=== PATIENT | male | born 1930 | race Caucasian/White ===

== ENCOUNTER 2017-11-05 07:55 | Day surgery (SDC) | payer MEDICARE, BC ==
--- OUTSIDE RECORDS SUMMARY | 2017-11-05 07:57 | XMS REPORT ---
:1930 Author Organization [facility] Address [address] [place] [address] [address] [address] Care Team Providers Name Role Phone SONYA MENCHACA Primary Care Provider Unavailable Problems This patient has no known problems. Allergies, Adverse Reactions, Alerts This patient has no known allergies or adverse reactions. Medications This patient has no known medications. Encounters Start End Encounter Admission Attending Care Care Encounter Date/Time Date/Time Type Type Clinicians Facility Department ID 2017-01-11 2017-01-11 Outpatient C [facility] [id number] 09:23:00 09:23:00
[2017-11-05 08:23] LABS: Protime INR 1.16
[2017-11-05] MEDS ORDERED: NA CHLORIDE 0.9% 500 ML ONE (09:33)
[2017-11-05] MEDS: PHENYLEPHRINE 10% OPTH 5ML ONE ×3 (10:05→10:15)
[2017-11-05] MEDS: CYCLOPENTOLATE 1% OPTH 2 ML ONE ×3 (10:05→10:15)
[2017-11-05] MEDS ORDERED: NS 0.9% VIAL 10 ML ONE (10:06)
[2017-11-05] MEDS ORDERED: MOXIFLOXACIN HCL 10 DROPS/ML **OR USE OPTH ONE (10:06)
[2017-11-05] MEDS ORDERED: BALANCED SALT IRRIG PLAIN 500 ML BTL IRR ONE (10:06)
[2017-11-05] MEDS ORDERED: DUOVISC 1 KIT OPTH ONE (10:06)
[2017-11-05] MEDS ORDERED: EPINEPHRINE/PF 1 MG/ML AMP ONE ×2 (10:06→11:22)
[2017-11-05] MEDS ORDERED: PROPOFOL 200 MG/20 ML VIAL IV ONE (10:27)
[2017-11-05] MEDS ORDERED: LIDOCAINE 2% MPF 5 ML VIAL ONE (10:28)
[2017-11-05] MEDS: LIDOCAINE 2% MPF 5 ML VIAL ONE ×2 (10:33→10:46)
[2017-11-05] MEDS: TETRACAINE HCL 0.5% 2ML OPTH ONE ×2 (10:33→10:45)
[2017-11-05] MEDS: BUPIVACAINE 0.25% PF 10 ML VIAL ONE ×2 (10:34→10:46)
[2017-11-05] MEDS ORDERED: BSS PLUS 500 ML BOTTLE IRR ONE (10:52)
--- NOTE | 2017-11-05 11:57 | P.BOP ---
Preoperative diagnosis: Nuclear sclerotic cataract and miosis OS Postoperative diagnosis: Same Primary procedure: Phacoemulsification with IOL, complex with the use of iris retractors Estimated blood loss: None Anesthesia: Local (Subtenon's infusion with anesthesia for cataract surgery) Complications: None Implants: ZCB00 +24.0 Transferred to: Other (Day surgery) Condition: Good
[2017-11-05 12:57] VITALS: BP 146/75; TEMP 97.4; O2SAT 100
--- NOTE | 2017-11-05 23:08 | OP ---
Date of Procedure: 11/05/2017 Surgeon: Joseline Luque MD Anesthesiologist: 1. Neal Henry CRNA. 2. Jesus Mccullough M.D. 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 Operation Performed: Phacoemulsification with intraocular lens implant left eye complex with the use of iris retractors. Anesthesia: Per cataract surgery. Complications: None. Description Of The Procedure: In day surgery, the patient was prepped with Betadine and draped. A lid speculum was placed in the left eye. A conjunctival incision was made in the inferior nasal quadrant with Nicolle scissors. A 1:1 mixture of 2% Xylocaine and 0.25% bupivacaine was placed around the globe. Approximately 5 mL were used. A Honan balloon was placed on the eye for approximately 5 minutes. The patient was brought into the operative room. The patient was prepped and draped in the usual sterile fashion for ophthalmic surgery. A lid speculum was placed in the eye. Paracentesis were made superiorly and inferiorly in the limbal cornea. Viscoat was placed in the anterior chamber. A crescent blade was used to create a tunnel incision in the temporal cornea and a keratome was used to enter the anterior chamber. Five additional paracentesis sites were created with one at the wound, one 180 degrees from the wound, and three in the superior and inferior quadrants; through these, 5 iris retractors were placed. Provisc was placed in the eye and 360 degree capsulotomy was performed. The lens was hydrodissected with balanced salt solution and moved freely. The lens was removed in a stop and chop fashion. 18.49 phaco CDE was required. Irrigation and aspiration was used to remove residual cortex. Provisc was placed in the eye. A ZCB00 +24.0 diopter lens was placed in the capsular bag without complications. The iris retractors were removed. Irrigation and aspiration was used to remove residual viscoelastic. The paracentesis sites were hydrated with balanced salt solution and the wound and paracentesis sites were inspected and found to be watertight. Intracameral Vigamox 0.07 cc was injected at the end of the procedure. The eye was irrigated with balanced salt solution. The eye was patched with a soft cotton patch and Epstein metal shield. The patient was returned to day surgery in good condition. Comments: A conjunctival incision was created temporally and the incision was initiated in the sclera. 1:5000 epinephrine was placed in the anterior chamber prior to Viscoat. The pupil did not dilate adequately and iris retractors were used. Bipolar cautery was used at the end of the procedure to reapproximate the conjunctiva. Discharge Instructions: Mr. Gutierres is discharged to home in good condition and is to follow up with Dr. Luque in the morning. KENYA/KHUSHBU Voice ID: [id number] Report ID: [id number] MTDD
== END 2017-11-05 12:30 | disposition home or self-care (01) ==
LOC: OR 07:55
PROVIDERS: ATTEND Ophthalmology Retina Specialist
PROC: 08RK3JZ Replacement of Left Lens with Synthetic Substitute, Percutaneous Approach (ICD-10-PCS; principal; 2017-11-05 10:30)
DX: H25.12 Age-related nuclear cataract, left eye (principal); H25.032 Anterior subcapsular polar age-related cataract, left eye; H57.03 Miosis; H43.813 Vitreous degeneration, bilateral; H35.3130 Nonexudative age-related macular degeneration, bilateral, stage unspecified; H18.51 Endothelial corneal dystrophy; I10 Essential (primary) hypertension; E78.00 Pure hypercholesterolemia, unspecified; M19.90 Unspecified osteoarthritis, unspecified site; K21.9 Gastro-esophageal reflux disease without esophagitis; Z85.528 Personal history of other malignant neoplasm of kidney; Z79.01 Long term (current) use of anticoagulants; Z79.82 Long term (current) use of aspirin
CPT/HCPCS: 36415; 66982; 85610; J0171 ×2

== ENCOUNTER 2018-02-11 10:45 | Day surgery (SDC) | payer MEDICARE, BC ==
--- OUTSIDE RECORDS SUMMARY | 2018-02-11 11:59 | XMS REPORT | Continuity of Care Document ---
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, OPID [place] Back pain Resolved Problem 12/02/2017 [facility], [facility] [place] Fatigue Active Problem 12/02/2017 [facility], OP[facility] [place] GERD - Resolved Problem 12/02/2017 [facility] Gastroesophageal Medical reflux disease [place], OPID [place] HLD - Resolved Problem 12/02/2017 [facility], OPID [place] TELIDA (<span Resolved Problem 12/02/2017 [facility] ID="[id number]"> Medical Confirmed</span>) Center, OPID [place] HTN - Hypertension Resolved Problem 12/02/2017 [facility], OP[facility] [place] Renal cancer Resolved Problem 12/02/2017 [facility], OP[facility] [place] Renal mass Resolved Problem 12/02/2017 [facility], [facility] [place] Arthritis of knee Resolved Problem 02/26/2017 [facility], OPID [place] Back pain Resolved Problem 02/26/2017 [facility], OPID [place] Fatigue Active Problem 02/26/2017 [facility], OPID [place] GERD - Resolved Problem 02/26/2017 [facility] Gastroesophageal Medical reflux disease [place], OPID [place] HLD - Resolved Problem 02/26/2017 [facility], OPID [place] TELIDA (<span Resolved Problem 02/26/2017 [facility] ID="[id number]"> Medical Confirmed</span>) Center, OPID [place] HTN - Hypertension Resolved Problem 02/26/2017 [facility], OPID [place] Renal cancer Resolved Problem 02/26/2017 [facility], OPID [place] Renal mass Resolved Problem 02/26/2017 [facility], OPID [place] Arthritis of knee Resolved Problem 12/13/2017 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, Medical Group GERD - Resolved Problem 12/13/2017 [facility] Gastro-esophageal Medical reflux disease Center, Medical Group HLD - Resolved Problem 12/13/2017 [facility], Medical Group TELIDA (<span Resolved Problem 12/13/2017 [facility] ID="[id number]"> Medical Confirmed</span>) Center, Medical Group HTN - Hypertension Resolved Problem 12/13/2017 [facility], Medical Group Frequency of Active Problem 12/13/2017 [facility] micturition [place], OPID [facility], Medical Group Malignant neoplasm Active Problem 12/13/2017 [facility] of left kidney, [place], except renal OPID pelvis [facility], Medical Group Neoplasm of Active Problem 12/13/2017 OPID uncertain behavior [place], of left kidney OPID [facility], Medical Group Nocturia Active Problem 12/13/2017 OPID [place], OPID [facility], Medical Group Renal cancer Resolved Problem 12/13/2017 [facility], Medical Group Renal mass Resolved Problem 12/13/2017 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 [place] Benign prostatic 11/08/2017 OPID hyperplasia with [place] lower urinary tract symptoms Aortic ectasia, 11/08/2017 OPID unspecified site [place] Diverticulosis of 11/08/2017 OPID large intestine [place] without perforation or abscess without bleeding Encounter for 11/08/2017 OPID screening for [place] malignant neoplasm of prostate Other fatigue Active Problem 11/20/2016 OPID [place], OPID [facility] ISCHEMIC Active [facility] GANGRENE, NOT Active ELSEWHERE [place] CLASSIFIED NEOPLASM OF Active [facility] UNCERTAIN BEHAVIOR Medical OF [facility] ENCNTR FOR GENERAL Active [facility] ADULT MEDICAL EXAM Medical W/ Center Medications Medication Details Route Status Patient Ordering Order Source Instructions Provider Date atorvastatin 20 mg 20 mg=1 tab, PO, Active oral tablet Bedtime, # 30 2018 Medical tab, 0 Refill(s) Group PreserVision AREDS 1 cap, PO, Active 2 oral capsule Daily, 0 2017 Medical Refill(s) Group Sodium Chloride 0 Refill(s) Active 0.854 MEQ/ML 2017 Medical Ophthalmic Group Solution [Jossie 128] warfarin 7.5 mg 7.5 mg=1 tab, Active oral tablet PO, Daily, 0 2017 Medical Refill(s) Group PreserVision AREDS 1 cap, PO, Active 2 Daily, 0 2017 Medical Refill(s) Group tamsulosin 0.4 mg 0.4 mg=1 cap, Active oral capsule PO, Daily, 0 2017 Medical Refill(s) Group nebivolol 2.5 MG 2.5 mg=1 tab, Active Oral Tablet PO, Daily, 0 2017 Medical [Bystolic] Refill(s) Group pantoprazole 40 MG 40 mg=1 tab, PO, Active Enteric Coated Daily, 0 2018 Medical Tablet [Protonix] Refill(s) Group Centrum Daily, 0 Active Refill(s) 2018 Medical Group Acetaminophen 500 1,000 mg=2 tab, Active MG Oral Tablet PO, Q6H, 0 2018 Medical [Tylenol] Refill(s) Group enoxaparin 100 70 mg, SUB-Q, Active .16.840 mg/mL subcutaneous Q12H, Administer 2016 .1.20844 solution 0.7 ml (70 mg) 3.3.615. of enoxaparin 95 (Lovenox) subcutaneously every 12 hours., # 20 ea, 0 Refill(s), Pharmacy: [place] [address] Warfarin Sodium 2 4 mg=2 tab, PO, Active [facility] MG Oral Tablet Daily, # 60 tab, 2016 Medical [Coumadin] 1 Refill(s), Center Pharmacy: [place] [address] enoxaparin 100 70 mg, SUB-Q, Active [place] mg/mL subcutaneous Q12H, Administer 2016 Medical solution 0.7 ml (70 mg) Center of enoxaparin (Lovenox) subcutaneously every 12 hours., # 20 ea, 0 Refill(s), Pharmacy: [place] [address] Sulfamethoxazole 0 Refill(s) Active [facility] 2016 Medical Center enoxaparin 100 70 mg, SUB-Q, Active [place] mg/mL subcutaneous Q12H, Administer 2016 Medical solution 0.7 ml (70 mg) Center of enoxaparin (Lovenox) subcutaneously every 12 hours., # 28 ea, 0 Refill(s) Acetaminophen 300 1 tab, PO, Q4H, Active [facility] MG / Codeine PRN Pain Score 2016 Medical Phosphate 30 MG 4-6, not to Center Oral Tablet exceed 4000 mg acetaminophen per day, X 7 day, # 42 tab, 0 Refill(s) 24 HR Nifedipine 30 mg=1 tab, PO, Active [place] 30 MG Extended BID, 0 Refill(s) 2016 Medical Release Tablet Center loratadine 10 mg 10 mg=1 tab, PO, Active [facility] oral tablet Daily, 0 2016 Medical Refill(s) Center doxycycline 100 mg=1 tab, Active [facility] hyclate 100 MG PO, [id number], november 2015 Medical Oral Capsule take with food Center to minimize abdominal discomfort, # 30 tab, 0 Refill(s) ciprofloxacin 250 250 mg=1 tab, Active [place] mg oral tablet PO, [id number], X 7 2015 day, # 14 tab, 0 Center Refill(s) Dulcolax Laxative 10 mg, 1 supp, Inactive [place] Route: [place], Drug 2015 Medical form: SUPP, Center ONCE, Dosing Weight 67.273, kg, PRN Gas, Start date: 09/12/15 10:48:00Notes: (Same As: Dulcolax, Bisco-Lax) lansoprazole 30 mg, Route: No Longer [place] PO, Drug form: Active 2015 Medical DRC, Daily, Center Dosing Weight 67.273, kg, Start date: 09/12/15 9:00:00, Duration: 30 day, Stop date: 10/11/15 9:00:00 nebivolol 5 mg, 1 tab, No Longer [place] Route: PO, Drug Active 2015 Medical form: TAB, Center Bedtime, Dosing Weight 67.273, kg, Start date: 09/11/15 21:00:00, Duration: 30 day, Stop date: 10/10/15 21:00:00Notes: (same as: Bystolic) atorvastatin 20 mg, 1 tab, No Longer [place] Route: PO, Drug Active 2015 Medical form: TAB, Center Bedtime, Dosing Weight 67.273, kg, Start date: 09/11/15 21:00:00, Duration: 30 day, Stop date: 10/10/15 21:00:00Notes: (Same As: Lipitor) Lovenox 40 mg, 0.4 mL, No Longer [place] Route: SUB-Q, Active 2015 Medical Drug form: INJ, Center [id number], Dosing Weight 67.273, kg, Start date: 09/11/15 19:00:00, Duration: 30 day, Stop date: 10/10/15 19:00:00Notes: (Same as: Lovenox) 24 HR Nifedipine 30 mg, 1 tab, No Longer [place] 30 MG Extended Route: PO, Drug Active 2015 Medical Release Tablet form: ERTAB, [place] BID, Dosing Weight 67.273, kg, Start date: 09/11/15 16:00:00, Duration: 30 day, Stop date: 10/11/15 8:00:00Notes: (Same as: Adalat CC, Procardia XL) Give on empty stomach. Take 1 hour before or 2 hours after meal; "Avoid grapefruit and grapefruit juice". Do not crush doxycycline 100 mg, 1 tab, No Longer [place] hyclate 100 MG Route: PO, Drug Active 2015 Medical Oral Capsule form: TAB, [place] [id number], Dosing Weight 67.273, kg, Start date: 09/11/15 12:00:00, Duration: 30 day, Stop date: 10/11/15 0:00:00Notes: NO MILK/ANTACIDS/IR ON Take 1 hour before or 2 hours after dairy products Loratadine 10 mg, 1 tab, No Longer [place] Route: PO, Drug Active 2015 Medical form: TAB, [place] Daily, Dosing Weight 67.273, kg, Start date: 09/11/15 12:00:00, Duration: 30 day, Stop date: 10/11/15 8:00:00Notes: 1 hr before meals (Same as: Claritin) Protonix 40 mg, 1 tab, No Longer [place] Route: PO, Drug Active 2015 Medical form: ECTAB, [place] Before Breakfast, Start date: 09/11/15 12:00:00, Duration: 30 day, Stop date: 10/11/15 7:30:00Notes: Tablet should not be chewed or crushed. (Same as: Protonix) Docusate 100 mg, Route: Inactive [place] PO, BID, Dosing 2015 Medical Weight 67.273, Center kg, PRN Constipation, Start date: 09/11/15 11:08:00, Duration: 30 day, Stop date: 10/11/15 11:07:00 Docusate 100 mg, PO, BID, Active [place] PRN as needed 2015 Medical for [place] constipation, 0 Refill(s) Dulcolax Laxative 10 mg, 1 supp, Inactive [place] Route: [place], Drug 2016 Medical form: SUPP, Center ONCE, Dosing Weight 67.273, kg, PRN Gas, Start date: 09/11/15 8:23:00Notes: (Same As: Dulcolax, Bisco-Lax) Aspirin 81 MG 81 mg=1 tab, PO, No Longer [facility] Enteric Coated Daily, # 90 tab, Active 2015 Medical Tablet 3 Refill(s) Center nebivolol 5 mg 5 mg=1 tab, PO, Active [facility] oral tablet Bedtime, 0 2015 Medical Refill(s) Center atorvastatin 20 mg 20 mg=1 tab, PO, Active [facility] oral tablet Bedtime, # 30 2016 Medical tab, 0 Refill(s) Center lansoprazole 30 mg 30 mg=1 cap, PO, Active [facility] oral delayed Daily, # 30 cap, 2015 Medical release capsule 0 Refill(s) Center 24 HR Nifedipine 30 mg=1 tab, PO, No Longer [facility] 30 MG Extended BID, 0 Refill(s) Active 2015 Medical Release Tablet Center ceFAZolin (SCIP) 1 gm, Route: Inactive [facility] IVPB, Drug form: 2016 Medical PDR/INJ, Q8H, Center Dosing Weight 67.273, kg, Start date: 09/10/15 16:00:00, Duration: 1 doses or times, Stop date: 09/10/15 16:00:00Notes: (Same As: Curt Leiva) MEDICATION WASTE Product Size: 1000 mg Product Wasted: ___ mg Ondansetron 4 mg, Route: Inactive [facility] IVP, ONCE, 2016 Medical Dosing Weight Center 67.273, kg, PRN Nausea & Vomiting, Start date: 09/10/15 10:36:00 Naloxone 0.04 mg, Route: Inactive [facility] IVP, Q2MIN, 2015 Medical Dosing Weight Center 67.273, kg, PRN Narcotic Reversal, Start date: 09/10/15 10:36:00, Duration: 8 doses or times, Stop date: Limited # of times Flumazenil 0.2 mg, Route: Inactive [facility] IVP, PRN, Dosing 2015 Medical Weight 67.273, Center kg, PRN Benzodiazepine Reversal, Initial dose, Start date: 09/10/15 10:36:00, Duration: 30 day, Stop date: 10/10/15 11:35:00 Hydromorphone 0.5 mg, Route: Inactive [facility] IVP, Q5Min, 2015 Medical Dosing Weight Center 67.273, kg, PRN Pain Score 7-10, Start date: 09/10/15 10:36:00, Duration: 4 doses or times, Stop date: Limited # of times Ephedrine 5 mg, Route: Inactive [facility] IVP, Q5Min, 2015 Medical Dosing Weight Center 67.273, kg, PRN Low Blood Pressure, Start date: 09/10/15 10:36:00, Duration: 30 day, Stop date: 10/10/15 11:35:00 Metoprolol 1 mg, Route: Inactive [facility] IVP, Q5Min, 2015 Medical Dosing Weight Center 67.273, kg, PRN Other -See Comment, Start date: 09/10/15 10:36:00, Duration: 5 doses or times, Stop date: Limited # of times Hydralazine 10 mg, Route: Inactive [facility] IVP, Q20Min, 2015 Medical Dosing Weight Center 67.273, kg, PRN Elevated BP, Start date: 09/10/15 10:36:00, Duration: 2 doses or times, Stop date: Limited # of times esmolol 10 mg, Route: Inactive [facility] IVP, Q5Min, 2015 Medical Dosing Weight Center 67.273, kg, PRN Other -See Comment, Start date: 09/10/15 10:36:00, Duration: 5 doses or times, Stop date: Limited # of times docusate sodium 100 mg, 1 cap, No Longer [place] 100 mg oral Route: PO, Drug Active 2015 Medical capsule form: CAP, BID, Center Dosing Weight 67.273, kg, Start date: 09/10/15 9:00:00, Duration: 30 day, Stop date: 10/09/15 17:00:00Notes: (Same as: Colace) (Do Not Crush) Famotidine 20 mg, 1 tab, No Longer [place] Route: PO, Drug Active 2015 Medical form: TAB, Q12H, Center Dosing Weight 67.273, kg, Start date: 09/10/15 9:00:00, Duration: 30 day, Stop date: 10/09/15 21:00:00Notes: (Same as: Pepcid) Cipro 250 mg, 1 tab, No Longer [place] Route: PO, Drug Active 2015 Medical form: TAB, Center [id number], Dosing Weight 67.273, kg, Start date: 09/10/15 9:00:00, Duration: 30 day, Stop date: 10/09/15 21:00:00Notes: May interfere w/enteral feedings - Hydromorphone 15 mg, 30 mL, No Longer [place] Route: IV, Active 2015 Medical Initial Loading Center Dose: 0 mg, [employer] Dose: 0.1mg, [employer] Lockout: 10 minutes, Continuous Basal Rate: 0 mg, 4 Hour Limit (In MG): 6, Drug Form: INJ, Continuous, Start date: 09/10/15 8:30:00, Duration: 30 day, Stop date: 10/10/15 9:29:00Notes: (Same as: Dilaudid) conc=0.5 mg/ml Hydromorphone [employer] Dose: ;Delay: ;Basal: Naloxone 0.04 mg, 0.1 mL, No Longer [place] Route: IVP, Drug Active 2015 Medical form: INJ, Center Q2MIN, Dosing Weight 67.273, kg, PRN Narcotic Reversal, Start date: 09/10/15 8:03:00, Duration: 30 day, Stop date: 10/10/15 9:02:00Notes: Same as Narcan Calcium Chloride 1,000 mL, Rate: No Longer [place] 0.0014 MEQ/ML / 125 ml/hr, Active 2015 Medical Potassium Chloride Infuse over: 8 Center 0.004 MEQ/ML / hr, Route: IV, Sodium Chloride Dosing Weight 0.103 MEQ/ML / 67.273 kg, Total Sodium Lactate Volume: 1,000, 0.028 MEQ/ML Start date: Injectable 09/10/15 Solution 8:03:00, Duration: 30 day, Stop date: 10/10/15 8:02:00 acetaminophen-code 2 tab, Route: No Longer [place] ine #3 PO, Drug Form: Active 2015 Medical TAB, Dosing Center Weight 67.273, kg, Q4H, PRN Pain Score 4-6, Start date: 09/10/15 8:03:00, Duration: 30 day, Stop date: 10/10/15 8:02:00Notes: Do not exceed 4gm/day of acetaminophen. (Same as: Tylenol with Codeine # 3) Ondansetron 4 mg, 2 mL, No Longer [place] Route: IVP, Drug Active 2015 Medical form: INJ, Q6H, Center Dosing Weight 67.273, kg, PRN Nausea & Vomiting, Start date: 09/10/15 8:03:00, Duration: 30 day, Stop date: 10/10/15 8:02:00Notes: (Same as: Zofran) MEDICATION WASTE Product Size: 4 mg Product Wasted: _0_ mg bupivacaine 20 mL, Route: Inactive [facility] liposome InFILtration(loc 2015 Medical al), Drug Form: Center INJ, ONCE, Start date: 09/10/15 8:00:00, Stop date: 09/10/15 8:00:00Notes: (Same as: Exparel) NOT FOR IV use Postoperative analgesia: Infiltration (local): Dose is based on surgical site and volume required to cover the area (in general, the maximum total dose is 266 mg). Bunionectomy: 7 mL into the tissues surrounding the osteotomy and 1 mL into the subcutaneous tissue of the surgical site (total dose=8 mL [106 mg]) Hemorrhoidectomy : 30 mL (20 mL vial diluted with 10 mL NS) divided and administered as 6 injections of 5 mL each (total dose=30 mL [266 mg]) Doxycycline 100 mg, PO, BID, No Longer [facility] 0 Refill(s) Active 2015 [facility] 24 HR Nifedipine 30 mg=1 tab, PO, Active [facility] 30 MG Extended BID, # 60 tab, 0 2015 Medical Release Tablet Refill(s) [place] loratadine 10 mg 10 mg=1 tab, PO, Inactive [facility] oral tablet Daily, # 30 tab, 2015 Medical 0 Refill(s) Center nebivolol 5 mg 5 mg=1 tab, PO, Active [facility] oral tablet Daily, # 30 tab, 2016 Medical 0 Refill(s) Center enoxaparin 80 70 mg=0.7 mL, Inactive [place] mg/0.8 mL SUB-Q, [id number], 2016 Medical subcutaneous # 28 syr, 0 Center solution Refill(s) doxycycline 100 mg=1 tab, Inactive [facility] hyclate 100 MG PO, [id number], # 2016 Medical Oral Capsule 60 tab, 0 Center Refill(s) atorvastatin 20 mg 20 mg=1 tab, PO, Active [facility] oral tablet Bedtime, # 30 2016 Medical tab, 0 Refill(s) Center lansoprazole 30 mg 30 mg=1 cap, PO, Active [facility] oral delayed Daily, # 30 cap, 2016 Medical release capsule 0 Refill(s) Center Aspirin 81 MG 81 mg=1 tab, PO, Active [facility] Chewable Tablet Daily, # 90 tab, 2016 Medical 0 Refill(s) Center tramadol 50 mg=1 tab, PO, Inactive [facility] hydrochloride 50 Q8H, PRN Pain, # 2016 Medical MG Oral Tablet 60 tab, 0 Center Refill(s) doxycycline 100 mg, 1 tab, No Longer [facility] hyclate 100 MG Route: PO, Drug Active 2015 Medical Oral Capsule form: TAB, Center [id number], Dosing Weight 67.4, kg, Start date: 08/09/15 14:00:00, Duration: 30 day, Stop date: 09/08/15 2:00:00Notes: NO MILK/ANTACIDS/IR ON Take 1 hour before or 2 hours after dairy products Lovenox 70 mg, 0.7 mL, No Longer [place] Route: SUB-Q, Active 2015 Medical Drug form: INJ, Center [id number], Start date: 08/07/15 21:00:00, Duration: 30 day, Stop date: 09/06/15 9:00:00Notes: Nurse to ensure documentation of patient education per anticoagulation policy. (Same as: Lovenox) docusate sodium 100 mg, 1 cap, No Longer [place] 100 mg oral Route: PO, Drug Active 2015 Medical capsule form: CAP, Center Bedtime, Dosing Weight 67.4, kg, PRN as needed for constipation, Start date: 08/04/15 20:23:00, Duration: 30 day, Stop date: 09/03/15 20:22:00Notes: (Same as: Colace) (Do Not Crush) Miralax 17 gm, 1 pkt, No Longer [place] Route: PO, Drug Active 2015 Medical form: PWDR, BID, Center Dosing Weight 67.4, kg, Start date: 08/04/15 20:23:00, Duration: 30 day, Stop date: 09/03/15 17:00:00Notes: Dissolve in 8 oz of water or juice. (Same as: Miralax) ceftaroline 600 mg, Route: No Longer [place] IVPB, [id number], Active 2015 Medical Dosing Weight Center 67.4, kg, Start date: 08/04/15 18:00:00, Duration: 30 day, Stop date: 09/03/15 6:00:00, For CrCl > 50 ml/minNotes: Reserved for use by ID Physicians in refractory MRSA skin and skin structure infections or intolerance to vancomycin, daptomycin or linezolid. MEDICATION WASTE Product Size: 600 mg Product Wasted: ___ mg Naloxone 0.04 mg, Route: Inactive [place] IVP, Q2MIN, 2015 Medical Dosing Weight Center 67.4, kg, PRN Narcotic Reversal, Start date: 08/04/15 14:10:00, Duration: 8 doses or times, Stop date: Limited # of times Flumazenil 0.2 mg, Route: Inactive [place] IVP, PRN, Dosing 2015 Medical Weight 67.4, kg, Center PRN Benzodiazepine Reversal, Initial dose, Start date: 08/04/15 14:10:00, Duration: 30 day, Stop date: 09/03/15 14:09:00 Ondansetron 4 mg, Route: Inactive [place] IVP, ONCE, 2015 Medical Dosing Weight Center 67.4, kg, PRN Nausea & Vomiting, Start date: 08/04/15 14:10:00 Cefazolin 2 gm, Route: Inactive [place] IVP, ONCE, 2016 Medical Dosing Weight Center 67.4, kg, Start date: 08/04/15 13:11:00, Duration: 1 doses or times, Stop date: 08/04/15 13:11:00, Surgical Prophylaxis Only; For patients Multihance 529 13.48 mL, Route: Inactive [place] mg/mL IVP, Drug form: 2016 Medical SOLKELLY [place], Center Dosing Weight 67.4, kg, GFR > 39 ml/min, Priority: STAT, Start date: 07/31/15 23:15:00, Duration: 1 doses or times Levaquin 750 mg, 1 tab, No Longer [place] Route: PO, Drug Active 2015 Medical form: TAB, Center [id number], Dosing Weight 67.472, kg, Start date: 07/30/15 17:00:00, Duration: 30 day, Stop date: 08/28/15 17:00:00Notes: Do not give w/antacids, dairy pdt & minerals Take 1 hr before or 2 hr after dairy products Flagyl 500 mg, 1 tab, No Longer [place] Route: PO, Drug Active 2015 Medical form: TAB, Center [id number], Dosing Weight 67.472, kg, Start date: 07/30/15 17:00:00, Duration: 30 day, Stop date: 08/29/15 9:00:00Notes: (Same as: Flagyl) Take with food/ avoid alcohol Amina 60 mg, Route: No Longer [place] PO, Daily, Active 2015 Medical Dosing Weight Center 67.472, kg, Start date: 07/29/15 9:00:00, Duration: 30 day, Stop date: 08/27/15 9:00:00 Claritin 10 mg, 1 tab, No Longer [place] Route: PO, Drug Active 2015 Medical form: TAB, Center Daily, Start date: 07/28/15 12:00:00, Duration: 30 day, Stop date: 08/27/15 9:00:00Notes: 1 hr before meals (Same as: Claritin) Phenylephrine 2 spray, Route: No Longer [place] Hydrochloride 5 Each Affected Active 2015 Medical MG/ML Nasal [place] Nostril, Q4H, Center [Afrin Nasal] Drug form: SPRY, PRN Nasal Congestion, Priority: NOW, Start date: 07/28/15 11:03:00, Duration: 3 day, Stop date: 07/31/15 11:02:00Notes: (phenylephrine 0.5% 15 ml nasal SPR) (Same as: Marcelo-Synephrine Nasal) potassium chloride 20 mEq, 1 tab, No Longer [facility] Route: PO, Drug Active 2015 Medical form: ERTAB, Center PRN, Dosing Weight 67.472, kg, PRN Abnormal Lab Result, For NON-ICU Patients Only, Start date: 07/27/15 16:41:00, Duration: 30 day, Stop date: 08/26/15 16:40:00Notes: (Same as: K-Dur 20) "Do Not Crush" With food and full glass of water Calcium Gluconate 3 gm, 30 mL, No Longer [facility] Route: IVPB, Active 2015 Medical Drug form: INJ, Center PRN, Dosing Weight 67.472, kg, PRN Abnormal Lab Result, For NON-ICU Patients Only., Start date: 07/27/15 16:41:00, Duration: 30 day, Stop date: 08/26/15 16:40:00 potassium 2 pkt, Route: No Longer [place] phosphate-sodium PO, Drug Form: Active 2015 Medical phosphate 250 PDR/REC, Dosing Center mg-278 mg-164 mg Weight 67.472, oral powder kg, PRN, PRN Abnormal Lab Result, For NON-ICU Patients Only, Start date: 07/27/15 16:41:00, Duration: 30 day, Stop date: 08/26/15 16:40:00Notes: (Same as: Neutra-Phos) Each 1.25 gm pkt has 250mg phosphorous. Mix w/2.5oz water and stir. sodium phosphate + 15 mmol, 5 mL, No Longer [place] Sodium Chloride Route: IVPB, Active 2015 Medical 0.9% IV 250 mL PRN, Dosing Center Weight 67.472, kg, PRN Abnormal Lab Result, For NON-ICU Patients Only., Start date: 07/27/15 16:41:00, Duration: 30 day, Stop date: 08/26/15 16:40:00 potassium 15 mmol, 5 mL, No Longer [place] phosphate + Sodium Route: IVPB, Active 2015 Medical Chloride 0.9% IV PRN, Dosing Center 250 mL Weight 67.472, kg, PRN Abnormal Lab Result, For NON-ICU Patients Only., Start date: 07/27/15 16:41:00, Duration: 30 day, Stop date: 08/26/15 16:40:00Notes: (Same as: K Phosphate.) 1 mMol phoshate has 1.47 mEq potassium Infuse over 4 hours Magnesium Sulfate 2 gm, 50 mL, No Longer [facility] Route: IVPB, Active 2015 Medical Drug form: INJ, Center PRN, Dosing Weight 67.472, kg, PRN Abnormal Lab Result, For NON-ICU Patients Only., Start date: 07/27/15 16:41:00, Duration: 30 day, Stop date: 08/26/15 16:40:00 Magnesium Oxide 800 mg, 2 tab, No Longer [facility] Route: PO, Drug Active 2015 Medical form: TAB, PRN, Center Dosing Weight 67.472, kg, PRN Abnormal Lab Result, For NON-ICU Patients Only., Start date: 07/27/15 16:41:00, Duration: 30 day, Stop date: 08/26/15 16:40:00Notes: (Same as: Mag-Ox 400) Magnesium oxide [id number] elemental magnesium Dose=____mg magnesium oxide (___mg elemental magnesium) Warfarin 2.5 mg, 1 tab, Inactive [place] Route: PO, Drug 2015 Medical form: TAB, Q5PM, Center Dosing Weight 67.472, kg, Start date: 07/26/15 17:00:00, Duration: 1 doses or times, Stop date: 07/26/15 17:00:00Notes: Nurse to ensure documentation of patient education per anticoagulation policy. Avoid large intake of vitamin-K containing foods diet. (Same As: Coumadin) Unasyn 3 gm, 1 ea, No Longer [facility] Route: IVPB, Active 2015 Medical Drug form: Center PDR/INJ, Q6H, Dosing Weight 67.472, kg, Start date: 07/26/15 14:00:00, Stop date: 08/25/15 6:00:00Notes: Dosing based on Ampicillin component (Same as: Unasyn) 24 HR Nifedipine 30 mg, 1 tab, No Longer [place] 30 MG Extended Route: PO, Drug Active 2015 Medical Release Tablet form: ERTAB, Center BID, Dosing Weight 67.472, kg, Start date: 07/25/15 17:00:00, Stop date: 08/24/15 9:00:00Notes: (Same as: Adalat CC, Procardia XL) Give on empty stomach. Take 1 hour before or 2 hours after meal; "Avoid grapefruit and grapefruit juice". Do not crush Warfarin 5 mg, 1 tab, Inactive [place] Route: PO, Drug 2015 Medical form: TAB, Q5PM, Center Dosing Weight 67.472, kg, Start date: 07/25/15 17:00:00, Duration: 1 doses or times, Stop date: 07/25/15 17:00:00Notes: Nurse to ensure documentation of patient education per anticoagulation policy. Avoid large intake of vitamin-K containing foods diet. (Same As: Coumadin) Bystolic 5 mg, 1 tab, No Longer [place] Route: PO, Drug Active 2015 Medical form: TAB, Center Daily, Dosing Weight 67.472, kg, Priority: Within 4 hours, Start date: 07/25/15 11:00:00, Stop date: 08/24/15 9:00:00Notes: (same as: Bystolic) Lovenox 60 mg, 0.6 mL, No Longer [place] Route: SUB-Q, Active 2015 Medical Drug form: INJ, Center [id number], Dosing Weight 67.472, kg, Start date: 07/25/15 10:00:00, Duration: 30 day, Stop date: 08/23/15 22:00:00Notes: Nurse to ensure documentation of patient education per anticoagulation policy. (Same as: Lovenox) Warfarin 7.5 mg, 1 tab, Inactive [place] Route: PO, Drug 2015 Medical form: TAB, Q5PM, Center Dosing Weight 67.472, kg, Start date: 07/24/15 17:00:00, Duration: 1 doses or times, Stop date: 07/24/15 17:00:00Notes: Nurse to ensure documentation of patient education per anticoagulation policy. Avoid large intake of vitamin-K containing foods diet. (Same As: Coumadin) acetaminophen-code 1 tab, Route: No Longer [facility] ine 300 mg-30 mg PO, Drug Form: Active 2016 Medical oral tablet TAB, Q4H, PRN Center Pain Score 1-3, Start date: 07/24/15 12:58:00, Duration: 30 day, Stop date: 08/23/15 12:57:00Notes: Do not exceed 4gm/day of acetaminophen. (Same as: Tylenol with Codeine # 3) Acetaminophen 300 1 tab, Route: Inactive [facility] MG / Codeine PO, Drug Form: 2016 Medical Phosphate 15 MG TAB, Dosing Center Oral Tablet Weight 67.472, kg, Q4H, PRN Pain Score 1-3, Start date: 07/24/15 12:56:00, Duration: 30 day, Stop date: 08/23/15 12:55:00 Warfarin 5 mg, 1 tab, Inactive [facility] Route: PO, Drug 2015 Medical form: TAB, Q5PM, Center Dosing Weight 68.682, kg, Start date: 07/23/15 17:00:00, Duration: 1 doses or times, Stop date: 07/23/15 17:00:00Notes: Nurse to ensure documentation of patient education per anticoagulation policy. Avoid large intake of vitamin-K containing foods diet. (Same As: Coumadin) Nifedipine 20 MG 30 mg, 3 cap, No Longer [facility] Oral Capsule Route: PO, Drug Active 2015 Medical form: CAP, Q12H, Center Dosing Weight 68.682, kg, Start date: 07/22/15 21:00:00, Duration: 30 day, Stop date: 08/21/15 9:00:00Notes: (Same as: Adalat, Procardia) "Avoid grapefruit and grapefruit juice Warfarin 5 mg, 1 tab, Inactive [facility] Route: PO, Drug 2014 Medical form: TAB, Q5PM, Center Dosing Weight 68.682, kg, Start date: 07/22/15 17:00:00, Duration: 1 doses or times, Stop date: 07/22/15 17:00:00Notes: Nurse to ensure documentation of patient education per anticoagulation policy. Avoid large intake of vitamin-K containing foods diet. (Same As: Coumadin) atorvastatin 20 mg, 1 tab, No Longer [place] Route: PO, Drug Active 2014 Medical form: TAB, Center Bedtime, Dosing Weight 68.682, kg, Start date: 07/21/15 21:00:00, Duration: 30 day, Stop date: 08/19/15 21:00:00Notes: (Same As: Lipitor) Warfarin 5 mg, 1 tab, Inactive [facility] Route: PO, Drug 2014 Medical form: TAB, Q5PM, Center Dosing Weight 68.682, kg, Start date: 07/21/15 17:00:00, Duration: 1 doses or times, Stop date: 07/21/15 17:00:00Notes: Nurse to ensure documentation of patient education per anticoagulation policy. Avoid large intake of vitamin-K containing foods diet. (Same As: Coumadin) Cardizem CD 360 mg, 2 cap, No Longer [facility] Route: PO, Drug Active 2014 Medical form: ERCAP, Center Daily, Dosing Weight 68.682, kg, Start date: 07/21/15 9:00:00, Duration: 30 day, Stop date: 08/19/15 9:00:00Notes: (Same as:Cardizem CD) Before meals. DO NOT CRUSH. Warfarin 2.5 mg, 1 tab, Inactive [place] Route: PO, Drug 2014 Medical form: TAB, Q5PM, Center Dosing Weight 68.682, kg, Start date: 07/20/15 17:00:00, Duration: 1 doses or times, Stop date: 07/20/15 17:00:00Notes: Nurse to ensure documentation of patient education per anticoagulation policy. Avoid large intake of vitamin-K containing foods diet. (Same As: Coumadin) Warfarin 2.5 mg, 1 tab, Inactive [facility] Route: PO, Drug 2014 Medical form: TAB, Q5PM, Center Dosing Weight 68.682, kg, Start date: 07/19/15 17:00:00, Duration: 1 doses or times, Stop date: 07/19/15 17:00:00Notes: Nurse to ensure documentation of patient education per anticoagulation policy. Avoid large intake of vitamin-K containing foods diet. (Same As: Coumadin) Versed 2 mg, 2 mL, Inactive [place] Route: IVP, Drug 2014 Medical form: INJ, ONCE, Center Dosing Weight 68.682, kg, Start date: 07/18/15 11:35:00, Stop date: 07/18/15 11:35:00Notes: (Same as: Versed) MEDICATION WASTE Product Size: 2 mg Product Wasted: ___ mg Fentanyl 50 microgram, 1 Inactive [place] mL, Route: IV, 2014 Medical Drug form: INJ, Center ONCE, Dosing Weight 68.682, kg, PRN Pain Score 7-10, Start date: 07/18/15 11:35:00, Pediatric Dosing; For procedure; > 50 kgNotes: (Same as: Sublimaze) Preservative free. Isolyte S PH 7.4 1,000 mL, Rate: No Longer [facility] 1,000 mL 100 ml/hr, Active 2014 Medical Infuse over: 10 Center hr, Route: IV, Dosing Weight 68.682 kg, Total Volume: 1,000, start at midnight when NPO, Start date: 07/17/15 17:28:00, Duration: 30 day, Stop date: 08/16/15 17:27:00Notes: (Same as: Isolyte S PH 7.4) Tramadol 50 mg, 1 tab, No Longer [facility] Route: PO, Drug Active 2014 Medical form: TAB, Q4H, Center Dosing Weight 68.682, kg, PRN Pain Score 1-3, Start date: 07/17/15 11:26:00, Duration: 30 day, Stop date: 08/16/15 11:25:00Notes: Not to exceed 400mg/day. (Same As: Ultram) Acetaminophen 325 1 tab, Route: No Longer [facility] MG / Hydrocodone PO, Drug Form: Active 2014 Medical Bitartrate 5 MG TAB, Dosing Center Oral Tablet [[place] Weight 68.682, 5/325] kg, Q4H, PRN Pain Score 1-3, Start date: 07/17/15 11:22:00, Duration: 30 day, Stop date: 08/16/15 11:21:00Notes: (Same as: [place] 325/5) Do not exceed 4gm/day of acetaminophen. Hydralazine 10 mg, 0.5 mL, No Longer [facility] Route: IVP, Drug Active 2014 Medical form: INJ, Q4H, Center Dosing Weight 68.682, kg, PRN Hypertension, Start date: 07/15/15 13:43:00, Duration: 30 day, Stop date: 08/14/15 13:42:00, SBP >160mmHgNotes: (Same as: Apresoline) Push over 5 minutes D5W 1/2NS 1,000 mL 1,000 mL, Rate: No Longer [facility] 100 ml/hr, Active 2014 Medical Infuse over: 10 Center hr, Route: IV, Dosing Weight 68.682 kg, Total Volume: 1,000, Start date: 07/15/15 13:34:00, Duration: 30 day, Stop date: 08/14/15 13:33:00 Insulin, Aspart, 2 unit, 0.02 mL, No Longer [facility] Human Route: SUB-Q, Active 2014 Medical Drug form: SOLN, Center Sliding Scale, Dosing Weight 68.682, kg, PRN Blood Glucose Results, Start date: 07/15/15 11:18:00, Duration: 30 day, Stop date: 08/14/15 11:17:00Notes: Roll in palms of hands gently; Do not shake vigorously. (Same as: NovoLOG) "single patient use only" Stable for 28 days at room temperature. Expires in days from Da te Dextrose 50% 12.5 gm, 25 mL, No Longer [place] Syringe Route: IVP, Drug Active 2014 Medical Form: INJ, Center Dosing Weight 68.682, kg, PRN, PRN Blood Glucose Results, Start date: 07/15/15 11:18:00, Duration: 30 day, Stop date: 08/14/15 11:17:00 Glucagon 1 mg, Route: IM, No Longer [facility] Drug form: Active 2014 Medical PDR/INJ, PRN, Center Dosing Weight 68.682, kg, PRN Blood Glucose Results, Start date: 07/15/15 11:18:00, Duration: 30 day, Stop date: 08/14/15 11:17:00 iodixanol 140 mL, Route: Inactive [place] IVP, Drug Form: 2014 Medical SOLN, Dosing Center Weight 68.682, kg, ONCALL, STAT, Start date: 07/15/15 10:19:00, Duration: 1 doses or times, Dose=2.2ml/kg, Max nlvu=[id number] -- "To be infused by Radiology Staff ONLY" multivitamin 1 tab, Route: No Longer [place] PO, Drug Form: Active 2014 Medical TAB, Dosing Center Weight 68.682, kg, Daily, Start date: 07/15/15 9:00:00, Duration: 30 day, Stop date: 09/12/15 9:00:00Notes: (Same as:Thera) Take with food. lansoprazole 30 mg, 1 cap, No Longer [facility] Route: PO, Drug Active 2014 Medical form: DRC, Center Daily, Dosing Weight 68.682, kg, Start date: 07/15/15 9:00:00, Duration: 30 day, Stop date: 09/12/15 9:00:00Notes: (Same as:Prevacid) Take 1 hour before or 2 hours after meal; "Do Not Crush" Aspirin 81 MG 81 mg, 1 tab, No Longer [facility] Chewable Tablet Route: PO, Drug Active 2014 Medical form: CHE[place]AB, Center Daily, Dosing Weight 68.682, kg, Start date: 07/15/15 9:00:00, Duration: 30 day, Stop date: 09/12/15 9:00:00Notes: Take with food. Complex-15 topical 1 appl, Route: No Longer [facility] lotion TOP, BID, Drug Active 2014 Medical form: LOT, PRN [place] Dry Skin, Start date: 07/15/15 6:39:00, Duration: 30 day, Stop date: 08/14/15 6:38:00Notes: (Same as: Cetaphil Lotion) heparin 5,000 unit, Inactive [place] Route: SUB-Q, 2014 Medical Q12H, Dosing Center Weight 68.682, kg, Start date: 07/14/15 21:00:00, Duration: 30 day, Stop date: 08/13/15 9:00:00 heparin additive 500 mL, Rate: No Longer [place] 25,000 unit [14 19.23 ml/hr, Active 2014 Medical unit/kg/hr] + Infuse over: 26 Center Premix Diluent hr, Route: IV, Dextrose 5% 500 mL Dosing Weight 68.682 kg, Total Volume: 500 mL, Start date: 07/14/15 21:00:00, Duration: 30 day, Stop date: 08/13/15 20:59:00 Cartia XT 240 mg, 1 cap, No Longer [place] Route: PO, Drug Active 2014 Medical form: ERCAP, Center Daily, Dosing Weight 68.682, kg, Start date: 07/14/15 20:57:00, Duration: 30 day, Stop date: 08/13/15 9:00:00Notes: (Same as: Cardizem CD) Before meals. DO NOT CRUSH. tramadol 50 mg, 1 tab, No Longer [place] hydrochloride 50 Route: PO, Drug Active 2014 Medical MG Oral Tablet form: TAB, Q8H, Center Dosing Weight 68.682, kg, PRN Pain Score 1-3, Start date: 07/14/15 20:56:00, Duration: 30 day, Stop date: 08/13/15 20:55:00Notes: Not to exceed 400mg/day. (Same As: Ultram) Sodium Chloride 1,000 mL, Rate: No Longer [place] 0.45% IV 1,000 mL 100 ml/hr, Active 2014 Medical Infuse over: 10 Center hr, Route: IV, Dosing Weight 68.682 kg, Total Volume: 1,000, Start date: 07/14/15 20:55:00, Duration: 30 day, Stop date: 08/13/15 20:54:00 lansoprazole 30 mg 30 mg=1 cap, PO, No Longer [place] oral delayed Daily, 0 Active 2014 Medical release capsule Refill(s) [place] 24 HR Diltiazem 240 mg=1 cap, No Longer [place] Hydrochloride 240 PO, Daily, 0 Active 2014 Medical MG Extended Refill(s) [place] Release Capsule [Cartia] tramadol 50 mg=1 tab, PO, No Longer [place] hydrochloride 50 Q8H, PRN Pain, # Active 2014 Medical MG Oral Tablet 60 tab, 0 Center Refill(s) Aspirin 81 MG 81 mg=1 tab, PO, No Longer [place] Chewable Tablet Daily, tab, 0 Active 2014 Medical Refill(s) [place] multivitamin PO, Daily, 0 Active [facility] Refill(s) 2014 [facility] Allergies, Adverse Reactions, Alerts Substance Category Reaction Severity Reaction Status Date Comments Source type Reported NKDA Assertion Drug Active allergy Medical Group Immunizations Immunization Date Given Site Status Last Updated Comments Source influenza virus 07/22/2015 completed [facility] vaccine, [facility] inactivated [place],[id number] influenza virus 07/22/2015 [facility] inactivated [facility] Results Order Name Results Value Reference Date Interpretation Comments Source Range URINE AND POC UA Negative Negative 12/10 [facility] *NA* Group (12/10/17 2:13 PM) URINE AND POC UA Nit Negative Negative 12/10 [facility] Medical *NA* Group (12/10/17 2:13 PM) URINE AND POC UA Color Yellow Yellow 12/10 [facility] Medical *NA* Group (12/10/17 2:13 PM) URINE AND POC UA Clear Clear 12/10 STOOL [facility] *NA* Group (12/10/17 2:13 PM) URINE AND POC UA Glu Negative Negative 12/10 [facility] mg/dL mg/dL Medical Group URINE AND POC UA Prot Negative Negative 12/10 [facility] mg/dL mg/dL Medical Group URINE AND POC UA pH 6.5 5.0 - 8.0 12/10 [facility] Medical Group URINE AND POC UA SG 1.010 <=1.030 12/10 STOOL /2018 Medical Group URINE AND POC UA Bld Negative Negative 12/10 [facility] Medical *NA* Group (12/10/17 2:13 PM) URINE AND POC UA Uro 0.2 EU/dL 0.1 - 1.0 12/10 [facility]OOL Medical Group URINE AND POC UA Bili Negative Negative 12/10 [facility] Medical *NA* Group (12/10/17 2:13 PM) URINE AND POC UA Ket Negative Negative 12/10 [facility]OOL mg/dL mg/dL Medical Group Chest 2 Chest 2 Clinical Indication: History of renal cancer 11/29 - OPID views DX views DX /2017 - [place] Comparison: 02/23/2017 Read by: Dmitriy Nice MD Dictated Date/time: 11/29/17 13:48 FINDINGS: Electronically Signed by: Dmitriy Nice MD 11/29/17 13:48 FINAL REPORT PA and lateral views of the chest are performed. Heart size is within normal limits. Stable tortuosity of the thoracic aorta. Lungs are clear without infiltrate or mass. No pleural effusion or pneumothorax. No acute osseous abnormality. IMPRESSION: 1. No radiographic evidence for acute process in the chest. SL: [id number] URINE AND POC UA Negative Negative 08/13 STOOL [facility] *NA* Group (08/13/17 1:34 PM) URINE AND POC UA Nit Negative Negative 08/13 Medical *NA* Group (08/13/17 1:34 PM) URINE AND POC UA Uro 0.2 EU/dL 0.1 - 1.0 08/13 STOOL Medical Group URINE AND POC UA Clear Clear 08/13 STOOL [facility] *NA* Group (08/13/17 1:34 PM) URINE AND POC UA Color Yellow Yellow 08/13 STOOL Medical *NA* Group (08/13/17 1:34 PM) URINE AND POC UA Glu Negative Negative 08/13 STOOL mg/dL mg/dL Medical Group URINE AND POC UA Prot Negative Negative 08/13 STOOL mg/dL mg/dL Medical Group URINE AND POC UA pH 6.0 5.0 - 8.0 08/13 STOOL Medical Group URINE AND POC UA SG <=1.005 <=1.030 08/13 STOOL
*NA*< Medical br/>(08/13/ 18 1:34 PM) URINE AND POC UA Ket Negative Negative 08/13 STOOL mg/dL mg/dL Medical Group URINE AND POC UA Bld Negative Negative 08/13 STOOL Medical *NA* Group (08/13/17 1:34 PM) URINE AND POC UA Bili Negative Negative 08/13 STOOL Medical *NA* Group (08/13/17 1:34 PM) Chest wo Chest wo Study: Chest wo contrast CT 08/02 - OPID contrast CT contrast CT - [place] Clinical Indication: - freq micturition nocrutia fatigue hypoganadism lt renal ca enlarged prost Read by: Ronal Clark MD Dictated Date/time: 08/02/17 10:58 Electronically Signed by: Ronal Clark MD 08/02/17 11:03 FINAL REPORT Comparison: CT scan of the chest from 11/17/2016, 03/09/2016, 12/10/2015 TECHNIQUE: Multiple axial CT images of the chest were acquired without the administration of intravenous contrast. Coronal and sagittal reconstructions were obtained. Dose: DAQ=565.91 mGy-cm FINDINGS: Heart is mildly enlarged. Pericardium is unremarkable. Aortic annular, coronary artery, and thoracic aortic calcifications are seen. Ectasia of the ascending thoracic aorta is seen measuring 4 cm in diameter. No pathologic mediastinal, hilar, or axillary adenopathy is seen. No endobronchial lesions are identified within the central airways. The lungs are clear and without consolidation, ma ss, or nodule. No pleural effusion or pneumothorax is seen. The superficial soft tissues of the chest wall are unremarkable. No suspicious osseous lesions are seen. Please refer to report from CT of the abdomen and pelvis performed the same day for complete subdiaphragmatic findings. IMPRESSION: 1. No acute cardiopulmonary disease. 2. No evidence of metastatic disease to the chest. 3. Stable ectasia of the ascending thoracic aorta. SL: [id number] Abdomen/Pel Abdomen/Pelv Study: Abdomen/Pelvis wo IV contrast CT 08/02 - OPID vis wo IV is wo IV - [place] contrast CT contrast CT Clinical Indication: - micturition nocturia fatique hypogonadism lt kindey ca prost screening lower ut sympts Read by: Ronal Clark MD Dictated Date/time: 08/02/17 11:04 Electronically Signed by: Ronal Clark MD 08/02/17 11:08 FINAL REPORT Comparison: CT abdomen and pelvis from 11/17/2016, 03/09/2016, 12/10/2015 TECHNIQUE: Multiple axial CT images of the abdomen and pelvis were acquired without the administration of intravenous contrast. Sagittal and coronal reformatted images were performed. CT Radiation Dose DLP 470.91 mGy-cm FINDINGS: Please refer to report from CT of the chest performed the same day for complete intrathoracic findings. Stable 1 cm hypodense cyst in the lateral segment of the left hepatic lobe is seen. 4.3 cm stable right renal hypodense cyst is also noted. Gallbladder, pancreas, spleen, and right adrenal gland are wit hin the normal limits imposed by the lack of intravenous contrast. Stable changes of left nephrectomy are seen. Mild nodularity of the left adrenal gland is noted. Urinary bladder shows mild wall thickening. Prostate is severely enlarged. Numerous sigmoid diverticula are seen without inflammatory change to suggest acute diverticulitis. The appendix is not clearly visualized. No free air, free fluid, or pathologic adenopathy is seen. Diffuse arterial calcifications are noted. Superficial soft tissues are unremarkable. Advanced degenerative changes of the lumbar spine are seen. There are no suspicious osseous lesions. IMPRESSION: 1. No acute intra-abdominal/pelvic abnormality. 2. No evidence of recurrent or metastatic disease to the abdomen/pelvis. 3. Prostate gland enlargement. 4. Mild wall thickening of the urinary bladder which may be related to chronic bladder outlet obstruction. 5. Sigmoid diverticulosis without acute diverticulitis. SL: [id number] Chest 2 Chest 2 EXAM: XR CHEST 2 VIEWS 02/23 - OPID views DX views DX /2016 - [place] DATE: 02/23/2017 9:49 AM CDT Read by: Jeferson Coulter MD Dictated Date/time: 02/23/17 10:15 Electronically Signed by: Jeferson Coulter MD 02/23/17 10:15 FINAL REPORT INDICATION: - R05 Cough COMPARISON: 07/06/2016 TECHNIQUE: PA and lateral chest radiographs FINDINGS: There is stable unfolding of the aortic arch. No pulmonary or pleural-based abnormality is identified. Pulmonary vascularity is normal. The heart size is normal. No acute bony abnormality is identified. IMPRESSION: No acute cardiopulmonary abnormality. Chest/Abdom Chest/Abdome Patient Name: ISAEL NIETO 11/17 - OPID en/Pelvis n/Pelvis - [place] wo IV IV contrast : 1930; Age: 86 [address] CT MR: [id number] Read by: Darion Lewis MD Dictated Date/time: 11/17/16 14:57 Electronically Signed by: Darion Lewis MD 11/17/16 15:25 FINAL REPORT Study: Chest/Abdomen/Pelvis wo IV contrast CT 11/17/2016 9:17 AM CDT Clinical Indication: malig neoplasm lt kidney ct dose dlp 1002.15. COMPARISON: 03/09/2016. 12/10/2015. 07/15/2015. TECHNIQUE: Helical imaging was performed diaphragm through the symphysis with multiplanar reformations obtained without IV contrast. FINDINGS: LUNG PARENCHYMA AND PLEURA: There are no infiltrates. Stable left upper lobe scarring. Bibasilar atelectasis. There are no pleural effusions. There is no pneumothorax. AIRWAY: The central airway is normal. MEDIASTINUM: Small AP window lymph node measures 8 mm in diameter similar to the prior exam. Cardiomegaly with coronary artery calcifications. The aortic root measures 4.4 cm similar to the prior exam. The aorta at the pulmonary arterial bifurcation measures 3.4 cm. The descending thoracic aorta measures 3.7 cm in diameter. There is tortuosity of the distal aorta. ABDOMEN: No free air. LIVER: Stable 8-9 mm low-density lesion in the left lobe liver to 2014 measuring 14 Hounsfield units. BILIARY TREE: Normal. GALLBLADDER: Mildly contracted. PANCREAS: Normal. SPLEEN: Normal. ADRENALS: Normal. KIDNEYS: Post left nephrectomy. Soft tissue density in the left renal bed measures 13 mm versus 15 mm on 03/09/2016 and 24 mm on 12/10/2015 likely resolving scarring. Stable 4.4 cm right renal cortical cyst measuring 17.7 Hounsfield units. Stable mild prominence of the right renal collecting system. Transition is noted at the level of a 1.8 mm hyperdensity in the proximal ureter similar to the prior exams. PELVIS: No ureterolithiasis. Underdistended bladder with bladder wall thickening. Enlarged prostate gland. BOWEL: No small bowel obstruction. Mild fecal impaction. Normal appendix. PERITONEUM: No free intraperitoneal fluid. RETROPERITONEUM: No aortic aneurysm. MUSCULOSKELETAL: Thoracic and lumbar spurring. Lumbar spinal stenosis is incompletely evaluated. Anterolisthesis of L5 on S1 measures 4 mm. Anterolisthesis of L4 and L5 measures 3 mm. IMPRESSION: 1. Decreased size to the soft tissue density in the left renal bed likely scarring. 2. Bladder wall thickening likely due to underdistention. Cystitis or an infiltrating mucosal process are considered less likely but are not entirely excluded. 3. Stable prominence of the right renal collecting system which appears to transition at a focal ureteral hyperdensity measuring 1.8 mm similar to the prior exams. Correlation for a chronic stone is recommended. 4. Enlarged prostate gland. 5. Stable annuloaortic ectasia. 6. Cardiomegaly with coronary artery calcifications. 7. Lumbar spinal stenosis incompletely evaluated. 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 No pulmonary or pleural-based abnormality is identified. Pulmonary vascularity is normal. The heart size is normal. No acute osseous abnormality is identified. IMPRESSION: No acute cardiopulmonary abnormality. Chest/Abdom Chest/Abdome PROCEDURE: CHEST, ABDOMEN AND PELVIS CT 03/09 - OPID en/Pelvis n/Pelvis /2015 - [facility] IV IV contrast contrast CT CT CLINICAL INDICATION: C64. Malignant neoplasm of the left kidney. Read by: Karson Dickerson MD Dictated Date/time: 03/09/16 19:08 Electronically Signed by: Karson Dickerson MD 03/10/16 08:39 FINAL REPORT COMPARISON: Chest, abdomen and pelvis CT 12/10/2015. Chest/abdominal aorta with runoff CTA 07/15/2015. TECHNIQUE: Axial helical CT images of the chest, abdomen and pelvis were performed with oral contrast only. Coronal and sagittal reconstructions were obtained. CT Radiation Dose DLP 347.70 mGy-cm. Please note that lack of intravenous contrast limits evaluation of the organs and vasculature. FINDINGS: LUNGS: There is mild scarring in the lung apices. Dependent subsegmental atelectasis in the lower lobes. Tiny calcified granuloma in the left lower lobe. No demonstrable noncalcified pulmonary nodule. M ild elevation of the right diaphragm. No lung consolidation, pneumothorax or pleural effusion. The central airways are patent. MEDIASTINUM: The heart size is upper limits of normal. Trace fluid in the superior pericardial recess. Coronary artery, aortic and great vessel calcifications. Tortuous thoracic aorta. 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 The caliber of the mid and distal descending thoracic aorta are upper limits normal measuring 3 cm. Stable 8 mm rounded nodule in the anterior mediastinal fat likely a lymph node. No pathologically enlarged mediastinal lymph nodes by size criteria. ORGANS: Postsurgical changes of a left nephrectomy. Indeterminate 1.5 x 1.1 cm nodular density in the left renal fossa with thin linear stranding extending to the left adrenal gland (images 63 and 64 se milton 2), previously 2.4 x 1.4 cm on 12/10/2015. Slight interval decrease in size favors a benign etiology such as scarring rather than an adrenal nodule. Stable 4 cm cortical cyst in the mid to upper pole of the right kidney. Stable mild right renal pelvocaliectasis. No demonstrable urinary tract calculus. Stable 8 mm low-density lesion in the lateral segment of the left hepatic lobe possibly a cyst but too small to adequately characterize. No demonstrable abnormality of the gallbladder, pancreas, spleen or right adrenal gland. BOWEL: There is a nonobstructive bowel gas pattern. Nondistended stomach limiting evaluation of the gastric verde. No additional demonstrable bowel abnormality. Moderate to large amount of colonic stool . The previously noted wall thickening at the base of the appendix on 12/09 is not evident on the current examination. PERITONEUM: There is no free intraperitoneal air or ascites. RETROPERITONEUM: Tortuous abdominal aorta. Aortoiliac calcifications. The caliber of the abdominal aorta is within normal limits. There is no pathologic retroperitoneal lymphadenopathy. PELVIS: Enlarged prostate gland measuring a maximal diameter of approximately 5.7 cm. Several tiny calcifications in the central aspect of the prostate gland. The seminal vesicles are unremarkable. Poor ly distended urinary bladder with mild apparent segmental wall thickening may be due to underdistention. A cystitis cannot be excluded. Stable small bilateral inguinal lymph nodes which are subcentimeter in size in short axis. MUSCULOSKELETAL: Stable atrophy of the right lateral abdominal wall musculature. Stable small lipoma in the right gluteus rachel muscle. Stable small bilateral axillary lymph nodes the largest measurin g approximately 1 cm in short axis on the right and 9 mm on the left. Stable osseous findings as described on 12/10/2015. IMPRESSION: 1. Improved indeterminate nodular density in the left renal fossa currently measuring 1.5 cm, previously 2.4 cm on 12/10/2015. Slight interval decrease in size favors a benign etiology such as scarring. 2. The remaining findings on the current examination have not significantly changed from the comparison chest, abdomen and pelvis CT performed 12/10/2015. SL: 15 Chest/Abdom Chest/Abdome PROCEDURE: CHEST, ABDOMEN AND PELVIS CT 12/09 - OPID en/Pelvis n/Pelvis /2015 - [facility] IV IV contrast contrast CT CT CLINICAL INDICATION: C64.2 Malignant neoplasm of left kidney, except renal pelvis. Read by: Karson Dickerson MD Dictated Date/time: 12/10/15 11:49 Electronically Signed by: Karson Dickerson MD 12/10/15 13:54 FINAL REPORT COMPARISON: Chest/abdominal aorta with runoff CTA 07/15/2015. TECHNIQUE: Axial helical CT images of the chest, abdomen and pelvis were performed with oral contrast only. Coronal and sagittal reconstructions were obtained. CT Radiation Dose DLP 675.52 mGy-cm. Please note that lack of intravenous contrast limits evaluation of the organs and vasculature. FINDINGS: LUNGS: There is mild scarring in the lung apices. There is dependent subsegmental atelectasis most pronounced in the lower lobes. There is a 2.5 mm calcified granuloma in the left lower lobe. There is n o demonstrable noncalcified pulmonary nodule. There is mild elevation of the right diaphragm. There is no lung consolidation, pneumothorax or pleural effusion. The central airways are patent. MEDIASTINUM: The heart size is upper limits of normal. Coronary artery and aortic calcifications. The thoracic aorta is tortuous. 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 The caliber of the mid and distal descending thoracic aorta are upper limits of normal measuring 3 cm. No pathologic lymphadenopathy. ORGANS: Since the comparison examination the left kidney has been surgically removed. There is an indeterminate 2.4 x 1.4 cm nodular density in the left renal fossa with a Hounsfield unit measurement of 31 (images 63 through 65 series 2) possibly arising from a left adrenal limb. A left adrenal nodule cannot be excluded. There is a stable 4 cm cortical cyst in the mid to upper pole of the right kidney. There is mild right renal pelvicaliectasis. There is no demonstrable urinary tract calculus. There is a stable 8 mm low-density lesion in the lateral segment of the left hepatic lobe likely a cyst but too small to adequately characterize. There is no demonstrable abnormality of the gallbladder, pancreas, spleen or right adrenal gland. A 1.1 cm nodule lateral to the spleen is likely an accessory spleen. BOWEL: There is a nonobstructive bowel gas pattern. The stomach is nondistended limiting evaluation of the gastric verde. There are prominent haustra/muscular contractions limiting evaluation of segment s of the transverse colon. There is wall thickening at the base of the appendix and segmental wall thickening of the adjacent cecum concerning for an inflammatory or neoplastic process (images 84 throug h 89 series 2), new from the comparison CT. However, the remainder of the appendix is unremarkable. There is no additional demonstrable bowel abnormality. PERITONEUM: There is no free intraperitoneal air or ascites. RETROPERITONEUM: The abdominal aorta is tortuous. There are aortoiliac calcifications. The caliber of the abdominal aorta is within normal limits. There is no pathologic retroperitoneal lymphadenopathy. PELVIS: The prostate gland is enlarged measuring a maximal diameter of approximately 5.7 cm. There are several tiny calcifications in the central aspect of the prostate gland. The seminal vesicles are u nremarkable. The urinary bladder is partially distended with mild apparent diffuse wall thickening which may be due to underdistention. A cystitis cannot be excluded. There are small bilateral inguinal lymph nodes which are subcentimeter in size in short axis. MUSCULOSKELETAL: There is stable atrophy of the right lateral abdominal wall musculature. There is a stable lipoma in the right gluteus rachel muscle measuring approximately 2 cm. There is curvature of the lower thoracic spine and lumbar spine convex to the right. There is multilevel grade 1 anterolisthesis of the upper thoracic spine. There is grade 1 anterolisthesis of L5 on S1 . There are degenerative changes of the spine. There is spinal stenosis at L4-L5 secondary to degenerative changes. This would be better assessed with lumbar spine magnetic resonance imaging. There is a stable 1.7 cm indeterminate rounded focus of intermediate density in the marrow of the proximal left humerus with Hounsfield unit measurement of approximately 40 (image 1 series 2). Stability from the prior examination favors a benign etiology. If desired further evaluation may be obtained with magnetic resonance imaging of the left humerus. There are degenerative changes of the bilateral sternoclavicular joints. IMPRESSION: 1. Status post left nephrectomy. 2. There is a 2.4 cm indeterminate nodular density in the left renal fossa which may arise from a left adrenal limb. A left adrenal nodule cannot be excluded. 3. There is wall thickening at the base of the appendix and segmental wall thickening of the adjacent cecum concerning for an inflammatory or neoplastic process. Important finding was called to Dr. Rosa's office at 1340 hours on 12/10/2015. 4. There is mild apparent diffuse wall thickening of the urinary bladder which may be due to underdistention. A cystitis cannot be excluded. 5. The remaining findings on the current examination have not significantly changed from the comparison CTA performed 07/15/2015. SL: 15 CHEM PANEL eGFR 51 09/13 Result Comment: The eGFR is calculated using the CKD-EPI formula. In most young, healthy individuals the eGFR will be >90 mL/ min/1.73m2. The eGFR declines with age. An eGFR of 60-89 may be normal in [place] mL/min/1. some populations, particularly the elderly, for whom the CKD-EPI formula has not been extensively validated. Use of the eGFR is not recommended in the following populations: [facility] Individuals with unstable creatinine concentrations, including patients and those with serious co-morbid conditions. Patients with extremes in muscle mass or diet. The data above are obtained from the National Kidney Disease Education Program (NKDEP) which additionally recommends that when the eGFR is used in patients with extremes of body mass index for purposes of drug dosing, the eGFR should be multiplied by the estimated BMI. CHEM PANEL Albumin Lvl 2.3 g/dL 3.5 - 5.0 09/13 [facility] CHEM PANEL Globulin 3.4 g/dL 2.0 - 4.0 09/13 [facility]2015 [facility] CHEM PANEL A/G Ratio 0.7 0.7 - 1.6 09/13 [facility]2015 [facility] CHEM PANEL Bili Total 0.9 mg/dL 0.2 - 1.3 09/13 [facility]2015 [facility] CHEM PANEL AST 25 unit/L 0 - 37 09/[address] CHEM PANEL Total 5.7 g/dL 6.4 - 8.4 09/13 [facility] Protein [facility] CHEM PANEL B/C Ratio 12 6 - 25 09/[address] CHEM PANEL Glucose Lvl 86 mg/dL 70 - 99 09/13 [facility]2015 [facility] CHEM PANEL BUN 15 mg/dL 7 - 22 09/[address] CHEM PANEL ALT 19 unit/L 0 - 65 09/[address] CHEM PANEL Alk Phos 60 unit/L 39 - 136 09/[address] CHEM PANEL Calcium Lvl 8.6 mg/dL 8.5 - 10.5 09/[address] CHEM PANEL AGAP 10.9 meq/L 10.0 - 09/13 [facility] 20.0 [facility] CHEM PANEL Chloride Lvl 106 meq/L 95 - 109 09/13 [facility]2015 [facility] CHEM PANEL CO2 26 meq/L 24 - 32 09/[address] CHEM PANEL Potassium 3.9 meq/L 3.5 - 5.1 09/13 [facility] CHEM PANEL Creatinine 1.29 mg/dL 0.50 - 09/13 [facility] Lvl 1.40 [facility] CHEM PANEL Sodium Lvl 139 meq/L 135 - 145 09/[address] HEMATOLOGY MPV 8.8 fL 7.4 - 10.4 09/13 [facility]2015 [facility] HEMATOLOGY RDW 17.3 % 11.5 - 09/13 [place] 14.5 [facility] HEMATOLOGY MCHC 33.1 g/dL 32.0 - 09/13 [place] 36.0 /2015 [facility] HEMATOLOGY MCH 25.1 pg 27.0 - 09/13 31.0 [facility] HEMATOLOGY Platelet 230 K/CMM 133 - 450 09/13 [facility] HEMATOLOGY WBC 10.3 K/CMM 3.7 - 10.4 09/13 [facility] HEMATOLOGY RBC 3.93 M/CMM 4.70 - 09/13 [place] 6.10 /2015 [facility] HEMATOLOGY MCV 75.9 fL 80.0 - 09/13 [place] 94.0 /2015 [facility] HEMATOLOGY Hgb 9.9 g/dL 14.0 - 09/13 [place] 18.0 [facility] HEMATOLOGY Hct 29.8 % 42.0 - 09/13 [facility] 54.0 [facility] HEMATOLOGY Lymphocytes 10.8 % 20.0 - 09/13 [place] 40.0 /2015 [facility] HEMATOLOGY Segs 75.6 % 45.0 - 09/13 [place] 75.0 [facility] HEMATOLOGY Segs-Bands # 7.8 K/CMM 1.5 - 8.1 09/13 [facility] HEMATOLOGY Monocytes # 0.9 K/CMM 0.0 - 0.8 09/13 [facility] HEMATOLOGY Basophils 0.4 % 0.0 - 1.0 09/13 [facility] HEMATOLOGY Lymphocytes 1.1 K/CMM 1.0 - 5.5 09/13 [facility] HEMATOLOGY Eosinophils 4.2 % 0.0 - 4.0 09/13 [facility] HEMATOLOGY Monocytes 9.0 % 2.0 - 12.0 09/13 [facility] HEMATOLOGY Eosinophils 0.4 K/CMM 0.0 - 0.5 09/13 [facility] HEMATOLOGY Microcyte 1+ None [facility]en 09[facility]09[facility]13[facility]15 5:04 AM[facility] CHEM PANEL Magnesium 1.9 mg/dL 1.8 - 2.4 09/12 [facility] CHEM PANEL Phosphorus 2.9 mg/dL 2.5 - 4.5 09/12 [facility] CHEM PANEL BUN 15 mg/dL - 09/12 [facility] CHEM PANEL Glucose Lvl 100 mg/dL 70 - 99 09/[address] CHEM PANEL eGFR 53 09/12 Result Comment: The eGFR is calculated using the CKD-EPI formula. In most young, healthy individuals the eGFR will be >90 mL/ min/1.73m2. The eGFR declines with age. An eGFR of 60-89 may be normal in [facility] mL/min/1.7 /2015 some populations, particularly the elderly, for whom the CKD-EPI formula has not been extensively validated. Use of the eGFR is not recommended in the following populations: [address] Individuals with unstable creatinine concentrations, including patients and those with serious co-morbid conditions. Patients with extremes in muscle mass or diet. The data above are obtained from the National Kidney Disease Education Program (NKDEP) which additionally recommends that when the eGFR is used in patients with extremes of body mass index for purposes of drug dosing, the eGFR should be multiplied by the estimated BMI. CHEM PANEL AGAP 10.8 meq/L 10.0 - 09/12 [facility] CHEM PANEL Calcium Lvl 8.6 mg/dL 8.5 - 10.5 09/[address] CHEM PANEL Chloride Lvl 107 meq/L 95 - 109 09/[address] CHEM PANEL Sodium Lvl 141 meq/L 135 - 145 09/[address] CHEM PANEL Potassium 3.8 meq/L 3.5 - 5.1 09/12 [facility] [address] [place] [address] CHEM PANEL CO2 27 meq/L 24 - 32 09/[address] CHEM PANEL Creatinine 1.25 mg/dL 0.50 - 09/12 [facility] 1.40 [facility] ELECTROLYTE AGAP 9.8 meq/L 10.0 - 09/12 [facility] . [facility] ELECTROLYTE A/G Ratio 0.7 0.7 - 1.6 09/[address] ELECTROLYTE Globulin 3.3 g/dL 2.0 - 4.0 09/[address] ELECTROLYTE B/C Ratio 11 6 - 25 09/[address] ELECTROLYTE Potassium 3.8 meq/L 3.5 - 5.1 09/12 [facility] ELECTROLYTE Sodium Lvl 141 meq/L 135 - 145 09/12 [facility] ELECTROLYTE Creatinine 1.32 mg/dL 0.50 - 09/12 [facility] Lvl 1.40 [facility] ELECTROLYTE BUN 15 mg/dL 7 - 22 09/[address] ELECTROLYTE Chloride Lvl 107 meq/L 95 - 109 09/[address] ELECTROLYTE Glucose Lvl 95 mg/dL 70 - 99 09/[address] ELECTROLYTE eGFR 50 09/12 Result Comment: The eGFR is calculated using the CKD-EPI formula. In most young, healthy individuals the eGFR will be >90 mL/ min/1.73m2. The eGFR declines with age. An eGFR of 60-89 may be normal in [facility] mL/min/1.7 some populations, particularly the elderly, for whom the CKD-EPI formula has not been extensively validated. Use of the eGFR is not recommended in the following populations: [address] Individuals with unstable creatinine concentrations, including patients and those with serious co-morbid conditions. Patients with extremes in muscle mass or diet. The data above are obtained from the National Kidney Disease Education Program (NKDEP) which additionally recommends that when the eGFR is used in patients with extremes of body mass index for purposes of drug dosing, the eGFR should be multiplied by the estimated BMI. ELECTROLYTE CO2 28 meq/L 24 - 32 09/[address] ELECTROLYTE Total 5.6 g/dL 6.4 - 8.4 09/12 [facility] ELECTROLYTE Albumin Lvl 2.3 g/dL 3.5 - 5.0 09/[address] ELECTROLYTE Calcium Lvl 8.4 mg/dL 8.5 - 10.5 09/[address] ELECTROLYTE AST 28 unit/L 0 - 37 09/[address] ELECTROLYTE ALT 19 unit/L 0 - 65 09/[address] ELECTROLYTE Alk Phos 63 unit/L 39 - 136 09/[address] ELECTROLYTE Bili Total 0.6 mg/dL 0.2 - 1.3 09/[address] HEMATOLOGY Microcyte 1+ None Seen 09/12 [facility] [address] [place] [address] *[facility]* Center (09/12/15 5:02 AM) HEMATOLOGY Basophils 0.3 % 0.0 - 1.0 09/12 [facility] HEMATOLOGY Monocytes # 1.0 K/CMM 0.0 - 0.8 09/12 [facility] HEMATOLOGY Segs 81.3 % 45.0 - 09/12 [place] 75.0 /2015 [facility] HEMATOLOGY Eosinophils 1.7 % 0.0 - 4.0 09/12 [facility] HEMATOLOGY Lymphocytes 7.1 % 20.0 - 09/12 [place] 40.0 [facility] HEMATOLOGY Monocytes 9.6 % 2.0 - 12.0 09/12 [facility] HEMATOLOGY Eosinophils 0.2 K/CMM 0.0 - 0.5 09/12 [facility] HEMATOLOGY Segs-Bands # 8.7 K/CMM 1.5 - 8.1 09/12 [facility] HEMATOLOGY Lymphocytes 0.8 K/CMM 1.0 - 5.5 09/12 [facility] HEMATOLOGY MCV 75.9 fL 80.0 - 09/12 [place] 94.0 [facility] HEMATOLOGY RDW 17.4 % 11.5 - 09/12 [place] 14.5 [facility] HEMATOLOGY Hgb 9.9 g/dL 14.0 - 09/12 18.0 [facility] HEMATOLOGY RBC 3.89 M/CMM 4.70 - 09/12 [place] 6.10 [facility] HEMATOLOGY Hct 29.5 % 42.0 - 09/12 [place] 54.0 2016 [facility] HEMATOLOGY MPV 9.1 fL 7.4 - 10.4 09/12 [facility] HEMATOLOGY Platelet 208 K/CMM 133 - 450 09/12 [facility] HEMATOLOGY MCH 25.4 pg 27.0 - 09/12 [place] 31.0 [facility] HEMATOLOGY MCHC 33.4 g/dL 32.0 - 09/12 [place] 36.0 [facility] HEMATOLOGY WBC 10.7 K/CMM 3.7 - 10.4 09/12 2015 [facility] CHEM PANEL A/G Ratio 0.8 0.7 - 1.6 09/11 [facility] CHEM PANEL B/C Ratio 12 6 - 25 09/11 [facility] CHEM PANEL Globulin 3.2 g/dL 2.0 - 4.0 09/11 [facility] CHEM PANEL Total 5.7 g/dL 6.4 - 8.4 09/11 Protein [facility] CHEM PANEL ALT 23 unit/L 0 - 65 09/11 [facility] CHEM PANEL Albumin Lvl 2.5 g/dL 3.5 - 5.0 09/11 [facility] CHEM PANEL Alk Phos 61 unit/L 39 - 136 09/11 [facility] CHEM PANEL AST 26 unit/L 0 - 37 09/11 [facility] CHEM PANEL Bili Total 0.9 mg/dL 0.2 - 1.3 09/11 [facility] CHEM PANEL Phosphorus 4.3 mg/dL 2.5 - 4.5 09/11 [facility] CHEM PANEL Magnesium 2.0 mg/dL 1.8 - 2.4 09/11 [facility] Lvl [facility] HEMATOLOGY WBC 10.1 K/CMM 3.7 - 10.4 09/11 [facility] HEMATOLOGY RBC 4.17 M/CMM 4.70 - 09/11 [place] 6.10 [facility] HEMATOLOGY Hgb 10.4 g/dL 14.0 - 09/11 18.0 [facility] HEMATOLOGY Hct 32.6 % 42.0 - 09/11 [place] 54.0 [facility] HEMATOLOGY Platelet 233 K/CMM 133 - 450 09/11 [facility] HEMATOLOGY MCHC 32.0 g/dL 32.0 - 09/11 [place] 36.0 [facility] HEMATOLOGY RDW 17.7 % 11.5 - 09/11 [place] 14.5 [facility] HEMATOLOGY MCV 78.2 fL 80.0 - 09/11 [place] 94.0 [facility] HEMATOLOGY MCH 25.0 pg 27.0 - 09/11 [place] 31.0 [facility] HEMATOLOGY MPV 8.6 fL 7.4 - 10.4 09/11 [facility] HEMATOLOGY Eosinophils 0.3 % 0.0 - 4.0 09/11 [facility] HEMATOLOGY Basophils 0.3 % 0.0 - 1.0 09/11 [facility] HEMATOLOGY Lymphocytes 7.4 % 20.0 - 09/11 [place] 40.0 /2015 [facility] HEMATOLOGY Monocytes 8.6 % 2.0 - 12.0 09/11 /2015 [facility] HEMATOLOGY Segs 83.4 % 45.0 - 09/11 [place] 75.0 /2015 [facility] HEMATOLOGY Segs-Bands # 8.4 K/CMM 1.5 - 8.1 09/11 [facility] HEMATOLOGY Microcyte 1+ None Seen 09/11 [facility] (09/11/15 3:26 AM) HEMATOLOGY Lymphocytes 0.7 K/CMM 1.0 - 5.5 09/11 [place] # /2015 [facility] HEMATOLOGY Monocytes # 0.9 K/CMM 0.0 - 0.8 09/11 [facility] IMMUNOLOGY Cryoglob Negative Negative 09/11 [facility] (09/11/15 3:26 AM) [place] IMMUNOLOGY C-ANCA Negative Negative 09/11 [facility] (09/11/15 3:26 AM) [place] IMMUNOLOGY P-ANCA Negative Negative 09/11 [facility] (09/11/15 3:26 AM) [place] IMMUNOLOGY JADE Negative 1 Negative 09/11 Result Comment: [facility] (09/11/15 3:26 AM) Because the Center JADE was Negative, the Reflex assays for Anti-dsDNA, SM/EDUCATION COUNSELOR, and [place] (SSA/SSB) were not performed. BLOOD BANK ABO/Rh A POS 09/10 [facility] BLOOD BANK Antibody Negative 09/10 [facility] RESULTS Scrn [facility] (09/10/15 5:51 AM) [place] BLOOD BANK RBC product Product available 09/10 [facility] (09/10/15 5:50 AM) [place] HEMATOLOGY Eosinophils 0.3 K/CMM 0.0 - 0.5 09/02 [place] # /2015 [facility] HEMATOLOGY Coag Index 1.2 -3.0-3.0 - 09/02 Result [facility] 3.0 Comment: [facility] Collection Center date/time has been modified to: 15:15:00. Previous collection date/time: 16:34:00. HEMATOLOGY Ly30 1.0 % 0.0 - 7.5 09/02 Result Comment: [facility] date/time has been modified to: 15:15:00. Previous collection date/time: 16:34:00. HEMATOLOGY TEG Data See Note 8 09/02 Result Comment: Medical (09/02/15 3:15 PM) Collection Center date/time has been modified to: 15:15:00. Previous collection date/time: 16:34:00. HEMATOLOGY G-value 9.9 K d/sc 4.5 - 11.0 09/02 Result Comment: [facility] date/time has been modified to: 15:15:00. Previous collection date/time: 16:34:00. HEMATOLOGY Max Amp 66.5 mm 50.0 - 09/02 Result [facility] 70.0 Comment: [facility] date/time has been modified to: 15:15:00. Previous collection date/time: 16:34:00. HEMATOLOGY R-time 6.0 min 5.0 - 10.0 09/02 Result Comment: [facility] date/time has been modified to: 15:15:00. Previous collection date/time: 16:34:00. HEMATOLOGY K-time 1.4 min 1.0 - 3.0 09/02 Result Comment: [facility] date/time has been modified to: 15:15:00. Previous collection date/time: 16:34:00. HEMATOLOGY Angle 70.4 53.0 - 09/02 Result [facility] degrees 72.0 Comment: Medical Collection Center date/time has been modified to: 15:15:00. Previous collection date/time: 16:34:00. HEMATOLOGY TEG Interp Thrombelas 09/02 [facility] tograph Medical results Center are within reference ranges.CPT :92737 HEMATOLOGY PTT 34.1 s 22.9 - 09/02 [place] 35.8 /2015 [facility] HEMATOLOGY PT 13.5 s 12.0 - 09/02 [facility] [place] 14.7 [facility] HEMATOLOGY INR 1.00 0.85 - 09/02 [facility] 1.17 [facility] CHEM PANEL Magnesium 2.2 mg/dL 1.8 - 2.4 08/09 [facility] CHEM PANEL eGFR 71 08/09 Result Comment: The eGFR is calculated using the CKD-EPI formula. In most young, healthy individuals the eGFR will be >90 mL/ min/1.73m2. The eGFR declines with age. An eGFR of 60-89 may be normal in [facility] mL/min/1. some populations, particularly the elderly, for whom the CKD-EPI formula has not been extensively validated. Use of the eGFR is not recommended in the following populations: [address] Individuals with unstable creatinine concentrations, including patients and those with serious co-morbid conditions. Patients with extremes in muscle mass or diet. The data above are obtained from the National Kidney Disease Education Program (NKDEP) which additionally recommends that when the eGFR is used in patients with extremes of body mass index for purposes of drug dosing, the eGFR should be multiplied by the estimated BMI. CHEM PANEL Calcium Lvl 8.7 mg/dL 8.5 - 10.5 08/09 [facility] CHEM PANEL CO2 23 meq/L 24 - 32 08/09 [facility]2015 [facility] CHEM PANEL Chloride Lvl 107 meq/L 95 - 109 08/09 [facility]2015 [facility] CHEM PANEL Potassium 4.2 meq/L 3.5 - 5.1 08/09 [facility] CHEM PANEL Sodium Lvl 139 meq/L 135 - 145 08/09 2015 [facility] CHEM PANEL Creatinine 0.99 mg/dL 0.50 - 08/09 [facility] 1.40 [facility] CHEM PANEL BUN 16 mg/dL 7 - 22 08/09 [facility]2015 [facility] CHEM PANEL Glucose Lvl 88 mg/dL 70 - 99 08/09 [facility]2015 [facility] CHEM PANEL AGAP 13.2 meq/L 10.0 - 08/09 [facility] 20.0 [facility] HEMATOLOGY MPV 8.0 fL 7.4 - 10.4 08/[address] HEMATOLOGY WBC 11.7 K/CMM 3.7 - 10.4 08/09 [facility]2015 [facility] HEMATOLOGY Hgb 10.9 g/dL 14.0 - 08/09 [place] 18.0 [facility] HEMATOLOGY RBC 4.40 M/CMM 4.70 - 08/09 [place] 6.10 /2015 [facility] HEMATOLOGY MCH 24.7 pg 27.0 - 08/09 [place] 31.0 [facility] HEMATOLOGY Hct 34.2 % 42.0 - 08/09 [place] 54.0 /2015 [facility] HEMATOLOGY MCV 77.8 fL 80.0 - 08/09 [place] 94.0 [facility] HEMATOLOGY Platelet 412 K/CMM 133 - 450 08/09 [facility] HEMATOLOGY RDW 19.1 % 11.5 - 08/09 [place] 14.5 /2015 [facility] HEMATOLOGY MCHC 31.7 g/dL 32.0 - 08/09 [place] 36.0 [facility] HEMATOLOGY Eosinophils 0.3 K/CMM 0.0 - 0.5 08/09 [facility] HEMATOLOGY Basophils # 0.1 K/CMM 0.0 - 0.2 08/09 [facility] HEMATOLOGY Microcyte 1+ None [facility]08[facility] 6:00 AM[facility] HEMATOLOGY Lymphocytes 10.8 % 20.0 - 08/09 [place] 40.0 2016 [facility] HEMATOLOGY Segs 77.6 % 45.0 - 08/09 [place] 75.0 [facility] HEMATOLOGY Monocytes 8.5 % 2.0 - 12.0 08/09 /2015 [facility] HEMATOLOGY Eosinophils 2.2 % 0.0 - 4.0 08/09 [facility] HEMATOLOGY Basophils 0.9 % 0.0 - 1.0 08/09 [facility] HEMATOLOGY Segs-Bands # 9.1 K/CMM 1.5 - 8.1 08/09 [facility] HEMATOLOGY Lymphocytes 1.3 K/CMM 1.0 - 5.5 08/09 [facility] HEMATOLOGY Monocytes # 1.0 K/CMM 0.0 - 0.8 08/09 2015 [facility] CHEM PANEL Magnesium 2.1 mg/dL 1.8 - 2.4 08/08 [facility] Lvl /2015 [facility] ELECTROLYTE CO2 24 meq/L 24 - 32 08/08 [facility] S [facility] ELECTROLYTE Calcium Lvl 9.0 mg/dL 8.5 - 10.5 08/08 [facility] ELECTROLYTE Chloride Lvl 103 meq/L 95 - 109 08/08 [facility] ELECTROLYTE Glucose Lvl 99 mg/dL 70 - 99 08/08 [facility] ELECTROLYTE BUN 14 mg/dL 7 - 22 08/08 [facility] ELECTROLYTE Creatinine 0.92 mg/dL 0.50 - 08/08 [facility] Lvl 1.40 [facility] ELECTROLYTE Sodium Lvl 136 meq/L 135 - 145 08/08 [facility] ELECTROLYTE Potassium 3.9 meq/L 3.5 - 5.1 08/08 [facility] Lvl [facility] ELECTROLYTE eGFR 77 08/08 Result Comment: The eGFR is calculated using the CKD-EPI formula. In most young, healthy individuals the eGFR will be >90 mL/ min/1.73m2. The eGFR declines with age. An eGFR of 60-89 may be normal in [facility] mL/min/1. some populations, particularly the elderly, for whom the CKD-EPI formula has not been extensively validated. Use of the eGFR is not recommended in the following populations: [address] Individuals with unstable creatinine concentrations, including patients and those with serious co-morbid conditions. Patients with extremes in muscle mass or diet. The data above are obtained from the National Kidney Disease Education Program (NKDEP) which additionally recommends that when the eGFR is used in patients with extremes of body mass index for purposes of drug dosing, the eGFR should be multiplied by the estimated BMI. ELECTROLYTE AGAP 12.9 meq/L 10.0 - 08/08 [facility] S 20.0 [facility] HEMATOLOGY Eosinophils 1.7 % 0.0 - 4.0 08/08 [facility] HEMATOLOGY Monocytes 7.6 % 2.0 - 12.0 08/08 [facility] HEMATOLOGY Lymphocytes 8.0 % 20.0 - 08/08 [facility] 40.0 [facility] HEMATOLOGY Segs 82.2 % 45.0 - 08/08 [facility] 75.0 [facility] HEMATOLOGY Lymphocytes 1.0 K/CMM 1.0 - 5.5 08/08 [facility] # [facility] HEMATOLOGY Segs-Bands # 10.6 K/CMM 1.5 - 8.1 08/08 [facility] HEMATOLOGY Basophils 0.5 % 0.0 - 1.0 08/08 [facility] HEMATOLOGY Microcyte 1+ None Seen 08/08 [facility]* [place] (08/08/15 6:02 AM) HEMATOLOGY Basophils # 0.1 K/CMM 0.0 - 0.2 08/08 [facility] HEMATOLOGY Eosinophils 0.2 K/CMM 0.0 - 0.5 08/08 [facility] # [facility] HEMATOLOGY Monocytes # 1.0 K/CMM 0.0 - 0.8 08/08 [facility] HEMATOLOGY MCH 24.4 pg 27.0 - 08/08 [facility] 31.0 [facility] HEMATOLOGY MCV 76.7 fL 80.0 - 08/08 [facility] 94.0 [facility] HEMATOLOGY MCHC 31.8 g/dL 32.0 - 08/08 [facility] 36.0 [facility] HEMATOLOGY RDW 19.0 % 11.5 - 08/08 [facility] 14.5 [facility] HEMATOLOGY Platelet 439 K/CMM 133 - 450 08/08 [facility] HEMATOLOGY MPV 7.9 fL 7.4 - 10.4 08/08 [facility] HEMATOLOGY WBC 12.9 K/CMM 3.7 - 10.4 08/08 [facility] HEMATOLOGY Hct 34.6 % 42.0 - 08/08 [facility] 54.0 [facility] HEMATOLOGY Hgb 11.0 g/dL 14.0 - 08/08 18.0 [facility] HEMATOLOGY RBC 4.51 M/CMM 4.70 - 08/08 [place] 6.10 [facility] CHEM PANEL Calcium Lvl 8.5 mg/dL 8.5 - 10.5 08/07 [facility]2015 [facility] CHEM PANEL eGFR 78 08/07 Result Comment: The eGFR is calculated using the CKD-EPI formula. In most young, healthy individuals the eGFR will be >90 mL/ min/1.73m2. The eGFR declines with age. An eGFR of 60-89 may be normal in [facility] mL/min/1. some populations, particularly the elderly, for whom the CKD-EPI formula has not been extensively validated. Use of the eGFR is not recommended in the following populations: [address] Individuals with unstable creatinine concentrations, including patients and those with serious co-morbid conditions. Patients with extremes in muscle mass or diet. The data above are obtained from the National Kidney Disease Education Program (NKDEP) which additionally recommends that when the eGFR is used in patients with extremes of body mass index for purposes of drug dosing, the eGFR should be multiplied by the estimated BMI. CHEM PANEL CO2 24 meq/L 24 - 32 08/07 [facility] CHEM PANEL Sodium Lvl 139 meq/L 135 - 145 08/07 [facility] CHEM PANEL BUN 16 mg/dL 7 - 22 08/07 2015 [facility] CHEM PANEL Creatinine 0.91 mg/dL 0.50 - 08/07 [facility] Lvl 1.40 [facility] CHEM PANEL Glucose Lvl 92 mg/dL 70 - 99 08/07 2015 [facility] CHEM PANEL Potassium 4.3 meq/L 3.5 - 5.1 08/07 [facility] Lvl [facility] CHEM PANEL Chloride Lvl 106 meq/L 95 - 109 08/07 [facility] CHEM PANEL AGAP 13.3 meq/L 10.0 - 08/07 [facility] 20.0 [facility] HEMATOLOGY Segs-Bands # 10.6 K/CMM 1.5 - 8.1 08/07 [facility] HEMATOLOGY Lymphocytes 1.2 K/CMM 1.0 - 5.5 08/07 [facility] HEMATOLOGY Monocytes # 0.9 K/CMM 0.0 - 0.8 08/07 [facility] HEMATOLOGY Eosinophils 0.3 K/CMM 0.0 - 0.5 08/07 [facility] HEMATOLOGY Segs 81.5 % 45.0 - 08/07 [place] 75.0 [facility] HEMATOLOGY Plt Morph Normal 08/07 [facility] (08/07/15 5:10 AM) [place] HEMATOLOGY Monocytes 6.7 % 2.0 - 12.0 08/07 [facility] HEMATOLOGY Lymphocytes 8.9 % 20.0 - 08/07 [place] 40.0 [facility] HEMATOLOGY Eosinophils 2.3 % 0.0 - 4.0 08/07 [facility] HEMATOLOGY Basophils 0.6 % 0.0 - 1.0 08/07 [facility] HEMATOLOGY Schistocyte 1-3 per HPF None Seen 08/07 [facility] (08/07/15 5:10 AM) Center HEMATOLOGY Microcyte 1+ None Seen 08/07 [facility] (08/07/15 5:10 AM) HEMATOLOGY Polychrom Slight 08/07 [facility] HEMATOLOGY Basophils # 0.1 K/CMM 0.0 - 0.2 08/07 [facility] HEMATOLOGY Anisocyte 1+ None Seen 08/07 [facility] (08/07/15 5:10 AM) HEMATOLOGY WBC 13.0 K/CMM 3.7 - 10.4 08/07 [facility] HEMATOLOGY Hct 33.3 % 42.0 - 08/07 [facility] 54.0 [facility] HEMATOLOGY Hgb 10.8 g/dL 14.0 - 08/07 [facility] 18.0 [facility] HEMATOLOGY MCH 24.7 pg 27.0 - 08/07 [facility] 31.0 [facility] HEMATOLOGY MCV 76.4 fL 80.0 - 08/07 [facility] 94.0 [facility] HEMATOLOGY RBC 4.36 M/CMM 4.70 - 08/07 [facility] 6.10 [facility] HEMATOLOGY MPV 7.9 fL 7.4 - 10.4 08/07 2015 [facility] HEMATOLOGY Platelet 441 K/CMM 133 - 450 08/07 2015 [facility] HEMATOLOGY RDW 19.0 % 11.5 - 08/07 [facility] 14.5 [facility] HEMATOLOGY MCHC 32.3 g/dL 32.0 - 08/07 [facility] 36.0 [facility] HEMATOLOGY F2 Mutation Negative 08/07 [facility] (08/07/15 5:10 AM) Center HEMATOLOGY F2 Mut FACTOR II 08/07 [facility] Interp PT: /2015 [facility] NegativeIN Center TERPRETATI ON:Molecul ar analysis for the Factor II (Prothromb in) 66644K>[id number] mutation wasnegativ e. Other causes of elevated prothrombi n levels and hereditary formsof venous thrombosis are not ruled out. Final diagnosis requires correlatio nwith clinical history and other pertinent laboratory findings.W here appropriat e, medical consultati on and genetic counseling should beoffered to inform and explain the risk implicatio ns and genetic implicatio nsof these test results. SAY LIMITATION S:The assay uses the FDA-cleare d Светлана Factor II (Prothromb in) [id number] IVD(Polyme rase chain reaction/F RET detection) kit, Светлана O2 [employer] LC Instrument and the [employer] r 1.2 Instrument . A 165-bp fragment of Factor IIgene(FII ) containing the Factor II [id number] sequence is amplified in theassay. The assay is designed to detect the [id number] mutation only. Othercause s of elevated prothrombi n levels and hereditary forms of venousthro mbosis are not ruled out. However, the melting curve analysis mayimplica te the presence of a possible rare mutation at position 94727 (Furtherte sting will be recommende d in the report). A minimum detection level is 198copies of Factor II per reaction. The level of agreement between the FactorII(P rothrombin ) [id number] Kit and sequence analysis was 98.9%. The test resultmust be interprete d along with the patient's clinical history and revelant laboratory data. This assay has been validated by [facility] . HEMATOLOGY AT [facility] 87 % 77 - 140 08/07 /2015 [facility] IMMUNOLOGY Cryoglob Negative Negative 08/07 Medical (08/07/15 5:10 AM) [place] BLOOD BANK ABO/Rh A POS 08/04 [facility] RESULTS /2015 [facility] BLOOD BANK Antibody Negative 08/04 [facility] RESULTS [facility] (08/04/15 9:21 AM) Center BODY FLUIDS Protein CSF 55 mg/dL 15 - 45 08/03 [place] /2015 [facility] BODY FLUIDS WBC CSF 1 /mm3 0 - 53 08/03 /2015 [facility] BODY FLUIDS RBC CSF 84 /mm3 0 - 03 08/03 /2015 [facility] BODY FLUIDS Comment CSF Differenti 08/03 [place] al [facility] performed Center on WBC count of less than 5. BODY FLUIDS Tube Num CSF 3 08/03 [place] /2015 [facility] BODY FLUIDS Color CSF Colorless Colorless 08/03 /2015 [facility] (08/03/15 2:00 PM) [place] BODY FLUIDS Supernat CSF Colorless Colorless 08/03 /2015 Medical (08/03/15 2:00 PM) Center BODY FLUIDS Clarity CSF Clear Clear 08/03 [facility] (08/03/15 2:00 PM) [place] BODY FLUIDS Glucose CSF 59 mg/dL 45 - 80 08/03 [facility] Center IMMUNOLOGY VDRL Scr CSF Non Reactive Non 08/03 [facility] Reactive [facility] (08/03/15 2:00 PM) [place] Spine Spine lumbar EXAM: LP guided by fluoroscopy 08/03 - [facility] lumbar puncture w - [facility] puncture w fluoro DX [place] fluoro DX DATE: 08/03/2015 Read by: Mariah Bales MD Dictated Date/time: 08/03/15 15:20 Electronically Signed by: Mariah Bales MD 08/03/15 15:46 FINAL REPORT CLINICAL HISTORY: Renal mass. TECHNIQUE: Informed consent was obtained from the patient. A time out was performed. Skin of the lower back was prepped and draped in the usual sterile technique. 1% lidocaine was used for local anesthesia. Under fluoroscopic guidance a 25-gauge spinal needle was used to successfully ac cess the thecal sac on first attempt at the L4 level. Opening CSF pressure was 15 cm of H2O in the prone position. 9 cc of clear CSF fluid were obtained and placed in tubes for laboratory analysis. Total fluoroscopy exposure time was 4 sec. The needle was withdrawn. There were no complications during or immediately after the procedure. IMPRESSION: Technically successful lumbar puncture guided by fluoroscopy. Brain w/wo Brain w/wo EXAMINATION: MRI brain with and without contrast. - [facility] contrast contrast MRI /2015 - [facility] MRI Center DATE: 07/31/2015. Read by: Carlos Hutton MD Dictated Date/time: 08/01/15 10:55 Electronically Signed by: Carlos Hutton MD 08/01/15 11:02 FINAL REPORT INDICATION: Renal carcinoma. Evidence of systemic embolic phenomenon. DISCUSSION: MRI the brain is performed both before and after intravenous administration of 13 mL Multihance gadolinium contrast. Comparison is made to noncontrast CT study dated 07/28/2015 Diffusion weighted images demonstrate a questionable submillimeter focus of signal abnormality in the right precentral gyrus. Remainder the brain is unremarkable. There are a few tiny scattered small vessel ischemic changes in the deep white matter both hemispheres, unremarkable for age. There is enlargement of the ventricular system and of the extra-axial spaces consistent with global volume loss with a temporoparietal predominance. Postcontrast images fail demonstrate any abnormal parenchymal or leptomeningeal enhancement. There is normal opacification of the deep venous structures. IMPRESSION: Questionable solitary microembolic phenomenon in the right motor strip. Diffuse volume loss consistent with age related atrophy and/or primary dementia process. Minimal microvascular disease. No evidence of metastasis. IMMUNOLOGY Z-qpgeof-M-A <1:10 <1:10 07/30 Result Comment: INTERPRETIVE INFORMATION: G-ekjohu-Q-Aspartate Receptor Ab, Serum [facility] spartate /2016 Medical Rcptr Ab Anti-NMDA receptor IgG antibody is found in a subset of patients Center with autoimmune limbic encephalitis and may occur with or without associated tumor. Decreasing antibody levels may be associated with therapeutic response; therefore, clinical correlation must be strongly considered. A negative test result does not rule out a diagnosis of autoimmune limbic encephalitis. Performed by [facility], [address] [place] [id number] [email or web address], Lai Palacio MD - Lab. Director REFERENCE [facility] See 07/30 Result [facility] LAB RESULTS Comment /2015 Comment: [facility] results scanned in [employer]. Results displayed in [facility] LAB-Outside Lab Documents (Imaged) under date/time results were scanned. Report sent for scanning on 08/09/2015 15:25.NC REFERENCE Test Name CASPR2 IgG 07/30 [place] LAB RESULTS /2016 [facility] SEE 07/30 Result Comment: Contactin-Associated Protein-2 Antibody, IgG with Reflex to titer [facility] LAB RESULTS COMMENT [facility] CASPR2 Ab IgG Screen by IFA <1:10 Center Reference Interval <1:10 Testing performed at [facility] See 07/30 Result Comment: PARANEOPLASTIC AUTOANTIBODY EVALUATION, Serum [facility] LAB RESULTS Comment /2015 Medical ACh Receptor (Muscle) Binding Ab: 0.00 nmol/L Ref Range: <=0.02 [place] Striational (Striated Muscle) Ab: Negative titer <1:60 Interpretive Comments: No informative autoantibodies were detected in this evaluation. However, a negative result does not exclude neurological autoimmunity with or without associated neoplasia. N-Type Calcium Channel Ab: 0.00 nmol/L <=0.03 P/Q-Type Calcium Channel Ab: 0.00 nmol/L <=0.02 [employer]-Tr: Negative titer <1:240 CRMP-5-IgG: Negative titer Expected Values: <1:240: Negative Titers lower than 1:240 may be detectable by recombinant CRMP- 5 western blot analysis. CRMP-5 western blot analysis will be done by request on stored serum. This supplemental testing is recommended in cases of chorea, vision loss, cranial neuropathy and myelopathy. CHRISTA-3: Negative titer <1:240 [employer]ENT-2: Negative titer <1:240 CHRISTA-1: Negative titer <1:240 CHRISTA-2: Negative titer <1:240 [employer]-1: Negative titer <1:240 Amphiphysin Ab: Negative titer <1:240 AChR Ganglionic Neuronal Ab: 0.00 nmol/L <=0.02 AGNA-1:_ Negative titer <1:240 Neuronal (V-G)K+ Channel Ab: 0.00 nmol/L <=0.02 Test performed by [place], [place] CHEM PANEL Phosphorus 2.6 mg/dL 2.5 - 4.5 07/30 [facility]2015 [facility] CHEM PANEL Magnesium 2.0 mg/dL 1.8 - 2.4 07/30 [facility] Lvl [facility] HEMATOLOGY PT 18.5 s 12.0 - 07/30 [facility] 14.7 [facility] HEMATOLOGY INR 1.51 0.85 - 07/30 [facility] 1.17 [facility] HEMATOLOGY PTT 43.9 s 22.9 - 07/30 [facility] 35.8 /2015 [facility] PARATHYROID Ca Norm WB 1.18 1.05 - 07/30 [facility] PROFILE mMol/L 1. [facility] PARATHYROID Ca Ion WB 1.15 1.05 - 07/30 [facility] PROFILE mMol/L 1. [facility] CHEM PANEL Phosphorus 2.6 mg/dL 2.5 - 4.5 07/29 [facility] HVI VAS HVI VAS INDICATION: Slurred speech. 07/28 - [facility] Arterial Arterial - Medical Extracrania Extracranial This report was dictated by a Supervisor Intelligence Analyst/Fellow. I have personally reviewed the images as Center l Doppler Doppler Bi well as the Resident's interpretation and agree with the findings. Bi IMPRESSION: Read by: Rozina Cee MD Resident: Rozina Cee MD Dictated Date/time: 07/28/15 19:49 1. There is evidence of mild atherosclerotic disease of bilateral internal carotid arteries consistent with less than 50% stenosis. Electronically Signed by: Marlon Gallardo MD 08/03/15 13:34 FINAL REPORT COMMENT: No prior studies are available for comparison. Bilateral grayscale, color- flow, and Doppler examination of the extracranial carotid arterial system was performed. On the right, mild calcification is noted in the internal carotid artery. The right internal carotid to common carotid peak systolic velocity ratio is 1.45. The peak systolic velocity in the internal ca rotid artery is 95.5 cm/sec. The end diastolic velocity in the internal carotid artery is 28.1 cm/sec. This is consistent with less than 50% stenosis. On the left, mild calcification is noted in the internal carotid artery. The left internal carotid to common carotid peak systolic velocity ratio is 0.57. The peak systolic velocity in the internal oh tid artery is 62.1 cm/sec. The end diastolic velocity in the internal carotid artery is 22.5 cm/sec. This is consistent with less than 50% stenosis. Bilateral external carotid arteries are patent. Bilateral antegrade flow was noted in the vertebral arteries. HVI VAS HVI VAS INDICATION: Lower extremity gangrene. 07/28 - [facility] Arterial Arterial /2016 - Medical Upper or Upper or This report was dictated by a Supervisor Intelligence Analyst/ Fellow. I have personally reviewed the images as Center Lower Lower single well as the Resident's interpretation and agree with the findings. single l l FINDINGS: Read by: Rozina Cee MD Resident: Rozina Cee MD Dictated Date/time: 07/28/15 19:42 1. 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 Little to no flow was noted in bilateral toes. Electronically Signed by: Marlon Gallardo MD 08/03/15 13:33 FINAL REPORT COMMENT: No prior studies are available for comparison. Bilateral ankle-brachial pressures with velocity waveforms were obtained. Toe-pressure and toe-brachial indices were also obtained. On the right, biphasic waveforms are noted in the dorsalis pedis and posterior tibial arteries. The ankle-brachial index is 1.44. The great toe pressure and toe brachial index were not obtained. Pulse v olume recordings demonstrate normal amplitude waveforms at the level of the thigh, calf, and ankle. Waveforms are markedly attenuated at the level of the digits. 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 On the left, triphasic waveforms are noted in the dorsalis pedis arteries; biphasic waveforms are noted in the posterior tibial artery. The ankle-brachial index is 1.63. The great toe pressure and toe b rachial index were not obtained. Little to no flow is noted in the toes. CHEM PANEL Phosphorus 3.3 mg/dL 2.5 - 4.5 07/28 [facility] /2015 [facility] HEMATOLOGY INR 1.86 0.85 - 07/28 [facility] 1.17 [facility] HEMATOLOGY PT 21.8 s 12.0 - 07/28 [facility] 14.7 [facility] Brain wo Brain wo EXAM: CT HEAD WITHOUT CONTRAST 07/28 - [facility] contrast CT contrast CT /2015 - [facility] This report was dictated by a Supervisor Intelligence Analyst/Fellow. I have personally reviewed the images as Center well as the Resident's interpretation and agree with the findings. DATE: 07/28/2015 at 0630 hours Read by: Piter Puckett MD Resident: Piter Puckett MD Dictated Date/time: 07/28/15 08:12 Electronically Signed by: Shiloh Martines 07/28/15 10:54 FINAL REPORT INDICATION: Dysarthria TECHNIQUE: Noncontrast images of the brain are obtained from the skull base to the vertex. Axial bone algorithm reconstruction images were also provided. COMPARISON: None. FINDINGS: There is diffuse cerebral volume loss causing ex-vacuo enlargement of the ventricular system and extra-axial fluid spaces. No evidence of obstructive hydrocephalus or pathological extra-axial fluid collection is seen. Multiple scattered as well as confluent hypodense areas within periventricular, deep and subcortical white matter bilaterally, likely related to chronic microvascular ischemic changes. No definite evidence of cerebral edema, mass effect, midline shift is seen. There is no intracranial hemorrhage. Basal cisterns are preserved. No evidence of downward herniation. Visualized paranasal sinuses are clear. Visualized mastoid air cells are clear. Visualized orbits appear grossly unremarkable. Calcified atherosclerotic changes are seen in bilateral cavernous internal carotid arteries as well as intracranial vertebral arteries. Skull vault is intact. IMPRESSION: 1. No evidence of large territorial infarct or intracranial hemorrhage. 2. Age related cerebral volume loss with chronic white matter microvascular changes. HEMATOLOGY PT 21.3 s 12.0 - 05 [place] 14.7 /2016 [facility] HEMATOLOGY INR 1.81 0.85 - 05 [place] 1.17 /2016 [facility] HEMATOLOGY PTT 64.1 s 22.9 - /03 [place] 35.8 /2016 [facility] HEMATOLOGY PTT 96.8 s 22.9 - /03 [facility] 35.8 /2016 [facility] URINE AND UA <=1.0 0.1 - 1.0 07/25 [facility] Urobilinogen mg/dL /2015 [facility] URINE AND UA Leuk Est Negative Negative 07/25 [facility] (07/24/15 6:30 PM) [place] URINE AND UA Blood Negative Negative 07/25 [facility] (07/24/15 6:30 PM) [place] URINE AND UA Nitrite Negative Negative 07/25 [facility] (07/24/15 6:30 PM) [place] URINE AND UA Bili Negative Negative 07/25 [facility] *NA* Center (07/24/15 6:30 PM) URINE AND UA Glucose Negative Negative 07/25 [facility] mg/dL mg/dL [facility] URINE AND UA Ketones Negative Negative 07/25 [facility] STOOL mg/dL mg/dL [facility] URINE AND UA Protein 20 mg/dL Negative 07/25 [facility] mg/dL [facility] URINE AND UA Turbidity Clear Clear 07/25 [facility] (07/24/15 6:30 PM) [place] URINE AND UA Spec Grav 1.012 <=1.030 07/25 [facility] URINE AND UA pH 5.5 5.0 - 8.0 07/25 [facility]2015 [facility] URINE AND UA Color Yellow Yellow 07/25 [facility] *NA* Center (07/24/15 6:30 PM) URINE AND UA Mucus Few /LPF None Seen 07/25 [facility] STOOL /LPF /2015 [facility] URINE AND UA RBC 4 /HPF 0 - 2 07/25 [facility]2015 [facility] URINE AND UA WBC 1 /HPF 0 - 5 07/25 [facility]2015 [facility] URINE AND UA Sq Epi None Seen 07/25 [facility] URINE AND UA Glucose Negative Negative 07/22 [facility] mg/dL mg/dL /2014 [facility] URINE AND UA Protein Negative Negative 07/22 [facility] mg/dL mg/dL /2014 [facility] URINE AND UA Blood Negative Negative 07/22 [facility] (07/22/15 5:02 AM) [place] URINE AND UA 2.0 mg/dL 0.1 - 1.0 07/22 [facility] Urobilinogen /2014 [facility] URINE AND UA Ketones Negative Negative 07/22 [facility] mg/dL mg/dL /2014 [facility] URINE AND UA Bili Negative Negative 07/22 [facility] *NA* [place] (07/22/15 5:02 AM) URINE AND UA Spec Grav 1.009 <=1.030 07/22 [facility]2014 [facility] URINE AND UA Color Yellow Yellow 07/22 [facility] *NA* [place] (07/22/15 5:02 AM) URINE AND UA pH 7.5 5.0 - 8.0 07/22 [facility] URINE AND UA Turbidity Clear Clear 07/22 [facility] (07/22/15 5:02 AM) [place] URINE AND UA Sq Epi None Seen 07/22 [facility]2014 [facility] URINE AND UA Mucus Few /LPF None Seen 07/22 [facility] /LPF /2014 [facility] URINE AND UA Nitrite Negative Negative 07/22 [facility] (07/22/15 5:02 AM) [place] URINE AND UA Leuk Est Negative Negative 07/22 [facility] (07/22/15 5:02 AM) [place] URINE AND UA WBC null 0 - 5 07/22 [facility] IMMUNOLOGY 24Hr UPE Int Faint 07/22 [facility] bands [facility] seen in Center the albumin, alpha -1, alpha -2 and beta globulin regions consistent with mild glomerular and tubular proteinuri a. There is no evidence of a paraprotei n.The electronic medical record has been reviewed for relevant medical informatio n.I have personally reviewed the test results and concur with the resident's interpreta tion.CPT: 07179-ET IMMUNOLOGY 24Hr UPE 552 07/22 [facility] mg/24hrs /2014 [facility] IMMUNOLOGY 24 UPE Tot 33 mg/dL 07/22 [facility] Prot Medical Center IMMUNOLOGY 24 UPE Tot 1672 mL 07/22 [facility] Vol [facility] Center LIPIDS VLDL 12 07/21 [facility] LIPIDS LDL 86 mg/dL <=99 mg/dL 07/21 [facility] (Calculated) [facility] LIPIDS Trig 60 mg/dL <=149 07/21 [facility] mg/dL [facility] LIPIDS Chol 168 mg/dL <=199 07/21 [facility] mg/dL [facility] LIPIDS HDL 70 mg/dL >=61 mg/dL 07/21 [facility] LIPIDS CHD Risk 2.40 4.00 - 07/21 [facility] 7. [facility] IMMUNOLOGY Cardiolipin null <=19.9 GPL 07/20 [facility] IgG [facility] IMMUNOLOGY Cardiolipin 1.3 <=19.9 APL 07/20 [facility] IgA APL-U/mL [facility] IMMUNOLOGY Cardiolipin 2.7 <=19.9 MPL 07/20 [facility] IgM MPL-U/mL [facility] IMMUNOLOGY CHRISTINA Ser The serum 07/20 [facility] Interp immunofixa /2014 [facility] tion Center electropho resis demonstrat es polyclonal distributi on of immunoglob ulins. No monoclonal immunoglob ulins are detected.I have personally reviewed the test results and concur with the resident's interpreta tion.CPT 56097-UB IMMUNOLOGY CHRISTINA Ser Diffusely 07/20 [facility] Pattern staining Medical immunoreac Center tivity is present in the IgG, IgA, IgM, kappa, and lambda lanes in a normal polyclonal distributi on. No monoclonal immunoglob ulins are detected. HVI VAS HVI VAS Reason for exam: Ischemic right upper extremity. 07/20 - [facility] Arterial/by Arterial/byp - Medical pass Upper ass Upper This report was dictated by a Supervisor Intelligence Analyst /Fellow. I have personally reviewed the images as Center Ext Bilat Ext Bilat well as the Resident's interpretation and agree with the findings. IMPRESSION: Read by: Rozina Cee MD Resident : Rozina Cee MD Dictated Date/time: 07/20/15 20:55 1. 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 Electronically Signed by: Mariah Desai MD 07/24/15 21 :54 FINAL REPORT 2. Otherwise patent bilateral upper extremity arterial system. Clinical correlation is indicated. COMMENT: No prior studies were available for comparison. Bilateral upper extremity grayscale color-flow and Doppler examination of the arterial system was performed. On the right, biphasic waveforms are present in the subclavian, axillary, brachial, radial, and proximal ulnar arteries. Peak systolic velocities measure 196, 94.4, 108, 79.2, and 58.5 cm/sec, respectiv kandy. The distal right ulnar artery is occluded with no antegrade flow. On the left, biphasic waveforms are present in the subclavian, axillary, brachial, radial, and proximal ulnar arteries. Peak systolic velocities measure 131, 95.6, 114, 80.0, and 46.8 cm/sec, respective ly. The distal left ulnar artery is occluded with no antegrade flow. HEMATOLOGY Protein C 119 % 72 - 147 07/18 [facility]2014 [facility] HEMATOLOGY Protein S 88 % 54 - 137 07/18 [facility]2014 [facility] HEMATOLOGY F5 Leiden FACTOR V 07/18 [facility] Intrp [facility] TERPRETATI ON:Molecul ar analysis for the Factor V Leiden, [id number] mutation was negative.O ther causes of activated protein C resistance and hereditary forms of venousthro mbosis are not ruled out. Final diagnosis requires correlatio n withclinic al history and other pertinent laboratory findings.W here appropriat e, medical consultati on and/or genetic counseling should beoffered to inform and explain the risk implicatio ns and genetic implicatio nsof these test results. SAY LIMITATION S:The assay uses the FDA-cleare d Светлана Factor V Leiden IVD([place] ase chain reaction/F RET detection) kit, Светлана [employer] LC Instrument and the [employer] r 1.2 Instrument . A 222-bp fragment of Factor V gene (FV) containing the Factor V Leiden sequence is amplified in the assay. The assay is designed to detect the G [id number] mutation only. Other causes of activated protein C resistance and hereditary forms of venous thrombosis are not ruled out. However, melting curve analysis may implicate the presence of possible rare mutations at positions 1689, 1692 and 1696. (Further testing will be recommende d in the report). A minimum detection level is 202 copies of Factor V Leiden per reaction. The level of agreement between the Factor V Leiden Kit and sequence analysis was 99.4%. The test result must be interprete d along with the patient's clinical history and relevant laboratory data. This assay has been validated by [facility] . HEMATOLOGY F5 Leiden Negative 07/18 [facility] PCR /2014 Medical (07/17/15 8:30 PM) Center HVI VAS HVI VAS INDICATION: Lower extremity gangrene 07/17 - [facility] Arterial Arterial /2014 - Medical Upper or Upper or This report was dictated by a Supervisor Intelligence Analyst/ Fellow. I have personally reviewed the images as Center Lower Lower single well as the Resident's interpretation and agree with the findings. single l l IMPRESSION: Read by: Tay Sandy (Fellow) Resident: Tay Sandy (Fellow) Dictated Date/time: 07/18/15 13:06 1. Mild arterial insufficiency noted in bilateral lower extremity. Electronically Signed by: Turner England MD 07/18/15 14 :42 FINAL REPORT 2. Segemental pressure waveform analysis suggests minimal disease in bilateral lower extremity. COMMENT: No prior studies are available for comparison. Bilateral lower extremity segmental pressures with velocity waveform analysis were performed. On the right, triphasic waveforms are noted in the common femoral, superficial femoral, popliteal, posterior tibial, and dorsalis pedis arteries. Right ankle/brachial index is 1.55. The great toe pressu re is not detectable. This is consistent with severe peripheral arterial disease in the digital arteries. On the left, triphasic waveforms are noted in the common femoral, superficial femoral, popliteal, posterior tibial, and dorsalis pedis arteries. Left ankle/brachial index is 1.64. The great toe pressur e is not detectable. This is consistent with severe peripheral arterial disease in the digital arteries. IMMUNOLOGY Tot Prot 6.6 g/dL 6.4 - 8.4 07/15 [facility] (SPE) /2014 [facility] IMMUNOLOGY Alpha 2 Glob 1.26 g/dL 0.45 - 07/15 [facility] 1.00 [facility] IMMUNOLOGY Alpha 1 Glob 0.56 g/dL 0.18 - 07/15 [facility] 0.41 /2014 [facility] IMMUNOLOGY SPE Interp Capillary 07/15 [facility] electropho /2014 [facility] demonstrat es a distortion of the gamma distributi on curve. This requires further evaluation by serum and 24 hr urine immunofixa tion. As there is no distinct peak, quantifica tion is not possible.T otal protein level is within the reference range. Serum protein electropho resis shows reduction in the albumin level with increase in the alpha-1 and alpha-2 globulin fractions. These findings are otherwise consitent with inflammati on.The electronic medical record has been reviewed for relevant history.I have personally reviewed the test results and concur with the resident's interpreta tion.CPT 96344-[place] IMMUNOLOGY Albumin 3.21 g/dL 3.57 - 07/15 [facility] (SPE) 5.55 /2014 [facility] IMMUNOLOGY Gamma Glob 0.77 g/dL 0.71 - 07/15 [place] 1.57 [facility] IMMUNOLOGY Beta Glob 0.81 g/dL 0.50 - 07/15 [place] 1.15 [facility] IMMUNOLOGY Gamma % 11.6 REL % 11.1 - 07/15 [place] 18.7 /2014 [facility] IMMUNOLOGY Alpha 1 % 8.5 REL % 2.8 - 4.9 07/15 [facility] IMMUNOLOGY Albumin % 48.6 REL % 55.8 - 07/15 [place] 66.1 /2014 [facility] IMMUNOLOGY Beta % 12.2 REL % 7.8 - 13.7 07/15 [facility] IMMUNOLOGY Alpha 2 % 19.1 REL % 7.0 - 11.9 07/15 [facility] IMMUNOLOGY P-ANCA Negative Negative 07/15 [facility] (07/15/15 5:55 PM) [place] IMMUNOLOGY C-ANCA Negative Negative 07/15 [facility] (07/15/15 5:55 PM) [place] IMMUNOLOGY JADE Negative Negative 07/15 [facility] (07/15/15 5:55 PM) Center IMMUNOLOGY RF Qnt null 0 - 20 07/15 [facility] IMMUNOLOGY Hep Bs Ab null <=7.4 07/15 [facility] mIU/mL [facility] IMMUNOLOGY Hep B Core Negative Negative 07/15 [facility] *NA* Center (07/15/15 5:55 PM) IMMUNOLOGY Hep C Ab Negative 07/15 [facility] *NA* [place] (07/15/15 5:55 PM) IMMUNOLOGY Hep B Core Negative Negative 07/15 [facility] Medical *NA* Center (07/15/15 5:55 PM) IMMUNOLOGY C-REACTIVE 66.4 mg/L <=2.9 mg/L 07/15 [facility] PROTEIN [facility] CARDIAC Total CK 64 unit/L 12 - 191 07/15 [facility] ENZYMES /2014 [facility] HEMATOLOGY Lup Interp Negative 07/15 [facility] for lupus [facility] Center ant with all tests performed (dRVVT, and hexagonal phospholip id neutraliza tion).CPT: 75092 HEMATOLOGY dRVV Ratio 0.93 <=1.20 07/15 [facility] /2014 [facility] HEMATOLOGY Hex Phos N Negative Negative 07/15 [facility] (07/15/15 6:50 AM) [place] HEMATOLOGY Sed Rate 46 mm/h 0 - 15 07/15 [facility] IMMUNOLOGY C4 25 mg/dL 16 - 47 07/15 [facility] Complement [facility] IMMUNOLOGY C3 124 mg/dL 88 - 201 07/15 [facility] Complement [facility] IMMUNOLOGY Beta2-Glycop null <=19.9 07/15 [facility] rotein IgG unit/mL /2014 [facility] IMMUNOLOGY Beta2-Glycop 1.6 <=19.9 07/15 [facility] rotein IgM unit/mL unit/mL /2014 [facility] IMMUNOLOGY Beta2-Glycop 2.2 <=19.9 07/15 [facility] rotein IgA unit/mL unit/mL /2014 [facility] IMMUNOLOGY C-REACTIVE 56.8 mg/L <=2.9 mg/L 07/15 [facility] PROTEIN [facility] Chest/Abdom Chest/Abdomi EXAM: CTA CHEST WITH CONTRAST 07/15 - [facility] inal Aorta nal Aorta /2014 - [facility] with Runoff with Runoff EXAM: CTA ABDOMEN AND PELVIS WITH CONTRAST WITH BILATERAL RUNOFF This report was dictated by a Supervisor Intelligence Analyst/ Fellow. I have personally reviewed the images as Center CTA CTA well as the Resident's interpretation and agree with the findings. Read by: Katy Clinton MD Resident: Katy Clinton MD Dictated Date/time: 07/17/15 13:10 DATE: 07/15/2015 at 1000 hours Electronically Signed by: Cj Campos MD 07/17/15 16:19 FINAL REPORT INDICATION: Right foot gangrene. COMPARISON: None. TECHNIQUE: Rapid acquisition axially oriented images were obtained from the level of the clavicles through ischial tuberosities during the infusion of 140 cc of Visipaque 320 intravenous contrast for th e purposes of angiography. Arterial phase imaging are performed. Sagittal and coronal reformat images, including MIP images, are created at the scanner workstation. FINDINGS: The aorta is normal in caliber and contour with scattered calcified and noncalcified atheromatous plaque. Aorta measures: 3.8 cm at the ascending aorta at the level of the pulmonary artery, 2.8 cm at the mid arch, 2.8 cm at the descending aorta at the level of the main pulmonary artery, 2.7 cm at the level of the aortic hiatus, 2.1 cm at the level of the renal arteries, and 1.5 cm just proximal to the iliac bifurcation. The branching pattern is unremarkable. No significant atheromatous plaque involving the external iliac or common femoral arteries bilaterally. There is normal three-vessel runoff to the ankles bilaterally. No focal flow-limiting stenosis or occlusion identified. No pulmonary or pleural-based abnormality is identified. No pneumothorax is identified. Heart is normal in size without pericardial effusion. Faint calcifications in the left anterior ascending coronar y artery. Subcentimeter mediastinal lymph nodes are nonspecific. A few subcentimeter hypodensities are present within the left hepatic lobe , nonspecific but likely cysts. The spleen, pancreas, gall bladder, and adrenal glands are unremarkable. Multiple fluid attenuating cysts are present within both kidneys. Largest cysts measure 4.8 x 4 cm in the superior left renal pole and 4.6 x 4.3 cm in the interpolar right kidney. There is no hydronephr osis. A heterogeneous attenuating exophytic 3.1 x 2.6 cm enhancing mass arises from the inferior pole of the left kidney. The stomach is not distended, limiting its evaluation. The visualized large and small bowel is unremarkable in appearance. Bones are osteopenic with multilevel degenerative change involving disc height loss, vacuum disc phenomena, and subchondral sclerosis/cystic change. There is exuberant lower lumbar facet arthropathy. Tr icompartmental degenerative change at the knees is noted. Evaluation of the right toes are limited secondary to motion. No acute osseous abnormality identified. IMPRESSION: 1. Mildly ectatic ascending thoracic aorta measuring 3.8 cm. Otherwise, normal caliber and branching pattern of the aorta with mild calcified and noncalcified atheromatous plaque. 2. Faint coronary calcifications in the left anterior descending coronary artery. 3. No flow-limiting stenosis or focal occlusion identified in the lower extremities above the ankles with normal three-vessel runoff bilaterally. Evaluation of the vasculature within both feet is limited due to bolus timing. 4. Heterogeneously attenuating 3.1 x 2.6 cm exophytic left inferior renal pole mass highly concerning for malignancy. Recommend dedicated renal mass protocol CT or MRI. CARDIAC Total CK 59 unit/L 12 - 07/15 [facility] ENZYMES [facility] CARDIAC Total CK 59 unit/L - 191 07/15 [facility] ENZYMES [facility] HEMATOLOGY Plav Effect 333 PRU 07/15 [facility] Plt /2014 [facility] BACTERIAL - MRSA by PCR Negative 07/15 [facility] SEROLOGY [facility] (07/14/15 8:25 PM) [place] BLOOD BANK ABO/Rh A POS 07/15 [facility] RESULTS /2014 [facility] BLOOD BANK Antibody Negative 07/15 [facility] RESULTS Scrn [facility] (07/14/15 7:50 PM) [place] CARDIAC CK MB 3.4 ng/mL 0.5 - 3.6 07/15 [facility] ENZYMES /2014 [facility] CARDIAC CK MB Index 4.2 0.0 - 2.5 07/15 [facility] ENZYMES /2014 [facility] CHEM PANEL Bili Direct 0.2 mg/dL 0.0 - 0.3 07/[address] CHEM PANEL Globulin 4.0 g/dL 2.0 - 4.0 07/[address] CHEM PANEL B/C Ratio 28 6 - 25 07/[address] CHEM PANEL A/G Ratio 0.6 0.7 - 1.6 07/[address] CHEM PANEL Bili Total 0.9 mg/dL 0.2 - 1.3 07/[address] CHEM PANEL Alk Phos 70 unit/L 39 - 136 07/[address] CHEM PANEL AST 23 unit/L 0 - 37 07/[address] CHEM PANEL Albumin Lvl 2.6 g/dL 3.5 - 5.0 07/[address] CHEM PANEL ALT 35 unit/L 0 - 65 07/[address] CHEM PANEL Total 6.6 g/dL 6.4 - 8.4 07/15 [facility] Protein /2014 [facility] CHEM PANEL Lactic Acid 2.2 mMol/L 0.5 - 2.2 07/15 [facility] [facility] L[facility] LIPIDS VLDL 14 07/15 [facility] LIPIDS LDL 91 mg/dL <=99 mg/dL 07/15 [facility] (Calculated) [facility] LIPIDS HDL 69 mg/dL >=61 mg/dL 07/15 [facility] LIPIDS Chol 174 mg/dL <=199 07/15 [facility] mg/dL [facility] LIPIDS Trig 72 mg/dL <=149 07/15 [facility] mg/dL [facility] LIPIDS CHD Risk 2.52 4.00 - 07/15 [facility] 7. [facility] PARATHYROID Ca Norm WB 1.07 1.05 - 07/15 [facility] PROFILE mMol/L 1. [facility] PARATHYROID Ca Ion WB 1.11 1.05 - 07/15 [facility] PROFILE mMol/L 1. [facility] SPECIAL Hgb A1C 6.3 % <=5.6 % 07/15 [facility] CHEMISTRY [facility] URINE AND UA Bili Negative Negative 07/15 [facility] *NA* [place] (07/14/15 7:50 PM) URINE AND UA pH 5.5 5.0 - 8.0 07/[address] URINE AND UA Protein Negative Negative 07/15 [facility] STOOL mg/dL mg/dL [facility] URINE AND UA Glucose Negative Negative 07/15 [facility] mg/dL mg/dL [facility] URINE AND UA Ketones Negative Negative 07/15 [facility] mg/dL mg/dL [address] [place] [address] URINE AND UA Nitrite Negative Negative 07/15 [facility] (07/14/15 7:50 PM) [place] URINE AND UA Leuk Est Negative Negative 07/15 [facility] (07/14/15 7:50 PM) [place] URINE AND UA Sq Epi None Seen 07/15 [facility] [address] [place] [address] URINE AND UA Blood Negative Negative 07/15 [facility] (07/14/15 7:50 PM) [place] URINE AND UA Spec Grav 1.007 <=1.030 07/[address] URINE AND UA Color Light Yellow Yellow 07/15 [facility] [address] [place] [address] *NA* [place] (07/14/15 7:50 PM) URINE AND UA Turbidity Clear Clear 07/15 [facility] /[address] [place] [address] (07/14/15 7:50 PM) [place] URINE AND UA <=1.0 0.1 - 1.0 07/15 [facility] Urobilinogen mg/dL /2014 [facility] URINE AND UA WBC null 0 - 5 07/15 [facility] /[address] [place] [address] Chest 1view Chest 1view EXAM: XR Chest 1view , 07/14 - [facility] DX DX /2014 - [facility] DATE: Jul 14, 2015 07:54:00 PM Read by: Angus Yip Dictated Date/time: 07/15/15 00:26 Electronically Signed by: Angus Yip 07/15/15 07:22 FINAL REPORT INDICATION: Respiratory distress /See Clinic Indication . COMPARISON: None FINDINGS: A single portable semierect frontal chest radiograph is submitted for interpretation. No focal consolidation or pleural effusion or pneumothorax identified. The aorta is tortuous/unfolded/ec tatic. The cardiomediastinal silhouette is within normal limits for portable technique. Visualized soft tissues and osseous structures show no acute abnormality. Degenerative changes noted in thoracic spine. IMPRESSION: No acute intrathoracic radiographic abnormality is identified. Tortuous/unfolded/ectatic thoracic aorta. Vital Signs Vital Sign Value Date Comments Source Weight 70.909 12/10/2017 [facility] Height 167.64 cm 12/10/2017 [facility] BMI Calculated 25.23 12/10/2017 [facility] BMI Calculated 25.39 08/13/2017 [facility] Weight 71.364 08/13/2017 [facility] Heart Rate 60 08/13/2017 [facility] Height 167.64 cm 08/13/2017 [facility] Systolic (mm Hg) 122 08/13/2017 [facility] Diastolic (mm Hg) 73 08/13/2017 [facility] Weight 71.818 12/17/2015 [facility] Heart Rate 59 12/17/2015 [facility] Respitory Rate 18 12/17/2015 [facility] Temperature Oral (F) 96.1 F 12/17/2015 [facility] Systolic (mm Hg) 141 12/17/2015 [facility] Diastolic (mm Hg) 75 12/17/2015 [facility] BMI Calculated 25.48 10/15/2015 [facility] Weight 69.364 10/15/2015 [facility] Height 165 cm 10/15/2015 [facility] Temperature Oral (F) 96.7 F 10/15/2015 [facility] Respitory Rate 18 10/15/2015 [facility] Heart Rate 67 10/15/2015 [facility] Systolic (mm Hg) 113 10/15/2015 [facility] Diastolic (mm Hg) 70 10/15/2015 [facility] Center Respitory Rate 18 09/13/2015 [facility] Heart Rate 71 09/13/2015 [facility] Systolic (mm Hg) 148 09/13/2015 [facility] Diastolic (mm Hg) 80 09/13/2015 [facility] Temperature Oral (F) 98.3 F 09/13/2015 [facility] Respitory Rate 20 09/13/2015 [facility] Temperature Oral (F) 98.6 F 09/13/2015 [facility] Heart Rate 69 09/13/2015 [facility] Systolic (mm Hg) 147 09/13/2015 [facility] Diastolic (mm Hg) 75 09/13/2015 [facility] Systolic (mm Hg) 137 09/13/2015 [facility] Diastolic (mm Hg) 74 09/13/2015 [facility] Respitory Rate 20 09/13/2015 [facility] Temperature Oral (F) 98.1 F 09/13/2015 [facility] Heart Rate 72 09/13/2015 [facility] Height 157.48 cm 09/10/2015 [facility] BMI Calculated 27.13 09/10/2015 [facility] Weight 67.273 09/10/2015 [facility] Systolic (mm Hg) 116 08/11/2015 [facility] Diastolic (mm Hg) 68 08/11/2015 [facility] Temperature Oral (F) 98.4 F 08/11/2015 [facility] Heart Rate 94 08/11/2015 [facility] Respitory Rate 20 08/11/2015 [facility] Heart Rate 82 08/11/2015 [facility] Respitory Rate 20 08/11/2015 [facility] Temperature Oral (F) 98.3 F 08/11/2015 [facility] Systolic (mm Hg) 112 08/11/2015 [facility] Diastolic (mm Hg) 78 08/11/2015 [facility] Systolic (mm Hg) 110 08/11/2015 [facility] Diastolic (mm Hg) 84 08/11/2015 [facility] Respitory Rate 20 08/11/2015 [facility] Temperature Oral (F) 97.9 F 08/11/2015 [facility] Heart Rate 93 08/11/2015 [facility] Weight 67.4 08/01/2015 [facility] Weight 67.472 07/24/2015 [facility] BMI Calculated 23.72 07/15/2015 [facility] Height 170.18 cm 07/15/2015 [facility] Weight 68.682 07/15/2015 [facility] Encounters Location Location Encounter Encounter Reason Attending ADM DC Status Source Details Type Number For Provider Date Date Visit [facility] [id number] Aldo 07/15 08/12 [facility] /2014 [facility] Inpatient [id number] Tung Shelley 09/10 09/13 [facility] /2015 [facility] Outpatient [id number] Shilpan 10/14 10/15 [facility] /2015 [facility] Memorial Phone [id number] 10/24 10/26 2.16.840 Raghav Message /2015 .1.07375 Oncology 3.3.615. [facility] Outpt Diag [id number] Tung Shelley 12/09 12/10 [facility] /2015 [facility] Outpatient [id number] Shilpan 12/16 12/17 [facility] /2015 [facility] [id number] Tung Shelley 03/09 03/10 [facility] /2015 [facility] Outpt Diag [id number] Tung Shelley 07/06 07/07 [facility] /2015 [facility] Outpt Diag [id number] Tung Shelley 11/17 11/18 [facility] /2016 [facility] Outpt Diag [id number] Tung Shelley 02/23 02/24 [facility] /2016 [facility] Outpt Diag [id number] Tung Shelley 08/02 08/03 [facility] [id number] Tung Shelley 08/13 08/14 Urology [facility] /2017 Medical [facility] Outpt Diag [id number] Tung Shelley 11/29 11/30 [facility]2017 [facility] [id number] Tung Shelley 12/10 12/11 Urology [facility] /2017 Medical Group Procedures Procedure Code Date Perfomer [place] [address] 08/13/2017 Medical post-voiding Group residual urine and/or bladder capacity by ultrasound, non-imaging Complex 10168 08/13/2017 Medical uroflowmetry (eg, Group calibrated electronic equipment) Spinal puncture, 32712 08/03/2015 [facility], for Medical drainage of Center cerebrospinal fluid (by needle or catheter) Renal operation [id number] 07/23/1962 [facility] Renal operation [id number] 07/23/1962 [facility] Renal operation [id number] 07/23/1962 [facility] Renal operation [id number] 07/23/1962 [facility] Renal operation [id number] 07/23/1962 [id number] Amputation of the [id number] [facility] Nephrectomy<sup>1</ [id number] Left kidney [facility] Amputation of the [id number] [facility] [place] Nephrectomy<sup>1</ [id number] Left kidney [facility] sup> [place] Amputation of the [id number] [facility] foot [place] Nephrectomy<sup>1</ [id number] Left kidney [facility] sup> [facility] Amputation of the [id number] Medical foot Group Nephrectomy<sup>1</ [id number] Left kidney Medical sup> Group Amputation of the [id number] [id number] foot [id number] Nephrectomy<sup>1</ [id number] Left kidney [id number] sup> [id number]
--- OUTSIDE RECORDS SUMMARY | 2018-02-11 12:01 | XMS REPORT ---
:1930 [facility] Address [address] [place] [address] [address] Care Team Providers Name Role Phone SONYA MENCHACA Primary Care Provider Unavailable Problems This patient has no known problems. Allergies, Adverse Reactions, Alerts This patient has no known allergies or adverse reactions. Medications This patient has no known medications. Encounters Start End Encounter Admission Attending Care Care Encounter Date/Time Date/Time Type Type Clinicians Facility Department ID 2017-01-11 2017-01-11 Outpatient C [facility] [id number] 09:23:00 09:23:00
[2018-02-11] MEDS ORDERED: NA CHLORIDE 0.9% 500 ML ONE (12:21)
[2018-02-11] MEDS ORDERED: PHENYLEPHRINE 10% OPTH 5ML ONE (12:23)
[2018-02-11] MEDS ORDERED: CYCLOPENTOLATE 1% OPTH 2 ML OPTH ONE ×3 (12:28→12:40)
[2018-02-11 12:30] LABS: Protime INR 1.18
[2018-02-11] MEDS ORDERED: PHENYLEPHRINE 10% OPTH 5ML OPTH ONE ×2 (12:33→12:40)
[2018-02-11] MEDS: TETRACAINE HCL 0.5% 2ML OPTH ONE ×3 (12:43→13:34)
[2018-02-11] MEDS: LIDOCAINE 2% MPF 5 ML VIAL ONE ×3 (12:44→13:35)
[2018-02-11] MEDS: BUPIVACAINE 0.25% PF 10 ML VIAL ONE ×3 (12:46→13:35)
[2018-02-11] MEDS ORDERED: BSS PLUS 500 ML BOTTLE IRR ONE (12:47)
[2018-02-11] MEDS ORDERED: DUOVISC 1 KIT OPTH ONE (12:48)
[2018-02-11] MEDS ORDERED: MOXIFLOXACIN HCL 10 DROPS/ML **OR USE OPTH ONE (12:48)
[2018-02-11] MEDS ORDERED: LIDOCAINE 2% MPF 5 ML VIAL ONE (13:14)
[2018-02-11] MEDS ORDERED: PROPOFOL 200 MG/20 ML VIAL IV ONE (13:14)
[2018-02-11] MEDS: EPINEPHRINE/PF 1 MG/ML AMP ONE ×2 (13:33→13:46)
--- NOTE | 2018-02-11 14:25 | P.BOP ---
Preoperative diagnosis: Nuclear sclerotic cataract and miosis OD Postoperative diagnosis: Same Primary procedure: Phacoemulsification with IOL OD Estimated blood loss: None Anesthesia: Local (Subtenon's infusion with anesthesia for cataract surgery) Complications: None Implants: [id number] +25.0 Transferred to: Other (Day surgery) Condition: Good
[2018-02-11 15:04] VITALS: BP 163/75; TEMP 97.6; O2SAT 99
--- NOTE | 2018-02-11 18:26 | OP ---
Date of Procedure: 02/11/2018 Surgeon: Joseline Luque MD Anesthesiologist: 1. Ann-Marie Montenegro CRNA. 2. Jesus Mccullough M.D. Preoperative Diagnoses: Nuclear sclerotic cataract, Fuchs dystrophy, and miosis right eye. Operation Performed: Phacoemulsification with intraocular lens implant right eye complex with the use of iris retractors. Anesthesia: Per cataract surgery. Complications: None. Description Of The Procedure: In day surgery, the patient was prepped with Betadine and draped. A lid speculum was placed in the right eye. A conjunctival incision was made in the inferior nasal quadrant with Nicolle scissors. A 1:1 mixture of 2% Xylocaine and 0.25% bupivacaine was placed around the globe. Approximately 5 mL were used. A Honan balloon was placed on the eye for approximately 5 minutes. The patient was brought into the operative room. The patient was prepped and draped in the usual sterile fashion for ophthalmic surgery. A lid speculum was placed in the eye. Paracentesis were made superiorly and inferiorly in the limbal cornea. Viscoat was placed in the anterior chamber. A crescent blade was used to create a tunnel incision in the temporal cornea and a keratome was used to enter the anterior chamber. Five additional paracentesis sites were created with one at the wound, one 180 degrees from the wound, and three in the superior and inferior quadrants; through these, 5 iris retractors were placed. Provisc was placed in the eye and 360 degree capsulotomy was performed. The lens was hydrodissected with balanced salt solution and moved freely. The lens was removed in a stop and chop fashion. 6.32 CDE was required. Irrigation and aspiration was used to remove residual cortex. Provisc was placed in the eye. A ZCB00 +25.0 diopter lens was placed in the capsular bag without complications. The iris retractors were removed. Irrigation and aspiration was used to remove residual viscoelastic. The paracentesis sites were hydrated with balanced salt solution and the wound and paracentesis sites were inspected and found to be watertight. Intracameral Vigamox 0.07 cc was injected at the end of the procedure. The eye was irrigated with balanced salt solution. The eye was patched with a soft cotton patch and Epstein metal shield. The patient was returned to day surgery in good condition. Comments: BSS Plus was used. 1:5000 epinephrine was placed in the anterior chamber prior to Viscoat. Iris retractors were used because the pupil did not dilate well enough to create a capsulotomy. Extra Viscoat was used. Discharge Instructions: Mr. Gutierres was discharged to home in good condition. He is to follow up with Dr. Luque in the morning. KENYA/KHUSHBU Voice ID: [id number] Report ID: [id number] MTDD
== END 2018-02-11 15:06 | disposition home or self-care (01) ==
LOC: OR 10:45
PROVIDERS: ATTEND Ophthalmology Retina Specialist
PROC: 08RJ3JZ Replacement of Right Lens with Synthetic Substitute, Percutaneous Approach (ICD-10-PCS; principal; 2018-02-11 11:30)
DX: H25.11 Age-related nuclear cataract, right eye (principal); H57.03 Miosis; H18.51 Endothelial corneal dystrophy; I10 Essential (primary) hypertension; K21.9 Gastro-esophageal reflux disease without esophagitis; E78.00 Pure hypercholesterolemia, unspecified; M19.90 Unspecified osteoarthritis, unspecified site; Z79.01 Long term (current) use of anticoagulants; Z79.82 Long term (current) use of aspirin; Z85.528 Personal history of other malignant neoplasm of kidney
CPT/HCPCS: 36415; 66982; 85610; J0171

== ENCOUNTER 2020-03-25 15:26 | Emergency (ER) | payer MEDICARE, BC ==
--- OUTSIDE RECORDS SUMMARY | 2020-03-25 15:31 | XMS REPORT | Summary of Care ---
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, other extremity(Confirmed) Back pain(Confirmed) Resolved 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(Confirmed) 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 Fatigue(Confirmed) Active GERD - Gastro-esophageal reflux Resolved disease(Confirmed) HLD - Hyperlipidemia(Confirmed) Resolved [place] [employer] (hard of hearing)(Confirmed) Resolved HTN - Hypertension(Confirmed) Resolved Frequency of micturition(Confirmed) Active Malignant neoplasm of left kidney, Active except renal pelvis(Confirmed) Nocturia(Confirmed) Active Renal cancer(Confirmed) Resolved Renal mass(Confirmed) Resolved Prostate cancer screening(Confirmed) Active Allergies, Adverse Reactions, Alerts No Known Medication Allergies Medications No data available for this section Results No data available for this section Immunizations Given and Recorded Vaccine Date Status Refusal Reason influenza virus vaccine, inactivated 07/22/15 Recorded Procedures Procedure Date Related Diagnosis Body Site Status Renal operation 1963 Completed Amputation of the foot Compl eted Nephrectomy1 Completed 1Left kidney Social History Social History Type Response Alcohol Past, Type Beer. Stopped ag e 27 Years. Previous treatment: None. Alcohol use interfere s with work or home: No. Drinks more than intended: Yes. Others hurt by drinking: No. Employment/School Status: Retired. Substance Abuse Use: None. Smoking Status Former smoker; Type: Cigaret jodie; Exposure to Tobacco Smoke None; Cigarette Smoking Last 365 Days No; Reg Smoking Cessation Counseling Yes entered on: 09/15/19 Assessment and Plan No data available for this section
--- OUTSIDE RECORDS SUMMARY | 2020-03-25 15:31 | XMS REPORT | Continuity of Care Document ---
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 16 [facility], KID [place]ST[place] FOLLOW UP Active 10/15/[address] HOSPITAL FOLLOW Active 09/22/19 [facility] jenae UP...REFERRED BY [address] [place], [place] [address] Reeves 09/10 Active 08/20/[address] GANGRENE Active 08/02/[address] LEFT RENAL MASS Active 07/28/[address] ISCHEMIC RIGHT FOOT Active 07/14/[address] Neoplasm of Active Problem 08/15/2019 [facility] uncertain behavior G roup, of kidney WOODD (disorder) Hayder Avilez Arthritis of knee Resolved Problem 03/24/2020 [facility] Medical (disorder) Group,[facility], ARISTIDES Avilez Sharda Ordoñez Oncology [facility] Atherosclerosis of Active Problem 03/24/2020 Medical artery (disorder) Gr oup, JAYSON Otero Backache (finding) Resolved Problem 03/24/2020 Medical Group,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, ARISTIDES Avilez, ARISTIDES [place],Hayder Avilez Oncology [facility] Gastroesophageal Resolved Problem 03/24/2020 Medical reflux disease Group , (disorder) [facility], ARISTIDES Avilez, Sharda Ordoñez Oncology [facility] Hyperlipidemia Resolved Problem 03/24/2020 [facility] edical (disorder) Group,[facility], ARISTIDES Avilez, [place],M [place] [facility] Hearing loss Resolved Problem 03/24/2020 Med ical (finding) Group,[facility], ARISTIDES Avilez, [place]der [place] [facility]cology [facility] Hypertensive Resolved Problem 03/24/2020 Med ical disorder, systemic G roup, arterial (disorder) [facility], ARISTIDES Avilez, ARISTIDES [place],Hayder villa Raghav Oncology [facility] Increased frequency Active Problem 03/24/2020 Medical of urination Group,M (finding) ARISTIDES Avilez, OPIJeni [place] Malignant tumor of Active Problem 03/24/2020 Medical kidney (disorder) Gr oup,[facility], ARISTIDES Avilez, [place],Hayder [place] Raghav Oncology [facility] Nocturia (finding) Active Problem 03/24/2020 Medical Group, ARISTIDES Avilez, OPIJeni [place] Renal mass Resolved Problem 03/24/2020 Medic al (finding) Group,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, [place] except renal pelvis Encounter for 2018 OP ID screening for [place] malignant neoplasm of prostate Diverticulosis of 2018 [facility] OPID large intestine [place] without perforation or abscess without bleeding Other fatigue 11/08/2017 OP ID [place] Aortic ectasia, 11/08/2017 OPID unspecified site [place] Chronic obstructive 03/18/2019 OPID pulmonary disease, [place] unspecified Thoracic aortic 03/18/2019 OPID ectasia [place] ISCHEMIC Active [facility] CARDIOMYOPATHY Medic al Center NEOPLASM OF Active [facility] UNCERTAIN BEHAVIOR M edical OF LEFT K Center GANGRENE, NOT Active ELSEWHERE [facility] CLASSIFIED ENCNTR FOR GENERAL Active M H [place] ADULT MEDICAL EXAM M edical W/ Center Medications Medication Details Route Status Patient Ordering Order Source Instructions Provider Date atorvastatin 20 20 mg = 1 tab, Active H mg oral tablet PO, Bedtime, # 2018 Ia dical 30 tab, 0 Group Refill(s) PreserVision 1 cap, PO, Active AREDS 2 oral Daily, 0 2017 Medical capsule Refill(s) Group Sodium Chloride 0 Refill(s) Active 0.854 MEQ/ML 2018 Medical Ophthalmic Group Solution [Jossie 128] warfarin 7.5 mg 7.5 mg = 1 tab, Active oral tablet PO, Daily, 0 2017 Medical Refill(s) Group PreserVision 1 cap, PO, Active AREDS 2 Daily, 0 2017 Medical Refill(s) Group tamsulosin 0.4 mg 0.4 mg = 1 cap, Active oral capsule PO, Daily, 0 2017 Medica l Refill(s) Group nebivolol 2.5 MG 2.5 mg = 1 tab, Active Oral Tablet PO, Daily, 0 2017 Medical [Bystolic] Refill(s) Group pantoprazole 40 40 mg = 1 tab, Active H MG Enteric Coated PO, Daily, 0 2018 M edical Tablet [Protonix] Refill(s) Grou p Centrum Daily, 0 Active Refill(s) 2018 Medical Group Acetaminophen 500 1,000 mg = 2 Active H MG Oral Tablet tab, PO, Q6H, 0 2018 M edical [Tylenol] Refill(s) Group enoxaparin 100 70 mg, SUB-Q, Active 10/24/ [facility] orial mg/mL Q12H, Administer 2015 [place] subcutaneous 0.7 ml (70 mg) [place]co logy solution of enoxaparin [facility] (Lovenox) subcutaneously every 12 hours., # 20 ea, 0 Refill(s), Pharmacy: [place] [id number] Warfarin Sodium 2 4 mg = 2 tab, Active [place] MG Oral Tablet PO, Daily, # 60 2016 M edical [Coumadin] tab, 1 Center Refill(s), Pharmacy: [place] [id number] enoxaparin 100 70 mg, SUB-Q, Active [place] mg/mL Q12H, Administer 2016 Medical subcutaneous 0.7 ml (70 mg) Cent er solution of enoxaparin (Lovenox) subcutaneously every 12 hours., # 20 ea, 0 Refill(s), Pharmacy: [place] [id number] Sulfamethoxazole 0 Refill(s) Active [facility] 2016 Medical Center enoxaparin 100 70 mg, SUB-Q, Active [place] mg/mL Q12H, Administer 2016 Medical subcutaneous 0.7 ml (70 mg) Cent er solution of enoxaparin (Lovenox) subcutaneously every 12 hours., # 28 ea, 0 Refill(s) Acetaminophen 300 1 tab, PO, Q4H, Active [facility] MG / Codeine PRN Pain Score 2016 Medi zenaida Phosphate 30 MG 4-6, not to Cent er Oral Tablet exceed 4000 mg acetaminophen per day, X 7 day, # 42 tab, 0 Refill(s) 24 HR Nifedipine 30 mg = 1 tab, Active [place] 30 MG Extended PO, BID, 0 2015 Medica l Release Tablet Refill(s) [place] loratadine 10 mg 10 mg = 1 tab, Active [place] oral tablet PO, Daily, 0 2015 Medical Refill(s) Center doxycycline 100 mg = 1 tab, Active [place] hyclate 100 MG PO, [id number], november 2015 Medical Oral Capsule take with food Cent er to minimize abdominal discomfort, # 30 tab, 0 Refill(s) ciprofloxacin 250 250 mg = 1 tab, Active [place] mg oral tablet PO, [id number], X 7 2016 Medical day, # 14 tab, 0 Center Refill(s) Dulcolax Laxative Notes: (Same As: Inactive 08/24 [place] Dulcolax, 2016 Medical Bisco-Lax) [place] lansoprazole 30 mg, Route: No Longer Zachary PO, Drug form: Active 2015 Medical DRC, Daily, Center Dosing Weight 67.273, kg, Start date: 09/12/15 9:00:00, Duration: 30 day, Stop date: 10/11/15 9:00:00 nebivolol Notes: (same as: No Longer [place] Bystolic) Active 2015 [facility] atorvastatin Notes: (Same As: No Longer [place] Lipitor) Active 2015 [facility] Lovenox Notes: (Same as: [place] Long[place] Lovenox) Active 2015 [facility] 24 HR Nifedipine Notes: (Same as: No Longer 08/24 Zachary 30 MG Extended Adalat CC, Active 2015 Medica l Release Tablet Procardia XL) Oumar ter Give on empty stomach. Take 1 hour before or 2 hours after meal; "Avoid grapefruit and grapefruit juice". Do not crush doxycycline Notes: NO No Longer [place] hyclate 100 MG MILK/ANTACIDS/IR Active 2015 [facility] Oral Capsule ON Take [address] before or 2 hours after dairy products Loratadine Notes: 1 hr [place] Longer [place] before meals Active 2015 [facility] (Same as: [place] Claritin) Protonix Notes: Tablet [place] Longer [place] should not be Active 2015 [facility] chewed or Center crushed. (Same as: Protonix) Docusate 100 mg, Route: In[place] PO, BID, Dosing 2015 Medical Weight 67.273, Center kg, PRN Constipation, Start date: 09/11/15 11:08:00, Duration: 30 day, Stop date: 10/11/15 11:07:00 Docusate 100 mg, PO, BID, Active Ramez as PRN as needed 2015 [facility] for [place] constipation, 0 Refill(s) Dulcolax Laxative Notes: (Same As: Inactive 08/24 [place] Dulcolax, 2016 [facility] Bisco-Lax) [place] Aspirin 81 MG 81 mg = 1 tab, No Longer H [place] Enteric Coated PO, Daily, # 90 Active 2015 edical Tablet tab, 3 Refill(s) Center nebivolol 5 mg 5 mg = 1 tab, Active [place] oral tablet PO, Bedtime, 0 2016 Medic al Refill(s) Center atorvastatin 20 20 mg = 1 tab, Active H [place] mg oral tablet PO, Bedtime, # 2016 Me dical 30 tab, 0 Center Refill(s) lansoprazole 30 30 mg = 1 cap, Active H [place] mg oral delayed PO, Daily, # 30 2016 Medical release capsule cap, 0 Refill(s) Center 24 HR Nifedipine 30 mg = 1 tab, No Longer [place] 30 MG Extended PO, BID, 0 Active 2016 Medica l Release Tablet Refill(s) Center ceFAZolin (SCIP) Notes: (Same As: Inactive 09/10 Curt Sawyer) 2015 Medical MEDICATION Center WASTE Product Size: 1000 mg Product Wasted: ___ mg Ondansetron 4 mg, Route: Inactive [place] as IVP, ONCE, 2015 Medical Dosing Weight Center 67.273, kg, PRN Nausea & Vomiting, Start date: 09/10/15 10:36:00 Naloxone 0.04 mg, Route: Inactive [place] as IVP, Q2MIN, 2015 Medical Dosing Weight Center 67.273, kg, PRN Narcotic Reversal, Start date: 09/10/15 10:36:00, Duration: 8 doses or times, Stop date: Limited # of times Flumazenil 0.2 mg, Route: [place]active [place] IVP, PRN, Dosing 2015 Medical Weight 67.273, Center kg, PRN Benzodiazepine Reversal, Initial dose, Start date: 09/10/15 10:36:00, Duration: 30 day, Stop date: 10/10/15 11:35:00 Hydromorphone 0.5 mg, Route: Inactive Zachary IVP, Q5Min, 2015 Medical Dosing Weight Center 67.273, kg, PRN Pain Score 7-10, Start date: 09/10/15 10:36:00, Duration: 4 doses or times, Stop date: Limited # of times Ephedrine 5 mg, Route: Inactive [place] IVP, Q5Min, 2015 Medical Dosing Weight Center 67.273, kg, PRN Low Blood Pressure, Start date: 09/10/15 10:36:00, Duration: 30 day, Stop date: 10/10/15 11:35:00 Metoprolol 1 mg, Route: [place] IVP, Q5Min, 2015 Medical Dosing Weight Center 67.273, kg, PRN Other -See Comment, Start date: 09/10/15 10:36:00, Duration: 5 doses or times, Stop date: Limited # of times Hydralazine 10 mg, Route: Inactive [place] IVP, Q20Min, 2015 Medical Dosing Weight Center 67.273, kg, PRN Elevated BP, Start date: 09/10/15 10:36:00, Duration: 2 doses or times, Stop date: Limited # of times esmolol 10 mg, Route: Inactive [place] IVP, Q5Min, 2015 Medical Dosing Weight Center 67.273, kg, PRN Other -See Comment, Start date: 09/10/15 10:36:00, Duration: 5 doses or times, Stop date: Limited # of times docusate sodium Notes: (Same as: No Longer 09/10 Zachary 100 mg oral Colace) (Do Not Active 2015 [facility] zenaida capsule Crush) Center Famotidine Notes: (Same as: No Longer [place] Pepcid) Active 2015 Medical [place] Cipro Notes: May No Longer Zachary interfere Active 2015 [facility] w/enteral Center feedings - Hydromorphone Notes: (Same as: No Longer [place] Dilaudid) conc = Active 2015 [facility] 0.5 mg/ml Center Hydromorphone [employer] Dose: ;Delay: ;Basal: Naloxone Notes: Same as No Longer [place] as Narcan Active 2015 Medical [place] Calcium Chloride 1,000 mL, Rate: No Longer 09/10 Zachary 0.0014 MEQ/ML / 125 ml/hr, Active 2015 Medic al Potassium Infuse over: 8 Center Chloride 0.004 hr, Route: IV, MEQ/ML / Sodium Dosing Weight Chloride 0.103 67.273 kg, Total MEQ/ML / Sodium Volume: 1,000, Lactate 0.028 Start date: MEQ/ML Injectable 09/10/15 Solution 8:03:00, Duration: 30 day, Stop date: 10/10/15 8:02:00 acetaminophen-cod Notes: Do not No Longer [facility] eine #3 exceed 4gm/day Active [address] [facility] acetaminophen. (Same as: Tylenol with Codeine # 3) Ondansetron Notes: (Same as: No Longer H [place] Zofran) Active 2015 [facility] MEDICATION WASTE Center Product Size: 4 mg Product Wasted: _0_ mg bupivacaine Notes: (Same as: Inactive [facility] liposome Exparel) 2015 [facility] FOR IV Center use Postoperative analgesia: Infiltration (local): Dose is based on surgical site and volume required to cover the area (in general, the maximum total dose is 266 mg). Bunionectomy: 7 mL into the tissues surrounding the osteotomy and 1 mL into the subcutaneous tissue of the surgical site (total dose = 8 mL [106 mg]) Hemorrhoidectomy : 30 mL (20 mL vial diluted with 10 mL NS) divided and administered as 6 injections of 5 mL each (total dose = 30 mL [266 mg]) Doxycycline 100 mg, PO, BID, No Longer H [place] 0 Refill(s) Active [address] [place] [address] 24 HR Nifedipine 30 mg = 1 tab, Active [place] 30 MG Extended PO, BID, # 60 2016 Med ical Release Tablet tab, 0 Refill(s) Center loratadine 10 mg 10 mg = 1 tab, Inactive [facility] oral tablet PO, Daily, # 30 2016 Medi zenaida tab, 0 Refill(s) Center nebivolol 5 mg 5 mg = 1 tab, Active [facility] oral tablet PO, Daily, # 30 2016 Medi zenaida tab, 0 Refill(s) Center enoxaparin 80 70 mg = 0.7 mL, Inactive H [place] mg/0.8 mL SUB-Q, [id number], 2016 Medic al subcutaneous # 28 syr, 0 Center solution Refill(s) doxycycline 100 mg = 1 tab, Inactive [facility] hyclate 100 MG PO, [id number], # 2016 Me dical Oral Capsule 60 tab, 0 Center Refill(s) atorvastatin 20 20 mg = 1 tab, Active H [place] mg oral tablet PO, Bedtime, # 2016 Me dical 30 tab, 0 Center Refill(s) lansoprazole 30 30 mg = 1 cap, Active H [place] mg oral delayed PO, Daily, # 30 2016 Medical release capsule cap, 0 Refill(s) [place] Aspirin 81 MG 81 mg = 1 tab, Active [place] Chewable Tablet PO, Daily, # 90 2015 Medical tab, 0 Refill(s) Center tramadol 50 mg = 1 tab, [place] hydrochloride 50 PO, Q8H, PRN 2016 Me dical MG Oral Tablet Pain, # 60 tab, C enter 0 Refill(s) doxycycline Notes: NO No Longer [place] hyclate 100 MG MILK/ANTACIDS/IR Active 2015 Medical Oral Capsule ON Take [address] before or 2 hours after dairy products Lovenox Notes: Nurse to No Longer [place] as ensure Active 2015 Medical documentation of Center patient education per anticoagulation policy. (Same as: Lovenox) docusate sodium Notes: (Same as: No Longer 08/05 Zachary 100 mg oral Colace) (Do Not Active 2015 Medi zenaida capsule Crush) Center Miralax Notes: Dissolve No Longer Rame[place] as in 8 oz of water Active 2015 Medical or juice. (Same Center as: Miralax) ceftaroline Notes: Reserved No Longer Zachary for use by ID Active 2016 [facility] Center refractory MRSA skin and skin structure infections or intolerance to vancomycin, daptomycin or linezolid. MEDICATION WASTE Product Size: 600 mg Product Wasted: ___ mg Naloxone 0.04 mg, Route: Inactive Rame[place] as IVP, Q2MIN, 2015 Medical Dosing Weight Center 67.4, kg, PRN Narcotic Reversal, Start date: 08/04/15 14:10:00, Duration: 8 doses or times, Stop date: Limited # of times Flumazenil 0.2 mg, Route: Inactive [place] IVP, PRN, Dosing 2015 Medical Weight 67.4, kg, Center PRN Benzodiazepine Reversal, Initial dose, Start date: 08/04/15 14:10:00, Duration: 30 day, Stop date: 09/03/15 14:09:00 Ondansetron 4 mg, Route: Inactive Rame[place] as IVP, ONCE, 2015 Medical Dosing Weight Center 67.4, kg, PRN Nausea & Vomiting, Start date: 08/04/15 14:10:00 Cefazolin 2 gm, Route: Inactive [place] IVP, ONCE, 2015 Medical Dosing Weight Center 67.4, kg, Start date: 08/04/15 13:11:00, Duration: 1 doses or times, Stop date: 08/04/15 13:11:00, Surgical Prophylaxis Only; For patients < 120 kg Multihance 529 39 ml/min, Inactive [place] mg/mL Priority: STAT, 2016 Medical Start date: Center 07/31/15 23:15:00, Duration: 1 doses or times Levaquin Notes: Do not No Longer [place] give w/antacids, Active 2015 [facility] dairy pdt & [place] minerals Take 1 hr before or 2 hr after dairy products Flagyl Notes: (Same as: No Longer [place] Flagyl) Take Active 2015 Medical with food/ avoid Center alcohol Amina 60 mg, Route: No Longer [place] PO, Daily, Active 2015 Medical Dosing Weight Center 67.472, kg, Start date: 07/29/15 9:00:00, Duration: 30 day, Stop date: 08/27/15 9:00:00 Claritin Notes: 1 hr No Longer [place] before meals Active 2015 Medical (Same as: [place] Claritin) Phenylephrine Notes: No Longer [place] Hydrochloride 5 (phenylephrine Active 2015 edical MG/ML Nasal [place] 0.5% 15 ml nasal Center [Afrin Nasal] SPR) (Same as: Marcelo-Synephrine Nasal) potassium Notes: (Same as: No Longer Zachary chloride K-Dur 20) "Do Active 2015 Medical Not Crush" With [place] food and full glass of water Calcium Gluconate 3 gm, 30 mL, No Longer Zachary Route: IVPB, Active 2015 Medical Drug form: INJ, Center PRN, Dosing Weight 67.472, kg, PRN Abnormal Lab Result, For NON-ICU Patients Only., Start date: 07/27/15 16:41:00, Duration: 30 day, Stop date: 08/26/15 16:40:00 potassium Notes: (Same as: No Longer [place] phosphate-sodium Neutra-Phos) Active 2015 Ia dical phosphate 250 Each 1.25 gm pkt C enter mg-278 mg-164 mg has 250mg oral powder phosphorous. Mix w/2.5oz water and stir. sodium phosphate 15 mmol, 5 mL, No Longer [place] + Sodium Chloride Route: IVPB, Active 2015 M edical 0.9% IV 250 mL PRN, Dosing Cente r Weight 67.472, kg, PRN Abnormal Lab Result, For NON-ICU Patients Only., Start date: 07/27/15 16:41:00, Duration: 30 day, Stop date: 08/26/15 16:40:00 potassium Notes: (Same as: No Longer Zachary phosphate + K Phosphate.) 1 Active 2015 Med ical Sodium Chloride mMol phoshate Ce nter 0.9% IV 250 mL has 1.47 mEq potassium Infuse over 4 hours Magnesium Sulfate 2 gm, 50 mL, No Longer Zachary Route: IVPB, Active 2015 Medical Drug form: INJ, Center PRN, Dosing Weight 67.472, kg, PRN Abnormal Lab Result, For NON-ICU Patients Only., Start date: 07/27/15 16:41:00, Duration: 30 day, Stop date: 08/26/15 16:40:00 Magnesium Oxide Notes: (Same as: No Longer 07/27 Zachary Mag-Ox 400) Active 2016 [facility] Magnesium oxide Center [id number] elemental magnesium Dose=____mg magnesium oxide (___mg elemental magnesium) Warfarin Notes: Nurse to Inactive Ramez as ensure 2016 Medical documentation of Center patient education per anticoagulation policy. Avoid large intake of vitamin-K containing foods diet. (Same As: Coumadin) Unasyn Notes: Dosing No Longer Zachary based on Active 2015 [facility] Ampicillin Center component (Same as: Unasyn) 24 HR Nifedipine Notes: (Same as: No Longer Zachary 30 MG Extended Adalat CC, Active 2015 Medica l Release Tablet Procardia XL) Oumar ter Give on empty stomach. Take 1 hour before or 2 hours after meal; "Avoid grapefruit and grapefruit juice". Do not crush Warfarin Notes: Nurse to Inactive R[place] as ensure 2016 Medical documentation of Center patient education per anticoagulation policy. Avoid large intake of vitamin-K containing foods diet. (Same As: Coumadin) Bystolic Notes: (same as: No Longer [place] Bystolic) Active 2016 Medical Center Lovenox Notes: Nurse to No Longer R[place] as ensure Active 2016 Medical documentation of Center patient education per anticoagulation policy. (Same as: Lovenox) Warfarin Notes: Nurse to Inactive [place] as ensure 2016 Medical documentation of Center patient education per anticoagulation policy. Avoid large intake of vitamin-K containing foods diet. (Same As: Coumadin) acetaminophen-cod Notes: Do not No Longer Zachary eine 300 mg-30 mg exceed 4gm/day Active 2016 Medical oral tablet of Center acetaminophen. (Same as: Tylenol with Codeine # 3) Acetaminophen 300 1 tab, Route: Inactive Zachary MG / Codeine PO, Drug Form: 2016 Medi zenaida Phosphate 15 MG TAB, Dosing Cent er Oral Tablet Weight 67.472, kg, Q4H, PRN Pain Score 1-3, Start date: 07/24/15 12:56:00, Duration: 30 day, Stop date: 08/23/15 12:55:00 Warfarin Notes: Nurse to Inactive [place] as ensure 2016 Medical documentation of Center patient education per anticoagulation policy. Avoid large intake of vitamin-K containing foods diet. (Same As: Coumadin) Nifedipine 20 MG Notes: (Same as: No Longer [facility] Oral Capsule Adalat, Active [facility] Center "Avoid grapefruit and grapefruit juice Warfarin Notes: Nurse to Inactive Rame[place] as ensure 2014 Medical documentation of Center patient education per anticoagulation policy. Avoid large intake of vitamin-K containing foods diet. (Same As: Coumadin) atorvastatin Notes: (Same As: No Longer [place] Lipitor) Active 2015 Medical Center Warfarin Notes: Nurse to Inactive [place] as ensure 2014 Medical documentation of Center patient education per anticoagulation policy. Avoid large intake of vitamin-K containing foods diet. (Same As: Coumadin) Cardizem CD Notes: (Same No Longer [place] as:Cardizem CD) Active 2014 Medical Before meals. Center DO NOT CRUSH. Warfarin Notes: Nurse to Inactive R[place] as ensure 2014 Medical documentation of Center patient education per anticoagulation policy. Avoid large intake of vitamin-K containing foods diet. (Same As: Coumadin) Warfarin Notes: Nurse to Inactive Rame[place] as ensure 2014 Medical documentation of Center patient education per anticoagulation policy. Avoid large intake of vitamin-K containing foods diet. (Same As: Coumadin) Versed Notes: (Same as: Inactive Ramez as Versed) 2014 Medical MEDICATION WASTE Center Product Size: 2 mg Product Wasted: ___ mg Fentanyl Notes: (Same as: Inactive [place] Sublimaze) 2015 Medical Preservative Center free. Isolyte S PH 7.4 Notes: (Same as: No Longer 06/23 [place] 1,000 mL Isolyte S PH Active 2014 Medical 7.4) Center Tramadol Notes: Not to [place] Longer [place] exceed Active 2014 Medical 400mg/day. (Same Center As: Ultram) Acetaminophen 325 Notes: (Same as: No Longer [place] MG / Hydrocodone [place] 325/5) Do Active 2014 Medical Bitartrate 5 MG not exceed Cente r Oral Tablet 4gm/day of [[place] 5/325] acetaminophen. Hydralazine Notes: (Same as: No Longer 07/15/ H [place] Apresoline) Push Active 2014 Medical over 5 minutes Center D5W 1/2NS 1,000 1,000 mL, Rate: No Longer [place] mL 100 ml/hr, Active 2014 Medical Infuse over: 10 Center hr, Route: IV, Dosing Weight 68.682 kg, Total Volume: 1,000, Start date: 07/15/15 13:34:00, Duration: 30 day, Stop date: 08/14/15 13:33:00 Insulin, Aspart, Notes: Roll in No Longer [place] Human palms of hands Active 2014 Medical gently; Do not Center shake vigorously. (Same as: NovoLOG) "single patient use only" Stable for 28 days at room temperature. Expires in days from Da te Dextrose 50% 12.5 gm, 25 mL, No Longer H [place] Syringe Route: IVP, Drug Active 2014 Medical Form: INJ, Center Dosing Weight 68.682, kg, PRN, PRN Blood Glucose Results, Start date: 07/15/15 11:18:00, Duration: 30 day, Stop date: 08/14/15 11:17:00 Glucagon 1 mg, Route: IM, No Longer [place] Drug form: Active 2014 Medical PDR/INJ, PRN, Center Dosing Weight 68.682, kg, PRN Blood Glucose Results, Start date: 07/15/15 11:18:00, Duration: 30 day, Stop date: 08/14/15 11:17:00 iodixanol 140 mL, Route: Inactive Ramez as IVP, Drug Form: 2014 Medical SOLN, Dosing Center Weight 68.682, kg, ONCALL, STAT, Start date: 07/15/15 10:19:00, Duration: 1 doses or times, Dose = 2.2ml/kg, Max dose = 150ml -- "To be infused by Radiology Staff ONLY" multivitamin Notes: (Same No Longer [place] as:Thera) Take Active 2014 Medical with food. Center lansoprazole Notes: (Same [place] Longer [place] as:Prevacid) Active 2014 Medical Take 1 hour Center before or 2 hours after meal; "Do Not Crush" Aspirin 81 MG Notes: Take with No Longer [place] Chewable Tablet food. Active 2014 [facility] Complex-15 Notes: (Same as: No Longer [place] topical lotion Cetaphil Lotion) Active 2014 [facility] heparin 5,000 unit, Inactive [place] Route: SUB-Q, 2014 Medical Q12H, Dosing Center Weight 68.682, kg, Start date: 07/14/15 21:00:00, Duration: 30 day, Stop date: 08/13/15 9:00:00 heparin additive 500 mL, Rate: No Longer [place] 25,000 unit [14 19.23 ml/hr, Active 2014 Med ical unit/kg/hr] + Infuse over: 26 Ce nter Premix Diluent hr, Route: IV, Dextrose 5% 500 Dosing Weight mL 68.682 kg, Total Volume: 500 mL, Start date: 07/14/15 21:00:00, Duration: 30 day, Stop date: 08/13/15 20:59:00 [place] XT Notes: (Same as: No Longer [facility] Cardizem CD) Active 2014 Medical Before meals. Center DO NOT CRUSH. tramadol Notes: [place] to [place] hydrochloride 50 exceed Active 2014 Medical MG Oral Tablet 400mg/day. (Same Center As: [facility]) Sodium Chloride 1,000 mL, Rate: No Longer [facility] 0.45% IV 1,000 mL 100 ml/hr, Active 2014 Med ical Infuse over: 10 Center hr, Route: IV, Dosing Weight 68.682 kg, Total Volume: 1,000, Start date: 07/14/15 20:55:00, Duration: 30 day, Stop date: 08/13/15 20:54:00 lansoprazole 30 30 mg = 1 cap, No Longer [facility] mg oral delayed PO, Daily, 0 Active 2014 Med ical release capsule Refill(s) Center 24 HR Diltiazem 240 mg = 1 cap, No Longer [facility] Hydrochloride 240 PO, Daily, 0 Active 2014 edical MG Extended Refill(s) Center Release Capsule [Cartia] tramadol 50 mg = 1 tab, No Longer [place] hydrochloride 50 PO, Q8H, PRN Active 2014 Ia dical MG Oral Tablet Pain, # 60 tab, C enter 0 Refill(s) Aspirin 81 MG 81 mg = 1 tab, No Longer 07/15/ H [place] Chewable Tablet PO, Daily, tab, Active 2014 [facility] 0 Refill(s) [place] multivitamin PO, Daily, 0 Active [place] Refill(s) 2014 [facility] Allergies, Adverse Reactions, Alerts Substance Category Reaction Severity Reaction Status Date Comments S ource type Reported No Known Assertion Drug Medication allergy Medic al Allergies Group Immunizations Immunization Date Given Site Status Last Comments Source Updated influenza virus 07/22/2015 completed Leslie TYLER [place] vaccine, Medical inactivated Center,[facility] [place] 07/22/2015 completed Leslie [facility] vaccine, Group, inactivated ARISTIDES [place], ARISTIDES [place] Results Order Name Results Value Reference Date Interpretation Comments Samra rce Range URINE AND POC UA Color Yellow Yellow 09/15 MH STOOL * Medical (09/15/19 10:38 AM) Group URINE AND POC UA Clear Clear 09/15 STOOL Turbidity * Medical (09/15/19 10:38 AM) Group URINE AND POC UA SG 1.010 <=1.030 09/15 STOOL Medical Group URINE AND POC UA pH 6.5 5.0 - 8.0 09/15 STOOL Medical Group URINE AND POC UA Prot Negative Negative 09/15 STOOL mg/dL mg/dL Medical Group URINE AND POC UA Glu Negative Negative 09/15 STOOL mg/dL mg/dL Medical Group URINE AND POC UA Ket Negative Negative 09/15 STOOL mg/dL mg/dL Medical Group URINE AND POC UA Bili Negative Negative 09/15 STOOL *NA Medical (09/15/19 10:38 AM) Group URINE AND POC UA Bld Trace Negative 09/15 STOOL * Medical (09/15/19 10:38 AM) Group URINE AND POC UA Uro 0.2 0.1 - 1.0 09/15 STOOL Medical Group URINE AND POC UA Nit Negative Negative 09/15 STOOL *NA Medical (09/15/19 10:38 AM) Group URINE AND POC UA Trace Negative 09/15 STOOL LeukEst * Medical (09/15/19 10:38 AM) Group URINE AND POC UA Color Yellow Yellow 03/10 MH STOOL *NA Medical (03/10/19 11:53 AM) Group URINE AND POC UA Clear Clear 03/10 MH STOOL Turbidity * Medical (03/10/19 11:53 AM) Group URINE AND POC UA SG 1.010 <=1.030 03/10 STOOL Medical Group URINE AND POC UA pH 7.0 5.0 - 8.0 03/10 STOOL Medical Group URINE AND POC UA Prot Negative Negative 03/10 STOOL mg/dL mg/dL Medical Group URINE AND POC UA Glu Negative Negative 03/10 STOOL mg/dL mg/dL Medical Group URINE AND POC UA Ket Negative Negative 03/10 STOOL mg/dL mg/dL Medical Group URINE AND POC UA Bili Negative Negative 03/10 STOOL * Medical (03/10/19 11:53 AM) Group URINE AND POC UA Bld Negative Negative 03/10 STOOL * Medical (03/10/19 11:53 AM) Group URINE AND POC UA Uro 0.2 0.1 - 1.0 03/10 STOOL Medical Group URINE AND POC UA Nit Negative Negative 03/10 STOOL * Medical (03/10/19 11:53 AM) Group URINE AND POC UA Negative Negative 03/10 STOOL LeukEst * Medical (03/10/19 11:53 AM) Group URINE AND POC UA Negative Negative 09/02 STOOL LeukEst * Medical (09/02/18 11:16 AM) Group URINE AND POC UA Glu Negative Negative 09/02 STOOL mg/dL mg/dL Medical Group URINE AND POC UA pH 6.5 5.0 - 8.0 09/02 STOOL Medical Group URINE AND POC UA Prot Negative Negative 09/02 STOOL mg/dL mg/dL Medical Group URINE AND POC UA Ket Negative Negative 09/02 STOOL mg/dL mg/dL Medical Group URINE AND POC UA Uro 0.2 0.1 - 1.0 09/02 STOOL Medical Group URINE AND POC UA Bld Negative Negative 09/02 STOOL * Medical (09/02/18 11:16 AM) Group URINE AND POC UA Bili Negative Negative 09/02 STOOL * Medical (09/02/18 11:16 AM) Group URINE AND POC UA Nit Negative Negative 09/02 STOOL * Medical (09/02/18 11:16 AM) Group URINE AND POC UA Color Yellow Yellow 09/02 STOOL * Medical (09/02/18 11:16 AM) Group URINE AND POC UA SG 1.010 <=1.030 09/02 STOOL Medical Group URINE AND POC UA Clear Clear 09/02 STOOL Turbidity * Medical (09/02/18 11:16 AM) Group URINE AND POC UA Nit Negative Negative 04/08 STOOL * Medical (04/08/18 11:35 AM) Group URINE AND POC UA Negative Negative 04/08 STOOL LeukEst * Medical (04/08/18 11:35 AM) Group URINE AND POC UA Bili Negative Negative 04/08 STOOL *NA* Medical (04/08/18 11:35 AM) Group URINE AND POC UA Bld Negative Negative 04/08 STOOL Medical (04/08/18 11:35 AM) Group URINE AND POC UA Uro 0.2 0.1 - 1.0 04/08 STOOL /2017 Medical Group URINE AND POC UA Glu Negative Negative 04/08 STOOL mg/dL mg/dL Medical Group URINE AND POC UA Ket Negative Negative 04/08 STOOL mg/dL mg/dL Medical Group URINE AND POC UA Color Yellow Yellow 04/08 STOOL Medical (04/08/18 11:35 AM) Group URINE AND POC UA Clear Clear 04/08 STOOL Turbidity * Medical (04/08/18 11:35 AM) Group URINE AND POC UA pH 6.0 5.0 - 8.0 04/08 STOOL /2017 Medical Group URINE AND POC UA Prot Negative Negative 04/08 STOOL mg/dL mg/dL Medical Group URINE AND POC UA SG <=1.005 <=1.030 04/08 STOOL *NA* Medical (04/08/18 11:35 AM) Group URINE AND POC UA Negative Negative 12/10 STOOL LeukEst * Medical (12/10/17 2:13 PM) Group URINE AND POC UA Nit Negative Negative 12/10 STOOL * Medical (12/10/17 2:13 PM) Group URINE AND POC UA Color Yellow Yellow 12/10 MH STOOL * Medical (12/10/17 2:13 PM) Group URINE AND POC UA Clear Clear 12/10 STOOL Turbidity * Medical (12/10/17 2:13 PM) Group URINE AND POC UA Glu Negative Negative 12/10 MH STOOL mg/dL mg/dL Medical Group URINE AND POC UA Prot Negative Negative 12/10 STOOL mg/dL mg/dL Medical Group URINE AND POC UA pH 6.5 5.0 - 8.0 12/10 STOOL Medical Group URINE AND POC UA SG 1.010 <=1.030 12/10 STOOL Medical Group URINE AND POC UA Bld Negative Negative 12/10 STOOL *NA* Medical (12/10/17 2:13 PM) Group URINE AND POC UA Uro 0.2 0.1 - 1.0 12/10 MH STOOL Medical Group URINE AND POC UA Bili Negative Negative 12/10 STOOL *NA* Medical (12/10/17 2:13 PM) Group URINE AND POC UA Ket Negative Negative 12/10 STOOL mg/dL mg/dL Medical Group URINE AND POC UA Negative Negative 08/13 STOOL LeukEst * Medical (08/13/17 1:34 PM) Group URINE AND POC UA Nit Negative Negative 08/13 STOOL *NA Medical (08/13/17 1:34 PM) Group URINE AND POC UA Uro 0.2 0.1 - 1.0 08/13 STOOL Medical Group URINE AND POC UA Clear Clear 08/13 STOOL Turbidity * Medical (08/13/17 1:34 PM) Group URINE AND POC UA Color Yellow Yellow 08/13 STOOL * Medical (08/13/17 1:34 PM) Group URINE AND POC UA Glu Negative Negative 08/13 STOOL mg/dL mg/dL Medical Group URINE AND POC UA Prot Negative Negative 08/13 STOOL mg/dL mg/dL Medical Group URINE AND POC UA pH 6.0 5.0 - 8.0 08/13 MH STOOL Medical Group URINE AND POC UA SG <=1.005 <=1.030 08/13 MH STOOL *NA* Medical (08/13/17 1:34 PM) Group URINE AND POC UA Ket Negative Negative 08/13 STOOL mg/dL mg/dL Medical Group URINE AND POC UA Bld Negative Negative 08/13 STOOL *NA Medical (08/13/17 1:34 PM) Group URINE AND POC UA Bili Negative Negative 08/13 STOOL *NA* /2017 Medical (08/13/17 1:34 PM) Group CHEM PANEL eGFR 51 09/13 Result Comment: The Medical eGFR is Center calculated using the CKD-EPI formula. In most young, healthy individuals the eGFR will be >90 mL/min/1.73m2 . The eGFR declines with age. An eGFR of 60-89 may be normal in some populations, particularly the elderly, for whom the CKD-EPI formula has not been extensively validated. Use of the eGFR is not recommended in the following populations:< br/>
Misti viduals with unstable creatinine concentration s, including patients and those with serious co-morbid conditions.<b r/>
Patie nts with extremes in muscle mass or diet.

The data above are obtained from the National Kidney Disease Education Program (NKDEP) which additionally recommends that when the eGFR is used in patients with extremes of body mass index for purposes of drug dosing, the eGFR should be multiplied by the estimated BMI. CHEM PANEL Albumin Lvl 2.3 3.5 - 5.0 09/13 [facility] CHEM PANEL Globulin 3.4 2.0 - 4.0 09/13 2015 [facility] CHEM PANEL A/G Ratio 0.7 0.7 - 1.6 09/13 [facility] CHEM PANEL Bili Total 0.9 0.2 - 1.3 09/13 [facility] CHEM PANEL AST 25 0 - 37 09/13 2015 [facility] CHEM PANEL Total Protein 5.7 6.4 - 8.4 09/13 [place] [facility] CHEM PANEL B/C Ratio 12 6 - 25 09/13 2015 [facility] CHEM PANEL Glucose Lvl 86 70 - 99 09/13 [facility] CHEM PANEL BUN 15 7 - 22 09/13 2015 [facility] CHEM PANEL ALT 19 0 - 65 09/13 2015 [facility] CHEM PANEL Alk Phos 60 39 - 136 09/13 2015 [facility] CHEM PANEL Calcium Lvl 8.6 8.5 - 10.5 09/13 [facility] CHEM PANEL AGAP 10.9 10.0 - 09/13 [place] [facility] CHEM PANEL Chloride Lvl 106 95 - 109 09/13 [facility] CHEM PANEL CO2 26 24 - 32 09/13 [facility] CHEM PANEL Potassium Lvl 3.9 3.5 - 5.1 09/13 [facility] CHEM PANEL Creatinine 1.29 0.50 - 09/13 [place] Lvl 1.40 /2015 [facility] CHEM PANEL Sodium Lvl 139 135 - 145 09/13 [facility] HEMATOLOGY MPV 8.8 7.4 - 10.4 09/13 [facility] HEMATOLOGY RDW 17.3 11.5 - 09/13 [place] 14.5 [facility] HEMATOLOGY MCHC 33.1 32.0 - 09/13 [place] 36.0 [facility] HEMATOLOGY MCH 25.1 27.0 - 09/13 [place] 31.0 [facility] HEMATOLOGY Platelet 230 133 - 450 09/13 [facility] HEMATOLOGY WBC 10.3 3.7 - 10.4 09/13 [facility] HEMATOLOGY RBC 3.93 4.70 - 09/13 [place] 6.10 [facility] HEMATOLOGY MCV 75.9 80.0 - 09/13 [place] 94.0 [facility] HEMATOLOGY Hgb 9.9 14.0 - 09/13 [place] 18.0 [facility] HEMATOLOGY Hct 29.8 42.0 - 09/13 [place] 54.0 [facility] HEMATOLOGY Lymphocytes 10.8 20.0 - 09/13 [place] 40.0 [facility] HEMATOLOGY Segs 75.6 45.0 - 09/13 [place] 75.0 [facility] HEMATOLOGY Segs-Bands # 7.8 1.5 - 8.1 09/13 [facility] HEMATOLOGY Monocytes # 0.9 0.0 - 0.8 09/13 [facility] HEMATOLOGY Basophils 0.4 0.0 - 1.0 09/13 [facility] HEMATOLOGY Lymphocytes # 1.1 1.0 - 5.5 09/13 [facility] HEMATOLOGY Eosinophils 4.2 0.0 - 4.0 09/13 [facility] HEMATOLOGY Monocytes 9.0 2.0 - 12.0 09/13 [facility] HEMATOLOGY Eosinophils # 0.4 0.0 - 0.5 09/13 [facility] HEMATOLOGY Microcyte 1+ None Seen 09/13 [place] *ABN* /2015 [facility] (09/13/15 5:04 AM) [place] CHEM PANEL Magnesium Lvl 1.9 1.8 - 2.4 09/12 [facility] CHEM PANEL Phosphorus 2.9 2.5 - 4.5 09/12 [facility] CHEM PANEL BUN 15 7 - 22 09/12 [facility] CHEM PANEL Glucose Lvl 100 70 - 99 09/12 [facility] CHEM PANEL eGFR 53 09/12 Result Comment: The [facility] eGFR is Center calculated using the CKD-EPI formula. In most young, healthy individuals the eGFR will be >90 mL/min/1.73m2 . The eGFR declines with age. An eGFR of 60-89 may be normal in some populations, particularly the elderly, for whom the CKD-EPI formula has not been extensively validated. Use of the eGFR is not recommended in the following populations:< br/>
Misti viduals with unstable creatinine concentration s, including patients and those with serious co-morbid conditions.<b r/>
Patie nts with extremes in muscle mass or diet.

The data above are obtained from the National Kidney Disease Education Program (NKDEP) which additionally recommends that when the eGFR is used in patients with extremes of body mass index for purposes of drug dosing, the eGFR should be multiplied by the estimated BMI. CHEM PANEL AGAP 10.8 10.0 - 09/12 . [facility] CHEM PANEL Calcium Lvl 8.6 8.5 - 10.5 09/12 [place] [facility] CHEM PANEL Chloride Lvl 107 95 - 109 09[facility] CHEM PANEL Sodium Lvl 141 135 - 145 09/12 [facility] CHEM PANEL Potassium Lvl 3.8 3.5 - 5.1 09/12 [facility] CHEM PANEL CO2 27 24 - 32 09/12 [facility] CHEM PANEL Creatinine 1.25 0.50 - 09/12 [facility] Lvl 1.40 [facility] ELECTROLYTE AGAP 9.8 10.0 - 09/12 [facility] S 20. [facility] ELECTROLYTE A/G Ratio 0.7 0.7 - 1.6 09/12 [facility] ELECTROLYTE Globulin 3.3 2.0 - 4.0 09/12 [facility] ELECTROLYTE B/C Ratio 11 6 - 25 09/12 [facility] ELECTROLYTE Potassium Lvl 3.8 3.5 - 5.1 09/12 [place] [facility] ELECTROLYTE Sodium Lvl 141 135 - 145 09/12 [facility] ELECTROLYTE Creatinine 1.32 0.50 - 09/12 [facility] S Lvl 1.40 [facility] ELECTROLYTE BUN 15 7 - 22 09/12 [facility] /2015 [facility] ELECTROLYTE Chloride Lvl 107 95 - 109 09/12 [facility] ELECTROLYTE Glucose Lvl 95 70 - 99 09/12 [facility] ELECTROLYTE eGFR 50 09/12 [facility] Comment: The Medical eGFR is Center calculated using the CKD-EPI formula. In most young, healthy individuals the eGFR will be >90 mL/min/1.73m2 . The eGFR declines with age. An eGFR of 60-89 may be normal in some populations, particularly the elderly, for whom the CKD-EPI formula has not been extensively validated. Use of the eGFR is not recommended in the following populations:< br/>
Misti viduals with unstable creatinine concentration s, including patients and those with serious co-morbid conditions.<b r/>
Patie nts with extremes in muscle mass or diet.

The data above are obtained from the National Kidney Disease Education Program (NKDEP) which additionally recommends that when the eGFR is used in patients with extremes of body mass index for purposes of drug dosing, the eGFR should be multiplied by the estimated BMI. ELECTROLYTE CO2 28 24 - 32 09/12 [facility] ELECTROLYTE Total Protein 5.6 6.4 - 8.4 09/12 [place] [facility] ELECTROLYTE Albumin Lvl 2.3 3.5 - 5.0 09/12 [place] [facility] ELECTROLYTE Calcium Lvl 8.4 8.5 - 10.5 09/12 [place] [facility] ELECTROLYTE AST 28 0 - 37 09/12 [facility] S [facility] ELECTROLYTE ALT 19 0 - 65 09/12 S [facility] ELECTROLYTE Alk Phos 63 39 - 136 09/12 [facility] ELECTROLYTE Bili Total 0.6 0.2 - 1.3 09/12 [facility] HEMATOLOGY Microcyte 1+ None Seen 09/12 [place] *ABN* /2015 Medical (09/12/15 5:02 AM) [place] HEMATOLOGY Basophils 0.3 0.0 - 1.0 09/12 [facility] HEMATOLOGY Monocytes # 1.0 0.0 - 0.8 09/12 s [facility] HEMATOLOGY Segs 81.3 45.0 - 09/12 [place] 75.0 [facility] HEMATOLOGY Eosinophils 1.7 0.0 - 4.0 09/12 [facility] HEMATOLOGY Lymphocytes 7.1 20.0 - 09/12 [place] 40.0 [facility] HEMATOLOGY Monocytes 9.6 2.0 - 12.0 09/12 [facility] HEMATOLOGY Eosinophils # 0.2 0.0 - 0.5 09/12 [facility] HEMATOLOGY Segs-Bands # 8.7 1.5 - 8.1 09/12 [facility] HEMATOLOGY Lymphocytes # 0.8 1.0 - 5.5 09/12 [facility] xa [facility] HEMATOLOGY MCV 75.9 80.0 - 09/12 [place] 94.0 [facility] HEMATOLOGY RDW 17.4 11.5 - 09/12 [place] 14.5 [facility] HEMATOLOGY Hgb 9.9 14.0 - 09/12 [place] 18.0 [facility] HEMATOLOGY RBC 3.89 4.70 - 09/12 [place] 6.10 [facility] HEMATOLOGY Hct 29.5 42.0 - 09/12 [place] 54.0 [facility] HEMATOLOGY MPV 9.1 7.4 - 10.4 09/12 [facility] HEMATOLOGY Platelet 208 133 - 450 09/12 [facility] HEMATOLOGY MCH 25.4 27.0 - 09/12 [place] 31.0 [facility] HEMATOLOGY MCHC 33.4 32.0 - 09/12 [place] 36.0 [facility] HEMATOLOGY WBC 10.7 3.7 - 10.4 09/12 [facility] CHEM PANEL A/G Ratio 0.8 0.7 - 1.6 09/11 [facility] CHEM PANEL B/C Ratio 12 6 - 25 09/11 2015 [facility] CHEM PANEL Globulin 3.2 2.0 - 4.0 09/11 2015 [facility] CHEM PANEL Total Protein 5.7 6.4 - 8.4 09/11 [facility] CHEM PANEL ALT 23 0 - 65 09/11 [facility] CHEM PANEL Albumin Lvl 2.5 3.5 - 5.0 09/11 [facility] CHEM PANEL Alk Phos 61 39 - 136 09/11 2015 [facility] CHEM PANEL AST 26 0 - 37 09/11 2015 [facility] CHEM PANEL Bili Total 0.9 0.2 - 1.3 09/11 [facility] CHEM PANEL Phosphorus 4.3 2.5 - 4.5 09/11 [facility] CHEM PANEL Magnesium Lvl 2.0 1.8 - 2.4 09/11 [facility] HEMATOLOGY WBC 10.1 3.7 - 10.4 09/11 [facility] HEMATOLOGY RBC 4.17 4.70 - 09/11 [place] 6.10 [facility] HEMATOLOGY Hgb 10.4 14.0 - 09/11 [place] 18.0 [facility] HEMATOLOGY Hct 32.6 42.0 - 09/11 [place] 54.0 /2015 [facility] HEMATOLOGY Platelet 233 133 - 450 09/11 [facility] HEMATOLOGY MCHC 32.0 32.0 - 09/11 [place] 36.0 [facility] HEMATOLOGY RDW 17.7 11.5 - 09/11 [place] 14.5 /2015 [facility] HEMATOLOGY MCV 78.2 80.0 - 09/11 [place] 94.0 /2015 [facility] HEMATOLOGY MCH 25.0 27.0 - 09/11 [place] 31.0 [facility] HEMATOLOGY MPV 8.6 7.4 - 10.4 09/11 [facility] HEMATOLOGY Eosinophils 0.3 0.0 - 4.0 09/11 a [facility] HEMATOLOGY Basophils 0.3 0.0 - 1.0 09/11 [facility] HEMATOLOGY Lymphocytes 7.4 20.0 - 09/11 [place] 40.0 /2015 [facility] HEMATOLOGY Monocytes 8.6 2.0 - 12.0 09/11 /2015 [facility] HEMATOLOGY Segs 83.4 45.0 - 09/11 [place] 75.0 /2015 [facility] HEMATOLOGY Segs-Bands # 8.4 1.5 - 8.1 09/11 [place] /2015 [facility] HEMATOLOGY Microcyte 1+ None Seen 09/11 [place] *ABN* /2015 [facility] (09/11/15 3:26 AM) [place] HEMATOLOGY Lymphocytes # 0.7 1.0 - 5.5 09/11 [place] [facility] HEMATOLOGY Monocytes # 0.9 0.0 - 0.8 09/11 [place] /[place] [facility] IMMUNOLOGY Cryoglob Negative Negative 09/11 [facility] (09/11/15 3:26 AM) /2015 [facility] IMMUNOLOGY C-ANCA Negative Negative 09/11 [facility] (09/11/15 3:26 AM) /2015 [facility] IMMUNOLOGY P-ANCA Negative Negative 09/11 [facility] (09/11/15 3:26 AM) /2015 [facility] IMMUNOLOGY JADE Negative 1 Negative 09/11 Result [facility] (09/11/15 3:26 AM) Comment: Medic al Because the Center JADE was Negative, the Reflex assays for Anti-dsDNA, SM/COVERAGE SPECIALIST RN, and Ro/[place] (SSA/SSB) were not performed. BLOOD BANK ABO/Rh A POS 09/10 [place] RESULTS /2015 [facility] BLOOD BANK Antibody Scrn Negative 09/10 [place] [facility] RESULTS (09/10/15 5:51 AM) /2015 [facility] BLOOD BANK RBC product Product available 09/10 [facility] RESULTS (09/10/15 5:50 AM) /2015 [facility] HEMATOLOGY Eosinophils # 0.3 0.0 - 0.5 09/02 [place] /[place] [facility] HEMATOLOGY Coag Index 1.2 -3.0-3.0 - 09/02 [place] 3.[place] Comment: Medical Collection Center date/time has been modified to: 15:15:00. Previous collection date/time: 16:34:00. HEMATOLOGY Ly30 1.0 0.0 - 7.5 09/02 Result Comment: Medical Collection Center date/time has been modified to: 15:15:00. Previous collection date/time: 16:34:00. HEMATOLOGY TEG Data See Note 8 09/02 Result [facility] (09/02/15 3:15 PM) Comment: Medic al Collection Center date/time has been modified to: 15:15:00. Previous collection date/time: 16:34:00. HEMATOLOGY G-value 9.9 4.5 - 11.0 09/02 Result Comment: Medical Collection Center date/time has been modified to: 15:15:00. Previous collection date/time: 16:34:00. HEMATOLOGY Max Amp 66.5 50.0 - 09/02 Result [facility] 70.0 Comment: Medical Collection Center date/time has been modified to: 15:15:00. Previous collection date/time: 16:34:00. HEMATOLOGY R-time 6.0 5.0 - 10.0 09/02 Result Comment: Medical Collection Center date/time has been modified to: 15:15:00. Previous collection date/time: 16:34:00. HEMATOLOGY K-time 1.4 1.0 - 3.0 09/02 Result Comment: Medical Collection Center date/time has been modified to: 15:15:00. Previous collection date/time: 16:34:00. HEMATOLOGY Angle 70.4 53.0 - 09/02 Result [facility] 72.0 Comment: Medical Collection Center date/time has been modified to: 15:15:00. Previous collection date/time: 16:34:00. HEMATOLOGY TEG Interp Thrombelas 09/02 [facility] Medical results Center are within reference ranges. CPT:63478 HEMATOLOGY PTT 34.1 22.9 - 09/02 [place] 35.8 /2016 Medical Center HEMATOLOGY PT 13.5 12.0 - 02/11 [place] 14.7 /2015 [facility] HEMATOLOGY INR 1.00 0.85 - 09/02 1.17 [facility] CHEM PANEL Magnesium Lvl 2.2 1.8 - 2.4 08/09 [facility] [facility] CHEM PANEL eGFR 71 08/09 Result Comment: The Medical eGFR is Center calculated using the CKD-EPI formula. In most young, healthy individuals the eGFR will be >90 mL/min/1.73m2 . The eGFR declines with age. An eGFR of 60-89 may be normal in some populations, particularly the elderly, for whom the CKD-EPI formula has not been extensively validated. Use of the eGFR is not recommended in the following populations:< br/>
Misti viduals with unstable creatinine concentration s, including patients and those with serious co-morbid conditions.<b r/>
Patie nts with extremes in muscle mass or diet.

The data above are obtained from the National Kidney Disease Education Program (NKDEP) which additionally recommends that when the eGFR is used in patients with extremes of body mass index for purposes of drug dosing, the eGFR should be multiplied by the estimated BMI. CHEM PANEL Calcium Lvl 8.7 8.5 - 10.5 08/09 [facility] CHEM PANEL CO2 23 24 - 32 08/09 [facility] CHEM PANEL Chloride Lvl 107 95 - 109 08/09 [facility] CHEM PANEL Potassium Lvl 4.2 3.5 - 5.1 08/09 [facility] CHEM PANEL Sodium Lvl 139 135 - 145 08/09 [facility] CHEM PANEL Creatinine 0.99 0.50 - 08/09 [facility] Lvl 1.40 [facility] CHEM PANEL BUN 16 7 - 22 08/09 [facility] CHEM PANEL Glucose Lvl 88 70 - 99 08/09 [facility] CHEM PANEL AGAP 13.2 10.0 - 08/09 20.0 [facility] HEMATOLOGY MPV 8.0 7.4 - 10.4 08/09 [facility] HEMATOLOGY WBC 11.7 3.7 - 10.4 08/09 [facility] HEMATOLOGY Hgb 10.9 14.0 - 08/09 [place] 18.0 /2015 [facility] HEMATOLOGY RBC 4.40 4.70 - 08/09 [place] 6.10 /2015 [facility] HEMATOLOGY MCH 24.7 27.0 - 08/09 [place] 31.0 [facility] HEMATOLOGY Hct 34.2 42.0 - 08/09 [place] 54.0 /2015 [facility] HEMATOLOGY MCV 77.8 80.0 - 08/09 [place] 94.0 /2015 [facility] HEMATOLOGY Platelet 412 133 - 450 08/09 [facility] HEMATOLOGY RDW 19.1 11.5 - 08/09 [place] 14.5 /2015 [facility] HEMATOLOGY MCHC 31.7 32.0 - 08/09 [place] 36.0 [facility] HEMATOLOGY Eosinophils # 0.3 0.0 - 0.5 08/09 [place] [facility] HEMATOLOGY Basophils # 0.1 0.0 - 0.2 08/09 [place] [facility] HEMATOLOGY Microcyte 1+ None Seen 08/09 [place] *ABN* /2015 [facility] (08/09/15 6:00 AM) [facility] HEMATOLOGY Lymphocytes 10.8 20.0 - 08/09 [place] 40.0 [facility] HEMATOLOGY Segs 77.6 45.0 - 08/09 [place] 75.0 [facility] HEMATOLOGY Monocytes 8.5 2.0 - 12.0 08/09 [facility] HEMATOLOGY Eosinophils 2.2 0.0 - 4.0 08/09 [place] [facility] HEMATOLOGY Basophils 0.9 0.0 - 1.0 08/09 [facility] HEMATOLOGY Segs-Bands # 9.1 1.5 - 8.1 08/09 [place] [facility] HEMATOLOGY Lymphocytes # 1.3 1.0 - 5.5 08/09 [place] [facility] HEMATOLOGY Monocytes # 1.0 0.0 - 0.8 08/09 [place] [facility] CHEM PANEL Magnesium Lvl 2.1 1.8 - 2.4 08/08 [place] [facility] ELECTROLYTE CO2 24 24 - 32 08/08 [place] [facility] ELECTROLYTE Calcium Lvl 9.0 8.5 - 10.5 08/08 [place] [facility] ELECTROLYTE Chloride Lvl 103 95 - 109 08/08 [place] S /2016 [facility] ELECTROLYTE Glucose Lvl 99 70 - 99 08/08 [facility] ELECTROLYTE BUN 14 7 - 22 08/08 [facility] ELECTROLYTE Creatinine 0.92 0.50 - 08/08 [facility] S Lvl 1.40 [facility] ELECTROLYTE Sodium Lvl 136 135 - 145 [facility] ELECTROLYTE Potassium Lvl 3.9 3.5 - 5.1 08/08 [place] [facility] ELECTROLYTE eGFR 77 08/08 Result [facility] Comment: The Medical eGFR is Center calculated using the CKD-EPI formula. In most young, healthy individuals the eGFR will be >90 mL/min/1.73m2 . The eGFR declines with age. An eGFR of 60-89 may be normal in some populations, particularly the elderly, for whom the CKD-EPI formula has not been extensively validated. Use of the eGFR is not recommended in the following populations:< br/>
Misti viduals with unstable creatinine concentration s, including patients and those with serious co-morbid conditions.<b r/>
Patie nts with extremes in muscle mass or diet.

The data above are obtained from the National Kidney Disease Education Program (NKDEP) which additionally recommends that when the eGFR is used in patients with extremes of body mass index for purposes of drug dosing, the eGFR should be multiplied by the estimated BMI. ELECTROLYTE AGAP 12.9 10.0 - 08/08 [facility] S 20.0 [facility] HEMATOLOGY Eosinophils 1.7 0.0 - 4.0 08/08 [facility] HEMATOLOGY Monocytes 7.6 2.0 - 12.0 08/08 [facility] HEMATOLOGY Lymphocytes 8.0 20.0 - 08/08 [place] 40.0 [facility] HEMATOLOGY Segs 82.2 45.0 - 08/08 [place] 75.0 [facility] HEMATOLOGY Lymphocytes # 1.0 1.0 - 5.5 08/08 [place] [facility] HEMATOLOGY Segs-Bands # 10.6 1.5 - 8.1 08/08 [facility] HEMATOLOGY Basophils 0.5 0.0 - 1.0 08/08 [facility] HEMATOLOGY Microcyte 1+ None Seen 08/08 [place] *ABN* /2015 [facility] (08/08/15 6:02 AM) [facility] HEMATOLOGY Basophils # 0.1 0.0 - 0.2 08/08 [place] [facility] HEMATOLOGY Eosinophils # 0.2 0.0 - 0.5 08/08 [place] [facility] HEMATOLOGY Monocytes # 1.0 0.0 - 0.8 08/08 s [facility] HEMATOLOGY MCH 24.4 27.0 - 08/08 [place] 31.0 [facility] HEMATOLOGY MCV 76.7 80.0 - 08/08 [place] 94.0 [facility] HEMATOLOGY MCHC 31.8 32.0 - 08/08 [place] 36.0 [facility] HEMATOLOGY RDW 19.0 11.5 - 08/08 [place] 14.5 [facility] HEMATOLOGY Platelet 439 133 - 450 08/08 [facility] HEMATOLOGY MPV 7.9 7.4 - 10.4 08/08 [facility] HEMATOLOGY WBC 12.9 3.7 - 10.4 08/08 [facility] HEMATOLOGY Hct 34.6 42.0 - 08/08 [place] 54.0 [facility] HEMATOLOGY Hgb 11.0 14.0 - 08/08 [place] 18.0 [facility] HEMATOLOGY RBC 4.51 4.70 - 08/08 [place] 6.10 [facility] CHEM PANEL Calcium Lvl 8.5 8.5 - 10.5 08/07 [facility] CHEM PANEL eGFR 78 08/07 Result Comment: [facility] eGFR is Center calculated using the CKD-EPI formula. In most young, healthy individuals the eGFR will be >90 mL/min/1.73m2 . The eGFR declines with age. An eGFR of 60-89 may be normal in some populations, particularly the elderly, for whom the CKD-EPI formula has not been extensively validated. Use of the eGFR is not recommended in the following populations:< br/>
Misti viduals with unstable creatinine concentration s, including patients and those with serious co-morbid conditions.<b r/>
Patie nts with extremes in muscle mass or diet.

The data above are obtained from the National Kidney Disease Education Program (NKDEP) which additionally recommends that when the eGFR is used in patients with extremes of body mass index for purposes of drug dosing, the eGFR should be multiplied by the estimated BMI. CHEM PANEL CO2 24 24 - 32 08/07 [facility] CHEM PANEL Sodium Lvl 139 135 - 145 08/07 [facility] CHEM PANEL BUN 16 7 - 22 08/07 [facility] CHEM PANEL Creatinine 0.91 0.50 - 08/07 [place] Lvl 1.40 [facility] CHEM PANEL Glucose Lvl 92 70 - 99 08/07 [facility] CHEM PANEL Potassium Lvl 4.3 3.5 - 5.1 08/07 [facility] CHEM PANEL Chloride Lvl 106 95 - 109 08/07 [facility] CHEM PANEL AGAP 13.3 10.0 - 08/07 20.0 [facility] HEMATOLOGY Segs-Bands # 10.6 1.5 - 8.1 08/07 [facility] HEMATOLOGY Lymphocytes # 1.2 1.0 - 5.5 08/07 [facility] HEMATOLOGY Monocytes # 0.9 0.0 - 0.8 08/07 [facility] HEMATOLOGY Eosinophils # 0.3 0.0 - 0.5 08/07 [facility] HEMATOLOGY Segs 81.5 45.0 - 08/07 [place] 75.0 [facility] HEMATOLOGY Plt Morph Normal 08/07 [facility] (08/07/15 5:10 AM) [facility] HEMATOLOGY Monocytes 6.7 2.0 - 12.0 08/07 [facility] HEMATOLOGY Lymphocytes 8.9 20.0 - 08/07 [place] 40.0 [facility] HEMATOLOGY Eosinophils 2.3 0.0 - 4.0 08/07 [facility] HEMATOLOGY Basophils 0.6 0.0 - 1.0 08/07 [facility] HEMATOLOGY Schistocyte 1-3 per HPF None Seen 08/07 [facility] (08/07/15 5:10 AM) [facility] HEMATOLOGY Microcyte 1+ None Seen 08/07 [facility] *ABN* [facility] (08/07/15 5:10 AM) [place] HEMATOLOGY Polychrom Slight 08/07 [facility] HEMATOLOGY Basophils # 0.1 0.0 - 0.2 08/07 [place] /2015 [facility] HEMATOLOGY Anisocyte 1+ None Seen 08/07 [facility] *ABN* Medical (08/07/15 5:10 AM) [place] HEMATOLOGY WBC 13.0 3.7 - 10.4 08/07 [facility] HEMATOLOGY Hct 33.3 42.0 - 08/07 [place] 54.0 [facility] HEMATOLOGY Hgb 10.8 14.0 - 08/07 [place] 18.0 [facility] HEMATOLOGY MCH 24.7 27.0 - 08/07 [place] 31.0 [facility] HEMATOLOGY MCV 76.4 80.0 - 08/07 [facility] 94.0 [facility] HEMATOLOGY RBC 4.36 4.70 - 08/07 [facility] 6.10 [facility] HEMATOLOGY MPV 7.9 7.4 - 10.4 08/07 [facility] HEMATOLOGY Platelet 441 133 - 450 08/07 [facility] HEMATOLOGY RDW 19.0 11.5 - 08/07 [place] 14.5 [facility] HEMATOLOGY MCHC 32.3 32.0 - 08/07 [facility] 36.0 [facility] HEMATOLOGY F2 Mutation Negative 08/07 [facility] PCR (08/07/15 5:10 AM) /[facility] HEMATOLOGY F2 Mut Interp FACTOR II 08/07 [place]: /2015 [facility] INTERPRETA TION: Molecular analysis for the Factor II (Prothromb in) [id number]> A mutation was negative. Other causes of elevated prothrombi n levels and hereditary forms of venous thrombosis are not ruled out. Final diagnosis requires correlatio n with clinical history and other pertinent laboratory findings. Where appropriat e, medical consultati on and genetic counseling should be offered to inform and explain the risk implicatio ns and genetic implicatio ns of these test results. ASSAY LIMITATION S: The assay uses the FDA-cleare d Светлана Factor II (Prothromb in) [id number] IVD (Polymeras e chain reaction/F RET detection) kit, [employer] and the [employer] 1[employer]2 [employer] . A 165-bp fragment of Factor II gene(FII) containing the Factor II [id number] sequence is amplified in the assay. The assay is designed to detect the [id number] mutation only. Other causes of elevated prothrombi n levels and hereditary forms of venous thrombosis are not ruled out. However, the melting curve analysis may implicate the presence of a possible rare mutation at position 53214 (Further testing will be recommende d in the report). A minimum detection level is 198 copies of Factor II per reaction. The level of agreement between the Factor II(Prothro mbin) [id number] Kit and sequence analysis was 98.9%. The test result must be interprete d along with the patient's clinical history and revelant laboratory data. This assay has been validated by [facility] . HEMATOLOGY AT [facility] 87 77 - 140 08/07 [facility] IMMUNOLOGY Cryoglob Negative Negative 08/07 [place] (08/07/15 5:10 AM) [facility] BLOOD BANK ABO/Rh A POS 08/04 [place] RESULTS /2015 [facility] BLOOD BANK Antibody Scrn Negative 08/04 [place] RESULTS (08/04/15 9:21 AM) [facility] BODY FLUIDS Protein CSF 55 15 - 45 08/03 [facility] BODY FLUIDS WBC CSF 1 0 - 53 08/03 [facility] BODY FLUIDS RBC CSF 84 0 - 03 08/03 [facility] BODY FLUIDS Comment CSF Differenti 08/03 [place] [facility] on WBC count of less than 5. BODY FLUIDS Tube Num CSF 3 08/03 [place] /2015 [facility] BODY FLUIDS Color CSF Colorless Colorless 08/03 [place] (08/03/15 2:00 PM) [facility] BODY FLUIDS Supernat CSF Colorless Colorless 08/03 [place] (08/03/15 2:00 PM) [facility] BODY FLUIDS Clarity CSF Clear Clear 08/03 [place] (08/03/15 2:00 PM) [facility] BODY FLUIDS Glucose CSF 59 45 - 80 08/03 [facility] IMMUNOLOGY VDRL Scr CSF Non Reactive Non 08/03 [facility] (08/03/15 2:00 PM) Reactive /2015 [facility] IMMUNOLOGY [id number] <1:10 <1:10 07/30 [place] partate Rcptr /2015 Comment: Medical Ab INTERPRETIVE Center INFORMATION: [id number] partate Receptor Ab, Serum

Anti-NMD A receptor IgG antibody is found in a subset of patients
with autoimmune limbic encephalitis and may occur with or without
associat ed tumor. Decreasing antibody levels may be associated
with therapeutic response; therefore, clinical correlation must be
strongly considered. A negative test result does not rule out a
diagnosi s of autoimmune limbic encephalitis.
Performe d by [employer],
[address], [facility] [place] [address]
[email or web address], Lai Palacio MD - Lab. Director REFERENCE [facility] See 07/30 Result [facility] LAB RESULTS Comment /2015 Comment: [facility] results scanned in [employer]. Results displayed in [id number] EFERENCE LAB-Outside Lab Documents (Imaged) under date/time results were scanned. Report sent for scanning on 08/09/2015 15:25.[place] REFERENCE Test Name CASPR2 IgG 07/30 [place] LAB RESULTS /2016 [facility] SEE 07/30 Result [facility] LAB RESULTS COMMENT Comment: [facility] Contactin-Ass Center ociated Protein-2 Antibody, IgG with Reflex to titer

CASPR2 Ab IgG Screen by IFA <1:10

Reference Interval <1:10

Testin g performed at [facility] See 07/30 Result [facility] LAB RESULTS Comment Comment: [facility] PARANEOPLASTI Center C AUTOANTIBODY EVALUATION, Serum

ACh Receptor (Muscle) Binding Ab: 0.00 nmol/L Ref Range: <=0.02
Striatio nal (Striated Muscle) Ab: Negative titer <1:60
Interpre tive Comments:
No informative autoantibodie s were detected in this evaluation.
However, a negative result does not exclude neurological autoimmunity
with or without associated neoplasia.
N-Type Calcium Channel Ab: 0.00 nmol/L <=0.03
P/Q-Type Calcium Channel Ab: 0.00 nmol/L <=0.02
[employer]ER-Tr: Negative titer <1:240
CRMP-5-I gG: Negative titer
Expected Values:
<1:240: Negative
Titers lower than 1:240 may be detectable by recombinant CRMP-5 western
blot analysis. CRMP-5 western blot analysis will be done by request on
stored serum. This supplemental testing is recommended in cases of
chorea, vision loss, cranial neuropathy and myelopathy.
CHRISTA-3: Negative titer <1:240
[employer] S[employer] TE[employer]ER-2: Negative titer <1:240
CHRISTA-1: Negative titer <1:240
CHRISTA-2: Negative titer <1:240
M[employer] TE[employer]ER-1: Negative titer <1:240
Amphiphy sin Ab: Negative titer <1:240
AChR Ganglionic Neuronal Ab: 0.00 nmol/L <=0.02
AGNA-1:_ Negative titer <1:240
Neuronal (V-G)K+ Channel Ab: 0.00 nmol/L <=0.02

Test performed by [place], [place] CHEM PANEL Phosphorus 2.6 2.5 - 4.5 07/30 [facility] CHEM PANEL Magnesium Lvl 2.0 1.8 - 2.4 07/30 [place] [facility] HEMATOLOGY PT 18.5 12.0 - 07/30 [place] 14.7 2016 [facility] HEMATOLOGY INR 1.51 0.85 - 07/30 [place] 1.17 [facility] HEMATOLOGY PTT 43.9 22.9 - 07/30 [place] 35.8 2016 [facility] PARATHYROID Ca Norm WB 1.18 1.05 - 07/30 [place] PROFILE . [facility] PARATHYROID Ca Ion WB 1.15 1.05 - 07/30 [place] PROFILE . [facility] CHEM PANEL Phosphorus 2.6 2.5 - 4.5 07/29 [facility] CHEM PANEL Phosphorus 3.3 2.5 - 4.5 07/28 /2015 [facility] HEMATOLOGY INR 1.86 0.85 - 07/28 [place] 1.17 /2015 [facility] HEMATOLOGY PT 21.8 12.0 - 07/28 [place] 14.7 /2016 [facility] HEMATOLOGY PT 21.3 12.0 - 07/27 [place] 14.7 /2016 [facility] HEMATOLOGY INR 1.81 0.85 - 07/27 [place] 1.17 /2015 [facility] HEMATOLOGY PTT 64.1 22.9 - 07/25 [place] 35.8 /2016 [facility] HEMATOLOGY PTT 96.8 22.9 - 07/25 [place] 35.8 /2015 [facility] URINE AND UA <=1.0 0.1 - 1.0 07/25 [facility] STOOL Urobilinogen mg/dL /2015 [facility] URINE AND UA Leuk Est Negative Negative 07/25 [facility] (07/24/15 6:30 PM) [facility] URINE AND UA Blood Negative Negative 07/25 [facility] (07/24/15 6:30 PM) [facility] URINE AND UA Nitrite Negative Negative 07/25 [facility] (07/24/15 6:30 PM) [facility] URINE AND UA Bili Negative Negative 07/25 [facility] *NA* /2015 [facility] (07/24/15 6:30 PM) [place] URINE AND UA Glucose Negative Negative 07/25 [facility] mg/dL mg/dL [facility] URINE AND UA Ketones Negative Negative 07/25 [facility] mg/dL mg/dL /2015 [facility] URINE AND UA Protein 20 mg/dL Negative 07/25 [facility] STOOL mg/dL /2015 [facility] URINE AND UA Turbidity Clear Clear 07/25 [facility] (07/24/15 6:30 PM) [facility] URINE AND UA Spec Grav 1.012 <=1.030 07/25 [facility] STOOL [facility] URINE AND UA pH 5.5 5.0 - 8.0 07/25 [facility] URINE AND UA Color Yellow Yellow 07/25 [facility] *NA* /2015 [facility] (07/24/15 6:30 PM) [place] URINE AND UA Mucus Few /LPF None Seen 07/25 [facility] STOOL /LPF /2015 [facility] URINE AND UA RBC 4 0 - 2 07/25 [facility] URINE AND UA WBC 1 0 - 5 07/25 [facility] STOOL [facility] URINE AND UA Sq Epi None Seen 07/25 [facility] URINE AND UA Glucose Negative Negative 07/22 [facility] mg/dL mg/dL [facility] URINE AND UA Protein Negative Negative 07/22 [facility] mg/dL mg/dL [facility] URINE AND UA Blood Negative Negative 07/22 [facility] (07/22/15 5:02 AM) /2014 [facility] URINE AND UA 2.0 0.1 - 1.0 07/22 [facility] Urobilinogen /2014 [facility] URINE AND UA Ketones Negative Negative 07/22 [facility] mg/dL mg/dL [facility] URINE AND UA Bili Negative Negative 07/22 [facility] *NA* /2014 [facility] (07/22/15 5:02 AM) Cente r URINE AND UA Spec Grav 1.009 <=1.030 07/22 [facility] URINE AND UA Color Yellow Yellow 07/22 [facility] *NA* /2014 [facility] (07/22/15 5:02 AM) Cente r URINE AND UA pH 7.5 5.0 - 8.0 07/22 [facility] STOOL [facility] URINE AND UA Turbidity Clear Clear 07/22 [facility] (07/22/15 5:02 AM) /2014 [facility] URINE AND UA Sq Epi None Seen 07/22 [facility] URINE AND UA Mucus Few /LPF None Seen 07/22 [facility] STOOL /LPF /2014 [facility] URINE AND UA Nitrite Negative Negative 07/22 [facility] (07/22/15 5:02 AM) [facility] URINE AND UA Leuk Est Negative Negative 07/22 [facility] (07/22/15 5:02 AM) [facility] URINE AND UA WBC <1 0 - 5 07/22 [facility] IMMUNOLOGY 24Hr UPE Int Faint 07/22 [facility] bands Medical seen in Center the albumin, alpha -1, alpha -2 and beta globulin regions consistent with mild glomerular and tubular proteinuri a. There is no evidence of a paraprotei n. The electronic medical record has been reviewed for relevant medical informatio n. I have personally reviewed the test results and concur with the resident's interpreta tion. CPT: 82461-[place] IMMUNOLOGY 24Hr UPE 552 07/22 [facility] IMMUNOLOGY 24 UPE Tot 33 07/22 [facility] Prot [facility] IMMUNOLOGY 24 UPE Tot 1672 07/22 [facility] Vol [facility] LIPIDS VLDL 12 07/21 [facility] LIPIDS LDL 86 <=99 mg/dL 07/21 [facility] (Calculated) [facility] LIPIDS Trig 60 <=149 07/21 [facility] mg/dL [facility] LIPIDS Chol 168 <=199 07/21 [facility] mg/dL [facility] LIPIDS HDL 70 >=61 mg/dL 07/21 [facility] LIPIDS CHD Risk 2.40 4.00 - 07/21 [facility] 7. [facility] IMMUNOLOGY Cardiolipin <1.6 <=19.9 GPL 07/20 [place] IgG /2014 [facility] IMMUNOLOGY Cardiolipin 1.3 <=19.9 APL 07/20 [place] IgA [facility] IMMUNOLOGY Cardiolipin 2.7 <=19.9 MPL 07/20 [place] IgM /2014 [facility] IMMUNOLOGY CHRISTINA Ser The serum 07/20 [facility] Interp immunofixa /2014 [facility] tion Center electropho resis demonstrat es polyclonal distributi on of immunoglob ulins. No monoclonal immunoglob ulins are detected. I have personally reviewed the test results and concur with the resident's interpreta tion. CPT 28769-IT IMMUNOLOGY CHRISTINA Ser Diffusely 07/20 [facility] Pattern staining Medical immunoreac Center tivity is present in the IgG, IgA, IgM, kappa, and lambda lanes in a normal polyclonal distributi on. No monoclonal immunoglob ulins are detected. HEMATOLOGY Protein C 119 72 - 147 07/18 [facility] Func [facility] HEMATOLOGY Protein S 88 54 - 137 07/18 [facility] Func [facility] HEMATOLOGY F5 Leiden FACTOR V 07/18 [facility] Intrp LEIDEN: /2014 [facility] INTERPRETA TION: Molecular analysis for the Factor V Leiden, [id number] mutation was negative. Other causes of activated protein C resistance and hereditary forms of venous thrombosis are not ruled out. Final diagnosis requires correlatio n with clinical history and other pertinent laboratory findings. Where appropriat e, medical consultati on and/or genetic counseling should be offered to inform and explain the risk implicatio ns and genetic implicatio ns of these test results. ASSAY LIMITATION S: The assay uses the FDA-cleare d Светлана Factor V Leiden IVD([place] ase chain reaction/F RET detection) kit, ClasskickA kinkon LC Instrument and the Zoutons r 1.2 Instrument . A 222-bp fragment [...] data. This assay has been validated by [facility] . HEMATOLOGY F5 Leiden PCR Negative 07/18 [facility] as (07/17/15 8:30 PM) /2014 [facility] IMMUNOLOGY Tot Prot 6.6 6.4 - 8.4 07/15 [facility] (SPE) /2014 [facility] IMMUNOLOGY Alpha 2 Glob 1.26 0.45 - 07/15 [facility] 1.00 [facility] IMMUNOLOGY Alpha 1 Glob 0.56 0.18 - 07/15 [facility] 0.41 [facility] IMMUNOLOGY SPE Interp Capillary 07/15 [facility] electropho /[address] [facility] demonstrat es a distortion of the gamma distributi on curve. This requires further evaluation by serum and 24 hr urine immunofixa tion. As there is no distinct peak, quantifica tion is not possible. Total protein level is within the reference range. Serum protein electropho resis shows reduction in the albumin level with increase in the alpha-1 and alpha-2 globulin fractions. These findings are otherwise consitent with inflammati on. The electronic medical record has been reviewed for relevant history. I have personally reviewed the test results and concur with the resident&a pos;s interpreta tion. CPT 67933-JF IMMUNOLOGY Albumin ([place]) 3.21 3.57 - 07/15 [place] 5.55 /2014 [facility] IMMUNOLOGY Gamma Glob 0.77 0.71 - 07/15 [place] 1.57 [facility] IMMUNOLOGY Beta Glob 0.81 0.50 - 07/15 [place] 1.15 /2014 [facility] IMMUNOLOGY Gamma % 11.6 11.1 - 07/15 [place] 18.7 /2014 [facility] IMMUNOLOGY Alpha 1 % 8.5 2.8 - 4.9 07/15 [facility] IMMUNOLOGY Albumin % 48.6 55.8 - 07/15 [place] 66.1 /2014 [facility] IMMUNOLOGY Beta % 12.2 7.8 - 13.7 07/15 [facility] IMMUNOLOGY Alpha 2 % 19.1 7.0 - 11.9 07/15 [facility] IMMUNOLOGY P-ANCA Negative Negative 07/15 [facility] (07/15/15 5:55 PM) [facility] IMMUNOLOGY C-ANCA Negative Negative 07/15 [facility] (07/15/15 5:55 PM) [facility] IMMUNOLOGY JADE Negative Negative 07/15 [facility] (07/15/15 5:55 PM) [facility] IMMUNOLOGY RF Qnt <10 0 - 20 07/15 [facility] IMMUNOLOGY Hep Bs Ab <3.1 <=7.4 07/15 [facility] mIU/mL [facility] IMMUNOLOGY Hep B Core Ab Negative Negative 07/15 [place] *NA* /2014 [facility] (07/15/15 5:55 PM) Cente r IMMUNOLOGY Hep C Ab Negative 07/15 [facility] *NA* /2014 [facility] (07/15/15 5:55 PM) Cente r IMMUNOLOGY Hep B Core Ab Negative Negative 07/15 [place] *[place]* /2014 [facility] (07/15/15 5:55 PM) Cente r IMMUNOLOGY C-REACTIVE 66.4 <=2.9 mg/L 07/[place] PR[place] /2014 [facility] CARDIAC Total CK 64 12 - 191 07/15 [facility] ENZYMES [facility] HEMATOLOGY Lup Interp Negative 07/15 [facility] for lupus [facility] ant with all tests performed (dRVVT, and hexagonal phospholip id neutraliza tion). CPT: 60014 HEMATOLOGY dRVV Ratio 0.93 <=1.20 07/15 [facility] HEMATOLOGY Hex Phos N Negative Negative 07/15 [place] (07/15/15 6:50 AM) /2014 [facility] HEMATOLOGY Sed Rate 46 0 - 15 07/15 [place] /2014 [facility] IMMUNOLOGY C4 Complement 25 16 - 47 07/[place] [facility] IMMUNOLOGY C3 Complement 124 88 - 201 07/15 [place] /2014 [facility] IMMUNOLOGY Beta2-Glycopr <1.4 <=19.9 07/15 [place] IgG unit/mL /2014 [facility] IMMUNOLOGY Beta2-Glycopr 1.6 <=19.9 07/[place] IgM unit/mL /2014 [facility] IMMUNOLOGY Beta2-Glycopr 2.2 <=19.9 07/[place] IgA unit/mL /2014 [facility] IMMUNOLOGY C-REACTIVE 56.8 <=2.9 mg/L 07/[place]2014 [facility] CARDIAC Total CK 59 12 - 191 07/15 [place] /2014 [facility] CARDIAC Total CK 59 12 - 191 07/15 [place] /2014 [facility] HEMATOLOGY Plav Effect 333 07/15 [place] /2014 [facility] BACTERIAL - MRSA by PCR Negative 07/[place] (07/14/15 8:25 PM) /2014 [facility] BLOOD BANK ABO/Rh A POS 07/15 [place] /2014 [facility] BLOOD BANK Antibody Scrn Negative 07/15 [place] RESULTS (07/14/15 7:50 PM) /2014 [facility] CARDIAC CK MB 3.4 0.5 - 3.6 07/15 [place] ENZYMES /2014 [facility] CARDIAC CK MB Index 4.2 0.0 - 2.5 07/15 [place] /2014 [facility] CHEM PANEL Bili Direct 0.2 0.0 - 0.3 07/15 [place] [facility] CHEM PANEL Globulin 4.0 2.0 - 4.0 07/15 [place] /2014 [facility] CHEM PANEL B/C Ratio 28 6 - 25 07/15 /2014 [facility] CHEM PANEL A/G Ratio 0.6 0.7 - 1.6 07/15 /2014 [facility] CHEM PANEL Bili Total 0.9 0.2 - 1.3 07/15 [place] /2014 [facility] CHEM PANEL Alk Phos 70 39 - 136 07/15 [facility] CHEM PANEL AST 23 0 - 37 07/15 [place] [facility] CHEM PANEL Albumin Lvl 2.6 3.5 - 5.0 07/15 [place] [facility] CHEM PANEL ALT 35 0 - 65 07/15 [facility] CHEM PANEL Total Protein 6.6 6.4 - 8.4 07/15 [place] [facility] CHEM PANEL Lactic Acid 2.2 0.5 - 2.2 07/15 [place] L[place] [facility] LIPIDS VLDL 14 07/15 [place] [facility] LIPIDS LDL 91 <=99 mg/dL 07/15 [facility] (Calculated) [facility] LIPIDS HDL 69 >=61 mg/dL 07/15 [facility] LIPIDS Chol 174 <=199 07/15 [facility] mg/dL [facility] LIPIDS Trig 72 <=149 07/15 [facility] mg/dL [facility] LIPIDS CHD Risk 2.52 4.00 - 07/15 [place] 7.30 [facility] PARATHYROID Ca Norm WB 1.07 1.05 - 07/15 [place] PROFILE 1. [facility] PARATHYROID Ca Ion WB 1.11 1.05 - 07/15 [facility] PROFILE 1. [facility] SPECIAL Hgb A1C 6.3 <=5.6 % 07/15 [facility] CHEMISTRY [facility] URINE AND UA Bili Negative Negative 07/15 [facility] STOOL *NA* /2014 [facility] (07/14/15 7:50 PM) Cente r URINE AND UA pH 5.5 5.0 - 8.0 07/15 [facility] STOOL [facility] URINE AND UA Protein Negative Negative 07/15 [facility] STOOL mg/dL mg/dL [facility] URINE AND UA Glucose Negative Negative 07/15 [facility] STOOL mg/dL mg/dL [facility] URINE AND UA Ketones Negative Negative 07/15 [facility] STOOL mg/dL mg/dL [facility] URINE AND UA Nitrite Negative Negative 07/15 [facility] STOOL (07/14/15 7:50 PM) /2014 [facility] URINE AND UA Leuk Est Negative Negative 07/15 [facility] STOOL (07/14/15 7:50 PM) /2014 [facility] URINE AND UA Sq Epi None Seen 07/15 [facility] STOOL [facility] URINE AND UA Blood Negative Negative 07/15 [facility] (07/14/15 7:50 PM) [facility] URINE AND UA Spec Grav 1.007 <=1.030 07/15 [facility] /2014 [facility] URINE AND UA Color Light Yellow Yellow 07/15 [facility] *NA* /2014 [facility] (07/14/15 7:50 PM) Cente r URINE AND UA Turbidity Clear Clear 07/15 [facility] (07/14/15 7:50 PM) /2014 [facility] URINE AND UA <=1.0 0.1 - 1.0 07/15 [facility] Urobilinogen mg/dL /2014 [facility] URINE AND UA WBC <1 0 - 5 07/15 [facility] /2014 [facility] Pathology Reports No Data Provided for This Section Diagnostic Reports Report Value Date Source Chest/Abdomen/Pelvis wo Radiation Dose CTDIVOL = 0 (mGy): DL P = 719.68 (mGy-cm) [facility]02[facility] [place] [facility] PROCEDURE INFORMATION: Exam: CT Chest Without Contrast Exam date and time: 03/02/2020 11:20 AM Age: 89 years old Clinical indication: Malignant neoplasm of left kidney, except renal pelvis; Testicular hypofunction; Cough; Nocturia; Other fatigue; Additional info: /cough, fatigue, malignant n eoplasm of left kidney, nocturia, male hypogonadism TECHNIQUE: Imaging protocol: Computed tomography of the [facility] without contrast. 3D rendering: MIP and/or 3D reconstructed images were created by the technologist. Radiation optimization: All CT scans at this facility use at least one of these dose optimization techniques: automated exposure control; mA and/or kV adjustment per patient size (includes targeted e xams where dose is matched to clinical indication); or iterative reconstructio n. Other contrast: Oral, REDICAT, 750 ML; COMPARISON: CHEST, ABDOMEN, PELVIS WO CONTRAST CT 01/15/2019 12:56 PM RADIATION DOSE METRICS: Total DLP (mGy-cm): 719.68 FINDINGS: Lungs: Emphysema with interstitial scarring. No pneumonia or pulmonary metastasis. Pleural space: No pleural effusion. Heart: Moderate coronary artery calcifications. No pericardial effusion. Aorta: Ectatic atherosclerotic aorta. 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 Lymph nodes: No hilar or mediastinal adenopathy. Stable 9 mm anterior mediastinal node. Bones/joints: No skeletal metastatic lesion. Mod erate spondylosis and degenerative disc disease. Degenerative changes right sternoclavicular articulation. Soft tissues: Unremarkable. PROCEDURE INFORMATION: Exam: CT Abdomen And Pelvis Without Contrast Exam date and time: 03/02/2020 11:20 AM Age: 89 years old Clinical indication: Malignant neoplasm of left kidney, except renal pelvis; Testicular hypofunction; Cough; Nocturia; Other fatigue; Additional info: /cough, fatigue, malignant n eoplasm of left kidney, nocturia, male hypogonadism TECHNIQUE: Imaging protocol: Computed tomography of the abd omen and pelvis without contrast. 3D rendering: MIP and/or 3D reconstructed images were created by the technologist. Radiation optimization: All CT scans at this facility use at least one of these dose optimization techniques: automated exposure control; mA and/or kV adjustment per patient size (includes targeted e xams where dose is matched to clinical indication); or iterative reconstructio n. Other contrast: Oral, REDICAT, 750 ML; COMPARISON: CHEST, ABDOMEN, PELVIS WO CONTRAST CT 01/15/2019 12:56 PM RADIATION DOSE METRICS: Total DLP (mGy-cm): 719.68 FINDINGS: Liver: Stable small left lobe hepatic cyst, live r otherwise normal. Gallbladder and bile ducts: Gallbladder partiall y contracted. Common duct normal. Pancreas: Pancreas normal. Spleen: Spleen normal. Adrenals: Adrenals normal. Kidneys and ureters: Left nephrectomy. Simple be nign 4.4 cm right renal cortical cyst not requiring further imaging. Mil d right hydronephrosis unchanged. No perinephric stranding. Stomach and bowel: No intestinal lesion. Appendix: Appendix normal. Intraperitoneal space: No ascites. Vasculature: Moderate atherosclerosis. Lymph nodes: No adenopathy. Bladder: Impingement. Moderate urinary bladder w all thickening. Reproductive: Enlarged prostate with bladder bas e Bones/joints: Severe spondylosis and multilevel degenerative disc disease. No skeletal metastatic lesion. Soft tissues: Unremarkable. COMMENTS: Consistent with the [employer]'s Incidental Findings Committee white paper (J Am Natalia Radiol 2018): Any incidental renal lesion less than 1.0 cm or classified as too small to yuan pederson or any incidental cystic renal lesion characterized as simple-appe aring, is likely benign. No follow-up imaging is recommended for these lesio ns per consensus recommendations based on imaging criteria. IMPRESSION: CT Chest Without Contrast 1. No metastatic disease or other acute abnormal ity. 2. Emphysema with interstitial scarring. 3. Moderate coronary artery calcifications. CT Abdomen And Pelvis Without Contrast 1. No metastatic disease post left nephrectomy. 2. Stable mild right hydronephrosis. 3. Stable large prostate with moderate urinary b ladder wall thickening. 4. Severe spondylosis and degenerative disc dise ase. Chuck Santiago MD On 03/03/2020 09:45:29; VR- [id number] Chest 2 views DX PROCEDURE INFORMATION: 08/12/2019 [facility] Exam: XR Chest, 2 Views Exam date and time: 08/12/2019 9:41 AM Age: 88 years old Clinical indication: Malignant neoplasm of left kidney, except renal pelvis; Cough; Additional info: /r05 cough, c64.2 malign ant neoplasm of left kidney, except renal pelvis TECHNIQUE: Imaging protocol: XR of the chest Views: 2 views. PA and Lateral COMPARISON: MG CHEST 2 VIEWS DX 08/28/2018 9:54 AM FINDINGS: Tubes, catheters and devices: None. Lungs: Questionable pulmonary emphysematous brewer ges. Possible mild pulmonary hyperinflation. The lungs appear otherwise clear . Pleural space: No pleural effusion or pneumothor ax. Heart/Mediastinum: Mediastinum and susan appear u nremarkable. Vasculature: Moderate atherosclerotic calcificat ion demonstrated within the aorta. Bones/joints: Moderate generalized degenerative changes. IMPRESSION: 1. Questionable pulmonary emphysema. 2. Chronic degenerative changes. Nik Masters MD On 08/12/2019 15:37:20; VR -[id number] Chest/Abdomen/Pelvis wo Study: Chest/Abdomen/Pelvis wo IV co ntrast CT 01/15/2019 [facility] IV contrast CT Clinical Indication: - R35. 0 Frequency of micturition; nocturia; fatigue; C64.2 Malignant neoplasm of left kidney, except renal pelvis Comparison: CT of the chest, abdomen, and pelvis from 03/11/2018, 08/02/2017, 11/17/2016, 03/09/2016, 12/10/2015 Technique: Multiple axial CT images of the chest, abdomen, and pelvis were acquired without the administration of intravenous contrast. Coronal and sagittal reconstructions were obtained. CT imaging performed at this location utilizes radiation dose optimization techniques which include one or more of the following: -Automated exposure control -Adjustment of the mA and/or kV according to pat ient size -Use of iterative reconstruction technique CT Radiation Dose DLP 739.93 mGy-cm Findings: Heart is normal in size. Pericardium is unremarkable. Aortic annular, coronary artery, and thoracic aortic calcifications are seen. There is ectasia of the ascending thoracic aorta measuring 4 .3 cm transverse dimension, stable. No pathologic mediastinal, hilar, or axillary adenopathy is present. No endobronchial lesions are identified within the central airways. The lungs are clear and witho ut consolidation, mass, or n odule. No pleural effusion or pneumothorax is seen. Hepatic and right renal hypo dense cysts are stable. Gallbladder, pancreas, spleen, and right adrenal gland are within the normal limits imposed by the lack of intravenous contrast. Stable changes of lef t nephrectomy are seen. Mild nodularity of the left adrenal gland is seen. Mild right pelvicaliectasis is unchanged. Mild to moderate wall thickening of the urinary bladder is seen. Prostate gland remai ns enlarged. Arterial calcif ications are noted. The visualized hollow viscera and appendix are normal in appearance. No intraperitoneal free air, free fluid, or pathologic adenopathy is seen. The superficial soft tissues are normal in appea mookie. No suspicious osseous lesion s are seen. Multilevel degenerative changes throughout the spine are present. IMPRESSION: 1. No evidence of metastatic disease to the ches t. 2. No evidence of recurrent or metastatic diseas e to the abdomen/pelvis. 3. Prostate gland enlargement. 4. Stable right pelvicaliectasis. SL: [id number] Chest 2 views DX EXAM: Chest radiographs 08/28/2018 [facility] HISTORY: Cough COMPARISON: CT chest 03/11/2018 TECHNIQUE: 2 views FINDINGS: The lungs are emphysematous. Mild pleural-parenchymal scarring in the apices. No appreciable pneumonia, edema or pleural effusion. Tiny possible calcified granuloma versus vessel right lower lung. Heart size upper normal, aneurysmal ascending aorta. IMPRESSION: 1. No acute finding. 2. COPD. 3. Ectatic ascending aorta. SL 16 Chest/Abdomen/Pelvis wo Study: Chest/Abdomen/Pelvis wo IV co ntrast CT 03/11/2018 [facility] IV contrast CT Clinical Indication: Malignant neoplasm of left kidney Comparison: CT of the chest, abdomen, and pelvis from 08/02/2017, 11/17/2016, 03/09/2016, 12/10/2015 Technique: Multiple axial CT images of the chest, abdomen, and pelvis were acquired without the administration of intravenous contrast. Coronal and sagittal reconstructions were obtained. CT Radiation Dose DLP 640.57 mGy-cm Findings: Heart is mildly en larged. Pericardium is unremarkable. Aortic annular, coronary artery, and thoracic aortic calcifications are seen. No pathologic mediastinal, hilar, or axillary adenopathy is seen. No endobronchial lesi ons are identified within the central airways. The lungs are clear and without consolidation, mass, or nodule. No pleural effusion or pneumothorax is present. Left hepatic lobe hypodense cyst is stable. Gallbladder, pancreas, spleen, and adrenal glands are within the normal limits imposed by the lack of intravenous contrast. Right renal hypodense cyst is stab le. Stable changes of left n ephrectomy are seen. Urinary bladder is well- distended and shows mild wall thickening. Prostate gland is enlarged. Sigmoid diverticula are noted. Moderate amount of fecal mat erial throughout the remaini ng colon is seen. Appendix is unremarkable. Arterial calcifications are seen. No intraperitoneal free air, free fluid, or pathologic adenopathy is seen. The superficial soft tissues are normal in appea mookie. No suspicious osseous lesion s are seen. Advanced degenerative changes of the lumbar spine are present. IMPRESSION: 1. No evidence of metastatic disease to the ches t. 2. No evidence of recurrent or metastatic diseas e to the abdomen/pelvis. 3. Prostate gland enlargement. 4. Sigmoid diverticulosis. SL: [id number] Chest 2 views DX Clinical Indication: History of renal cancer [facility] [place] Comparison: 02/23/2017 FINDINGS: PA and lateral views of the chest are performed. Heart size is within normal limits. Stable tortu osity of the thoracic aorta. Lungs are clear without infi ltrate or mass. No pleural effusion or pneumothorax. No acute osseous abnormality. IMPRESSION: 1. No radiographic evidence for acute process in the chest. 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 Sagittal and coronal reformatted images were performed. CT Radiation Dose DLP 470.91 mGy-cm FINDINGS: Please refer to re port from CT of the chest performed the same day for complete intrathoracic findings. Stable 1 cm hypodense cyst i n the lateral segment of the left hepatic lobe is seen. 4.3 cm stable right renal hypodense cyst is also noted. Gallbladder, pancreas, spleen, and right adrenal gland are wit hin the normal limits impose d by the lack of intravenous contrast. Stable changes of left nephrectomy are seen. Mild nodularity of the left adrenal gland is noted. Urinary bladder shows mild wall thickening. Pros cisse is severely enlarged. Numerous sigmoid diverticula are [...] 2. No evidence of recurrent or metastatic diseas e to the abdomen/pelvis. 3. Prostate gland enlargement. 4. Mild wall thickening of t he urinary bladder which may be related to chronic bladder outlet obstruction. 5. Sigmoid diverticulosis without acute divertic ulitis. SL: [id number] Chest wo contrast CT Study: Chest wo contrast CT 08/02/2017 [facility] Clinical Indication: - freq micturition nocrutia fatigue hypoganadism lt renal ca enlarged prost Comparison: CT scan of the chest from 11/17/2016 , 03/09/2016, 12/10/2015 TECHNIQUE: Multiple axial CT images of the chest were acquired without the administration of intravenous contrast. Coronal and sagittal reconstructions were obtained. Dose: DLP = 470.91 mGy-cm FINDINGS: Heart is mildly en larged. Pericardium is unremarkable. Aortic annular, coronary artery, and thoracic aortic calcifications are seen. Ectasia of the ascending thoracic aorta is seen measuring 4 cm in diameter. No patholog ic mediastinal, hilar, or axillary adenopathy is seen. No endobronchial lesions are identified within the central airways. The lungs are clear and without consolidation, ma ss, or nodule. No pleural ef fusion or pneumothorax is seen. The superficial soft tissues of the chest wall are unremarkable. No suspicious osseous lesions are seen. Please refer to report from CT of the abdomen and pelvis performed the same day for complete subdiaphragmatic findings. IMPRESSION: 1. No acute cardiopulmonary disease. 2. No evidence of metastatic disease to the ches t. 3. Stable ectasia of the ascending thoracic aort a. SL: [id number] Chest 2 views DX EXAM: XR CHEST 2 VIEWS 02/23/2017 [facility] DATE: 02/23/2017 9:49 AM CDT INDICATION: - R05 Cough COMPARISON: 07/06/2016 TECHNIQUE: PA and lateral chest radiographs FINDINGS: There is stable un folding of the aortic arch. No pulmonary or pleural-based abnormality is identified. Pulmonary vascularity is normal. The heart size is normal. No acute bony abnormality is identified. IMPRESSION: No acute cardiopulmonary abnormalit y. Chest/Abdomen/Pelvis wo Patient Name: ISAEL NIETO 017 [facility] IV contrast CT : 1930; Age: 86 years Male MR: [id number] Study: Chest/Abdomen/Pelvis wo IV contrast CT 9:17 AM CDT Clinical Indication: malig neoplasm lt kidney ct dose dlp 1002.15. COMPARISON: 03/09/2016. 12/10/2015. 07/15/2015. TECHNIQUE: Helical imaging w as performed diaphragm through the symphysis with multiplanar [...] No free air. LIVER: Stable 8-9 mm low-den sity lesion in the left lobe liver to 07/15/2015 measuring 14 Hounsfield units. BILIARY TREE: Normal. GALLBLADDER: Mildly contracted. PANCREAS: Normal. SPLEEN: Normal. ADRENALS: Normal. KIDNEYS: Post left nephrecto my. Soft tissue density in the left renal bed measures 13 mm versus 15 mm on 03/09/2016 and 24 mm on 12/10/2015 likely resolving scarring. Stable 4.4 cm right renal cortical cyst measuring 17.7 Hounsfie ld units. Stable mild prominence of the right renal collecting system. Transition is noted at the level of a 1.8 mm hyperdensity in the proximal ureter similar to the prior exams. PELVIS: No ureterolithiasis. Underdistended bladder with bladder wall thickening. Enlarged prostate gland. BOWEL: No small bowel obstruction. Mild fecal im paction. Normal appendix. PERITONEUM: No free intraperitoneal fluid. RETROPERITONEUM: No aortic aneurysm. MUSCULOSKELETAL: Thoracic an d lumbar spurring. Lumbar spinal stenosis is incompletely evaluated. Anterolisthesis of L5 on S1 measures 4 mm. Anterolisthesis of L4 and L5 measures 3 mm. IMPRESSION: 1. Decreased size to the so ft tissue density in the left renal bed [...] annuloaortic ectasia. 6. Cardiomegaly with coronary artery calcificat ions. 7. Lumbar spinal stenosis incompletely evaluate d. SL: [id number] Chest 2 views DX EXAM: XR CHEST 2 VIEWS 07/06/2016 [facility] [place] DATE: 07/06/2016 11:37 AM MANAGER [employer] INDICATION: Malignant neoplasm of left kidney COMPARISON: Chest radiograph dated 07/14/2015 TECHNIQUE: PA and lateral chest radiographs FINDINGS: Lungs are symmetrically well expanded. No pulmonary or pleural-base d abnormality is identified. Pulmonary vascularity is normal. The heart size is normal. No acute osseous abnormality is identified. IMPRESSION: No acute cardiopulmonary abnormalit y. Chest/Abdomen/Pelvis wo PROCEDURE: CHEST, ABDOMEN AND PELVIS CT 03/09/2016 [facility] [place] IV contrast CT CLINICAL INDICATION: C64. Malignant neop lasm of the left kidney. COMPARISON: Chest, abdomen a nd pelvis CT 12/10/2015. Chest/abdominal aorta with runoff CTA 07/15/2015. TECHNIQUE: Axial helical CT images of the chest, abdomen and pelvis were performed with oral contrast only. Coronal and sagittal reconstructions were obtained. CT Radiation Dose DLP 347.70 mGy-cm. Please note that lack of int ravenous contrast limits evaluation of the organs and vasculature. FINDINGS: LUNGS: There is mild scarrin g in the lung apices. Dependent subsegmental atelectasis in the lower lobes. Tiny calcified granuloma in the left lower lobe. No demonstrable noncalcified pulmonary nodule. M ild elevation of the right d iaphragm. No lung consolidation, pneumothorax or pleural effusion. The central airways are patent. MEDIASTINUM: The heart size is upper limits of normal. Trace fluid in the superior pericardial recess. Coronary artery, aortic and great vessel calcifications. Tortuous thoracic aorta. Mild aneurysmal d ilatation of the thoracic ao rta: The ascending thoracic aorta measures 4.4 cm [...] pathologically enlarged mediastinal lymph nodes by size criter ia. ORGANS: Postsurgical changes of a left nephrectomy. Indeterminate 1.5 x 1.1 cm nodular density in the left renal fossa with thin linear stranding extending to the left adrenal gland (images 63 and 64 se milton 2), previously 2.4 x 1. 4 cm on 12/10/2015. Slight interval decrease in size favors a benign etiology such as scarring rather than an adrenal nodule. Stable 4 cm cortical cyst in the mid to upper pole of the right kidney. Stable mild right renal pelvocaliectasis. No demonstrable urinary tract calculus. Stable 8 mm low-density lesi on in the lateral segment of the left hepatic lobe possibly a cyst but too small to adequately characterize. No demonstrable abnormality of the gallbladder, pancreas, spleen or right adrenal gland. BOWEL: There is a nonobstruc tive bowel gas pattern. Nondistended stomach limiting evaluation of the gastric verde. No additional demonstrable bowel abnormality. Moderate to large amount of colonic stool . The previously noted wall thickening at the base of the appendix on 12/10/2015 is not evident on the current examination. PERITONEUM: There is no free intraperitoneal air or ascites. RETROPERITONEUM: Tortuous ab dominal aorta. Aortoiliac calcifications. The caliber of the abdominal aorta is within normal limits. There is no pathologic retroperitoneal lymphadenopathy. PELVIS: Enlarged prostate gl and measuring a maximal diameter of approximately 5.7 cm. Several tiny calcifications in the central aspect of the prostate gland. The seminal vesicles are unremarkable. Poor ly distended urinary bladder with mild apparent segmental wall thickening may be due to underdistention. A cystitis cannot be excluded. Stable small bilateral inguinal lymph nodes which are subcentimeter in size in short axis. MUSCULOSKELETAL: Stable atro phy of the right lateral abdominal wall musculature. Stable small lipoma in the right gluteus rachel muscle. Stable small bilateral axillary lymph nodes the largest measurin g approximately 1 cm in shor t axis on the right and 9 mm on the left. Stable osseous findings as described on 12/10/2015. IMPRESSION: 1. Improved indeterminate no dular density in the left renal fossa currently measuring 1.5 cm, previously 2.4 cm on 12/10/2015. Slight interval decrease in size favors a benign etiology such as scarring. 2. The remaining findings on the current examination have not significantly changed from the comparison chest, abdomen and pelvis CT performed 12/10/2015. SL: 15 Chest/Abdomen/Pelvis wo PROCEDURE: CHEST, ABDOMEN AND PELVIS CT 12/10/2015 [facility] [place] IV contrast CT CLINICAL INDICATION: C64.2 M alignant neoplasm of left kidney, except renal pelvis. COMPARISON: Chest/abdominal aorta with runoff CT A 07/15/2015. TECHNIQUE: Axial helical CT images of the chest, abdomen and pelvis were performed with oral contrast only. Coronal and sagittal reconstructions were obtained. CT Radiation Dose DLP 675.52 mGy-cm. Please note that lack of int ravenous contrast limits evaluation of the organs and vasculature. FINDINGS: LUNGS: There is mild scarrin g in the lung apices. There is dependent [...] cm, unchanged by my measurements from the [facility] examination. The zenaida iber of the mid and distal descending thoracic aorta are upper limits of normal measuring 3 cm. No pathologic lymphadenopathy. ORGANS: Since the comparison examination the left kidney has been surgically removed. There is an indeterminate 2.4 x 1.4 cm nodular density in the left renal fossa with a Hounsfield unit measurement of 31 (images 63 through 65 se milton 2) possibly arising from a left adrenal limb. A left adrenal nodule cannot be excluded. There is a stable 4 cm corti zenaida cyst in the mid to upper pole of the right kidney. There is mild right renal pelvicaliectasis. There is no demonstrable urinary tract calculus. There is a stable 8 mm low-d ensity lesion in the lateral segment of the left hepatic lobe likely a cyst but too small to adequately characterize. There is no demonstrable abnormality of the gallbladder, pancreas, spleen or right a drenal gland. A 1.1 cm nodule lateral to the spleen is likely an accessory spleen. BOWEL: There is a nonobstruc tive bowel gas pattern. The stomach is nondistended limiting evaluation of the gastric verde. There are prominent haustra/muscular contractions limiting evaluation of segment s of the transverse colon. T here is wall thickening at the base of the appendix and segmental wall thickening of the adjacent cecum concerning for an inflammatory or neoplastic process (images 84 throug h 89 series 2), new from the comparison CT. However, the remainder of the appendix is unremarkable. There is no additional demonstrable bowel abnormality. PERITONEUM: There is no free intraperitoneal air or ascites. RETROPERITONEUM: The abdomin al aorta is tortuous. There are aortoiliac calcifications. The caliber of the abdominal aorta is within normal limits. There is no pathologic retroperitoneal lymphadenopathy. PELVIS: The prostate gland i s enlarged measuring a maximal diameter of approximately 5.7 cm. There are several tiny calcifications in the central aspect of the prostate gland. The seminal vesicles are u nremarkable. The urinary lewis dder is partially distended with mild apparent diffuse wall thickening which may be due to underdistention. A cystitis cannot be excluded. There are small bilateral inguinal lymph nodes which are subcentimeter in size in s hort axis. MUSCULOSKELETAL: There is st able atrophy of the right lateral abdominal wall musculature. There is a stable lipoma in the right gluteus rachel muscle measuring approximately 2 cm. There is curvature of the lo wer thoracic spine and lumbar spine convex to the right. There is multilevel grade 1 anterolisthesis of the upper thoracic spine. There is grade 1 anterolisthesis of L5 on S1 . There are degenerative jennifer nges of the spine. There is spinal stenosis at L4- L5 secondary to degenerative changes. This would be better assessed with lumbar spine magnetic resonance imaging. There is a stable 1.7 cm indeterminate rounded focus of intermediate density in the marrow of the proximal left humerus with Hounsfield unit measurement of approximately 40 (image 1 series 2). Stability from the prior examination favors a b enign etiology. If desired further evaluation may be obtained with magnetic resonance imaging of the left humerus. There are degenerative changes of the bilateral sternoclavicular joints. IMPRESSION: 1. Status post left nephrectomy. 2. There is a 2.4 cm indeter minate nodular density in the left renal fossa which may arise from a left adrenal limb. A left adrenal nodule cannot be excluded. 3. There is wall thickening at the base of the appendix and segmental wall thickening of the adjacent cecum concerning for an inflammatory or neoplastic process. Important finding was called to Dr. Kelley's office at 1340 hours on 12/10/2015. 4. There is mild apparent di ffuse wall thickening of the urinary bladder which may be due to underdistention. A cystitis cannot be excluded. 5. The remaining findings on the current examination have not significantly changed from the comparison CTA performed 07/15/2015. SL: 15 Spine lumbar puncture w EXAM: LP guided by fluoroscopy [address] [facility] DATE: 08/03/2015 CLINICAL HISTORY: Renal mass. TECHNIQUE: Informed consent was obtained from the patient. A time out was performed. Skin of the lower back was p repped and draped in the usual sterile technique. 1% lidocaine was used for local anesthesia. Under fluoroscopic guidance a 25- gauge spinal needle was used to successfully ac cess the thecal sac on first attempt at the L4 level. Opening CSF pressure was 15 cm of H2O in the pro ne position. 9 cc of clear CSF fluid we re obtained and placed in tubes for laboratory analysis. Total fluoroscopy exposure time was 4 sec. The needle was withdrawn. There were no complications during or immediatel y after the procedure. IMPRESSION: Technically successful lumbar puncture guided by fluoroscopy. Brain w/wo contrast MRI EXAMINATION: MRI brain with and with out contrast. 07/31/[address] [facility] DATE: 07/31/2015. INDICATION: Renal carcinoma. Evidence of systemi c embolic phenomenon. DISCUSSION: MRI the brain is performed b oth before and after intravenous administration of 13 mL Multihance gadolinium contrast. Comparison is made to noncontrast CT study dated 07/28/2015 Diffusion weighted images de monstrate a questionable submillimeter focus of signal abnormality in the right precentral gyrus. Remainder the brain is unremarkable. There are a few tiny scatter ed small vessel ischemic changes in the deep white matter both hemispheres, unremarkable for age. There is enlargement of the ventricular system and of the extra-axial spaces consistent with global volume loss with a temporoparietal predominance. Postcontrast images fail dem onstrate any abnormal parenchymal or leptomeningeal enhancement. There is normal opacification of the deep venous structures. IMPRESSION: Questionable solitary microembolic phenomenon in the right motor strip. Diffuse volume loss consiste nt with age related atrophy and/or primary dementia process. Minimal microvascular disease. No evidence of metastasis. HVI VAS Arterial INDICATION: Slurred speech. 07/28/2015 [facility] IMPRESSION: 1. There is evidence of mild atherosclerotic disease of bilateral internal carotid arteries consistent with less than 50% stenosis. COMMENT: No prior studies are availab le for comparison. Bilateral grayscale, color- flow, and Doppler examination of the extracranial carotid arterial system was performed. On the right, mild calcifica tion is noted in the internal carotid artery. The right internal carotid to common carotid peak systolic velocity ratio is 1.45. The peak systolic velocity in the internal ca rotid artery is 95.5 cm/sec. The end diastolic velocity in the internal carotid artery is 28.1 cm/sec. This is consistent with less than 50% stenosis. On the left, mild calcificat ion is noted in the internal carotid artery. The left internal carotid to common carotid peak systolic velocity ratio is 0.57. The peak systolic velocity in the internal oh tid artery is 62.1 cm/sec. T he end diastolic velocity in the internal carotid artery is 22.5 cm/sec. This is consistent with less than 50% stenosis. Bilateral external carotid arteries are patent. Bilateral antegrade flow was noted in the verteb ral arteries. HVI VAS Arterial Upper INDICATION: Lower extremity gangrene. 12/2015 [facility] or [facility] FINDINGS: 1. There is evidence of crit ical outflow the arterial occlusive disease. Little to no flow was noted in bilateral toes. COMMENT: No prior studies are availab le for comparison. Bilateral ankle-brachial pressures with velocity waveforms were obtained. Toe-pressure and toe-brachial indices were also obtained. On the right, biphasic wavef orms are noted in the dorsalis pedis and [...] distal arterial disease. On the left, triphasic wavef orms are noted in the dorsalis pedis arteries; biphasic waveforms are noted in the posterior tibial artery. The ankle-brachial index is 1.63. The great toe pressure and toe b rachial index were not obtained. Little to no fl ow is noted in the toes. Brain wo contrast CT EXAM: CT HEAD WITHOUT CONTRAST 07/28/[address] [facility] DATE: 07/28/2015 at 0630 hours INDICATION: Dysarthria TECHNIQUE: Noncontrast image s of the brain are obtained from the skull base to the vertex. Axial bone algorithm reconstruction images were also provided. COMPARISON: None. FINDINGS: There is diffuse cerebral vo lume loss causing ex-vacuo enlargement of the ventricular system and extra-axial fluid spaces. No evidence of obstructive hydrocephalus or pathological extra-axial fluid collection is seen. Multiple scattered as well a s confluent hypodense areas within periventricular, deep and subcortical white matter bilaterally, likely related to chronic microvascular ischemic changes. No definite evidence of cere bral edema, mass effect, midline shift is seen. There is no intracranial hemorrhage. Basal cisterns are preserved. No evidence of gena nward herniation. Visualized paranasal sinuses are clear. Visualized mastoid air cells are clear. Visualized orbits appear grossly unremarkable. Calcified atherosclerotic ch anges are seen in bilateral cavernous internal carotid arteries as well as intracranial vertebral arteries. Skull vault is intact. IMPRESSION: 1. No evidence of large territorial infarct or i ntracranial hemorrhage. 2. Age related cerebral volu me loss with chronic white matter microvascular changes. HVI VAS Arterial/bypass Reason for exam: Ischemic right uppe r extremity. 07/20/2015 [facility] IMPRESSION: 1. 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 2. Otherwise [facility] arterial system. Clinical correlation is indicated. COMMENT: No prior studies were availa ble for comparison. Bilateral upper extremity grayscale color-flow and Doppler examination of the arterial system was performed. On the right, biphasic wavef orms are present in the subclavian, axillary, brachial, radial, and proximal ulnar arteries. Peak systolic velocities measure 196, 94.4, 108, 79.2, and 58.5 cm/sec, respectiv kandy. The distal right ulnar artery is occluded w ith no antegrade flow. On the left, biphasic wavefo jeffrey are present in the subclavian, axillary, brachial, radial, and proximal ulnar arteries. Peak systolic velocities measure 131, 95.6, 114, 80.0, and 46.8 cm/sec, respective ly. The distal left ulnar artery is occluded wit h no antegrade flow. HVI VAS Arterial Upper INDICATION: Lower extremity gangrene 06/23 [facility] or [facility] IMPRESSION: 1. Mild arterial insufficiency noted in bilater al lower extremity. 2. Segemental pressure wavef orm analysis suggests minimal disease in bilateral lower extremity. COMMENT: No prior studies are availab le for comparison. Bilateral lower extremity segmental pressures with velocity waveform analysis were performed. On the right, triphasic wave forms are noted in the common femoral, superficial femoral, popliteal, posterior tibial, and dorsalis pedis arteries. Right ankle/brachial index is 1.55. The great toe pressu re is not detectable. This i s consistent with severe peripheral arterial disease in the digital arteries. On the left, triphasic wavef orms are noted in the common femoral, superficial femoral, popliteal, posterior tibial, and dorsalis pedis arteries. Left ankle/brachial index is 1.64. The great toe pressur e is not detectable. This is consistent with severe peripheral arterial disease in the digital arteries. Chest/Abdominal Aorta EXAM: CTA CHEST WITH CONTRAST 07/15/2015 [facility] with Runoff CTA EXAM: CTA ABDOMEN AND PELVIS WITH CONTRAST WITH BILATERAL RUNOFF Center DATE: 07/15/2015 at 1000 hours INDICATION: Right foot gangrene. COMPARISON: None. TECHNIQUE: Rapid acquisition axially oriented images were obtained from the level of the clavicles through ischial tuberosities during the infusion of 140 cc of Visipaque 320 intravenous contrast for th e purposes of angiography. A rterial phase imaging are performed. Sagittal and coronal reformat images, including MIP images, are created at the scanner workstation. FINDINGS: The aorta is normal in calib er and contour with scattered calcified and noncalcified atheromatous plaque. Aorta measures: 3.8 cm at the ascending aorta at the level of th e pulmonary artery, 2.8 cm at the mid arch, 2.8 cm at the descending aorta at the level of t he main pulmonary artery, 2.7 cm at the [...] stenosis or occlusion identified. No pulmonary or pleural-base d abnormality is identified. No pneumothorax is identified. Heart is normal in size without pericardial effusion. Faint calcifications in the left anterior ascending coronar y artery. Subcentimeter mediastinal lymph nodes are nonspecific. A few subcentimeter hypodens ities are present within the left hepatic lobe, nonspecific but likely cysts. The spleen, pancreas, gall bladder, and adrenal glands are unremarkable. Multiple fluid attenuating c ysts are present within both kidneys. Largest cysts measure 4.8 x 4 cm in the superior left renal pole and 4.6 x 4.3 cm in the interpolar right kidney. There is no hydronephr osis. A heterogeneous attenu ating exophytic 3.1 x 2.6 cm enhancing mass arises from the inferior pole of the left kidney. The stomach is not distended , limiting its evaluation. The visualized large and small bowel is unremarkable in appearance. Bones are osteopenic with mu ltilevel degenerative change involving disc height loss, vacuum [...] and noncalcified atheromatous plaque. 2. Faint coronary calcificat ions in the left anterior descending coronary artery. 3. No flow-limiting stenosis or focal occlusion identified in the lower extremities above the ankles with normal three-vessel runoff bilaterally. Evaluation of the vasculature within both feet is limited due to bolus timing. 4. Heterogeneously attenuati ng 3.1 x 2.6 cm exophytic left inferior renal pole mass highly concerning for malignancy. Recommend dedicated renal mass protocol CT or MRI. Chest 1view DX EXAM: XR Chest 1view , 07/14/[address] [facility] DATE: Jul 14, 2015 07:54:00 PM INDICATION: Respiratory distress /See Clinic Ind ication . COMPARISON: None FINDINGS: A single portable semierect frontal chest radiograph is submitted for interpretation. No focal consolidation or pleural effusion or pneumothorax identified. The aorta is tortuous/unfolded/ec tatic. The cardiomediastinal silhouette is within normal limits for portable technique. Visualized soft tissues and osseous structures show no acute abnormality. Degenerative changes noted in thoracic spine. IMPRESSION: No acute intrat horacic radiographic abnormality is identified. Tortuous/unfolded/ectatic thoracic aorta. Consultation Notes No Data Provided for This Section Discharge Summaries No Data Provided for This Section History and Physicals No Data Provided for This Section Vital Signs Vital Sign Value Date Comments Source Systolic (mm Hg) 159 09/15/2019 [facility] Diastolic (mm Hg) 77 09/15/2019 [facility] Heart Rate 56 09/15/2019 [facility] Height 165.1 cm 09/15/2019 [facility] Weight 72.727 09/15/2019 [facility] BMI Calculated 26.68 09/15/2019 [facility] Systolic (mm Hg) 154 03/10/2019 [facility] Diastolic (mm Hg) 82 03/10/2019 [facility] Heart Rate 54 03/10/2019 [facility] Height 167.64 cm 03/10/2019 [facility] Weight 72.727 03/10/2019 [facility] BMI Calculated 25.88 03/10/2019 [facility] BMI Calculated 25.88 09/02/2018 [facility] Weight 72.727 09/02/2018 [facility] Height 167.64 cm 09/02/2018 [facility] Heart Rate 55 09/02/2018 [facility] Systolic (mm Hg) 173 09/02/2018 [facility] Diastolic (mm Hg) 87 09/02/2018 [facility] BMI Calculated 26.2 04/08/2018 [facility] Weight 73.636 04/08/2018 [facility] Height 167.64 cm 04/08/2018 [facility] Heart Rate 66 04/08/2018 [facility] Systolic (mm Hg) 150 04/08/2018 [facility] Diastolic (mm Hg) 76 04/08/2018 [facility] Weight 70.909 12/10/2017 [facility] Height 167.64 cm 12/10/2017 [facility] BMI Calculated 25.23 12/10/2017 [facility] BMI Calculated 25.39 08/13/2017 [facility] Weight 71.364 08/13/2017 [facility] Heart Rate 60 08/13/2017 [facility] Height 167.64 cm 08/13/2017 [facility] Systolic (mm Hg) 122 08/13/2017 [facility] Diastolic (mm Hg) 73 08/13/2017 [facility] Weight 71.818 12/17/2015 [facility] Heart Rate 59 12/17/2015 [facility] Respitory Rate 18 12/17/2015 [facility] Temperature Oral (F) 96.1 F 12/17/2015 [facility] Systolic (mm Hg) 141 12/17/2015 [facility] Center Diastolic (mm Hg) 75 12/17/2015 [facility] BMI Calculated 25.48 10/15/2015 [facility] Weight 69.364 10/15/2015 [facility] Height 165 cm 10/15/2015 [facility] Temperature Oral (F) 96.7 F 10/15/2015 [facility] Respitory Rate 18 10/15/2015 [facility] Heart Rate 67 10/15/2015 [facility] Systolic (mm Hg) 113 10/15/2015 [facility] d[facility] Center Diastolic (mm Hg) 70 10/15/2015 [facility] Center Respitory Rate 18 09/13/2015 [facility] Heart Rate 71 09/13/2015 [facility] Systolic (mm Hg) 148 09/13/2015 [facility] dical Center Diastolic (mm Hg) 80 09/13/2015 [facility] Center Temperature Oral (F) 98.3 F 09/13/2015 [facility] Center Respitory Rate 20 09/13/2015 [facility] Temperature Oral (F) 98.6 F 09/13/2015 [facility] Heart Rate 69 09/13/2015 [facility] Systolic (mm Hg) 147 09/13/2015 [facility] dical Center Diastolic (mm Hg) 75 09/13/2015 [facility] [place] [facility] Systolic (mm Hg) 137 09/13/2015 [facility] dical Center Diastolic (mm Hg) 74 09/13/2015 [facility] Respitory Rate 20 09/13/2015 [facility] Temperature Oral (F) 98.1 F 09/13/2015 [facility] Center Heart Rate 72 09/13/2015 [facility] Height 157.48 cm 09/10/2015 [facility] BMI Calculated 27.13 09/10/2015 [facility] Weight 67.273 09/10/2015 [facility] Systolic (mm Hg) 116 08/11/2015 [facility] dical Center Diastolic (mm Hg) 68 08/11/2015 [facility] Temperature Oral (F) 98.4 F 08/11/2015 [facility] Center Heart Rate 94 08/11/2015 [facility] Respitory Rate 20 08/11/2015 [facility]ida Center Heart Rate 82 08/11/2015 [facility] Respitory Rate 20 08/11/2015 [facility] Temperature Oral (F) 98.3 F 08/11/2015 [facility] Systolic (mm Hg) 112 08/11/2015 [facility] Diastolic (mm Hg) 78 08/11/2015 [facility] Systolic (mm Hg) 110 08/11/2015 [facility] Diastolic (mm Hg) 84 08/11/2015 [facility] Respitory Rate 20 08/11/2015 [facility] Temperature Oral (F) 97.9 F 08/11/2015 [facility] Heart Rate 93 08/11/2015 [facility] Weight 67.4 08/01/2015 [facility] Weight 67.472 07/24/2015 [facility] BMI Calculated 23.72 07/15/2015 [facility] Height 170.18 cm 07/15/2015 [facility] Weight 68.682 07/15/2015 [facility] Encounters Location Location Encounter Encounter Reason Attending ADM DC Stat us Source Details Type Number For Provider Date Date Visit [facility] [id number] Aldo 07/15 08/12 [facility] In[facility] [id number] Tung Shelley 09/10 09/13 [facility]2015 [facility] Outpatient [id number] Shilpan 10/14 10/15 [facility] /2015 [facility] Phone [id number] 10/24 10/26 [facility] [id number] Tung Shelley 12/09 12/10 [facility] /2015 [facility] Outpatient [id number] Shilpan 12/16 12/17 [facility] [id number] Tung Shelley 03/09 03/10 [facility] [place] [facility] Outpt Diag [id number] Tung Shelley 07/06 07/07 [facility] /2015 [facility] Outpt Diag [id number] Tung Shelley 11/17 11/18 [facility] /2016 [place] [facility] Outpt Diag [id number] Tung Shelley 02/23 02/24 [facility]2016 [facility] [id number] Tung Shelley 08/02 08/03 [facility] [place] [facility] [id number] Tung Shelley 08/13 08/14 [facility] /2017 [facility] Outpt Diag [id number] Tung Shelley 11/29 11/30 [facility] [id number] Tung Shelley 12/10 12/11 [facility] /2017 [facility] Outpt Diag [id number] Tung Shelley 03/11 03/12 [facility] [id number] Tung Shelley 04/08 04/09 [facility] /2017 [facility] Outpt Diag [id number] Tung Shelley 08/28 08/29 [facility] [id number] Tung Shelley 09/02 09/03 [facility] /2018 [facility] Outpt Diag [id number] Tung Shelley 01/15 01/16 [facility] [id number] Tung Shelley 03/10 03/11 [facility] /2018 [facility] Outpt Diag [id number] Tung Shelley 08/12 08/13 [facility]2019 [place] [facility] [id number] Tung Shelley 09/14 09/14 [facility] Pre-Reg /2019 [facility] Outpatient [id number] Tung Shelley 09/15 09/16 [facility] /2019 Medic al [facility] Outpt Diag [id number] Tung Shelley 03/02 03/03 [facility]2019 [place] [facility] [id number] 03/22 03/22 [facility] Pre-Reg /2019 Medi [facility] Group Procedures Procedure Code Date Perfomer [place] [address] 09/15/2019 Medical post-voiding Group residual urine and/or bladder capacity by ultrasound, non-imaging Complex 82130 04/09/2018 Medical uroflowmetry (eg, Group calibrated electronic equipment) Spinal puncture, 62709 08/03/2015 [facility], for Medical drainage of Center cerebrospinal fluid (by needle or catheter) Renal operation [id number] 07/23/1962 Medica l Group,[facility], [place] Avilez, OPIJeni Eagle,[facility] Amputation of the [id number] [facility] foot Group,[facility], [place] Avilez, OPIJeni Eagle,[facility] On[facility]phrectomy<sup>1</ [id number] Left kidney [facility] edical sup> Group,[facility], [place] Avilez, OPIJeni Eagle,[facility] Oncology [facility] Assessment and Plan Assessment and Plan Date Source Extracted from:Title: Hematology Progress Note 09/13/[address] [facility] Author: Ascencion Redd MD Date: 09/13/15 Progress Note - Daily [facility] Co mpleted: Sunday, SEP 13, 2015, 10:47 by Ascencion Redd MD RM: [id number] - [id number], [id number] RADHA NIETO ERT R 84y (: 1930) M SUBJECTIVE Doing well this AM. No complaints. No ab dominal pain chest pain or shortness of breath. OBJECTIVE 24hr Labs 09/13 0504 Sodium Lvl 139 Potassium Lvl 3.9 Chloride Lvl 106 CO2 26 AGAP 10.9 Glucose Lvl 86 Creatinine Lvl 1.29 BUN 15 B/C Ratio 12 Total Protein 5.7 L Albumin Lvl 2.3 L Globulin 3.4 A/G Ratio 0.7 Calcium Lvl 8.6 ALT 19 AST 25 Alk Phos 60 Bili Total 0.9 eGFR 51 WBC 10.3 RBC 3.93 L Hgb 9.9 L Hct 29.8 L MCV 75.9 L MCH 25.1 L MCHC 33.1 RDW 17.3 H Platelet 230 MPV 8.8 Segs 75.6 H Monocytes 9.0 Lymphocytes 10.8 L Eosinophils 4.2 H Basophils 0.4 Segs-Bands # 7.8 Lymphocytes # 1.1 Monocytes # 0.9 H Eosinophils # 0.4 Microcyte 1+ 09/11 0326 C-ANCA Negative P-ANCA Negative JADE Negative Lee still necessary (Yes/No): Line still necessary (Ye s/No): Vitals Tmp(F) Pulse BP RR SpO2 FIO2 09/13 07:31 98.3 71 148/80 18 95 --- 09/13 03:19 98.6 69 147/75 20 97 --- 09/12 23:21 98.1 72 137/74 20 94 --- 09/12 19:14 98.8 85 115/69 20 94 --- 09/12 16:16 98.3 88 134/71 20 95 --- 24 Hr Tmax: 98.8F (37.11c) at 09/12 19:1 4 Vital Signs are the last 5 in the past 48 hours. Date Wt(kg) Wt(lb) Ht(cm) Ht(in) Method 09/10 (initial) 67.27 148.00 157.48 62.00 Measured I&O Record In Out Bal 09/13 24hr Tot 360 0 360 09/12 24hr Tot 240 1000 -760 General- Conversant, NAD HEENT- OP clear, eomi CVS- RRR Chest- Clear to ascultation Abdomen- surical incision clean, bs+ Extremities- UE with dry gangrene at tips of digits. Right l ower ext s/p TMA Psych- Normal affect. Medications (15) Active Scheduled Meds (10): 09/11/15 NIFEdipine (NIFEdipine 30 mg or al tablet, extended release) 30 mg PO BID 09/11/15 atorvastatin 20 mg PO Bedtime 09/10/15 ciprofloxacin (Cipro) 250 mg PO [id number] 09/10/15 docusate (docusate sodium 100 mg oral capsule) 100 mg PO BID 09/11/15 doxycycline (doxycycline hyclat e 100 mg oral capsule) 100 mg PO [id number] 09/11/15 enoxaparin (Lovenox) 40 mg [id number] [id number] 09/10/15 famotidine 20 mg PO Q12H 09/11/15 loratadine 10 mg PO Daily 09/11/15 nebivolol 5 mg PO Bedtime 09/11/15 pantoprazole (Protonix) 40 mg PO Before Breakfast Unscheduled Meds: None PRN Meds (4): 09/10/15 acetaminophen-codeine (acetaminophen-codeine #3) 1 tab PO Q4H 09/10/15 acetaminophen-codeine (acetaminophen-codeine #3) 2 tab PO Q4H 09/10/15 naloxone 0.04 mg IVP Q2MIN 09/10/15 ondansetron 4 mg IVP Q6H One Time Meds: None Continuous Infusions (1): 09/10/15 Lactated Ringers Injection IV 1,000 mL 1,000 mL 125 ml/hr ASSESSMENT AND PLAN: This is a very pleasant 84 year old male with 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 1. Digital ischemia: The plan is to disc harge him today. From a post-surgical standpoint, Dr. Kelley was hesitant on initiating coumadin and prefered lovenox. Would recommend restarting this as an outpatie nt at 1mg/kg sq BID. He will follow-up w nela Dunlap around the time when he obtains follow-up with Dr. Kelley to discuss possible transition to Coumadin. Need to monitor GFR closely on Lovenox. -Resume therapeutic anticoagulation with Lovenox 1mg/kg sq BID when safe from a post-operative standpoint. -Will likely attempt to transition to hi m to Coumadin when seen in clinic with Dr. Dunlap. -Patient will followup with Dr. Dunlap in hematology clinic around the same time as his f/u with Dr. Kelley. He has the clinic contact information to notify us about that time. -Patient needs anti-Xa level checked as an outpatient. 4 norma rs after AM dose. Patient was discussed with Dr. Dickerson. Addendum by Greg Dickerson MD on 09/14/2015 09:34 I saw and examined the patient with Dr Deisy Redd. I was present during the main portions of the history and physical examination. I agree with the exam, assessment and plan as stated from the note from 09/13/2015. He will be discharged today and have fol low-up with Dr Buck (hematology). Also will have antiXa levels chaked once a week. Greg Dickerson M.D. Hematology Extracted from:Title: Hematology Consult Note Author: Ascencion Redd MD Date: 09/11/15 Hematology Consult Note: Patient Room: [address] ISAEL KRISHNA 84y (: 1930) M Attending: Genaro Kelley MD Service: Urology Service DATE OF CONSULT: 09/01/2015 REFERRING PHYSICIAN: Dr. Kelley CONSULTING PHYSICIAN: Dr. 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 He initially presented in June of 2015 with dry gangrene of his right foot and bilateral upper extremity digits. He was seen by multiple sub-specialty services with an extensive work up including hypercoagulable workup, vasculitis, autoimmu ne etiologies, infections all of which w ere unremarkable. However, he was noted to have a 3.1 x 2.6 cm exophytic left inferior renal pole mass, which was thought to render him in a hypercoagulable state or possibly represent a paraneoplastic phenomenon. He therefore was placed on therapeutic lovenox and aspirin. Since his discharge from [facility] on 08/11/2105, he underwent a right transmetatarsal amputation . He also underwent a right radical neph rectomy with Dr. Kelley and is now post- operative day 1. He states his ischemia is essentially stable and has not changed. PAST MEDICAL HISTORY: HTN HLD GERD Renal mass status post nephrectomy Digital Ischemia PAST SURGICAL HISTORY: Left radical nephrectomy bilateral myringotomies tonsillectomy and adenoidectomy bilateral hernia repair bilateral arthroscopies of the knees right transmetatarsal amputation SOCIAL HISTORY: He is a computer technical support specialist, ex-t obacco user, ex-alcohol user. Denies use of any drugs. FAMILY HISTORY: Mother AL at age 74. Father AL age 82. No family history of hematological disorders. Allergies (1) Active Reaction NKDA None documented Medications (17) Active Scheduled Meds (10): 09/11/15 NIFEdipine (NIFEdipine 30 mg or al tablet, extended release) 30 mg PO BID 09/11/15 atorvastatin 20 mg PO Bedtime 09/10/15 ciprofloxacin (Cipro) 250 mg PO [id number] 09/10/15 docusate (docusate sodium 100 mg oral capsule) 100 mg PO BID 09/11/15 doxycycline (doxycycline hyclat e 100 mg oral capsule) 100 mg PO [id number] 09/11/15 enoxaparin (Lovenox) 40 mg SUB-Q [id number] 09/10/15 famotidine 20 mg PO Q12H 09/11/15 loratadine 10 mg PO Daily 09/11/15 nebivolol 5 mg PO Bedtime 09/11/15 pantoprazole (Protonix) 40 mg PO Before Breakfast Unscheduled Meds: None PRN Meds (4): 09/10/15 acetaminophen-codeine (acetaminophen-codeine #3) 1 tab PO Q4H 09/10/15 acetaminophen-codeine (acetaminophen-codeine #3) 2 tab PO Q4H 09/10/15 naloxone 0.04 mg IVP Q2MIN 09/10/15 ondansetron 4 mg IVP Q6H One Time Meds (1): 09/10/15 (Completed) bupivacaine liposome 20 mL InFILtratio n(local) ONCE Continuous Infusions (2): 09/10/15 Lactated Ringers Injection IV 1,000 mL 1,000 mL 125 ml/hr 09/10/15 hydromorphone 15 mg (HYDROmorph one 0.5mg/mL [employer] TE[employer]ER (15mg/30 mL) 15 mg) 15 mg Per [employer] S[employer] TEACHER Order as Directed REVIEW OF SYSTEMS: A 12 point review of systems was obtained and was otherwise negative. PHYSICAL EXAMINATION: Vital Signs - Reviewed Vitals Tmp(F) Pulse BP RR SpO2 FIO2 09/11 12:10 98.1 80 154/90 17 95 --- 09/11 07:04 98.2 70 159/78 16 97 --- 09/11 03:41 98.3 71 149/79 15 97 --- 09/10 23:19 98.2 80 138/73 -- 97 --- 09/10 19:23 ---- 102 140/67 8 --- --- 24 Hr Tmax: 98.3F (36.83c) at 09/11 03:4 1 Vital Signs are the last 5 in the past 48 hours. Date Wt(kg) Wt(lb) Ht(cm) Ht(in) Method 09/10 (initial) 67.27 148.00 157.48 62.00 Measured General- Conversant, NAD HEENT- OP clear, eomi CVS- RRR Chest- Clear to ascultation Abdomen- surical incision clean, bs+ Extremities- UE with dry gangrene at tips of digits. Right l ower ext s/p TMA Skin- Otherwise unremarkable Neuro- Grossly intact Psych- Normal affect. DATA: 24hr Labs 09/11 0326 Sodium Lvl 139 Potassium Lvl 4.4 Chloride Lvl 106 CO2 25 AGAP 12.4 Glucose Lvl 110 H Creatinine Lvl 1.36 BUN 17 B/C Ratio 12 Total Protein 5.7 L Albumin Lvl 2.5 L Globulin 3.2 A/G Ratio 0.8 Calcium Lvl 8.6 ALT 23 AST 26 Alk Phos 61 Bili Total 0.9 eGFR 48 Magnesium Lvl 2.0 Phosphorus 4.3 WBC 10.1 RBC 4.17 L Hgb 10.4 L Hct 32.6 L MCV 78.2 L MCH 25.0 L MCHC 32.0 RDW 17.7 H Platelet 233 MPV 8.6 Segs 83.4 H Monocytes 8.6 Lymphocytes 7.4 L Eosinophils 0.3 Basophils 0.3 Segs-Bands # 8.4 H Lymphocytes # 0.7 L Monocytes # 0.9 H Microcyte 1+ ASSESSMENT AND PLAN: This is a very pleasant 84 year old male with 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 1. Ischemic digits: He had an extensive work-up during his last admission without an obvious source of his limb ischemia. Hypercoagulable work up including Protein C, S , anti-cardiolipin, anti b2gp and a myeloma work up that were negative. H e also had a rheumatological work up including RA, C3, C4, ANCA, cryo which were negative. 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 We will review the pathology on Sunday. We recommend to resume his anticoagulation with lovenox for the time being if he is deemed safe post surgery. He wi ll likely need to be initiated on Coumadin prior to discharg e as well. -Resume therapeutic anticoagulation with Lovenox 1mg/kg sq BID when safe from a post-operative standpoint. -Will likely attempt to transition to him to Coumadin. -Will follow-up with him on Sunday when pathology returns. All aspects of the patient's history, ph ysical assessment and plan were discussed with my attending Dr. Dunlap. Addendum by Lisa Dunlap MD on 09/11/2015 15:59 Hematology Attending Attestation: I saw and examined this patient with Dr. Redd on 09/11/2015, and I agree with findings, assessment, and recommended plan of care. I personally reviewed all labs. Lisa Dunlap M.D. [id number] [facility] Division of Hematology (Internal Medicine) [facility] Extracted from:Title: Clinical Document Author: Genaro Kelley MD Date: 09/10/15 OP PATIENT NAME: ISAEL NIETO DATE OF ADMISSION: 09/10/2015 ATTENDING PHYSICIAN: GENARO KELLEY MD DATE OF SURGERY: 09/10/2015 SURGEON: GENARO KELLEY MD DOOR OPENER: SARAH VILLELA PREOPERATIVE DIAGNOSIS: LEFT RENAL MASS POSTOPERATIVE DIAGNOSIS: LEFT RENAL MASS PROCEDURES PERFORMED: 1. Laparoscopic Left Radical Nephrectomy. INDICATION: The patient is a 84-year ma n who incidentaly was noted to have a left renal mass after an incidence of ischemia of his digits. Plan is to perform laparoscopic left radical nephrectomy. PROCEDURE: Positioning. The patient was initially positioned supine for IV access, the induction of general anesthesia, and endotracheal intubation by the members of the anesthesiology department. A bladder fara ter and orogastric tube were placed for decompression of the bladder and stomach during insufflation, trocar placement, and dissection. The patient was positioned in a full lateral decubitus position. A n axillary roll was placed and padding u sed to support the buttocks and flank. The patient was taped in position with multiple strips of wide cloth tape so that the patient will remain securely in place while the table was rolled toward the s urgeon to assist with retraction of the bowels. During the skin preparation, the entire flank and abdomen were included in case conversion to an open procedure was required. Insufflation and Trocar Placement . Bef ore trocars were placed, the abdomen was insufflated using a Veress needle. The Veress needle was inserted at the site where the first trocar will be placed. The initial port placement was at the level of the umbilicus, lateral to the ipsilateral rectus muscle. Once a pneumoperitoneum was established, the first 10/12-mm port was placed lateral to the rectus musc le at the level of the umbilicus using a visual obturator to allow entry into the abdomen under direct vision. Once in the peritoneal cavity, the visual trocar was removed and the abdomen was then inspe cted for any injury due to insufflation and to identify adhesions in areas where the secondary ports will be placed. Remaining trocars were placed under direct vision. A three-trocar technique was util ized to complete the dissection. A 12-mm trocar was placed lateral to the rectus at the level of the umbilicus. A 10/12 mm trocar was placed at the umbilicus for the camera and a 5-mm port inserted in t he midline between the umbilicus and the xiphoid process. Reflection of the Colon. The colon was reflected to provide adequate visualization of the anterior surface of Gerota's fascia. The dissection was done with the aid of laparoscopic Sono-Surg dissec tor. On the right, the duodenum was mob ilized medially, using the Aimee maneuver, until the vena cava was clearly visualized. On the left, the reflection was done up to the lateral attachment of the spleen. The spleen and tail of the pancreas were reflected medially. Dissection of the Ureter. The midureter was identified in the retroperitoneal fat medial to the psoas muscle. During proximal mobilization, the gonadal vein was first encountered and was swept medially . Located just posterior; ureter was loc ated and elevated, revealing the psoas muscle and traced proximally to identify the renal hilum. Mobilization of the Lower Pole. Once the ureter was mobilized up to the ureteropelvic junction, laparoscopic dissectors were inserted beneath Gerota's fascia and lower pole along the psoas fascia. The specimen was lifted superolaterally, and, with the use of the suction- stopperer assembler and Sono-Surg dissector, the inferior and posterior sidewall attachments were divided. The inferior cone of Gerota&apo s;s fascia lateral to the ureter was als o divided. To facilitate this dissection and assist with lateral specimen retraction during the hilar dissection, a fourth port (5mm) was placed laterally. Securing the Renal Blood Vessels. The re nal artery and vein were individually dissected and divided with the Endo-PRETTY staplers. The renal hilum was on a gentle tension by lifting the lower pole laterall y. The hilum was identified by moving ce phalad along the medial aspect of the ureter and renal pelvis. The renal vein was identified first and was dissected circumferentially. After the renal vein was d issected, the renal artery was identifie d and transected with the Endo-PRETTY stapler. The PRETTY was positioned distal to the adrenal vein to spare the adrenal gland. Upper and lateral attachments to Gerota 's fascia were incised utilizing the Son o-Surg dissectors, the adrenal vein was left in continuity with the specimen by transection of the renal vein proximal to the take-off of the adrenal branch. Specimen Entrapment and Extraction. An E ndocatch II bag was place in the initial trocar site after the trocar was removed. Once the specimen was placed into the sack, the opening was withdrawn through the trocar site. Using electrocautery, t he trocar site was enlarged to allow extraction of the specimen, and the specimen and sack were protected through the trocar site alongside the specimen. The patient's fascia was then closed in 3 layers with loop PDS sutures. Pneumoperitoneum was then re-established. The patient's surgical bed was noted to be dry. At this time, the trocar s ites were closed with 0 Vicryl sutures u sing the Will-Ivory device. The pneumoperitoneum was taken down and the trocars were all removed. The skin was approximated with 5-O Monocryl without compl ication. Dressings were placed on the s urgical incisions. The patient was placed in supine position, extubated without complication. The patient was subsequently transferred to the recovery room in e xcellent condition. The patient tolerat ed the procedure well. There was no complication. Estimated blood loss was approximately 150 mL. Extracted from:Title: Clinical Document 08/12/[address] [facility] Author: Genaro Kelley MD Date: 08/11/15 Progress Note - Daily [facility] Co mpleted: Jul, 23:01 by Genaro Kelley MD RM: [id number] - 00, 5WCP RADHA NIETO ERT R 84y (: 1930) M Attending: Ronak Cortes MD Service: Internal Medicine Reason for Admission: ISCHEMIC RIGHT FOOT Working DRG: Amputation for circ sys disorders exc upper ellington b and toe w CC Code status: Full Code [Ordered] Current diet: Isolation: None Documented Allergies: NKDA SUBJECTIVE He is planning to go home today. His fingers are still the same and not worse KIDNEY: He has a complaint of a mass of the left kidney which was discovered 07/15/2015. The mass was found on a CT Scan and diagnosed as Size of the mass is approximately 3.1cm. There is no abdominal p ain. No dysuria noted. He has frequency No hematuria is present. He has nocturia. The urinary stream is moderate. He denies any fever. OBJECTIVE REVIEW OF SYSTEMS: Constitutional: No fever, chills, or weight loss. Gastrointestinal: No nausea/vomiting, co nstipation, diarrhea, or abdominal pain. Regular bowel movements. Genitourinary: See symptoms listed in present illness. Other than noted above, all other systems negative The complete ROS and PFSH performed today were reviewed VITAL SIGNS: Documented in Flowsheet PHYSICAL EXAMINATION: CONSTITUTIONAL: Vital Signs: Documented in Flowsheet General Appearance: Well developed, well nourished male in n o acute distress. HEENT:Head normal. TAHIRA. Nose, mouth an d throat show no significant abnormalities. NECK: No masses or abnormal areas noted in the neck. Good symmetry noted. The thyroid is normal to palpation. No evidence of enlargement. CHEST: No respiratory distress or increase in A-P diameter. CARDIOVASCULAR: Normal rate and rhythm. No murmurs noted. No definite enlargement. No evidence of extremity swelling. No varicosities. Good peripheral pulses. LUNGS: Lungs are clear to auscultation with good breath soun ds bilaterally. Normal respiratory effort. No wheezing. ABDOMEN: No masses are palpated. There i s no tenderness. Liver and spleen appear to be normal. No abdominal wall herniae noted. INGUINAL: No abnormalities in either inguinal area. (no lab data in past 24 hours) Lee still necessary (Yes/No): Line still necessary (Dk s/No): Vitals Tmp(F) Pulse BP RR SpO2 FIO2 08/11 11:28 98.4 94 116/68 20 98 --- 08/11 07:48 98.3 82 112/78 20 98 --- 08/11 03:07 97.9 93 110/84 20 94 --- 08/10 23:19 98.3 75 124/80 20 94 --- 08/10 19:50 98 79 119/62 20 98 --- 24 Hr Tmax: 98.4F (36.89c) at 08/11 11:2 8 Vital Signs are the last 5 in the past 48 hours. Date Wt(kg) Wt(lb) Ht(cm) Ht(in) Method 07/31 67.40 148.28 Measured 07/24 67.47 148.44 Measured 07/16 68.21 150.06 Measured 07/14 (initial) 68.68 151.10 Measured 07/14 170.18 67.00 Stated I&O Record In Out Bal 08/11 24hr Tot 0 0 0 08/10 24hr Tot 0 1420 -1420 Medications (0) Active Scheduled Meds: None Unscheduled Meds: None PRN Meds: None One Time Meds: None Continuous Infusions: None ASSESSMENT and EXAM PLAN and TREATMENT The plan is to proceed with a left radical nephrectomy once he is better. We discussed extensively. I will set him up for followup and he will have a nephrectom y on 09/11/2015 INSTRUCTIONS/CODING DATA REVIEW: Data: I had an extensive counseling session wi th the patient concerning the diagnosis and treatment options. I performed an extensive review and summary of the patient's medical records. Symptom Score Reviewed Urinalysis Review: I reviewed the Urinalysis data with kurt ent, including diagnosis, prognosis, and treatment. X-ray Review: I reviewed the available images. My inte rpretation of the imaging studies were communicated to the patient, including diagnosis, prognosis, and treatment. Laboratory Values Review: Diagnostic studies Review: I extensively reviewed and summarized al l available diagnostic studies with the patient, including diagnosis, prognosis, and treatment. 30 or more minutes were spent face to fa ce with this patient and/or his family. I spent greater than 50% of that time providing counseling and/or coordination of care. He and I discussed his diagnosis. I counseled him concerning renal mass an d the various ways to manage the condition. I counseled him concerning my review of the X-Rays and the findings, and discussed the various treatments. I advised t he patient of the prognosis concerning t he disease process, as well as the rationale for doing the x-rays on a routine basis. I advised him of the prognosis concerning his options. 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 TEACHING ATTESTATION Extracted from:Title: [facility] Consult Note Author: Ivan Penn MD Date: 08/04/15 Patient: ISAEL NIETO Age: 84 years Sex: Male : 1930 Associated Diagnoses: None Author: Ivan Penn MD Basic Information Referral source Reason for consultation: Complex Acute Pain Chief Complaint Evaluation for preop block evalluation History of Present Illness 84yo CM w CAD, HTN, HLD, GERD, OA who is presenting with progressive necrotic changes to fingers and toes. Patient will undergo right metatarsal amputation, and [facility] is being consulted for surgical block. Histories Past Medical History: Resolved HTN - Hypertension (1040028162): Resolved. Arthritis of knee (5739075755): Resolved. HLD - Hyperlipidemia (131307124): Resolved. [place] DEE-NI' (hard of hearing) ([id number]) : Resolved. Renal cancer ([id number]): Resolv ed. Renal mass (883534104): Resolved. GERD - Gastro-esophageal reflux disease ([id number]): Resol mehrdad. Back pain (5409863134): Resolved. Family History: Heart disease Sister High blood pressure Brother Sister Stroke Father Heart attack Sister Bradyarthria Sister Irregular heart beat Sister HLD (hyperlipidemia) 08-MAY-2015 22:53:00<$> Brother Sister Procedure history: Renal operation (SNOMED CT [id number]) in 1963 at 32 Years. Social History Social and Psychosocial Habits Alcohol 07/14/2015 Use: Past Type: Beer Stopped at age: 27 Years Previous treatment: None Has alcohol use interfered with work or home life? No Do you ever drink more than intended? Yes Has anyone been hurt or at risk by your drinking? No Employment/School 07/14/2015 Status: Retired Substance Abuse 07/14/2015 Use: None Tobacco 07/14/2015 Use: Former smoker Type: Cigarettes Exposure to Tobacco Smoke None Cigarette Smoking Last 365 Days No Reg Smoking Cessation Counseling Yes . Health Status Allergies: Allergic Reactions (All) Severity Not Documented NKDA- No reactions were documented., Allergies (1) Active Reaction NKDA None Documented Current medications: (Selected) Inpatient Medications Ordered Bystolic: 5 mg, 1 tab, PO, Daily Claritin: 10 mg, 1 tab, PO, Daily Complex-15 topical lotion: 1 appl, TOP, BID, PRN: Dry Skin Flagyl: 500 mg, 1 tab, PO, [id number] Levaquin: 750 mg, 1 tab, PO, [id number] Lovenox: 60 mg, 0.6 mL, SUB-Q, [id number] NIFEdipine 30 mg oral tablet, extended release: 30 mg, 1 tab , PO, BID acetaminophen-codeine 300 mg-30 mg oral tablet: 1 tab, PO, Q4H, PRN: Pain Score 1-3 aspirin 81 mg tablet, chewable: 81 mg, 1 tab, PO, Daily atorvastatin: 20 mg, 1 tab, PO, Bedtime calcium gluconate + Sodium Chloride 0.9% IV 100 mL: 2 gm, 20 mL, 120 ml/hr, IVPB, PRN, PRN: Abnormal Lab Result calcium gluconate + Sodium Chloride 0.9% IV 100 mL: 3 gm, 30 mL, 130 ml/hr, IVPB, PRN, PRN: Abnormal Lab Result hydrALAZINE: 10 mg, 0.5 mL, IVP, Q4H, PRN: Hypertension lansoprazole: 30 mg, 1 cap, PO, Daily magnesium oxide: 800 mg, 2 tab, PO, PRN, PRN: Abnormal Lab R esult magnesium sulfate: 1 gm, 100 mL, 100 ml/hr, IVPB, PRN, PRN: Abnormal Lab Result magnesium sulfate: 2 gm, 50 mL, 25 ml/hr, IVPB, PRN, PRN: Ab normal Lab Result multivitamin: 1 tab, PO, Daily potassium chloride: 10 mEq, 50 mL, 50 ml /hr, IVPB, PRN, PRN: Abnormal Lab Result potassium chloride: 20 mEq, 1 tab, PO, PRN, PRN: Abnormal La b Result potassium chloride: 20 mEq, 15 mL, NJ, PRN, PRN: Abnormal La b Result potassium phosphate + Sodium Chloride 0. 9% IV 250 mL: 15 mmol, 5 mL, 63.75 ml/hr, IVPB, PRN, PRN: Abnormal Lab Result potassium phosphate + Sodium Chloride 0. 9% IV 250 mL: 30 mmol, 10 mL, 65 ml/hr, IVPB, PRN, PRN: Abnormal Lab Result potassium phosphate-sodium phosphate 250 mg-278 mg-164 mg oral powder: 2 pkt, PO, PRN, PRN: Abnormal Lab Result sodium phosphate + Sodium Chloride 0.9% IV 250 mL: 15 mmol, 5 mL, 63.75 ml/hr, IVPB, PRN, PRN: Abnormal Lab Result sodium phosphate + Sodium Chloride 0.9% IV 250 mL: 30 mmol, 10 mL, 65 ml/hr, IVPB, PRN, PRN: Abnormal Lab Result Documented Medications Suspended Cartia XT 240 mg/24 hours oral capsule, extended release: 240 mg, 1 cap, PO, Daily, 0 Refill(s) aspirin 81 mg tablet, chewable: 81 mg, 1 tab, PO, Daily, tab , 0 Refill(s) lansoprazole 30 mg oral delayed release capsule: 30 mg, 1 cap, PO, Daily, 0 Refill(s) multivitamin: PO, Daily, 0 Refill(s) tramadol 50 mg oral tablet: 50 mg, 1 tab , PO, Q8H, for 20 day, PRN: Pain, 60 tab, 0 Refill(s) Problem list. Review of Systems Constitutional: No fever, No chills, No sweats. Cardiovascular: No bradycardia, No tachycardia, No peripher al edema. Eye: No icterus, No blurring, No double vision. Ear/Nose/Mouth/Throat: No decreased hearing, No sore throat . Respiratory: No shortness of breath, No cough, No sputum pr oduction. Gastrointestinal: No nausea, No vomiting, No diarrhea. Genitourinary: No dysuria, No hematuria, No change in urine stream. Musculoskeletal: Claudication, No muscle pain, No trauma. Neurologic: Alert and oriented X4, Numbness, Tingling, No a bnormal balance. Psychiatric: No anxiety, No depression, No rosangela. Endocrine: No polyuria, No cold intolerance, No heat intole mookie. Hematology/Lymphatics: No bruising tend ency, No bleeding tendency, No swollen lymph glands. Immunologic: Not immunocompromised, No recurrent fevers, No recurrent infections. Integumentary: Skin lesion, No rash, No pruritus. Physical Examination VS/Measurements Vital Signs (last 24 hrs) Last Charted Temp Oral 98.1 DegF (AUG 04 12:01) Heart Rate Apical 68 bpm (AUG 04 12:45) Resp Rate H 27BRMIN (AUG 04 12:45) SBP 108 mmHg (AUG 04:45) DBP 72 mmHg (AUG 04 12:45) General: Alert and oriented, No acute distress. Eye: Pupils are equal, round and reacti ve to light, Extraocular movements are intact, Normal conjunctiva. HENT: Normocephalic, Tympanic membranes are clear, Normal h earing. Neck: Supple, Non-tender, No carotid bruit, No jugular veno us distention. Respiratory: Lungs are clear to auscult ation, Respirations are non-labored, Breath sounds are equal. Cardiovascular: Normal rate, Regular rhythm, No murmur, No gallop. Gastrointestinal: Soft, Non-tender, Non-distended, Normal b owel sounds. Genitourinary: No costovertebral angle tenderness, No scrotal tenderness, No inguinal tenderness. Lymphatics: No lymphadenopathy neck, axilla, groin. Musculoskeletal Normal range of motion. Normal strength. necrotic, black fingers and toes. Integumentary: Cyanotic. Neurologic: Alert, Oriented, Normal sensory. Cognition and Speech: Oriented, Speech clear and coherent. Review / Management Results review: Labs (Last four charted values) WBC H 15.6 (Jul 8) H 15.4 (JUL 29) H 16.9 (JUL 28) H 15.3 (JUL 27) Hgb L 10.2 (Jul) L 10.1 (JUL 29) L 10.4 (JUL 28) L 10.5 (JUL 27) Hct L 32.3 (Jul) L 31.7 (JUL 29) L 32.6 (JUL 28) L 32.7 (JUL 27) Plt 386 (JUL 30) 378 (JUL 29) 384 (JUL 28) 323 (JUL 27) Na 140 (JUL 30) 141 (JUL 29) 142 (JUL 28) 138 (JUL 27) K 3.9 (JUL 30) 3.7 (JUL 29) 4.7 (JUL 28) 3.6 (JUL 27) CO2 L 23 (JUL 30) L 22 (JUL 29) 27 (JUL 28) 24 (JUL 27) Cl 106 (JUL 30) 105 (JUL 29) 104 (JUL 28) 103 (JUL 27) Cr 0.83 (JUL 30) 0.93 (JUL 29) 1.00 (JUL 28) 0.96 (JUL 27) BUN 20 (JUL 30) 20 (JUL 29) 21 (JUL 28) 21 (JUL 27) Glucose Random 91 (JUL 30) 93 (JUL 29) 87 (JUL 28) 89 (JUL 27) Mg 2.0 (JUL 30) 2.1 (JUL 29) 2.1 (JUL 28) 2.0 (JUL 27) Phos 2.6 (JUL 30) 2.6 (JUL 29) 3.3 (JUL 28) 3.0 (JUL 27) Ca L 8.4 (JUL 30 ) 8.6 (JUL 29) 9.0 (JUL 28) 8.6 (JUL 27) PT H 18.5 (Jul) H 21.8 (JUL 28) H 21.3 (JUL 27) H 22.3 (JUL 26) INR H 1.51 (Jul) H 1.86 (JUL 28) H 1.81 (JUL 27) H 1.92 (JUL 26) PTT H 43.9 (Jul) H 64.1 (JUL 25) H 96.8 (JUL 24) H 97.0 (JUL 24) CK MB 3.4 (JUL 14) Total CK 64 (JUL 15) 59 (JUL 15) 59 (JUL 15) 81 (JUL 14) . Chest x-ray results ECG interpretation Impression and Plan Diagnosis Orders Education and Follow-up: Counseled : Regarding treatment, Regarding medications. 84yo CM w CAD, HTN, HLD, GERD, OA who is presenting with progressive necrotic changes to fingers and toes. Patient will undergo right metatarsal amputation, and [facility] is being consulted for surgical blo ck. Will do a popliteal and saphenous single shot surgical block. Ivan Penn MD PGY-4, [id number] Addendum by Tor Chong MD on 08/06/2015 13:06 TEACHING PHYSICIAN ADDENDUM: I saw and p ersonally examined this patient and discussed the plan of care with this resident. I have reviewed the note below and agree with the history, examination findings and the plan of care. Extracted from:Title: Admission H&P Note Author: Adalgisa Kellogg MD PHD Date: 07/15/15 Impression and Plan Raynaud vs embolism TTE, CTA to rule out embolism Hydration for kidney protection The case was discussed with the attending surgeon, Dr. Uyen scanlon. Plan of Care No Data Provided for This Section Social History Social History Date Source Social History TypeResponse 07/15/2015 [facility] Substance Abuse Use: None. Employment/School Status: Retired. Alcohol Past, Type Beer. Stopped age 27 Years. Previous treatment: None. Alcohol use interferes with work or home: No. Drinks more than intended: Yes. Others hurt by drinking: No. Smoking Status Former smoker; Type: Cigarettes; Exposur e to Tobacco Smoke None; Cigarette Smoking Last 365 Days No; Reg Smoking Cessation Counseling Yes Social History TypeResponse 07/15/2015 [facility] [place] Alcohol Past, Type Beer. Stopped age 27 Years. Previous treatment: None. Alcohol use interferes with work or home: No. Drinks more than intended: Yes. Others hurt by drinking: No. Employment/School Status: Retired. Substance Abuse Use: None. Smoking Status Former smoker; Type: Cigarettes; Exposur e to Tobacco Smoke None; Cigarette Smoking Last 365 Days No; Reg Smoking Cessation Counseling Yes entered on: 09/15/19 Social History TypeResponse 07/15/2015 [facility] Alcohol Past, Type Beer. Stopped age 27 Years. Previous treatment: None. Alcohol use interferes with work or home: No. Drinks more than intended: Yes. Others hurt by drinking: No. Employment/School Status: Retired. Substance Abuse Use: None. Smoking Status Former smoker; Type: Cigarettes; Exposur e to Tobacco Smoke None; Cigarette Smoking Last 365 Days No; Reg Smoking Cessation Counseling Yes entered on: 09/15/19 Social History TypeResponse 07/15/2015 [facility] Substance Abuse Use: None. Employment/School Status: Retired. Alcohol Past, Type Beer. Stopped age 27 Years. Previous treatment: None. Alcohol use interferes with work or home: No. Drinks more than intended: Yes. Others hurt by drinking: No. Smoking Status Former smoker; Type: Cigarettes; Exposur e to Tobacco Smoke None; Cigarette Smoking Last 365 Days No; Reg Smoking Cessation Counseling Yes Social History TypeResponse 07/15/2015 [facility] Substance Abuse [facility] Use: None. Employment/School Status: Retired. Alcohol Past, Type Beer. Stopped age 27 Years. Previous treatment: None. Alcohol use interferes with work or home: No. Drinks more than intended: Yes. Others hurt by drinking: No. Smoking Status Former smoker; Type: Cigarettes; Exposur e to Tobacco Smoke None; Cigarette Smoking Last 365 Days No; Reg Smoking Cessation Counseling Yes Family History No Data Provided for This Section Advance Directives No Data Provided for This Section Functional Status No Data Provided for This Section
--- OUTSIDE RECORDS SUMMARY | 2020-03-25 15:34 | XMS REPORT | Continuity of Care Document ---
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 Active 10/28/2015 [facility], [facility] FOLLOW UP Diagnosis Active 2015-12-22 Memoria 10-14 11:25:00 l FOLLOW 00:00: [place] UP 00 Active 6 [facility] HOSPITAL Diagnosis Active 2015-12-17 M emoria FOLLOW 09-21 09:57:00 l UP...REFER HOSPITAL 00:00: He martin RED BY FOLLOW 00 UP...REFER RED BY Active 09/22/2015 [facility] 09/10 Diagnosis Active 2015-10-04 Mem oria 08-20 15:57:00 l 09/10 00:00: Raghav 00 Active 08/20/2015 [facility] GANGRENE Diagnosis Active 2015-09-04 M emoria 08-02 15:37:00 l GANGRENE 00:00: Riley n 00 Active 08/02/2015 [facility] LEFT RENAL Diagnosis Active 2016-0 2016-11-10 Memoria MASS -06 14:24:00 l LEFT 00:00: Raghav RENAL MASS 00 Active 07/28/2015 [facility] ISCHEMIC Diagnosis Active 2014-072015-09-07 M emoria RIGHT FOOT 09-14 16:43:00 l ISCHEMIC 00:00: Riley n RIGHT FOOT 00 Active 07/14/2015 [facility] Nocturia Problem 2018 Mem oria 13:35:22 l Nocturia [facility] 2018 Me moria of 13:35:22 l micturitio Riley n n Frequency of micturitio n 2018 [facility] Testicular Problem 2018 M emoria hypofuncti 13:35:22 l on [place] Testicular hypofuncti on 2018 [facility] Malignant Problem 2019-03-18 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, 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, except renal pelvis [facility]18[facility] Encounter Problem 2018 Me moria for 13:35:22 l screening Raghav for Encounter malignant for neoplasm screening of for prostate malignant neoplasm of prostate 2018 [facility] Diverticul Problem 2018 M emoria osis of 13:35:22 l large [place] intestine Diverticul without osis of perforatio large n or intestine abscess without without perforatio bleeding n or abscess without bleeding [facility] Other Problem 2017-11-08 Memor ia fatigue 15:00:02 l Other [place] fatigue 11/08/2017 [facility] Aortic Problem 2017-11-08 Memor ia ectasia, 15:00:02 l unspecifie Aortic Herm xena d site ectasia, unspecifie d site 11/08/2017 [facility] 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, e unspecifie pulmonary d disease, unspecifie d 03/18/2019 [facility] Thoracic Problem 2019-03-18 Mem oria aortic 11:27:28 l ectasia Thoracic Maliha nn aortic ectasia 03/18/2019 [facility] Arthritis Problem Resolve 2020-03-24 M emoria of knee d 21:27:38 l (disorder) Riley n Arthritis of knee (disorder) Resolved Problem 03/24/2020 [facility], [facility] Avilez, [facility] Backache Problem Resolve 2020-03-24 Me moria (finding) d 21:27:38 l Backache Riley n (finding) Resolved Problem 03/24/2020 [facility], [facility] Avilez, [facility] Oncology [facility] Gastroesop Problem Resolve 2020-03-24 Memoria hageal d 21:27:38 l reflux Raghav disease Gastroesop (disorder) hageal reflux disease (disorder) Resolved Problem 03/24/2020 [facility], [facility] Avilez, [facility] Hyperlipid Problem Resolve 2020-03-24 Memoria emia d 21:27:38 l (disorder) Riley n Hyperlipid emia (disorder) Resolved Problem 03/24/2020 [facility], [facility] Avilez, [facility] Hearing Problem Resolve 2020-03-24 Mem oria loss d 21:27:38 l (finding) Hearing Herm xena loss (finding) Resolved Problem 03/24/2020 [facility], [facility] Avilez, [facility] Oncology [facility] Hypertensi Problem Resolve 2020-03-24 Memoria ve d 21:27:38 l disorder, Raghav systemic Hypertensi arterial ve (disorder) disorder, systemic arterial (disorder) Resolved Problem 03/24/2020 [facility], [facility] Avilez, [facility] [place] [facility] Renal mass Problem Resolve 2020-03-24 Memoria (finding) d 21:27:38 l Renal Raghav mass (finding) Resolved Problem 03/24/2020 [facility], [facility] Avilez, [facility], [facility] [place] [facility] Neoplasm Problem Active 2019-08-15 Mem oria of 00:02:19 l uncertain Neoplasm Her wheeler behavior of of kidney uncertain (disorder) behavior of kidney (disorder) Active Problem 08/15/2019 [facility], [facility] Avilez, WOODD [place] Atheroscle Problem Active 2020-03-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:27:38 l artery Raghav (disorder) Atheroscle rosis of artery (disorder) Active Problem 03/24/2020 [facility], OPID Raghav, OPID [place] 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:27:38 l 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 with n outflow (disorder) obstructio n (disorder) Active Problem 03/24/2020 [facility], OPIJeni Avilez, OPID [place] 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) Active Problem 03/24/2020 [facility], OPID Raghav, OPID [place] Fatigue Problem Active 2020-03-24 Luis alex (finding) 21:27:38 l Fatigue Raghav (finding) Active Problem 03/24/2020 [facility], [facility] Avilez, [facility], [facility] [place] [facility] Increased Problem Active 2020-03-24 Me moria frequency 21:27:38 l of [place] urination Increased (finding) frequency of urination (finding) Active Problem 03/24/2020 [facility], OPID Raghav, OPID [place] Malignant Problem Active 2020-03-24 Me moria tumor of 21:27:38 l kidney Raghav (disorder) Malignant tumor of kidney (disorder) Active Problem 03/24/2020 [facility], OPIJeni Avilez, OPIJeni [facility] [place] Oncology [facility] Nocturia Problem Active 2020-03-24 Mem oria (finding) 21:27:38 l Nocturia Riley n (finding) Active Problem 03/24/2020 [facility], [facility] Avilez, [facility] Screening Problem Active 2020-03-24 Me moria status 21:27:38 l (finding) Raghav Screening status (finding) Active Problem 03/24/2020 [facility], [facility]STIDES Avilez, WOODJeni Tobias ISCHEMIC Diagnosis Active 2015-09-07 M emoria CARDIOMYOP 16:43:00 l ATHY ISCHEMIC Riley n CARDIOMYOP ATHY Active [facility] NEOPLASM Diagnosis Active 2016-11-10 M emoria OF 14:24:00 l UNCERTAIN NEOPLASM Her wheeler BEHAVIOR OF OF LEFT K UNCERTAIN BEHAVIOR OF LEFT K Active [facility] GANGRENE, Diagnosis Active 2015-09-04 Memoria NOT 15:37:00 l ELSEWHERE Raghav CLASSIFIED GANGRENE, NOT ELSEWHERE CLASSIFIED Active [facility] ENCNTR FOR Diagnosis Active 2015-12-22 Memoria GENERAL 11:25:00 l ADULT ENCNTR [place] MEDICAL FOR EXAM W/ GENERAL ADULT MEDICAL EXAM W/ Active [facility] Cough Problem 2019-03-18 2019-03-18 M emoria 2-12 11:27:28 11:27:28 l Cough 05:41: Raghav 06 09/03/2018 03/18/2019 [facility] Enlarged Problem 2018 2018 Memoria prostate 03-18 13:35:22 13:35:22 l with 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:08: He rmann 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 with lower symptoms urinary tract symptoms 8 2018 [facility] Allergies, Adverse Reactions, Alerts Allergy Allergy Status Severity Reaction(s) Onset Inactive Treating Comm ents Source Name Type Date Date Clinician No Known No Known Active Memori a Medicati Medicati l on on Raghav Allergie Allergie s s Social History Social Habit Start Date Stop Date Quantity Comments Source Social History 2015-07-15 2015-07-15 [facility] atiya 03:11:29 03:11:29 Medications Ordered Filled Start Stop Current Ordering Indication Dosage Frequency Signature Comments Components Source Medication Medication Date Date Medication? Clinician (SIG) Name Name atorvastati Yes 20 mg = 1 M emoria n 20 mg 5-21 tab, PO, l oral tablet 19:02: Bedtime, # Raghav 00 30 tab, 0 Refill(s) PreserVisio Yes 1 cap, PO, Memoria n AREDS 2 5-21 Daily, 0 l oral 19:02: Refill(s) Raghav capsule 00 Sodium Yes 0 Memoria Chloride 5-21 Refill(s) l 0.854 19:02: Raghav MEQ/ML 00 Ophthalmic Solution [Jossie 128] warfarin Yes 7.5 mg = 1 Mem oria 7.5 mg oral 5-21 tab, PO, l tablet 19:02: Daily, 0 [place] 00 Refill(s) PreserVisio Yes 1 cap, PO, Memoria n AREDS 2 5-21 Daily, 0 l 19:02: Refill(s) [place] 00 tamsulosin Yes 0.4 mg = 1 M emoria 0.4 mg oral 5-21 cap, PO, l capsule 19:02: Daily, 0 Riley n 00 Refill(s) nebivolol Yes 2.5 mg = 1 Me moria 2.5 MG Oral 5-21 tab, PO, l Tablet 19:02: Daily, 0 [place] [Bystolic] 00 Refill(s) pantoprazol Yes 40 mg = 1 M emoria e 40 MG 5-21 tab, PO, l Enteric 19:02: Daily, 0 Riley n Coated 00 Refill(s) Tablet [Protonix] Centrum Yes Daily, 0 Memori a 5-21 Refill(s) l 19:02: Raghav 00 Acetaminoph Yes 1,000 mg = Memoria en 500 MG 5-21 2 tab, PO, l Oral Tablet 19:02: Q6H, 0 Herm xena [Tylenol] 00 Refill(s) enoxaparin Yes 70 mg, Memor ia 100 mg/mL 4-04 SUB-Q, l subcutaneou 17:56: Q12H, Maliha nn s solution 51 Administer 0.7 ml (70 mg) of enoxaparin (Lovenox) subcutaneo usly every 12 hours., # 20 ea, 0 Refill(s), Pharmacy: [place] [id number] Warfarin Yes 4 mg = 2 Memor ia Sodium 2 MG 3-25 tab, PO, l Oral Tablet 14:09: Daily, # He rmann [Coumadin] 00 60 tab, 1 Refill(s), Pharmacy: [place] [id number] enoxaparin Yes 70 mg, Memor ia 100 mg/mL 3-25 SUB-Q, l subcutaneou 14:06: Q12H, Maliha nn s solution 46 Administer 0.7 ml (70 mg) of enoxaparin (Lovenox) subcutaneo usly every 12 hours., # 20 ea, 0 Refill(s), Pharmacy: [place] [id number] Sulfamethox Yes 0 Memori a azole 3-25 Refill(s) l 13:14: [place] 00 enoxaparin Yes 70 mg, Memor ia 100 mg/mL 2-22 SUB-Q, l subcutaneou 17:58: Q12H, Maliha nn s solution 00 Administer 0.7 ml (70 mg) of enoxaparin (Lovenox) subcutaneo usly every 12 hours., # 28 ea, 0 Refill(s) Acetaminoph Yes 1 tab, PO, Memoria en 300 MG / 2-22 Q4H, PRN l Codeine 14:28: Pain Score Herm xena Phosphate 00 4-6, not 30 MG Oral to exceed Tablet 4000 mg acetaminop hen per day, X 7 day, # 42 tab, 0 Refill(s) 24 HR Yes 30 mg = 1 Memoria Nifedipine 2-22 tab, PO, l 30 MG 14:28: BID, 0 [place] Extended 00 Refill(s) Release Tablet loratadine Yes 10 mg = 1 Me moria 10 mg oral 2-22 tab, PO, l tablet 14:28: Daily, 0 Raghav 00 Refill(s) doxycycline Yes 100 mg = 1 Memoria hyclate 100 2-22 tab, PO, l MG Oral 14:28: [id number], Riley n Capsule 00 may take with food to minimize abdominal discomfort , # 30 tab, 0 Refill(s) ciprofloxac Yes 250 mg = 1 Memoria in 250 mg 2-22 tab, PO, l oral tablet 14:28: [id number], X [place] 00 7 day, # 14 tab, 0 Refill(s) Dulcolax No Notes: Memoria Laxative 2-21 (Same As: l 16:48: Dulcolax, Raghav Bisco-Lax) lansoprazol No 30 mg, Luis alex e 2-21 Route: PO, l 15:00: Drug form: DRC, Daily, Dosing Weight 67.273, kg, Start date: 09/12/15 9:00:00, Duration: 30 day, Stop date: 10/11/15 9:00:00 nebivolol No Notes: Memori a 2-21 (same as: l 03:00: Bystolic) atorvastati No Notes: Luis alex n 2-21 (Same As: l 03:00: Lipitor) Lovenox No Notes: Memoria 2-21 (Same as: l 01:00: Lovenox) 24 HR No Notes: Memoria Nifedipine 2-20 (Same as: l 30 MG 22:00: Adalat CC, Riley n Extended 00 Procardia Release XL) Give Tablet on empty stomach. Take 1 hour before or 2 hours after meal; "Avoid grapefruit and grapefruit juice". Do not crush doxycycline No Notes: NO M emoria hyclate 100 2-20 MILK/ANTAC l MG Oral 18:00: IDS/IRON Riley n Capsule 00 Take 1 hour before or 2 hours after dairy products Loratadine No Notes: 1 Mem oria 2-20 hr before l 18:00: meals [place] 00 (Same as: Claritin) Protonix No Notes: Memoria 2-20 Tablet l 18:00: should not be chewed or crushed. (Same as: Protonix) Docusate No 100 mg, Memori a 2-20 Route: PO, l 17:08: BID, Raghav 00 Dosing Weight 67.273, kg, PRN Constipati on, Start date: 09/11/15 11:08:00, Duration: 30 day, Stop date: 10/11/15 11:07:00 Docusate Yes 100 mg, Memori a 2-20 PO, BID, l 16:37: PRN as Raghav 00 needed for constipati on, 0 Refill(s) Dulcolax No Notes: Memoria Laxative 2-20 (Same As: l 14:23: Dulcolax, [place] 00 Bisco-Lax) Aspirin 81 No 81 mg = 1 Me moria MG Enteric 2-20 tab, PO, l Coated 13:37: Daily, # [place] Tablet 00 90 tab, 3 Refill(s) nebivolol 5 Yes 5 mg = 1 Me moria mg oral 2-20 tab, PO, l tablet 13:37: Bedtime, 0 Maliha nn 00 Refill(s) atorvastati Yes 20 mg = 1 M emoria n 20 mg 2-20 tab, PO, l oral tablet 13:37: Bedtime, # [place] 00 30 tab, 0 Refill(s) lansoprazol Yes 30 mg = 1 M emoria e 30 mg 2-20 cap, PO, l oral 13:37: Daily, # Raghav delayed 00 30 cap, 0 release Refill(s) capsule 24 HR No 30 mg = 1 Memoria Nifedipine 2-20 tab, PO, l 30 MG 13:37: BID, 0 [place] Extended 00 Refill(s) Release Tablet ceFAZolin No Notes: Memori a (SCIP) 09-10 (Same As: l 22:00: Ancef, [place] 00 Kefzol) MEDICATION WASTE Product Size: 1000 mg Product Wasted: ___ mg Ondansetron No 4 mg, Memor ia 09-10 Route: l 16:36: IVP, ONCE, [place] Dosing Weight 67.273, kg, PRN Nausea & Vomiting, Start date: 09/10/15 10:36:00 Naloxone No 0.04 mg, Memor ia 09-10 Route: l 16:36: IVP, [place] 00 Q2MIN, Dosing Weight 67.273, kg, PRN Narcotic Reversal, Start date: 09/10/15 10:36:00, Duration: 8 doses or times, Stop date: Limited # of times Flumazenil No 0.2 mg, Luis alex 2-19 Route: l 16:36: IVP, PRN, Raghav 00 Dosing Weight 67.273, kg, PRN Benzodiaze pine Reversal, Initial dose, Start date: 09/10/15 10:36:00, Duration: 30 day, Stop date: 10/10/15 11:35:00 Hydromorpho 2015-0 No 0.5 mg, Mem oria ne 09-10 Route: l 16:36: IVP, Raghav 00 Q5Min, Dosing Weight 67.273, kg, PRN Pain Score 7-10, Start date: 09/10/15 10:36:00, Duration: 4 doses or times, Stop date: Limited # of times Ephedrine 2015-0 No 5 mg, Memoria 09-10 Route: l 16:36: IVP, Raghav 00 Q5Min, Dosing Weight 67.273, kg, PRN Low Blood Pressure, Start date: 09/10/15 10:36:00, Duration: 30 day, Stop date: 10/10/15 11:35:00 Metoprolol 2015-0 No 1 mg, Memori a 09-10 Route: l 16:36: IVP, Raghav 00 Q5Min, Dosing Weight 67.273, kg, PRN Other -See Comment, Start date: 09/10/15 10:36:00, Duration: 5 doses or times, Stop date: Limited # of times Hydralazine 2015-0 No 10 mg, Luis alex 09-10 Route: l 16:36: IVP, Raghav 00 Q20Min, Dosing Weight 67.273, kg, PRN Elevated BP, Start date: 09/10/15 10:36:00, Duration: 2 doses or times, Stop date: Limited # of times esmolol 2015-0 No 10 mg, Memoria -19 Route: l 16:36: IVP, [place] 00 Q5Min, Dosing Weight 67.273, kg, PRN Other -See Comment, Start date: 09/10/15 10:36:00, Duration: 5 doses or times, Stop date: Limited # of times docusate 2015-0 No Notes: Memoria sodium 100 - (Same as: l mg oral 15:00: Colace) Raghav capsule 00 (Do Not Crush) Famotidine 0 No Notes: Memor ia 2-19 (Same as: l 15:00: Pepcid) Cipro No Notes: May Memori a 2-19 interfere l 15:00: w/enteral feedings - Hydromorpho No Notes: Luis alex ne 2-19 (Same as: l 14:30: Dilaudid) conc = 0.5 mg/ml 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 (Same as: Tylenol with Codeine # 3) Ondansetron No Notes: Luis alex 2-19 (Same as: l 14:03: Zofran) MEDICATION WASTE Product Size: 4 mg Product Wasted: _0_ mg bupivacaine No Notes: Luis alex liposome 2-19 (Same as: l 14:00: Exparel) NOT FOR IV use Postoperat thomas analgesia: Infiltrati on (local): Dose is based on surgical site and volume required to cover the area (in general, the maximum total dose is 266 mg). Bunionecto my: 7 mL into the tissues surroundin g the osteotomy and 1 mL into the subcutaneo us tissue of the surgical site (total dose = 8 mL [106 mg]) Hemorrhoid ectomy: 30 mL (20 mL vial diluted with 10 mL NS) divided and administer ed as 6 injections of 5 mL each (total dose = 30 mL [266 mg]) Doxycycline No 100 mg, Mem oria 2-18 PO, BID, 0 l 18:02: Refill(s) Raghav 00 24 HR Yes 30 mg = 1 Memoria Nifedipine 1-20 tab, PO, l 30 MG 21:50: BID, # 60 [place] Extended 00 tab, 0 Release Refill(s) Tablet loratadine No 10 mg = 1 Me moria 10 mg oral 1-20 tab, PO, l tablet 21:50: Daily, # Raghav 00 30 tab, 0 Refill(s) nebivolol 5 Yes 5 mg = 1 Me moria mg oral 1-20 tab, PO, l tablet 21:50: Daily, # [place] 00 30 tab, 0 Refill(s) enoxaparin No 70 mg = Luis alex 80 mg/0.8 1-20 0.7 mL, l mL 21:50: SUB-Q, [place] subcutaneou 00 [id number], s solution # 28 syr, 0 Refill(s) doxycycline No 100 mg = 1 Memoria hyclate 100 1-20 tab, PO, l MG Oral 21:50: [id number], # Herm xena Capsule 00 60 tab, 0 Refill(s) atorvastati Yes 20 mg = 1 M emoria n 20 mg 1-20 tab, PO, l oral tablet 21:50: Bedtime, # Raghav 00 30 tab, 0 Refill(s) lansoprazol Yes 30 mg = 1 M emoria e 30 mg 1-20 cap, PO, l oral 21:50: Daily, # [place] delayed 00 30 cap, 0 release Refill(s) capsule Aspirin 81 Yes 81 mg = 1 Me moria MG Chewable 1-20 tab, PO, l Tablet 21:50: Daily, # Raghav 00 90 tab, 0 Refill(s) tramadol No 50 mg = 1 Luis alex hydrochlori 1-20 tab, PO, l de 50 MG 21:50: Q8H, PRN Maliha nn Oral Tablet 00 Pain, # 60 tab, 0 Refill(s) doxycycline No Notes: NO M emoria hyclate 100 1-18 MILK/ANTAC l MG Oral 20:00: IDS/IRON Riley n Capsule 00 Take 1 hour before or 2 hours after dairy products Lovenox No Notes: Memoria 1-17 Nurse to l 03:00: ensure [place] 00 documentat ion of patient education per [facility] ation policy. (Same as: Lovenox) docusate No Notes: Memoria sodium 100 1-14 (Same as: l mg oral 02:23: Colace) Raghav capsule 00 (Do Not Crush) Miralax No Notes: Memoria 1-14 Dissolve l 02:23: in 8 oz of water or juice. (Same as: Miralax) ceftaroline No Notes: Luis alex 1-14 Reserved l 00:00: for use by [place] 00 ID Physicians in refractory MRSA skin and skin structure infections or intoleranc e to vancomycin , daptomycin or linezolid. MEDICATION WASTE Product Size: 600 mg Product Wasted: ___ mg Naloxone No 0.04 mg, Memor ia 08-04 Route: l 20:10: IVP, 00 Q2MIN, Dosing Weight 67.4, kg, PRN Narcotic Reversal, Start date: 08/04/15 14:10:00, Duration: 8 doses or times, Stop date: Limited # of times Flumazenil No 0.2 mg, Luis alex 08-04 Route: l 20:10: IVP, PRN, Dosing Weight 67.4, kg, PRN Benzodiaze pine Reversal, Initial dose, Start date: 08/04/15 14:10:00, Duration: 30 day, Stop date: 09/03/15 14:09:00 Ondansetron No 4 mg, Memor ia 08-04 Route: l 20:10: IVP, ONCE, Dosing Weight 67.4, kg, PRN Nausea & Vomiting, Start date: 08/04/15 14:10:00 Cefazolin No 2 gm, Memoria 08-04 Route: l 19:11: IVP, ONCE, Dosing Weight 67.4, kg, Start date: 08/04/15 13:11:00, Duration: 1 doses or times, Stop date: 08/04/15 13:11:00, Surgical Prophylaxi s Only; For patients < 120 kg Multihance No 39 Memoria 529 mg/mL 1-10 ml/min, l 05:15: Priority: [place] STAT, Start date: 07/31/15 23:15:00, Duration: 1 doses or times Levaquin No Notes: Do Luis alex 1-08 not give l 23:00: w/antacids , dairy pdt & minerals Take 1 hr before or 2 hr after dairy products Flagyl No Notes: Memoria 1-08 (Same as: l 23:00: Flagyl) Take with food/ avoid alcohol Amina No 60 mg, Memoria 07 Route: PO, l 15:00: Daily, Dosing Weight 67.472, kg, Start date: 07/29/15 9:00:00, Duration: 30 day, Stop date: 08/27/15 9:00:00 Claritin No Notes: 1 Memor ia 1-06 hr before l 18:00: meals (Same as: Claritin) Phenylephri No Notes: Luis alex ne 1-06 (phenyleph l Hydrochlori 17:03: rine 0.5% H ermann de 5 MG/ML 00 15 ml Nasal [place] nasal SPR) [Afrin (Same as: Nasal] Marcelo-Syneph rine Nasal) potassium No Notes: Memori a chloride 1-05 (Same as: l 22:41: K-Dur 20) "Do Not Crush" With food and full glass of water Calcium No 3 gm, 30 Memori a Gluconate 1-05 mL, Route: l 22:41: IVPB, Drug form: INJ, PRN, Dosing Weight 67.472, kg, PRN Abnormal Lab Result, For NON-ICU Patients Only., Start date: 07/27/15 16:41:00, Duration: 30 day, Stop date: 08/26/15 16:40:00 potassium 2016-0 No Notes: Memori a phosphate-s 1-05 (Same as: l odium 22:41: Neutra-Manda Riley n phosphate 00 s) Each 250 mg-278 1.25 gm mg-164 mg pkt has oral powder 250mg phosphorou s. Mix w/2.5oz water and stir. sodium No 15 mmol, 5 Memor ia phosphate + 1-05 mL, Route: l Sodium 22:41: IVPB, PRN, Maliha nn Chloride 00 Dosing 0.9% IV 250 Weight mL 67.472, kg, PRN Abnormal Lab Result, For NON-ICU Patients Only., Start date: 07/27/15 16:41:00, Duration: 30 day, Stop date: 08/26/15 16:40:00 potassium No Notes: Memori a phosphate + 1-05 (Same as: l Sodium 22:41: K [place] Chloride 00 Phosphate. 0.9% IV 250 ) 1 mMol mL phoshate has 1.47 mEq potassium Infuse over 4 hours Magnesium No 2 gm, 50 Luis alex Sulfate 1-05 mL, Route: l 22:41: IVPB, Drug [place] form: INJ, PRN, Dosing Weight 67.472, kg, PRN Abnormal Lab Result, For NON-ICU Patients Only., Start date: 07/27/15 16:41:00, Duration: 30 day, Stop date: 08/26/15 16:40:00 Magnesium No Notes: Memori a Oxide 1-05 (Same as: l 22:41: Mag-Ox Raghav 00 400) Magnesium oxide [id number] g elemental magnesium Dose=____m g magnesium oxide (___mg elemental magnesium) Warfarin No Notes: Memoria 07-26 Nurse to l 23:00: ensure [place] 00 documentat ion of patient education per anticoagul ation policy. Avoid large intake of vitamin-K containing foods diet. (Same As: Coumadin) Unasyn No Notes: Memoria 1-04 Dosing l 20:00: based on Ampicillin component (Same as: Unasyn) 24 HR No Notes: Memoria Nifedipine - (Same as: l 30 MG 23:00: Adalat CC, Riley n Extended 00 Procardia Release XL) Give Tablet on empty stomach. Take 1 hour before or 2 hours after meal; "Avoid grapefruit and grapefruit juice". Do not crush Warfarin No Notes: Memoria 1-03 Nurse to l 23:00: ensure Raghav 00 documentat ion of patient education per anticoagul ation policy. Avoid large intake of vitamin-K containing foods diet. (Same As: Coumadin) Bystolic No Notes: Memoria 1-03 (same as: l 17:00: Bystolic) Raghav 00 Lovenox No Notes: Memoria 1- Nurse to l 16:00: ensure Raghav 00 documentat ion of patient education per anticoagul ation policy. (Same as: Lovenox) Warfarin No Notes: Memoria 1- Nurse to l 23:00: ensure [place] 00 documentat ion of patient education per anticoagul ation policy. Avoid large intake of vitamin-K containing foods diet. (Same As: Coumadin) acetaminoph No Notes: Do M emoria en-codeine 07-24 not exceed l 300 mg-30 18:58: 4gm/day of He rmann mg oral 00 acetaminop tablet hen. (Same as: Tylenol with Codeine # 3) Acetaminoph No 1 tab, Luis alex en 300 MG / 07-24 Route: PO, l Codeine 18:56: Drug Form: Herm xena Phosphate 00 TAB, 15 MG Oral Dosing Tablet Weight 67.472, kg, Q4H, PRN Pain Score 1-3, Start date: 07/24/15 12:56:00, Duration: 30 day, Stop date: 08/23/15 12:55:00 Warfarin No Notes: Memoria 1- Nurse to l 23:00: ensure [place] 00 documentat ion of patient education per anticoagul ation policy. Avoid large intake of vitamin-K containing foods diet. (Same As: Coumadin) Nifedipine No Notes: Memor ia 20 MG Oral 07-23 (Same as: l Capsule 03:00: Adalat, Raghav 00 Procardia) "Avoid grapefruit and grapefruit juice Warfarin 2014-07 No Notes: Memoria 2-31 Nurse to l 23:00: ensure Raghav 00 documentat ion of patient education per anticoagul ation policy. Avoid large intake of vitamin-K containing foods diet. (Same As: Coumadin) atorvastati 2014-07 No Notes: Luis alex n 2-31 (Same As: l 03:00: Lipitor) [place] Warfarin 2014-07 No Notes: Memoria 2-30 Nurse to l 23:00: ensure [place] documentat ion of patient education per anticoagul ation policy. Avoid large intake of vitamin-K containing foods diet. (Same As: Coumadin) Cardizem CD 2014-07 No Notes: Luis alex 2-30 (Same l 15:00: as:Cardize Raghav 00 [facility]) Before meals. DO NOT CRUSH. Warfarin 2014-07 No Notes: Memoria 2- Nurse to l 23:00: ensure [place] 00 documentat ion of patient education per anticoagul ation policy. Avoid large intake of vitamin-K containing foods diet. (Same As: Coumadin) Warfarin 2014-07 No Notes: Memoria 2- Nurse to l 23:00: ensure [place] documentat ion of patient education per anticoagul ation policy. Avoid large intake of vitamin-K containing foods diet. (Same As: Coumadin) Versed 2014-07 No Notes: Memoria 09-18 (Same as: l 17:35: Versed) Raghav 00 MEDICATION WASTE Product Size: 2 mg Product Wasted: ___ mg Fentanyl 2014-07 No Notes: Memoria 09-18 (Same as: l 17:35: Sublimaze) [place] 00 Preservat thomas free. Isolyte S 2014-07 No Notes: Memori a PH 7.4 - (Same as: l 1,000 mL 23:28: Isolyte S Herm xena 00 PH 7.4) Tramadol 2014-07 No Notes: Not Mem oria 09-17 to exceed l 17:26: 400mg/day. Raghav 00 (Same As: Ultram) Acetaminoph 2014-07 No Notes: Luis alex en 325 MG / 09-17 (Same as: l Hydrocodone 17:22: [place] Maliha nn Bitartrate 00 325/5) Do 5 MG Oral not exceed Tablet 4gm/day of [[place] acetaminop 5/325] hen. Hydralazine 2014-07 No Notes: Luis alex 2-24 (Same as: l 19:43: Apresoline ) Push over 5 minutes D5W 1/2NS 2014-07 No 1,000 mL, Mem oria 1,000 mL 2-24 Rate: 100 l 19:34: ml/hr, Infuse over: 10 hr, Route: IV, Dosing Weight 68.682 kg, Total Volume: 1,000, Start date: 07/15/15 13:34:00, Duration: 30 day, Stop date: 08/14/15 13:33:00 Insulin, 2014-07 No Notes: Memoria Aspart, 2-24 Roll in l Human 17:18: palms of hands gently; Do not shake vigorously . (Same as: NovoLOG) "single patient use only" Stable for 28 days at room temperatur e. Expires in days from ____Date Dextrose 2014-07 No 12.5 gm, Memor ia 50% Syringe 2-24 25 mL, l 17:18: Route: IVP, Drug Form: INJ, Dosing Weight 68.682, kg, PRN, PRN Blood Glucose Results, Start date: 07/15/15 11:18:00, Duration: 30 day, Stop date: 08/14/15 11:17:00 Glucagon 2014-07 No 1 mg, Memoria 2-24 Route: IM, l 17:18: Drug form: Raghav 00 PDR/INJ, PRN, Dosing Weight 68.682, kg, PRN Blood Glucose Results, Start date: 07/15/15 11:18:00, Duration: 30 day, Stop date: 08/14/15 11:17:00 iodixanol 2014-07 No 140 mL, Memor ia 2-24 Route: l 16:19: IVP, Drug Form: SOLN, Dosing Weight 68.682, kg, ONCALL, STAT, Start date: 07/15/15 10:19:00, Duration: 1 doses or times, Dose = 2.2ml/kg, Max dose = 150ml -- "To be infused by Radiology Staff ONLY" multivitami 2014-07 No Notes: Luis alex n 2-24 (Same l 15:00: as:Thera) [place] 00 Take with food. lansoprazol 2014-07 No Notes: Luis alex e 2-24 (Same l 15:00: as:Prevaci [place] 00 d) Take 1 hour before or 2 hours after meal; "Do Not Crush" Aspirin 81 2014-07 No Notes: Memor ia MG Chewable 2-24 Take with l Tablet 15:00: food. Raghav 00 Complex-15 2014-07 No Notes: Memor ia topical 2-24 (Same as: l lotion 12:39: Cetaphil Raghav 00 Lotion) heparin 2014-07 No 5,000 Memoria 2-24 unit, l 03:00: Route: Raghav 00 SUB-Q, Q12H, Dosing Weight 68.682, kg, Start date: 07/14/15 21:00:00, Duration: 30 day, Stop date: 08/13/15 9:00:00 heparin 2014-07 No 500 mL, Memoria additive 2-24 Rate: l 25,000 unit 03:00: 19.23 Maliha nn [14 00 ml/hr, unit/kg/hr] Infuse + Premix over: 26 Diluent hr, Route: Dextrose 5% IV, Dosing 500 mL Weight 68.682 kg, Total Volume: 500 mL, Start date: 07/14/15 21:00:00, Duration: 30 day, Stop date: 08/13/15 20:59:00 Cartia XT 2014-07 No Notes: Memori a 2-24 (Same as: l 02:57: Cardizem [place] 00 CD) Before meals. DO NOT CRUSH. tramadol 2014-07 No Notes: Not Mem oria hydrochlori 2-24 to exceed l de 50 MG 02:56: 400mg/day. Her wheeler Oral Tablet 00 (Same As: Ultram) Sodium 2014-07 No 1,000 mL, Memori a Chloride 2-24 Rate: 100 l 0.45% IV 02:55: ml/hr, [place] 1,000 mL 00 Infuse over: 10 hr, Route: IV, Dosing Weight 68.682 kg, Total Volume: 1,000, Start date: 07/14/15 20:55:00, Duration: 30 day, Stop date: 08/13/15 20:54:00 lansoprazol 2014-07 No 30 mg = 1 M emoria e 30 mg 2-24 cap, PO, l oral 01:27: Daily, 0 Raghav delayed 00 Refill(s) release capsule 24 HR 2014-07 No 240 mg = 1 Memori a Diltiazem 2-24 cap, PO, l Hydrochlori 01:27: Daily, 0 He rmann de 240 MG 00 Refill(s) Extended Release Capsule [Cartia] tramadol 2014-07 No 50 mg = 1 Luis alex hydrochlori 2-24 tab, PO, l de 50 MG 01:27: Q8H, PRN Maliha nn Oral Tablet 00 Pain, # 60 tab, 0 Refill(s) Aspirin 81 2014-07 No 81 mg = 1 Me moria MG Chewable 2-24 tab, PO, l Tablet 01:27: Daily, [place] 00 tab, 0 Refill(s) multivitami 2014-07 Yes PO, Daily, Memoria n 2-24 0 l 01:27: Refill(s) [place] 00 Vital Signs Vital Name Observation Time Observation Value Comments Source Systolic (mm Hg) 2019-09-15 23:14:00 Luis rial Raghav Diastolic (mm Hg) 2019-09-15 [facility] 2019-09-15 23:14:00 [facility] Raghav Height 2019-09-15 23:14:00 165.1 cm [facility] [place] Weight 2019-09-15 23:14:00 [facility] Raghav BMI Calculated 2019-09-15 23:14:00 Brigitte al [place] Systolic (mm Hg) 2019-03-10 17:02:00 Luis rial [place] Diastolic (mm Hg) 2019-03-10 17:02:00 [facility] orial Raghav Heart Rate 2019-03-10 17:02:00 [facility] [place] Height 2019-03-10 17:02:00 167.64 cm [facility] [place] Weight 2019-03-10 17:02:00 [facility] [place] BMI Calculated 2019-03-10 17:02:00 Memori al Raghav BMI Calculated 2018-09-02 17:29:00 Memori al Raghav Weight 2018-09-02 17:29:00 [facility]hav Height 2018-09-02 17:29:00 167.64 cm [facility] Rgahav Heart Rate 2018-09-02 17:29:00 [facility] [place] Systolic (mm Hg) 2018-09-02 17:29:00 Luis rial Raghav Diastolic (mm Hg) 2018-09-02 17:29:00 Mem orial Raghav BMI Calculated 2018-04-08 16:46:00 Memori al [place] Weight 2018-04-08 16:46:00 [facility] Raghav Height 2018-04-08 16:46:00 167.64 cm [facility] [place] Heart Rate 2018-04-08 16:46:00 [facility] [place] Systolic (mm Hg) 2018-04-08 16:46:00 Luis rial Raghav Diastolic (mm Hg) 2018-04-08 16:46:00 Mem orial Raghav Weight 2017-12-10 19:00:00 [facility] [place] Height 2017-12-10 19:00:00 167.64 cm [facility] Raghav BMI Calculated 2017-12-10 19:00:00 Memori al [place] BMI Calculated 2017-08-13 17:42:00 Memori al [place] Weight 2017-08-13 17:42:00 [facility] [place] Heart Rate 2017-08-13 17:42:00 [facility] [place] Height 2017-08-13 17:42:00 167.64 cm [facility] [place] Systolic (mm Hg) 2017-08-13 17:42:00 Luis rial Raghav Diastolic (mm Hg) 2017-08-13 17:42:00 Mem orial Raghav Weight 2015-12-17 15:25:00 [facility] Heart Rate 2015-12-17 15:25:00 [facility] [place] Respitory Rate 2015-12-17 15:25:00 Memori al [place] Temperature Oral (F) 2015-12-17 15:25:00 96.1 F [facility] Raghav Systolic (mm Hg) 2015-12-17 15:25:00 Luis rial Raghav Diastolic (mm Hg) 2015-12-17 15:25:00 Mem orial [place] BMI Calculated 2015-10-15 13:10:00 Memori al Raghav Weight 2015-10-15 13:10:00 [facility] [place] Height 2015-10-15 13:10:00 165 cm [facility] Raghav Temperature Oral (F) 2015-10-15 13:10:00 96.7 F [facility] [place] Respitory Rate 2015-10-15 13:10:00 Memori al [place] Heart Rate 2015-10-15 13:10:00 [facility] Raghav Systolic (mm Hg) 2015-10-15 13:10:00 Luis rial Raghav Diastolic (mm Hg) 2015-10-15 13:10:00 Mem orial Raghav Respitory Rate 2015-09-13 13:31:00 Memori al [place] Heart Rate 2015-09-13 13:31:00 [facility] Raghav Systolic (mm Hg) 2015-09-13 13:31:00 Luis rial Raghav Diastolic (mm Hg) 2015-09-13 13:31:00 Mem orial Raghav Temperature Oral (F) 2015-09-13 13:31:00 98.3 F [facility] [place] Respitory Rate 2015-09-13 09:19:00 Memori al [place] Temperature Oral (F) 2015-09-13 09:19:00 98.6 F [facility] [place] Heart Rate 2015-09-13 09:19:00 [facility] Raghav Systolic (mm Hg) 2015-09-13 09:19:00 Luis rial Raghav Diastolic (mm Hg) 2015-09-13 09:19:00 Mem orial Raghav Systolic (mm Hg) 2015-09-13 05:21:00 Luis rial Raghav Diastolic (mm Hg) 2015-09-13 05:21:00 Mem orial Raghav Respitory Rate 2015-09-13 05:21:00 Memori al [place] Temperature Oral (F) 2015-09-13 05:21:00 98.1 F [facility] [place] Heart Rate 2015-09-13 05:21:00 [facility] Raghav Height 2015-09-10 12:10:00 157.48 cm [facility] Raghav BMI Calculated 2015-09-10 12:10:00 Memori al [place] Weight 2015-09-10 12:10:00 [facility] Raghav Systolic (mm Hg) 2015-08-11 17:28:00 Luis rial Raghav Diastolic (mm Hg) 2015-08-11 17:28:00 Mem orial [place] Temperature Oral (F) 2015-08-11 17:28:00 98.4 F [facility] Raghav Heart Rate 2015-08-11 17:28:00 [facility] Rag[facility] Respitory Rate 2015-08-11 17:28:00 Memori al Raghav Heart Rate 2015-08-11 13:48:00 [facility] [place] Respitory Rate 2015-08-11 13:48:00 Memori al [place] Temperature Oral (F) 2015-08-11 13:48:00 98.3 F [facility] [place] Systolic (mm Hg) 2015-08-11 13:48:00 Luis rial [place] Diastolic (mm Hg) 2015-08-11 13:48:00 Mem orial Raghav Systolic (mm Hg) 2015-08-11 09:07:00 Luis rial Raghav Diastolic (mm Hg) 2015-08-11 09:07:00 Mem orial [place] Respitory Rate 2015-08-11 [facility] 2015-08-11 09:07:00 97.9 F [facility] Raghav Heart Rate 2015-08-11 09:07:00 [facility] Raghav Weight 2015-08-01 04:29:00 [facility] Raghav Weight 2015-07-24 14:00:00 [facility] BMI Calculated 2015-07-15 01:21:00 [facility] 2015-07-15 01:21:00 [facility]18 [facility] Weight 2015-07-15 01:21:00 [facility] Procedures Procedure Date / Time Performed Performing Clinician [facility] e Measurement of 2019-09-15 16:45:00 Tawny summer post-voiding residual urine and/or bladder capacity by ultrasound, non-imaging Complex uroflowmetry (eg, 2018-04-09 00:11:00 [facility] Raghav calibrated electronic equipment) Spinal puncture, 2015-08-03 20:11:00 [facility] Norbert salazar therapeutic, for drainage of cerebrospinal fluid (by needle or catheter) Renal operation 1960-07-23 00:00:00 [facility] Her wheeler Am[facility] of the foot [facility] Neph[facility]<sup>1</sup> [facility] Encounters Start End Encounter Admission Attending Care Care Encounter Source Date/Time Date/Time Type Type Clinicians Facility Department ID 2020-03-22 2020-03-22 Outpatient [facility] [id number] 11:30:00 11:30:00 19 2020-03-02 2020-03-02 [facility] [id number] 10:52:00 23:59:00 12 2019-09-15 2019-09-15 Outpatient Shelley, Tung [facility] MH[facility] [id number] 10:45:00 23:59:59 17 2019-09-14 2019-09-14 Outpatient Shelley, Tung [facility] [id number] 11:15:00 11:15:00 16 2019-08-12 2019-08-12 Outpatient Shelley, Tung MHOIP MHOIP [id number] 09:12:00 23:59:00 11 2019-03-10 2019-03-10 Outpatient Shelley, Tung MH[facility] MHMG [id number] 11:30:00 23:59:59 15 2019-01-15 2019-01-15 Outpatient Shelley, Tung MHOIP MHOIP [id number] 11:43:00 23:59:00 10 2018-09-02 2018-09-02 Outpatient Shelley, Tung MH[facility] MHMG [id number] 11:30:00 23:59:59 14 2018-08-28 2018-08-28 Outpatient Shelley, Tung MHOIP MHOIP [id number] 09:37:00 23:59:00 09 2018-08-28 2018-08-28 Outpatient Shelley, Tung MHOIP MHOIP [id number] 09:37:00 23:59:00 09 2018-04-08 2018-04-08 Outpatient Shelley, Tung MH[facility] MHMG [id number] 11:15:00 23:59:59 13 2018-03-11 2018-03-11 Outpatient Shelley, Tung MHOIP MHOIP [id number] 08:43:00 23:59:00 08 2017-12-10 2017-12-10 Outpatient Shelley, Tung MH[facility] MHMG [id number] 14:00:00 23:59:59 12 2017-11-29 2017-11-29 Outpatient Shelley, Tung MHOIP MHOIP [id number] 13:03:00 23:59:00 07 2017-11-29 2017-11-29 Outpatient Shelley, Tung MHOIP MHOIP [id number] 13:03:00 23:59:00 07 2017-08-13 2017-08-13 Outpatient Shelley, Tung MH[facility] MHMG [id number] 13:30:00 23:59:59 11 2017-08-02 2017-08-02 Outpatient Shelley, Tung MHOIP MHOIP [id number] 10:05:00 23:59:00 06 2017-02-23 2017-02-23 Outpatient Shelley, Tung MHOIH MHOIH [id number] 09:38:00 23:59:00 05 2017-01-11 2017-01-11 Outpatient C [facility] [id number] 09:23:00 09:23:00 [facility] 2016-11-17 2016-11-17 Outpatient Shelley, Genaro MHOIP MHOIP [id number] 08:37:00 23:59:00 04 2016-07-06 2016-07-06 Outpatient Shelley, Genaro MHOIH MHOIH [id number] 11:29:00 23:59:00 2016-03-09 2016-03-09 Outpatient Shelley, Genaro MHOIP MHOIP [id number] 10:37:00 23:59:00 2015-12-17 2015-12-17 Outpatient Fabi [facility] [id number] 10:00:00 [facility] 2015-12-10 2015-12-10 Outpatient ShelleyGenaro juárez MHOIP OIP [id number] 09:16:00 23:59:00 00 2015-10-25 2015-10-26 Outpatient [id number] 12:54:00 23:59:59 [id number] 2015-10-15 2015-10-15 Outpatient Fabi [facility] [id number] 07:22:00 23:59:00 Shilpan 03 [facility] 2015-09-10 2015-09-13 Outpatient Genaro Rosa [facility] [id number] 05:13:00 14:00:00 00 2015-07-14 2015-08-11 Outpatient Sebastian, [facility] [id number] 19:20:00 18:13:00 Ronak Erazo Results Test Description Test Time Test Comments Results Result Comments Source URINE AND STOOL 2019-09-15 [facility] 16:38:00 *NA*(09/15/19 Raghav 10:38 AM) URINE AND STOOL 2019-09-15 [facility] 16:38:00 *NA*(09/15/19 Raghav 10:38 AM) URINE AND STOOL 2019-09-15 16:38:00 Test Item Value Reference Range Interpretation Comme nts POC UA SG (test code = POC UA SG) 1.010 1 [facility] [id number] 16:38:00 Test Item Value Reference Range Interpretation Comments POC UA pH (test code = POC UA pH) 6.5 1 5.0-8.0 [facility] [id number] 16:38:00Negative *NA*(09/15/19 10:38 AM)[facility] [id number] 16:38:00Trace *ABN*(09/15/19 10:38 AM)[facility] [id number] 16:38:000.2[facility] [id number] 16:38:00Negative *NA*(09/15/19 10:38 AM)[facility] [id number] 16:38:00Trace *ABN*(09/15/19 10:38 AM)[facility] [id number] 16:53:00Yellow *NA*(03/10/19 11:53 AM)[facility] [id number] 16:53:00Clear *NA*(03/10/19 11:53 AM)[facility] [id number] 16:53:00 Test Item Value Reference Range Interpretation Comments POC UA SG (test code = POC UA SG) 1.010 1 [facility] [id number] 16:53:00 Test Item Value Reference Range Interpretation Comments POC UA pH (test code = POC UA pH) 7.0 1 5.0-8.0 [facility] [id number] 16:53:00Negative *NA*(03/10/19 11:53 AM)[facility] [id number] 16:53:00Negative *NA*(03/10/19 11:53 AM)[facility] [id number] 16:53:000.2[facility] [id number] 16:53:00Negative *NA*(03/10/19 11:53 AM)[facility] [id number] 16:53:00Negative *NA*(03/10/19 11:53 AM)[facility] URINE AND [id number] 17:16:00Negative *NA*(09/02/18 11:16 AM)[facility] [id number] 17:16:00 Test Item Value Reference Range Interpretation Comments POC UA pH (test code = POC UA pH) 6.5 1 5.0-8.0 [facility] [id number] 17:16:000.2[facility] [id number] 17:16:00Negative *NA*(09/02/18 11:16 AM)[facility] [id number] 17:16:00Negative *NA*(09/02/18 11:16 AM)[facility] [id number] 17:16:00Negative *NA*(09/02/18 11:16 AM)[facility] [id number] 17:16:00Yellow *NA*(09/02/18 11:16 AM)[facility] [id number] 17:16:00 Test Item Value Reference Range Interpretation Comments POC UA SG (test code = POC UA SG) 1.010 1 [facility] [id number] 17:16:00Clear *NA*(09/02/18 11:16 AM) [facility] [id number] 16:35:00Negative *NA*(04/08/18 11:35 AM)[facility] [id number] 16:35:00Negative *NA*(04/08/18 11:35 AM)[facility] [id number] 16:35:00Negative *NA*(04/08/18 11:35 AM)[facility] [id number] 16:35:00Negative *NA*(04/08/18 11:35 AM)[facility] [id number] 16:35:000.2[facility] URINE AND [id number] 16:35:00Yellow *NA*(04/08/18 11:35 AM)[facility] URINE AND [id number] 16:35:00Clear *NA*(04/08/18 11:35 AM)[facility] URINE AND [id number] 16:35:00 Test Item Value Reference Range Interpretation Comments POC UA pH (test code = POC UA pH) 6.0 1 5.0-8.0 [facility] [id number] 16:35:00<=1.005 *NA*(04/08/18 11:35 AM)[facility] [id number] 19:13:00Negative *NA*(12/10/17 2:13 PM)[facility] [id number] 19:13:00Negative *NA*(12/10/17 2:13 PM)[facility] [id number] 19:13:00Yellow *NA*(12/10/17 2:13 PM)[facility] [id number] 19:13:00Clear *NA*(12/10/17 2:13 PM) [facility] [id number] 19:13:00 Test Item Value Reference Range Interpretation Comments POC UA pH (test code = POC UA pH) 6.5 1 5.0-8.0 [facility] [id number] 19:13:00 Test Item Value Reference Range Interpretation Comments POC UA SG (test code = POC UA SG) 1.010 1 [facility] [id number] 19:13:00Negative *NA*(12/10/17 2:13 PM) [facility] [id number] 19:13:000.2[facility] [id number] 19:13:00Negative *NA*(12/10/17 2:13 PM)[facility] [id number] 19:34:00Negative *NA*(08/13/17 1:34 PM)[facility] [id number] 19:34:00Negative *NA*(08/13/17 1:34 PM)[facility] [id number] 19:34:000.2[facility] [id number] 19:34:00 Clear *NA*(08/13/17 1:34 PM)[facility] [id number] 19:34:00 Yellow *NA*(08/13/17 1:34 PM)[facility] [id number] 19:34:00 Test Item Value Reference Range Interpretation Comments POC UA pH (test code = POC UA pH) 6.0 1 5.0-8.0 [facility] [id number] 19:34:00<=1.005 *NA*(08/13/17 1:34 PM)[facility] [id number] 19:34:00Negative *NA*(08/13/17 1:34 PM)[facility] [id number] 19:34:00Negative *NA*(08/13/17 1:34 PM)[facility]annCHE[facility] [id number] 11:04:0051[facility]annCHEM PANEL 2015-09-13 11:04:002.3[facility]annCHEM [id number] 11:04:003.4[facility]annCHE[facility] [id number] 11:04:000.7[facility]annCHE[facility] [id number] 11:04:000.9[facility]annCHEM [id number] 11:04:0025[facility]annCHEM [id number] 11:04:005.7[facility]annCHEM [id number] 11:04:0012 [facility]annCHE[facility] [id number] 11:04:0086[facility]annCHEM PANEL 2015-09-13 11:04:0015[facility] HermannCHEM [id number] 11:04:0019[facility]annCHEM [id number] 11:04:0060[facility]annCHEM [id number] 11:04:008.6[facility]annCHEM [id number] 11:04:0010.9[facility]annCHEM [id number] 11:04:36276Dcdaprve HermannCHEM [id number] 11:04:0026 [facility]annCHE[facility] [id number] 11:04:003.9[facility]annCHEM PANEL 2015-09-13 11:04:001.29[facility]annCHEM [id number] 11:04:67018Omkkxprz FvkqgjvKFORXUCXKZ8050-93-78 11:04:008.8[facility] ZzdvhvrBTBRHUYNUU9969-90-88 11:04:0017.3[facility] DqsdkhcFYZIEOWTLD8902-39-91 11:04:0033.1[facility] [id number] 11:04:00 Test Item Value Reference Range Interpretation Comments MCH (test code = MCH) 25.1 pg 27.0-31.0 [facility] [id number] 11:04:49694Tbbfkeqk HermannHEMATOLOGY 2015-09-13 11:04:0010.3[facility] DvhrsafMTXCTHZJOQ5694-75-38 11:04:003.93[facility] YiuubtkDCQHDJHASM5071-17-86 11:04:0075.9[facility] XlwpwawXSSGMVGBVO4527-73-48 11:04:009.9[facility] ApqyrldULEANGFWRY6005-74-78 11:04:0029.8[facility] [place] [id number] 11:04:0010.8[facility] EohxahuAPEHYHKIGM2860-21-33 11:04:00 75.6[facility] KrieqyyFHWMNJMZGG6782-97-50 11:04:007.8[facility] HermannHEMATOLOGY 2015-09-13 11:04:000.9[facility] LxrntowYSSUSGBOCB1302-92-33 11:04:000.4[facility] CjqhbxgTVOSDNPSFI2407-44-39 11:04:001.1[facility] JzsvhwiDZTDMIGRZH0938-65-28 11:04:004.2[facility] TxjthfxISYQEOLOSZ3487-49-46 11:04:009.0[facility] INHDZAEOLB5774-28-34 11:04:000.4[facility] YzxhdwsWKZPNRGJMF6791-34-24 11:04:001+ *ABN*(09/13/15 5:04 AM)[facility]annCHEM [id number] 11:02:001.9[facility] HermannCHEM [id number] 11:02:002.9[facility]annCHEM [id number] 11:02:0015[facility] HermannCHEM [id number] 11:02:64543Jxarwgwt HermannCHEM ZYNPV6422-93-21 11:02:0053[facility] WIHBV9659-51-95 11:02:0010.8 [facility] NZRNT7031-65-91 11:02:008.6[facility]annCHE[facility] PANEL 2015-09-12 11:02:95056Vqrosmii HermannCHEM SSRWQ7054-48-15 11:02:63415Lpqgxrmu HermannCHEM NYXOU9143-58-71 11:02:003.8[facility]annCHE[facility] OAYIF8401-43-14 11:02:0027[facility]annCHE[facility] DJCHW0887-05-43 11:02:001.25[facility] RXZBHTENLLJE4886-80-69 11:02:009.8[facility] IwasywjUEVWXDOMPTGT7484-63-28 11:02:000.7[facility] UynnabvXARTKBGGVGDN3669-37-28 11:02:003.3[facility] HGCTHNEBOTVW8185-37-38 11:02:0011[facility] PlqxflqEMSBRPRMHVHS1716-71-47 11:02:00 3.8[facility] AzhpncbCMDIJPSKKTZL2666-76-87 11:02:51093Yrxcrbnd Raghav QLRZDZUTKBMM0641-05-25 11:02:001.32[facility] MbdokgeRQUSHFHPZAWL1053-12-09 11:02:0015[facility] PcngxpySVZIXAZPSGJG3204-26-31 11:02:64400[facility] ERDKEAEKSDZN5280-54-64 11:02:0095[facility] LsmugdaEVVEMBTUCCQI5680-67-48 11:02:00 50[facility] IesrwfvIGSUZQRGBBOY3451-79-86 11:02:0028[facility] HermannELECTROLYTES 2015-09-12 11:02:005.6[facility] TpekwmsKNWVNIQCVCCB8436-80-29 11:02:002.3[facility] LwxdawrSTTIILJOUJHV4036-72-35 11:02:008.4[facility] HfecxsaJHNREFFUKDSH3997-86-18 11:02:0028[facility] AcqbillKAXRHWGVALQF8466-89-71 11:02:0019[facility] ZYDTPBMDRCPS9899-26-75 11:02:0063[facility] CcfkqiiRKTQUSAPIYLU8583-19-62 11:02:00 0.6[facility] UnxiwzfTMTJCMSQLZ2344-58-83 11:02:001+ *ABN*(09/12/15 5:02 AM) [facility] ZpujxwyWLBTYMQFDX2447-47-07 11:02:000.3[facility]annHEMATOLOGY 2015-09-12 11:02:001.0[facility] TliqdkhQUXGGQHHPU4192-44-80 11:02:0081.3[facility] OenevslVCXPQKFQZK5154-78-49 11:02:001.7[facility] FaoztyfHRVTEXWGSE3744-58-92 11:02:007.1[facility] RycjflcVJPMGPIHJD9607-08-43 11:02:009.6[facility] TSHIQVYPFL2529-59-85 11:02:000.2[facility] LbvzeehIGRVFFLJJK9527-87-74 11:02:008.7 [facility] WqqqtrxRZEYHKIWLC9595-87-77 11:02:000.8[facility] HermannHEMATOLOGY 2015-09-12 11:02:0075.9[facility] RgmlurhZHLIQGOYLZ6183-54-46 11:02:0017.4[facility] NppzplfFNXHLYDTOW3920-54-11 11:02:009.9[facility] NxuzqswTKDXZXHESX7264-57-01 11:02:003.89[facility] CcvuykaHLMMBXDEWM1279-89-98 11:02:0029.5[facility] GWIJTCNBNZ0792-61-40 11:02:009.1[facility] CscaxkeGLURNIDTAP3058-33-19 11:02:76962 [facility] WlpmuwxNUTIKLPPXU7225-85-17 11:02:00 Test Item Value Reference Range Interpretation Comments MCH (test code = MCH) 25.4 pg 27.0-31.0 [facility] GjerlcgPABZFPLSMT4903-07-82 11:02:0033.4[facility]annHEMATOLOGY 2015-09-12 11:02:0010.7[facility]annCHEM CVAWU7676-40-87 09:26:000.8[facility]annCHEM BVWOE1695-85-95 09:26:0012[facility]annCHEM VBOIY1065-18-29 09:26:003.2[facility]annCHEM CNSBO1339-91-92 09:26:005.7[facility]annCHEM VOMVC2847-49-99 09:26:0023[facility]annCHEM NOJOI4064-33-84 09:26:002.5 [facility]annCHEM BOSOV9908-49-17 09:26:0061[facility]annCHEM PANEL 2015-09-11 09:26:0026[facility]annCHEM IQCKJ7697-85-19 09:26:000.9[facility]annCHEM EDERB9035-60-92 09:26:004.3[facility]annCHEM BBPLK9299-06-57 09:26:002.0[facility] MagaaqbZGSMBXOBRO3121-03-28 09:26:0010.1[facility] BMSSHFEVZP3560-99-21 09:26:004.17[facility] HchziflDRKOEQVCGG6032-23-03 09:26:00 10.4[facility] QilpbciHMGCIICGVC4937-35-33 09:26:0032.6[facility]annHEMATOLOGY 2015-09-11 09:26:28399Trhagjuy AqnshcdWCQXGHKOFR5324-67-65 09:26:0032.0[facility] SpjpxlyNHECAURJFM5372-52-58 09:26:0017.7[facility] BoubkosILYETGCHSJ6116-80-70 09:26:0078.2[facility] CdxblbfFRSARVJRHI8010-49-82 09:26:00 Test Item Value Reference Range Interpretation Comments MCH (test code = MCH) 25.0 pg 27.0-31.0 [facility] SvryzopSSNJCOUNGV3498-71-70 09:26:008.6[facility]annHEMATOLOGY 2015-09-11 09:26:000.3[facility] JqmtoanRYBDCSRXDR4985-67-22 09:26:000.3[facility] OmbtkjyHQRNPUNWAK7643-51-55 09:26:007.4[facility] LahdtnsMXJEDRXXNG9977-54-07 09:26:008.6[facility] GztheowSUBCIODDUC2811-21-93 09:26:0083.4[facility] GUYRGMLMTA7591-51-01 09:26:008.4[facility] DwckxnhAPHWOTBPNU2778-98-14 09:26:001+ *ABN*(09/11/15 3:26 AM)[facility] AcddrirWTTZFIAFVI8326-34-38 09:26:000.7[facility] EjjrvlgARVOIFSUHL6757-75-13 09:26:000.9[facility] SlrpnncNFNUIUFNQP3363-49-14 09:26:00Negative (09/11/15 3:26 AM)[facility] GifwjmzKBPCNQYXIS4005-76-27 09:26:00 Negative (09/11/15 3:26 AM)[facility] RdtqnxcYDDPWBQOME7374-06-90 09:26:00Negative (09/11/15 3:26 AM)[facility] UszccqcXNCSAVZARK6138-37-01 09:26:00Negative 1(09/11/15 3:26 AM)[facility] HSFRBIH9181-71-93 11:51:00Negative (09/10/15 5:51 AM)[facility] XDLAUZU9806-39-66 11:50:00Product available (09/10/15 5:50 AM)[facility] WcyinswUSFJNOEZKI0200-00-31 21:15:000.3[facility] GpulsobZFMMRWGAMG2913-20-81 21:15:001.2[facility] BufvddtYECFTZBEUL6202-03-46 21:15:001.0[facility] SebelgoFFBLEPKKGL8944-26-42 21:15:00See Note 8(09/02/15 3:15 PM)[facility] AlmaCqathdePONGDLUCOK1161-85-32 21:15:009.9[facility]annHEMATOLOGY 2015-09-02 21:15:00 Test Item Value Reference Range Interpretation Comments Max Amp (test code = Max Amp) 66.5 mm 50.0-70.0 [facility]teewpmZZFDDPTLHM9421-10-04 21:15:00 Test Item Value Reference Range Interpretation Comments R-time (test code = R-time) 6.0 min 5.0-10.0 [facility] AlmaCdjbxulYPXLTDCZZM0448-25-17 21:15:00 Test Item Value Reference Range Interpretation Comments K-time (test code = K-time) 1.4 min 1.0-3.0 [facility] AlmaIjfukuuXEHEMNWRJC9938-90-53 21:15:00 Test Item Value Reference Range Interpretation Comments Angle (test code = Angle) 70.4 degrees 53.0-72.0 [facility]hamYxyokytIKAGMXUCHA3197-90-08 21:15:00 Test Item Value Reference Range Interpretation Comments PTT (test code = PTT) 34.1 s 22.9-35.8 [facility] AlmaWviyjwsCZZQPVKKRY6340-65-54 21:15:00 Test Item Value Reference Range Interpretation Comments PT (test code = PT) 13.5 s 12.0-14.7 [facility]hamAhqpzubRXUGZPFUTV8152-32-86 21:15:001.00[facility]annCHEM PANEL 2015-08-09 12:00:002.2[facility]annCHEM HEVFF1485-66-35 12:00:0071[facility]annCHEM OJBKW0608-42-15 12:00:008.7[facility]annCHEM WYZWE9586-58-69 12:00:0023[facility]annCHEM JHKWV7862-82-48 12:00:61596Ysepvstb HermannCHEM UXOOF9703-48-12 12:00:004.2[facility]annCHEM RZOXM6558-54-04 12:00:03344 [facility]annCHEM LIHVF4719-83-23 12:00:000.99[facility]annCHEM PANEL 2015-08-09 12:00:0016[facility]annCHEM FFEOI0267-59-80 12:00:0088[facility]annCHEM QODGG0030-01-20 12:00:0013.2[facility] KyhrxrmEODQGWEOVU3130-20-93 12:00:008.0[facility] FanhgadKMJXWPGIZX1064-11-29 12:00:0011.7[facility] OEEHEEGUDL9050-98-52 12:00:0010.9[facility] YrgaukdLDYABVXEOL4961-04-97 12:00:00 4.40[facility] QraophoMFWQIGXWCM2440-46-72 12:00:00 Test Item Value Reference Range Interpretation Comments MCH (test code = MCH) 24.7 pg 27.0-31.0 [facility] WhdtthuQROIVVEKCL2865-20-19 12:00:0034.2[facility]annHEMATOLOGY 2015-08-09 12:00:0077.8[facility] MipxbmqDLSNVLUNLB5102-03-14 12:00:66298Ymidcwjb GxadfshDEGTCYZZZA3707-10-92 12:00:0019.1[facility] ZewnktxROYTQBOVJV4563-56-63 12:00:0031.7[facility] ZsegtrcZRNRWFFADH6440-31-66 12:00:000.3[facility] EUQLBASYKX3841-96-93 12:00:000.1[facility] IueneubZKMQJCEJGY2164-94-22 12:00:001+ *ABN*(08/09/15 6:00 AM)[facility] PrbslpwNEGHEYGMTK3943-01-20 12:00:0010.8[facility] UbiuyjkAENNJPXQOG9978-21-42 12:00:0077.6[facility] IlhlhfpWKWWMRXCOB9152-34-93 12:00:008.5[facility] EgsnkuuZEXARPVILZ4950-34-33 12:00:002.2[facility] OANBKGXPYX9638-47-98 12:00:000.9[facility] HrbzkeuQHXLAWLFPZ0662-97-81 12:00:009.1 [facility] EkfqfxwISWSFOGUPY4580-70-74 12:00:001.3[facility]annHEMATOLOGY 2015-08-09 12:00:001.0[facility]annCHEM KPUUG6743-05-21 12:02:002.1[facility] UlouhoyZIMCOSZDHOPG6344-84-03 12:02:0024[facility] VcoglwgKHPPGSDSOPQG7228-54-13 12:02:009.0[facility] JwpeqqaFKISRZLZDJRD4095-58-82 12:02:93600Gatzhdbk Raghav STTFHBRBIITX7256-14-31 12:02:0099[facility] YtsphqjUFSFYLTSEXNE3179-17-27 12:02:00 14[facility] DeqghfcDYHCCYTOFNYZ3730-24-79 12:02:000.92[facility] AOPXENZGNMMC0164-18-66 12:02:10025Ulkatqiy OcgtybkYEPHHYRMOEGE4443-92-63 12:02:003.9[facility] YqmbgmrEVJWMQVPKCOL6021-18-49 12:02:0077[facility] RZSZYJBEMDAG9403-38-30 12:02:0012.9[facility] WanvmygTLSLXYZPLM6868-53-17 12:02:00 1.7[facility] PgfvqcrGGWUQKWEYO5582-53-58 12:02:007.6[facility]annHEMATOLOGY 2015-08-08 12:02:008.0[facility] UsauiloFFKYGANROC1486-24-85 12:02:0082.2[facility] KnnyntlADJHUMXWMD6480-84-73 12:02:001.0[facility] GuourngLXTWUZYBJD7683-68-79 12:02:0010.6[facility] UtzgrqwLCSTNMWSTB6858-59-08 12:02:000.5[facility] RFOUHPTOBI9715-95-94 12:02:001+ *ABN*(08/08/15 6:02 AM)[facility]annHEMATOLOGY 2015-08-08 12:02:000.1[facility] CqxwxpzDUCDULFMXY3846-72-57 12:02:000.2[facility] DpoqaejWWMWEHKKXI4327-70-38 12:02:001.0[facility] YoeyfmgTUFVAYQRLI8467-25-59 12:02:00 Test Item Value Reference Range Interpretation Comments MCH (test code = MCH) 24.4 pg 27.0-31.0 [facility] QnzxtaeXYNYJVJFKI1492-70-73 12:02:0076.7[facility]annHEMATOLOGY 2015-08-08 12:02:0031.8[facility] ZlwfgaeCDTTJNELJH7867-09-33 12:02:0019.0[facility] FjlycitDYBSWAREAP2299-01-72 12:02:41214Cwtygkxn HcojxqbJVLPKUBJIK6137-71-93 12:02:007.9[facility] PwrmbfkONHHGIVFDQ4386-57-33 12:02:0012.9[facility] BZVENWFZSD2110-84-36 12:02:0034.6[facility] IosfzgfWHTHEMETFE0654-94-37 12:02:00 11.0[facility] WqjvfosTUZPSJXYSG9435-75-54 12:02:004.51[facility]annCHEM PANEL 2015-08-07 11:10:008.5[facility] HermannCHEM RUPKS7918-49-30 11:10:0078[facility]annCHEM GWBWA2318-49-20 11:10:0024[facility]annCHEM TARKO4360-07-76 11:10:46573Noawsjnj HermannCHEM TXFSQ7274-31-92 11:10:0016[facility]annCHEM BBHHV5871-96-08 11:10:000.91[facility]annCHEM IGBHS3330-92-87 11:10:0092 [facility]annCHEM XRSZU9214-82-81 11:10:004.3[facility]annCHEM PANEL 2015-08-07 11:10:14097Kvbkpqpn HermannCHEM TJVNK0865-06-82 11:10:0013.3[facility] VtyoztrJZJOCTVWUS1290-38-69 11:10:0010.6[facility] HwpfgbaYPRACTZJOS7698-75-48 11:10:001.2[facility] UqpdivoXXTDPYVASG0177-40-52 11:10:000.9[facility] EMBSHDXFPY6208-35-22 11:10:000.3[facility] IhaptgeNKKEDSDPYV3644-24-83 11:10:00 81.5[facility] YngqtftYCWTUXVTRA9501-21-74 11:10:00Normal (08/07/15 5:10 AM) [facility] UzdyzhqBDSZCNQEDN6560-41-14 11:10:006.7[facility]annHEMATOLOGY 2015-08-07 11:10:008.9[facility] LxivxrqTIEEWTRYZC2058-01-07 11:10:002.3[facility] HynancjWIICEENLMP3361-22-78 11:10:000.6[facility] AdzoqfaELVNSCTOXA6393-24-15 11:10:001-3 per HPF (08/07/15 5:10 AM)[facility] HtushhlTYMCSRDZDI1682-86-85 11:10:001+ *ABN*(08/07/15 5:10 AM)[facility] NpfnxkmWCSRQRUCLG5366-88-84 11:10:00 0.1[facility] JdmzlpmMPGSDUSFZN7972-84-21 11:10:001+ *ABN*(08/07/15 5:10 AM) [facility] ObvietvEXMPFUBAXH7942-16-18 11:10:0013.0[facility]annHEMATOLOGY 2015-08-07 11:10:0033.3[facility] JspxckvNAISLXBFDJ2924-75-59 11:10:0010.8[facility] ZxnesckMKIOZFWAMS0617-48-86 11:10:00 Test Item Value Reference Range Interpretation Comments MCH (test code = MCH) 24.7 pg 27.0-31.0 [facility] FqxproyJTMRCCLGXT6336-05-34 11:10:0076.4[facility]annHEMATOLOGY 2015-08-07 11:10:004.36[facility] SfgmvyqWKKXLMSTIS8092-77-25 11:10:007.9[facility] KajulpyGCISPXSOHL0721-96-41 11:10:48328Fzyejqbz NmfhgoiHBONLRXUFD2384-17-16 11:10:0019.0[facility] XsuirbrUYRMNIQWGM8913-79-35 11:10:0032.3[facility] YCSCVMTXSI0091-70-57 11:10:00Negative (08/07/15 5:10 AM)[facility] CAYVEQNWUF9560-34-18 11:10:0087[facility] EjmdpfgVVHZRZRJJZ3186-36-40 11:10:00 Negative (08/07/15 5:10 AM)[facility] AKWSKRP9323-58-26 15:21:00 Negative (08/04/15 9:21 AM)[facility] HermannBODY MXAOBV8816-55-49 20:00:0055 [facility]annBODY PZSWDB4615-14-60 20:00:001[facility]annBODY FLUIDS 2015-08-03 20:00:0084[facility]annBODY WQQYSF4461-42-10 20:00:00 Test Item Value Reference Range Interpretation Comments Tube Num CSF (test code = Tube Num CSF) 3 1 [facility]annBODY AGWHEL4357-84-58 20:00:00Colorless (08/03/15 2:00 PM) [facility] VQDZUL7936-96-60 20:00:00Colorless (08/03/15 2:00 PM) [facility] YVIMFX4025-26-42 20:00:00Clear (08/03/15 2:00 PM)[facility]annBODY UWFEEX4725-50-72 20:00:0059[facility] OzlyahfNINHNHSCCD1836-32-20 20:00:00Non Reactive (08/03/15 2:00 PM)[facility] HermannCHEM MMWDZ0852-27-66 10:18:002.6[facility]annCHEM CFSGK5328-07-47 10:18:002.0[facility] DWBMJVVPMK0414-50-65 10:18:00 Test Item Value Reference Range Interpretation Comments PT (test code = PT) 18.5 s 12.0-14.7 [facility] PlnqfggPULSFNPOIB0542-30-79 10:18:001.51[facility]annHEMATOLOGY 2015-07-30 10:18:00 Test Item Value Reference Range Interpretation Comments PTT (test code = PTT) 43.9 s 22.9-35.8 [facility] HermannPARATHYROID CPMOCIP2563-10-73 10:18:001.18[facility] PARATHYROID MNTMTVE1237-28-89 10:18:001.15[facility] HermannCHEM DAXSZ2635-56-12 10:54:002.6[facility] HermannCHEM ONLGQ8451-86-96 09:29:003.3[facility] IHZTXKBPWN3715-56-03 09:29:001.86[facility] SyujpvuYLQWMNYKAS0241-84-99 09:29:00 Test Item Value Reference Range Interpretation Comments PT (test code = PT) 21.8 s 12.0-14.7 [facility] XrsaumrLLETOMPEGJ7834-42-49 11:06:00 Test Item Value Reference Range Interpretation Comments PT (test code = PT) 21.3 s 12.0-14.7 [facility] OmbdtjiPQIZJROZFT3307-48-94 11:06:001.81[facility]annHEMATOLOGY 2015-07-25 12:47:00 Test Item Value Reference Range Interpretation Comments PTT (test code = PTT) 64.1 s 22.9-35.8 [facility] UhyvnveQVYTNCCOZI3462-93-71 05:31:00 Test Item Value Reference Range Interpretation Comments PTT (test code = PTT) 96.8 s 22.9-35.8 [facility]UR[facility] AND REJZR6894-65-53 00:30:00Negative (07/24/15 6:30 PM) [facility] BNZZX4198-31-81 00:30:00Negative (07/24/15 6:30 PM) [facility] EGRDG4442-08-68 00:30:00Negative (07/24/15 6:30 PM) [facility] AABDL4944-39-35 00:30:00Negative *NA*(07/24/15 6:30 PM) [facility] AITEH2478-35-23 00:30:00Clear (07/24/15 6:30 PM)[facility] NPBCF3413-44-91 00:30:001.012[facility] AND STOOL 2015-07-25 00:30:005.5[facility] AND TZBAS1698-76-53 00:30:00Yellow *NA*(07/24/15 6:30 PM)[facility] FFIJG4103-62-11 00:30:004[facility]UR[facility] AND JRHFU6772-51-36 00:30:001[facility] STOOL 2015-07-22 11:02:00Negative (07/22/15 5:02 AM)[facility] STOOL 2015-07-22 11:02:002.0[facility]UR[facility] AND FGJPC5759-99-37 11:02:00Negative *NA*(07/22/15 5:02 AM)[facility] DXGBL0036-76-87 11:02:001.009 [facility] XCATU3106-26-44 11:02:00Yellow *NA*(07/22/15 5:02 AM) [facility] CRKAG2818-06-36 11:02:007.5[facility] AND UEFPH9309-69-28 11:02:00Clear (07/22/15 5:02 AM)[facility] STOOL 2015-07-22 11:02:00Negative (07/22/15 5:02 AM)[facility] STOOL 2015-07-22 11:02:00Negative (07/22/15 5:02 AM)[facility] STOOL 2015-07-22 11:02:00<1[facility] GgiiuraDZQBVMUQJH8489-45-70 07:05:95966Ukwchhgo SgtjepgDYJAYDTRXG5527-35-71 07:05:0033[facility] XavwlwwPZXCLBUSXG9980-79-50 07:05:573879Lejvcqgy ErrattvTOYKQQ5053-75-45 08:29:0012[facility] HermannLIPIDS 2015-07-21 08:29:0086[facility] OrxzwsnYLZAAG3554-21-97 08:29:0060[facility] XMKEZE7539-48-39 08:29:80473Bxgvvkka PtfpvxgSVBTFO9473-90-31 08:29:0070[facility] AtfhxksTEYHJN0981-51-57 08:29:002.40[facility] XvxbfirIFCCSAPXKF4121-57-81 23:13:00<1.6[facility] YdkckdmOHOLERVZQN6979-09-30 23:13:001.3[facility] AATVZLZSBY3859-56-33 23:13:002.7[facility] BaurpcqHKTWJXHRQP2203-67-89 02:30:56031 [facility] QmcqdevILHKGNBJQU2057-72-03 02:30:0088[facility]annHEMATOLOGY 2015-07-18 02:30:00Negative (07/17/15 8:30 PM)[facility] HermannIMMUNOLOGY 2015-07-15 23:55:006.6[facility] LzlqgoeNLDKHSMCXR2064-02-84 23:55:001.26[facility] XvzdoqyHZTNULEIGK8178-23-45 23:55:000.56[facility] RcfnikiPXEMKHJBNU4607-00-14 23:55:003.21[facility] OxsptaqYECQMEFFEP4450-52-84 23:55:000.77[facility] NOZAAWOXTC2826-53-13 23:55:000.81[facility] EycmktyDRCBJCLMCV7526-32-07 23:55:00 11.6[facility] SmhjjsaHJGUTOTYAY4860-48-17 23:55:008.5[facility] HermannIMMUNOLOGY 2015-07-15 23:55:0048.6[facility] EojziimEEJPNAIDKF2722-94-78 23:55:0012.2[facility] CaycirpUIEBUNFVQY8186-64-73 23:55:0019.1[facility] PdbwligHYIVUQUXJU2810-91-65 23:55:00Negative (07/15/15 5:55 PM)[facility] FnohgyePUMUDKESRE9330-81-17 23:55:00 Negative (07/15/15 5:55 PM)[facility] WjgjbhcVPLBGWIMPD0157-96-25 23:55:00Negative (07/15/15 5:55 PM)[facility] LemsxfoWSXUHFEHAM6183-24-58 23:55:00<10[facility] KvvyokyRHXCMFWOPD1946-64-24 23:55:00<3.1[facility] EfguazfQKSTCHEJFK7577-04-16 23:55:00Negative *NA*(07/15/15 5:55 PM)[facility] EqnhznyEMXPKUAFCC7442-06-49 23:55:00Negative *NA*(07/15/15 5:55 PM)[facility] ShlzyiwKXOEJEZNFP9753-40-30 23:55:00Negative *NA*(07/15/15 5:55 PM)[facility] LhzwfaaMQGRFOQKDQ0638-72-50 17:38:0066.4[facility] HermannCARDIAC QUXEUYM7737-38-99 12:50:0064[facility] FZTZONTOPK2658-42-51 12:50:000.93[facility] RbnerfpVEUUJAADRQ7086-60-25 12:50:00 Negative (07/15/15 6:50 AM)[facility] PkzimdiYPVPPXREYF3293-89-21 12:50:0046 [facility] McxeppbPARJFGIGHJ1537-12-62 12:50:0025[facility] HermannIMMUNOLOGY 2015-07-15 12:50:52332Ssjzgfmy DbohixtEXTJFYNICF3302-48-89 12:50:00<1.4 [facility] UrbecsfTAXEGRRTYA6678-00-26 12:50:001.6[facility] HermannIMMUNOLOGY 2015-07-15 12:50:002.2[facility] TbdjpqyPPJBFDETNX9663-89-47 12:50:0056.8[facility] HermannCARDIAC EEJETFH7632-90-96 08:00:0059[facility]annCARDIAC ENZYMES 2015-07-15 08:00:0059[facility] ShuhnuhKQZNXBCWBQ6156-85-66 05:50:30840Gpgwqxmo HermannBACTERIAL - JMDJISCX9830-82-57 02:25:00Negative (07/14/15 8:25 PM) [facility]BL[facility]OD BANK ASRYAPI2085-50-34 01:50:00Negative (07/14/15 7:50 PM) [facility]annCARDIAC VBEELVM5215-98-13 01:50:003.4[facility] HermannCARDIAC DFAAMJS1185-99-07 01:50:004.2[facility] HermannCHEM DYSHY8651-26-75 01:50:000.2 [facility]annCHEM KWAZN7803-85-44 01:50:004.0[facility] HermannCHEM PANEL 2015-07-15 01:50:0028[facility] HermannCHEM ASSZY0861-22-74 01:50:000.6[facility] HermannCHEM CMDEJ7596-13-86 01:50:000.9[facility] HermannCHEM FHSBB3017-24-34 01:50:0070[facility] HermannCHEM CXSLS5991-14-01 01:50:0023[facility] HermannCHEM AOYCR9390-04-91 01:50:002.6[facility] HermannCHEM KMYAR0117-00-90 01:50:0035 [facility]annCHEM GHSIF8106-75-37 01:50:006.6[facility] HermannCHEM PANEL 2015-07-15 01:50:002.2[facility] OfzcdriZLMXNM4425-84-93 01:50:0014[facility] HrcgiahBOKXYS0351-47-19 01:50:0091[facility] ViocbhtYMFGXA2310-90-01 01:50:0069 [facility] UgbpocsUCVMZC2765-54-52 01:50:77269Mxdfvawz WymfkxoVVDIJY6914-65-71 01:50:0072[facility] HzzojbgSRFBDN2943-43-38 01:50:002.52[facility] PARATHYROID PWSARZG7872-28-73 01:50:001.07[facility] HermannPARATHYROID PROFILE 2015-07-15 01:50:001.11[facility] HermannSPECIAL TFMCFBQXU7598-24-75 01:50:006.3 [facility]annUR[facility] AND GHGLY7422-24-46 01:50:00Negative *NA*(07/14/15 7:50 PM)[facility] QDKIK5295-86-10 01:50:005.5[facility]UR[facility] AND XVIAF1008-10-59 01:50:00Negative (07/14/15 7:50 PM)[facility]UR[facility] SAUCI2837-00-92 01:50:00Negative (07/14/15 7:50 PM)[facility] AND OYFDO2807-45-91 01:50:00Negative (07/14/15 7:50 PM)[facility]UR[facility] VUAYF1004-04-94 01:50:001.007[facility]annUR[facility] AND FOGXW1679-57-42 01:50:00 Light Yellow *NA*(07/14/15 7:50 PM)[facility] HermannURINE AND RWOCS5420-89-20 01:50:00Clear (07/14/15 7:50 PM)[facility] HermannURINE AND AEJGM8174-54-53 01:50:00<1[facility]
--- NOTE | 2020-03-25 15:56 | EDPHYS ---
Physician Documentation [facility] Name: Andrew Gutierres Age: 89 yrs Sex: Male : 1930 Arrival Date: 03/25/2020 Time: 15:28 Bed 19 Private MD: Marcello Cabrales H ED Physician Cuong Gatica HPI: 03/25 15:42 This 89 yrs old Male presents to ER via Ambulatory with complaints of Foot cp Pain. 15:42 The patient presents with pain, that is acute, redness. The complaints affect the cp amputation site of right foot. Onset: The symptoms/episode began/occurred gradually. Associated signs and symptoms: Pertinent positives: mild erythema, Pertinent negatives calf tenderness, fever, swelling. Historical: - Allergies: 15:35 No Known Allergies; ll1 - PSHx: 15:35 Kidney stents; 1 kidney; kidney CA; toe amputations; ll1 - Immunization history:: Flu vaccine is up to date. - Social history:: Smoking status: Patient denies any tobacco usage or history of. ROS: 15:44 Constitutional: Negative for body aches, chills, fever. cp 15:44 MS/extremity: Positive for erythema, pain, of the right foot. Exam: 15:53 Musculoskeletal/extremity: Extremities: grossly normal except: noted in the amputation cp site of right foot: toe 1 through 5 have been amputated, very mid erythema at site with no open wound, no drainage noted and minimal swelling, mild tenderness to palpation, Pulses: noted to be 2+ in the right dorsalis pedis artery. Vital Signs: 15:35 BP 155 / 89; Pulse 62; Resp 16; Temp 98.6; Pulse Ox 98% ; Weight 70.31 kg; Height 5 ft. ll1 6 in. (167.64 cm); Pain 5/10; 15:35 Body Mass Index 25.02 (70.31 kg, 167.64 cm) ll1 MDM: 15:37 Patient medically screened. cp 15:45 Differential diagnosis: cellulitis, osteomyelitis, abscess. cp 15:55 Data reviewed: vital signs, nurses notes, and as a result, I will discharge patient. cp 15:55 Counseling: I had a detailed discussion with the patient and/or guardian regarding: the cp historical points, exam findings, and any diagnostic results supporting the discharge/admit diagnosis, the need for outpatient follow up, a general surgeon, wound care. Administered Medications: No medications were administered Disposition: 16:00 Chart complete. cp 17:06 Co-signature as Attending Physician, Cuong Gatica MD I agree with the assessment and kdr plan of care. Disposition: 03/25/20 15:56 Discharged to Home. Impression: Cellulitis of right lower limb - mild right foot. - Condition is Stable. - Discharge Instructions: Cellulitis, Adult. - Prescriptions for Doxycycline Hyclate 100 mg Oral Tablet - take 1 tablet by ORAL route every 12 hours; 20 tablet. - Medication Reconciliation Form, Thank You Letter, Antibiotic Education, Prescription Opioid Use form. - Follow up: Prince Canales MD; When: 1 - 2 days; Reason: Recheck today's complaints. - Problem is new. - Symptoms are unchanged. Signatures: Cuong Gatica MD MD [facility] Aldo Kunz PA PA cp Lamar Salcedo RN RN Ludwig Elizalde RN RN ll1 Corrections: (The following items were deleted from the chart) 16:15 15:56 03/25/2020 15:56 Discharged to Home. Impression: Cellulitis of right lower limb - hb mild right foot. Condition is Stable. Forms are Medication Reconciliation Form, Thank You Letter, Antibiotic Education, Prescription Opioid Use. Follow up: Prince Canales; When: 1 - 2 days; Reason: Recheck today's complaints. Problem is new. Symptoms are unchanged. cp
--- NOTE | 2020-03-25 15:56 | ER ---
Nurse's Notes [facility] Name: Andrew Gutierres Age: 89 yrs Sex: Male : 1930 Arrival Date: 03/25/2020 Time: 15:28 Bed 19 Private MD: Marcello Cabrales H Diagnosis: Cellulitis of right lower limb-mild right foot Presentation: 03/25 15:35 Coronavirus screen: Client denies travel out of the [place] in the last 14 days. At this ll1 time, the client does not indicate any symptoms associated with coronavirus-19. Ebola Screen: Patient denies travel to an Ebola-affected area in the 21 days before illness onset. Initial Sepsis Screen: Does the patient meet any 2 criteria? No. Patient's initial sepsis screen is negative. Risk Assessment: Do you want to hurt yourself or someone else? Patient reports no desire to harm self or others. Onset of symptoms was March 13, 2020. 15:35 Method Of Arrival: Ambulatory ll1 15:35 Acuity: ALFREDO 3 ll1 15:39 Chief complaint: Patient states: Redness, pain to right foot for 2 weeks. 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 No drainage at this time. No fever. Triage Assessment: 15:37 General: Appears in no apparent distress. uncomfortable, Behavior is cooperative, bp appropriate for age, anxious. Pain: Complains of pain in right foot. EENT: No deficits noted. Neuro: No deficits noted. Cardiovascular: No deficits noted. Respiratory: No deficits noted. GI: No signs and/or symptoms were reported involving the gastrointestinal system. : No signs and/or symptoms were reported regarding the genitourinary system. Derm: Skin is red. Musculoskeletal: No deficits noted. Historical: - Allergies: 15:35 No Known Allergies; ll1 - PSHx: 15:35 Kidney stents; 1 kidney; kidney CA; toe amputations; ll1 - Immunization history:: Flu vaccine is up to date. - Social history:: Smoking status: Patient denies any tobacco usage or history of. Screenin:39 Abuse screen: Denies threats or abuse. Denies injuries from another. Nutritional bp screening: No deficits noted. Tuberculosis screening: No symptoms or risk factors identified. Fall Risk None identified. Assessment: 15:39 General: SEE TRIAGE NOTE. bp 15:42 Reassessment: WOUND CARE C/S ORDERED. bp Vital Signs: 15:35 BP 155 / 89; Pulse 62; Resp 16; Temp 98.6; Pulse Ox 98% ; Weight 70.31 kg; Height 5 ft. ll1 6 in. (167.64 cm); Pain 5/10; 15:35 Body Mass Index 25.02 (70.31 kg, 167.64 cm) ll1 ED Course: 15:28 Patient arrived in ED. mr 15:28 Marcello Cabrales DO is Private Physician. mr 15:34 Aldo Kunz PA is PHCP. cp 15:34 Cuong Gatica MD is Attending Physician. cp 15:35 Arm band placed on Patient placed in an exam room, on a stretcher. ll1 15:36 Triage completed. ll1 15:37 Kodi Chao, RN is Primary Nurse. bp 15:39 Patient has correct armband on for positive identification. Allergy band placed. Bed in bp low position. Call light in reach. Side rails up X2. 15:55 Prince Canales MD is Referral Physician. cp 16:14 No provider procedures requiring assistance completed. Patient did not have IV access hb during this emergency room visit. Administered Medications: No medications were administered Outcome: 15:56 Discharge ordered by MD. cp 16:14 Discharged to home ambulatory. hb 16:14 Condition: stable 16:14 Discharge instructions given to patient, Instructed on discharge instructions, follow up and referral plans. medication usage, wound care, Demonstrated understanding of instructions, follow-up care, medications, wound care, Prescriptions given X 1. 16:15 Patient left the ED. hb Signatures: De Anda, Akiko mr Aldo Kunz PA PA Lamar Peña RN RN hb Kodi Chao RN RN bp Lewis, Lynsay, RN RN ll1
[2020-03-27 08:58] VITALS: BP 155/89; TEMP 98.6; O2SAT 98
== END 2020-03-25 16:15 | disposition home or self-care (01) ==
LOC: ER 15:26
DX: L03.115 Cellulitis of right lower limb (principal); Z89.421 Acquired absence of other right toe(s); Z85.528 Personal history of other malignant neoplasm of kidney
CPT/HCPCS: 99282

== ENCOUNTER 2022-06-26 09:16 | Emergency (ER) | payer MEDICARE, BC ==
--- OUTSIDE RECORDS SUMMARY | 2022-06-26 09:21 | XMS REPORT | Continuity of Care Document ---
:1930 Author Organization [facility] t Address [address] Tripathi [address] [place] [address] Care Team Providers Name Role Phone SONYA MENCHACA Primary Care Physician Unavailable GENARO ROSA Attending Clinician Unavailable Vinita Arias LVN Attending Clinician Unavailable Sarai Goodwin MA Attending Clinician Unavailable Payers Payer Name Policy Type Policy Number Effective Date Expiration Date james MEDICARE PART B [id number] 1998 00:00:00 Problems Condition Condition Condition Status Onset Resolution Last Treating Co mments Source Name Details Category Date Date Treatment Clinician Date BPH BPH Disease Active [facility] (benign (benign 03-21 Health prostatic prostatic 00:00: hyperplasi hyperplasi 00 a) a) Fatigue Fatigue Disease Active [facility] 03-21 Health 00:00: 00 Urinary Urinary Disease Active [facility] frequency frequency 03-21 Heal th 00:00: 00 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 Social History Social Habit Start Date Stop Date Quantity Comments Source History of tobacco Current smoker [facility] use Exposure to 2022-03-10 2022-03-20 Not sure [facility] SARS-CoV-2 (event) 00:00:00 09:36:00 Tobacco use and 2021-03-15 2021-03-15 Smokeless tobacco [facility] exposure 00:00:00 00:00:00 non-user Sex Assigned At [birth year] [facility] 00:00:00 00:00:00 Smoking Status Start Date Stop Date Source Tobacco smoking consumption unknown [facility] Ex-smoker 2021-03-15 00:00:00 2021-03-15 00:00:00 [facility] Medications Ordered Filled Start Stop Current Ordering Indication Dosage Frequency Signature Comments Components Source Medication Medication Date Date Medication? Clinician (SIG) Name Name aspirin 81 Yes 81mg Take 81 mg U T MG EC 8-30 by mouth Health tablet 09:52: every 39 night. Multiple Yes Q.5D Take by [facility] Vitamins-Mi 8-30 mouth 2 Healt h nerals 09:52: (two) (Viteyes 39 times a AREDS day. Formula) capsule Multiple Yes QD Take by [facility] Vitamins-Mi 8-30 mouth 1 Healt h nerals 09:52: (one) time (CENTRUM 39 each day. SILVER PO) acetaminoph Yes 500mg Take 500 U T en 8-30 mg by Health (Tylenol) 09:52: mouth 500 MG 39 every tablet night. atorvastati Yes 20mg QD Take 20 mg UT n (Lipitor) 7-21 by mouth 1 He alth 20 MG 00:00: (one) time tablet 00 each day. donepezil Yes [facility] (Aricept) 6-17 Health 10 MG 00:00: tablet 00 warfarin Yes UT (Coumadin) 6-13 Health 6 MG tablet 00:00: 00 nebivolol Yes 2.5mg QD Take 2.5 UT (Bystolic) 6-07 mg by Health 5 MG tablet 00:00: mouth 1 00 (one) time each day. esomeprazol Yes UT e (NexIUM) 6-[address] 00:00: capsule 00 Vital Signs Vital Name Observation Time Observation Value Comments Source Systolic blood pressure 2022-03-21 14:43:00 182 mm[Hg] [facility] Diastolic blood pressure 2022-03-21 14:43:00 90 mm[Hg] [facility] Heart rate 2022-03-21 14:43:00 52 /min [facility] Body temperature 2022-03-21 14:43:00 36.44 Nita [facility] ealt Body height 2022-03-21 14:43:00 165.1 cm [facility] Body weight 2022-03-21 14:43:00 68.04 kg [facility] BMI 2022-03-21 14:43:00 24.96 kg/m2 [facility] Procedures Procedure Date / Time Performed Performing Clinician Sourc e POCT URINALYSIS W/O SCOPE 2022-03-20 22:18:00 Shelley [facility] BASIC METABOLIC PANEL 2022-03-20 14:52:00 Shelley, [facility] HEPATIC FUNCTION PANEL 2022-03-20 14:52:00 Shelley, [facility] CBC AND DIFFERENTIAL 2022-03-20 14:52:00 Shelley, [facility] CT CHEST/ABDOMEN/PELVIS WO 2021-03-11 16:03:48 ShelleyGenaro juárez [facility] CONTRAST [address] Encounters Start End Encounter Admission Attending Care Care Encounter Source Date/Time Date/Time Type Type Clinicians Facility Department ID 2022-09-29 2022-09-29 Outpatient MHGATITO GARCIA [id number] [facility] 10:00:00 10:00:00 27 ria Avilez 2022-09-18 2022-09-18 Outpatient GENARO ROSA [facility] [id number] [place] 10:15:00 10:15:00 Health 2022-05-30 2022-05-30 Outpatient MHIE JAYSONIE [id number] [facility] 10:00:00 10:00:00 26 ria Avilez 2022-03-20 2022-03-20 Office GENARO ROSA [facility] 6400 [id number] [place] 10:00:00 10:00:00 Visit [facility] 350.1.13.58 Health [id number] [id number] 2 2022-03-08 2022-03-08 Outpatient MHIE MHIE [id number] 09:15:00 09:15:00 [address] 2022-03-07 2022-03-07 Telephone Vinita Arias [facility] 6400 1.2.840. 114 [id number] [place] 00:00:00 00:00:[address] 350.1.13.58 Health 9.2.7.2.686 [id number] 2 2022-01-06 2022-01-06 Outpatient MHIE MHIE [id number] 11:15:00 11:15:00 24 l Raghav 2021-11-29 2021-11-29 Outpatient MHIE MHIE [id number] 11:45:00 11:45:00 23 l Raghav 2021-10-26 2021-10-26 Outpatient MHIE MHIE [id number] 09:45:00 09:45:00 22 l Raghav 2021-09-14 2021-09-14 Outpatient MHIE MHIE [id number] 10:45:00 10:45:00 21 l Raghav 2021-08-03 2021-08-03 Outpatient MHIE MHIE [id number] 15:00:00 15:00:00 20 l Raghav 2021-03-21 2021-03-21 Office Genaro Rosa [facility] 6400 1.2.840.114 [id number] [place] 09:50:07 10:20:[address] 350.1.13.58 Health 9.2.7.2.686 [id number] 2021-03-11 2021-03-11 EXT [facility] OP Genaro Rosa EXT MSRDP 1.2.840.114 [id number] [place] 00:00:00 00:00:00 LOCATION 350.1.13.58 H ealth 9.2.7.2.686 [id number] 2021-03-11 2021-03-11 EXT [facility] OP Shelley Tung EXT MSRDP 1.2.840.114 [id number] [place] 00:00:00 00:00:00 LOCATION 350.1.13.58 H ealth 9.2.7.2.686 [id number] 2021-02-10 2021-02-10 Orders Sarai Goodwin [facility] 6400 1.2.840.1 [id number] UT 00:00:00 00:00:00 Only Sarai Goodwin 350.1.13.58 Health 9.2.7.2.686 [id number] 2 2020-03-22 2020-03-22 Outpatient MHIE MHIE [id number] 11:30:00 11:30:00 19 ria Avilez 2020-03-22 2020-03-22 Outpatient MHIE MHIE [id number] 11:00:00 11:00:00 18 ria Avilez 2019-09-15 2019-09-15 Outpatient MHIE MHIE [id number] 10:45:00 10:45:00 17 ria Avilez 2019-09-01 2019-09-01 Outpatient MHIE MHIE [id number] 11:30:00 11:30:00 16 ria Avilez 2019-03-10 2019-03-10 Outpatient MHIE MHIE [id number] 11:30:00 11:30:00 15 ria Avilez 2018-09-02 2018-09-02 Outpatient MHIE MHIE [id number] 11:30:00 11:30:00 14 ria Avilez 2018-04-08 2018-04-08 Outpatient MHIE MHIE [id number] 11:15:00 11:15:00 13 ria Avilez 2017-12-10 2017-12-10 Outpatient MHIE MHIE [id number] 14:00:00 14:00:00 12 ria Avilez 2017-08-13 2017-08-13 Outpatient MHIE MHIE [id number] 13:30:00 13:30:00 11 ria Avilez 2017-02-23 2017-02-23 Outpatient MHIE MHIE [id number] 11:00:00 11:00:00 10 ria Avilez 2017-01-11 2017-01-11 Outpatient C [facility] [id number] 09:23:00 09:23:00 [facility] 2016-11-09 2016-11-09 Outpatient MHIE MHIE [id number] 13:00:00 13:00:00 09 ria Avilez 2016-07-06 2016-07-06 Outpatient JOSE GARCIA [id number] 13:00:00 13:00:00 08 ria Avilez 2016-03-16 2016-03-16 Outpatient JOSE GARCIA [id number] 13:15:00 13:15: 07 ria Avilez 2015-12-16 2015-12-16 Outpatient JOSE GARCIA [id number] 11:15:00 11:15:00 05 ria Avilez 2015-10-28 2015-10-28 Outpatient JOSE GARCIA [id number] 13:00:00 13:00:00 04 ria Avilez 2015-09-23 2015-09-23 Outpatient JOSE GARCIA [id number] 13:30:00 13:30:00 02 ria Avilez 2015-09-02 2015-09-02 Outpatient JOSE GARCIA [id number] 11:30:00 11:30:00 00 ria Avilez Results Test Description Test Time Test Comments Results Result Comments Source Hepatic function panel 2022-03-21 07:00:00 Test Item Value Reference Range Interpretation Comme nts PROTEIN, TOTAL (test 6.2 g/dL 6.1-8.1 code = 2885-2) ALBUMIN (test code = 3.7 g/dL 3.6-5.1 1751-7) GLOBULIN (test code = See_Comment [Auto mated message] 92572-2) The system [employer] generated this result transmitted ref erence range: 1.9 - 3. 7 g/dL (calc). The ref erence range was not u sed to interpret this result as normal/abnor mal. ALBUMIN/GLOBULIN RATIO See_Comment [Aut omated message] (test code = 1759-0) The [employer] which generated this result transmitted ref erence range: 1.0 - 2. 5 (calc). The ref erence range was not u sed to interpret this result as normal/abnor mal. BILIRUBIN, TOTAL (test 0.7 mg/dL 0.2-1.2 code = 1975-2) BILIRUBIN, DIRECT (test 0.1 mg/dL See_Comment [Au tomated message] code = 1968-01) The system wh ich generated this result transmitted ref erence range: < OR = 0 .2. The reference range was not used to interpr et this result as normal/abnormal . BILIRUBIN, INDIRECT See_Comment [Automa nikko message] (test code = 1970-07) The sys tem which generated this result transmitted ref erence range: 0.2 - 1. 2 mg/dL (calc). The ref erence range was not u sed to interpret this result as normal/abnor mal. ALKALINE PHOSPHATASE 66 U/L 35-144 (test code = 6768-6) AST (test code = 1920-8) 18 U/L 10-35 ALT (test code = 1742-6) 14 U/L 9-46 RAC (test code = RAC) Performing Organization Information: ? ?Site ID: RGA ? ?Name: [email or web address] [facility] ? ?Address: [address] [place] [address] ? ?Director: PARAM ROMANO MD [facility] metabolic [id number] 07:00:00 Test Item Value Reference Range Interpretation Comments GLUCOSE (test code = 72 mg/dL 65-99 ? 2345-7) Fasting referen ce interval UREA NITROGEN (BUN) 20 mg/dL 7-25 (test code = 3094-0) CREATININE (test 1.23 mg/dL 0.7-1.22 H code = 2160-0) EGFR (test code = See_Comment L The eGFR i s based 122960046) on the CKD-EPI 2020 equation. To calculate the n ew eGFR from a previous Creatinine or Cystatin Cresul t, go to https://www.kid ne y.org/professio na ls/kdoqi/gfr%5F ca lculator [Automated message] The system which generated this result transmitted reference range : > OR = 60 mL/min/1.73m2. The reference range was not used to interpr et this result as normal/abnormal . BUN/CREATININE RATIO See_Comment [Autom ated (test code = 3097-3) message ] The system which generated this result transmitted reference range : 6 - 22 (calc). The reference range was not used to interpr et this result as normal/abnormal . SODIUM (test code = 140 mmol/L 883-743 0713-2) POTASSIUM (test code 4.6 mmol/L 3.5-5.3 = 2823-3) CHLORIDE (test code 103 mmol/L 98-110 = 2075-0) CARBON DIOXIDE (test 31 mmol/L 20-32 code = 8-9) CALCIUM (test code = 9.2 mg/dL 8.6-10.3 64280-7) RAC (test code = Performing RAC) Organization Information: ? ?Site ID: RGA ? ?Name: [email or web address] [facility] ? ?Address: [address] [place] [phone] ? ?Director: PARAM ROMANO MD Lab Interpretation Abnormal (test code = 87095-3) [facility] and [id number] 07:00:00 Test Item Value Reference Range Interpretation Comments WHITE BLOOD CELL See_Comment [Automated COUNT (test code = message] The 6690-2) system which generated this result transmitted reference range : 3.8 - 10.8 Thousand/uL. Th e reference range was not used to interpret this result as normal/abnormal . RED BLOOD CELL COUNT See_Comment L [Autom ated (test code = 789-8) message] The system which generated this result transmitted reference range : 4.20 - 5.80 Million/uL. The reference range was not used to interpret this result as normal/abnormal . HEMOGLOBIN (test 12.5 g/dL 13.2-17.1 L code = 718-7) HEMATOCRIT (test 37.3 % 38.5-50 L code = 4544-3) MCV (test code = 89.2 fL 80-100 787-2) MCH (test code = 29.9 pg 27-33 785-6) MCHC (test code = 33.5 g/dL 32-36 786-4) RDW (test code = 12.4 % 11-15 788-0) PLATELET COUNT (test See_Comment [Autom ated code = 777-3) message] The system which generated this result transmitted reference range : 140 - 400 Thousand/uL. Th e reference range was not used to interpret this result as normal/abnormal . MPV (test code = 11.5 fL 7.5-12.5 776-5) ABSOLUTE NEUTROPHILS See_Comment [Autom ated (test code = 751-8) message] The system which generated this result transmitted reference range : 1500 - 7800 cells/uL. The reference range was not used to interpret this result as normal/abnormal . ABSOLUTE LYMPHOCYTES See_Comment [Autom ated (test code = 731-0) message] The system which generated this result transmitted reference range : 850 - 3900 cells/uL. The reference range was not used to interpret this result as normal/abnormal . ABSOLUTE MONOCYTES See_Comment [Automat ed (test code = 742-7) message] The system which generated this result transmitted reference range : 200 - 950 cells/uL. The reference range was not used to interpret this result as normal/abnormal . ABSOLUTE EOSINOPHILS See_Comment [Autom ated (test code = 711-2) message] The system which generated this result transmitted reference range : 15 - 500 cells/uL. The reference range was not used to interpret this result as normal/abnormal . ABSOLUTE BASOPHILS See_Comment [Automat ed (test code = 704-7) message] The system which generated this result transmitted reference range : 0 - 200 cells/u L. The reference range was not used to interpr et this result as normal/abnormal . NEUTROPHILS (test 66.8 % code = 770-8) LYMPHOCYTES (test 16.5 % code = 736-9) MONOCYTES (test code 12.4 % = 5905-5) EOSINOPHILS (test 3.8 % code = 713-8) BASOPHILS (test code 0.5 % REPORT = 706-2) COMMENT:MULTIPL E TESTING PRIORITIES; ROUTINE TESTING TO FOLLOW. RAC (test code = Performing RAC) Organization Information: ? ?Site ID: RGA ? ?Name: [email or web address] [facility] ? ?Address: [address] [place] [phone] ? ?Director: PARAM ROMANO MD Lab Interpretation Abnormal (test code = 40323-2) [facility] urinalysis w/o [id number] 22:18:00 Test Item Value Reference Range Interpretation Comments Color, UA (test code = Yello w 2888048) Clarity, UA (test code Clear = 9877526) Glucose, UA (test code Negative Negative = 1617533) Bilirubin, UA (test Negative Negative code = 5360105) Ketones, UA (test code Negat thomas = 4857697) Spec Grav, UA (test 1.000-1.030 code = 6293675) Blood, UA (test code = Negative 4546856) pH, UA (test code = 5.0-8.5 0658093) Protein, UA (test code Negative Negative, Trace, = 7820734) 200(+2)mg/dL, 15/mg/dL Urobilinogen, UA (test See_Comment [Aut omated message] code = 8813374) The system [facility] generated this result transmit nikko reference range : 0.2. The refere nce range was not u sed to interpret th is result as normal/abnormal . Leukocytes, UA (test Trace Negative, Trace code = 2609578) Nitrite, UA (test code Negative Negative, Trace = 8269828) Appearance, Fluid (test Clear code = 9335-1) Lab Interpretation Normal (test code = 94173-0) [facility]
--- NOTE | 2022-06-26 13:04 | RAD REPORT ---
EXAM DESCRIPTION: RAD - Knee Left 3 View - 06/26/2022 11:55 am CLINICAL HISTORY: Left knee pain FINDINGS: No fracture or dislocation is seen. 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 Osteoporosis
--- NOTE | 2022-06-26 13:20 | ER ---
Nurse's Notes [facility] Name: Andrew Gutierres Age: 89 yrs Sex: Male : 1930 Arrival Date: 06/26/2022 Time: 09:25 Bed 10 Private MD: Marcello Cabrales H Diagnosis: Other internal derangements of left knee Presentation: 06/26 09:50 Chief complaint: Patient states: Getting up from the floor yesterday and felt a pop in jl7 left knee, reports pain with ambulation. Coronavirus screen: At this time, the client does not indicate any symptoms associated with coronavirus-19. Ebola Screen: No symptoms or risks identified at this time. Initial Sepsis Screen: Does the patient meet any 2 criteria? No. Patient's initial sepsis screen is negative. Does the patient have a suspected source of infection? No. Patient's initial sepsis screen is negative. Risk Assessment: Do you want to hurt yourself or someone else? Patient reports no desire to harm self or others. Onset of symptoms was June 25, 2022. 09:50 Method Of Arrival: Wheelchair jl7 09:50 Acuity: ALFREDO 4 jl7 Triage Assessment: 09:52 General: Appears in no apparent distress. uncomfortable, Behavior is calm, cooperative, jl7 appropriate for age. Pain: Complains of pain in left knee Pain currently is 0 out of 10 on a pain scale. at worst was 7 out of 10 on a pain scale. Historical: - Allergies: 09:52 No Known Allergies; jl7 - Home Meds: 09:52 Xarelto oral [Active]; atorvastatin 20 mg oral tab [Active]; esomeprazole magnesium jl7 oral [Active]; amlodipine 2.5 mg tab [Active]; nebivolol oral [Active]; donepezil 10 mg oral tab [Active]; - PMHx: 09:52 Hypercholesterolemia; GERD; Hypertensive disorder; macular degeneration; Dementia; jl7 - Immunization history:: Client reports receiving the 2nd dose of the Covid vaccine. - Social history:: Smoking status: Patient denies any tobacco usage or history of. Screenin:00 Abuse screen: Denies threats or abuse. Denies injuries from another. Nutritional ko1 screening: No deficits noted. Tuberculosis screening: No symptoms or risk factors identified. Fall Risk Fall in past 12 months (25 points). Assessment: 13:00 General: Appears in no apparent distress. comfortable, Behavior is calm, cooperative, ko1 appropriate for age. Pain: Complains of pain in left leg and left knee. Neuro: No deficits noted. Cardiovascular: No deficits noted. Respiratory: No deficits noted. GI: No deficits noted. : No deficits noted. EENT: No deficits noted. Derm: No deficits noted. Musculoskeletal: Reports pain in left leg and left knee. Vital Signs: 09:50 BP 143 / 75; Pulse 55; Resp 17; Temp 97.7; Pulse Ox 100% ; Weight 68.04 kg; Height 5 jl7 ft. 5 in. (165.10 cm); Pain 0/10; 13:00 BP 138 / 72; Pulse 58; Pulse Ox 100% on R/A; ko1 09:50 Body Mass Index 24.96 (68.04 kg, 165.10 cm) jl7 ED Course: 09:25 Patient arrived in ED. am2 09:25 Marcello Cabrales DO is Private Physician. am2 09:50 Sravanthi Pichardo, BELLA is Primary Nurse. jl7 09:51 Callum Kenyon PA is PHCP. jmm 09:51 Cuong Gatica MD is Attending Physician. jm 09:52 Triage completed. jl7 09:52 Arm band placed on right wrist. jl7 11:57 Knee Left 3 View XRAY In Process Unspecified. EDMS 13:00 Patient has correct armband on for positive identification. Bed in low position. Call ko1 light in reach. Side rails up X 1. Adult w/ patient. Pulse ox on. NIBP on. 13:00 No provider procedures requiring assistance completed. Patient did not have IV access ko1 during this emergency room visit. Knee immobilizer applied on left knee. 13:19 Donnie Elizondo MD is Referral Physician. [facility] Administered Medications: No medications were administered Medication: 13:00 VIS not applicable for this client. ko1 Outcome: 13:20 Discharge ordered by . saqib 13:37 Discharged to home via wheelchair, with family. ko1 13:37 Condition: good 13:37 Discharge instructions given to patient, family, Instructed on discharge instructions, follow up and referral plans. Demonstrated understanding of instructions, follow-up care. 13:42 Patient left the ED. ko1 Signatures: Dispatcher [employer] EDMS Callum Kenyon PA PA jmm Leal, Jahala, RN RN jl7 Naa Cortez Kathy, RN RN ko1 Corrections: (The following items were deleted from the chart) 13:37 13:00 Knee immobilizer applied on ko1 ko1
--- NOTE | 2022-06-26 13:20 | EDPHYS ---
Physician Documentation [facility] Name: Andrew Gutierres Age: 89 yrs Sex: Male : 1930 Arrival Date: 06/26/2022 Time: 09:25 Bed 10 Private MD: Marcello Cabrales H ED Physician Cuong Gatica HPI: 06/26 09:56 This 89 yrs old Male presents to ER via Wheelchair with complaints of Knee Pain - left. jmm 09:56 The patient presents with an injury, pain. Onset: The symptoms/episode began/occurred jmm acutely, just prior to arrival. Modifying factors: The symptoms are alleviated by. Associated signs and symptoms: Pertinent negatives fever. This is an 89 year old male with a history of hlp, gerd, htn that presents to the ED with complaints of left knee pain after feeling a pop while getting up yesterday. Denies other injury. . Historical: - Allergies: 09:52 No Known Allergies; jl7 - Home Meds: 09:52 Xarelto oral [Active]; atorvastatin 20 mg oral tab [Active]; esomeprazole magnesium jl7 oral [Active]; amlodipine 2.5 mg tab [Active]; nebivolol oral [Active]; donepezil 10 mg oral tab [Active]; - PMHx: 09:52 Hypercholesterolemia; GERD; Hypertensive disorder; macular degeneration; Dementia; jl7 - Immunization history:: Client reports receiving the 2nd dose of the Covid vaccine. - Social history:: Smoking status: Patient denies any tobacco usage or history of. ROS: 09:56 Constitutional: Negative for fever, chills, and weight loss, Cardiovascular: Negative jmm for chest pain, palpitations, and edema, Respiratory: Negative for shortness of breath, cough, wheezing, and pleuritic chest pain. 09:56 MS/extremity: Positive for injury or acute deformity. 09:56 All other systems are negative. Exam: 09:56 Constitutional: This is a well developed, well nourished patient who is awake, alert, jmm and in no acute distress. Head/Face: atraumatic. Eyes: EOMI, no conjunctival erythema appreciated ENT: Moist Mucus Membranes Neck: Trachea midline, Supple Chest/axilla: Normal chest wall appearance and motion. Cardiovascular: Regular rate and rhythm. No edema appreciated Respiratory: Normal respirations, no respiratory distress appreciated Abdomen/GI: Non distended Back: Normal ROM Skin: General appearance color normal 09:56 Musculoskeletal/extremity: mild swelling noted to the left knee, painful flexion appreciated, compartments are soft, NVI. 09:56 Skin: Appearance: Color: normal in color. 09:56 Neuro: Orientation: is normal, Mentation: is normal, Memory: is normal. 09:56 Psych: Behavior/mood is pleasant, cooperative. Vital Signs: 09:50 BP 143 / 75; Pulse 55; Resp 17; Temp 97.7; Pulse Ox 100% ; Weight 68.04 kg; Height 5 jl7 ft. 5 in. (165.10 cm); Pain 0/10; 13:00 BP 138 / 72; Pulse 58; Pulse Ox 100% on R/A; ko1 09:50 Body Mass Index 24.96 (68.04 kg, 165.10 cm) jl7 MDM: 09:56 Patient medically screened. [facility] 13:19 Data reviewed: vital signs, nurses notes. Counseling: I had a detailed discussion with saqib the patient and/or guardian regarding: the historical points, exam findings, and any diagnostic results supporting the discharge/admit diagnosis, radiology results, the need for outpatient follow up, to return to the emergency department if symptoms worsen or persist or if there are any questions or concerns that arise at home. 06/26 10:03 Order name: Knee Left 3 View XRAY; Complete Time: 13:05 [facility] 06/26 13:05 Order name: Knee Immobilizer; Complete Time: 13:38 [facility] Administered Medications: No medications were administered Disposition: 16:18 Co-signature as Attending Physician, Cuong Gatica MD I agree with the assessment and kdr plan of care. Disposition Summary: 06/26/22 13:20 Discharge Ordered Location: Home [facility] Condition: Stable [facility] Diagnosis - Other internal derangements of left knee [facility] Followup: april - With: Donnie Elizondo MD - When: 2 - 3 days - Reason: Recheck today's complaints, Continuance of care, Re-evaluation by your physician Discharge Instructions: - Discharge Summary Sheet [facility] - Acute Knee Pain, Adult [facility] Forms: - Medication Reconciliation Form [facility] - Thank You Letter saqib - Antibiotic Education jmm - Prescription Opioid Use jmm Signatures: Dispatcher [employer] Cuong Crockett MD MD kdr Mickail, Joel, PA PA jmm Leal, Jahala RN RN jl7
[2022-06-26 14:15] VITALS: TEMP 97.7; O2SAT 100
[2022-06-26 14:16] VITALS: BP 138/72
== END 2022-06-26 13:42 | disposition home or self-care (01) ==
LOC: ER 09:16
DX: M23.8X2 Other internal derangements of left knee (principal)
CPT/HCPCS: 99283

== ENCOUNTER 2022-07-28 08:10 | Day surgery (SDC) | payer MEDICARE, BC ==
[2022-07-28] MEDS ORDERED: Ringers Lactate 1,000 ML IV ONE (08:28)
[2022-07-28 08:37] VITALS: O2SAT 100
[2022-07-28] MEDS ORDERED: LIDOCAINE 2% MPF 5 ML VIAL ONE (08:57)
[2022-07-28] MEDS ORDERED: propofoL 200 MG/20 ML VIAL IV ONE (08:57)
[2022-07-28] MEDS ORDERED: FENTANYL CITR 100 MCG/2 ML ONE (08:57)
[2022-07-28] MEDS ORDERED: LIDOCAINE 1.5% W/EPI AMP 5 ML ONE (12:07)
--- NOTE | 2022-07-28 14:45 | P.OP ---
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 left ear BCC (fzn); B. new 3 to 6 to 9 to 12 margin (fzn) Findings: negative margins on specimen B Operative Technique: The patient was administered IV sedation. While under effect, the left ear was examined, cleaned with alcohol and injected with 3 mL of 1.5% lidocaine with epinephrine. The left ear canal was packed with a cottonball due to underlying history of tympanic perforation, the external ear area was then prepped with Betadine and draped in a sterile fashion. The lesion was just inside the root of the helix and appeared to be approximately 4 mm in diameter. A margin of several millimeters was designed and the skin was incised using a 15 blade scalpel. The lesion was elevated along with a portion of the cartilage as a deep margin. The specimen was marked with a suture at the anteriormost aspect, marking 12:00. This was then sent to pathology for frozen section analysis. The defect was treated with needlepoint electrocautery to obtain hemostasis and covered with a moist gauze. The pathologist noted positive margins around 10:00 and spanning from approximately 4:00 to 6:00 to 8:00. After review of the slides and intraoperative consultation, I returned to the operating room. A new 3-6 to 9-12 o'clock margin was designed of approximately 3 mm. A marking suture was placed at 12:00 and the specimen was elevated sharply from underlying tissues and sent to pathology for frozen section. The defect was noted to measure 2.2 by approximately 2 cm. Some of the cartilage around the root of the helix was excised in order to improve graft application. Specimen B demonstrated negative margins and closure could proceed. A TheraSkin graft was prepared and thawed according to oil and gas recruiter instructions. A 2 x 2.2 cm portion of the graft was cut and applied to the ear defect. The graft was secured using a Xeroform bolster held in place by 6 radial silk sutures. The area was cleaned and dried. The cottonball was removed from the ear canal. The patient was returned to care of anesthesia for transportation to day surgery. Complications: None Transferred to: Recovery Room Condition: Good
[2022-07-28 15:43] VITALS: BP 141/71; TEMP 96.8
== END 2022-07-28 15:36 | disposition home or self-care (01) ==
LOC: OR 08:10
PROVIDERS: ATTEND Otolaryngology
PROC: 0JB00ZZ Excision of Scalp Subcutaneous Tissue and Fascia, Open Approach (ICD-10-PCS; principal; 2022-07-28 10:00)
DX: C44.219 Basal cell carcinoma of skin of left ear and external auricular canal (principal)
CPT/HCPCS: 88305; 88331; 88332; J2001; J2704; J3010; J7120